=== PATIENT | male | born 1935 | race Caucasian/White ===

== ENCOUNTER 2019-12-25 15:26 | Inpatient (IN) | payer MEDICARE, OTHER ==
[~2019-12-25] VITALS: Ht 177 cm; Wt 73.5 kg
--- NOTE | 2019-12-26 05:11 | Progress Note ---
Progress Note [facility] Hospitalist note: Chief Complaint-Parietal lobe infarction HPI-Yefri Reardon a 84 y.o.malewith COPD, CKD, diabetes, hyperlipidemia, GERD, PVD and hypertension and history of lymphoma who presented to the ED with altered mental status. Patient was discharged 3 days ago because of stroke. He spent 2 days at home and return to the hospital with confusion and word finding. Patient seen and examined this morning at bedside. Patient unable to provide any history. Granddaughter was by the bedside who stated that patient was doing very well initially at home without any much difficulties but yesterday morning, he began to feel confused and unable to speak. He underwent MRI that showed acute expansion of previous stroke. Patient was discharged on aspirin and Plavix. Afebrile and hemodynamically stable today. Able to follow simple commands. Cardiology and neurology consulted. Labs reviewed 12/19 patient was seen and examined at the bedside. was present during evaluation. Aphasia much improved. Had delirium overnight but much improved this morning. Scheduled for TABBY today. Neurology following. 12/20 patient was seen and examined at the bedside. Patient continues to improve. Speech and cognition are much better. Patient has urinary retention for which straight cath was performed and a total of about 700cc of urine was removed 12/21 patient was seen and examined at the bedside. Patient continues to improve daily. 12/22 patient seen and examined. No new complains 12/23 patient was seen and examined. No new complains 12/24 patient was seen and examined. Slowly improving. Unable to discharge today due to bed unavailability Diagnosis Protein-calorie malnutrition, moderate Urinary retention Cerebrovascular accident (CVA) Expressive aphasia Parietal lobe infarction Acute metabolic encephalopathy Elevated troponin I level Transient alteration of awareness Aphasia Diastolic dysfunction Type 2 diabetes mellitus with stage 3 chronic kidney disease, without long- term current use of insulin Hx of splenectomy Type 2 diabetes mellitus without complication, without long-term current use of insulin Low grade B-cell lymphoma Bilateral carotid artery stenosis CKD (chronic kidney disease) stage 3, GFR 30-59 ml/min JAMAL CANADA DO Dec 26, 2019 05:11
[2019-12-26] MEDS ORDERED: CALCIUM CARBONATE 500 MG (TUMS) TAB.CHEW PO PRN (05:15)
[2019-12-26] MEDS ORDERED: ONDANSETRON 4 MG (ZOFRAN) ORAL DISSOLVE TAB PO PRN (05:15)
[2019-12-26] MEDS ORDERED: LACTULOSE SYRUP 10GM/15ML (ENULOSE) 30ML UDC PO PRN (05:15)
[2019-12-26] MEDS ORDERED: ALPRAZolam 0.25 MG (XANAX) TAB PO PRN (05:15)
[2019-12-26] MEDS ORDERED: diphenhydrAMINE 25 MG TAB (BENADRYL) PO PRN (05:15)
[2019-12-26] MEDS ORDERED: MELATONIN 3 MG TABLET PO PRN (05:15)
[2019-12-26] MEDS ORDERED: BISACODYL 10 MG SUPP (DULCOLAX) PR PRN (05:15)
[2019-12-26] MEDS ORDERED: DOCUSATE SODIUM 100 MG (COLACE) CAP PO PRN (05:15)
[2019-12-26] MEDS ORDERED: LOPERAMIDE 2 MG (IMODIUM) TABLET PO PRN (05:15)
[2019-12-26] MEDS ORDERED: FLEET ENEMA ADULT 1 EA BTL PR PRN (05:15)
--- NOTE | 2019-12-26 08:30 | NUR ---
PALLAVI SAUCEDA admitted to room 223-1, with an admitting diagnosis of CVA, on 12/26/19 from [facility] via PRIVATE VEHICLE, accompanied by FAMILY. PALLAVI SAUCEDA introduced to surroundings, call light, bed controls, phone, TV, temperature control, lights, meal times, smoking policy, visitor policy, side rail policy, bathrooms and showers. Patient Rights given to patient in the handbook. PALLAVI SAUCEDA verbalizes understanding that [facility] is not responsible for the loss or damage to any personal effects or valuables that are kept in the patient's possession during their hospitalization. The following Patient Care Plans were discussed with the PATIENT: Discharge Planning, ALTERED CEREBRAL TISSUE PERFUSION, IMPAIRED MOBILITY, SELF CARE DEFICIT, IMPAIRED COMMUNICATION, HIGH RISK: ASPIRATION, and KNOWLEDGE DEFICIT: CVA. PALLAVI SAUCEDA verbalizes understanding of Interdisciplinary Patient Education. Patient received Patient Rights Booklet, which includes Privacy Act Statement and Data Collection Information Summary.
[2019-12-26] MEDS ORDERED: FAMO20TA5 PO (09:15)
[2019-12-26] MEDS ORDERED: CHOL10008 PO (09:15)
[2019-12-26] MEDS ORDERED: SERT25TA5 PO (09:15)
[2019-12-26] MEDS ORDERED: ASPI-1238 PO (09:15)
[2019-12-26] MEDS ORDERED: ATOR40TA70 PO (09:15)
[2019-12-26] MEDS ORDERED: CLOP75TA69 PO (09:15)
[2019-12-26] MEDS ORDERED: ESOM20CA PO (09:15)
[2019-12-26] MEDS ORDERED: LATA2.5D5 OU (09:15)
--- NOTE | 2019-12-26 09:17 | NUR ---
THE MED REC WAS ENTERED USING THE [facility] DISCHARGE ORDER- AFTER MEDICATIONS ARE CONTINUED I WILL SPEAK WITH THE PT AND MAKE CHANGES TO THE MED REC/NOTES IF NEEDED Addendum: 12/28/19 at 1233 by RICHARD SCOTT [facility] WHEN I WENT TO SPEAK WITH THE PT HE WASNT ABLE TO TELL ME MUCH ABOUT HIS MEDICATIONS AND HE SUGGESTED THAT I CALL HIS MILLER. I SPOKE WITH MILLER AND WENT THRU THE EXT MED HISTORY. ACCORDING TO MILLER THE PT HAD BEEN DISCHARGED FROM [facility] WAS AT HOME JUST A FEW DAYS AND THEN WAS RE-ADMITTED. WHEN PALLAVI LEFT [facility] THE FIRST TIME HE WAS SENT HOME WITH ATORVASTATIN 40MG (PREVIOUSLY HE HAD BEEN ON LOVASTATIN 20MG), PLAVIX 75MG, SERTRALINE 25MG, ASPIRIN 81, NEXIUM OTC 20MG, AND FAMOTIDINE 20MG- AND ALL THESE MEDICATIONS THE PT HAD STARTED TAKING WHEN HE WAS AT HOME. THE CURRENT DISCHARGE FROM [facility] HAS THE SAME MEDICATIONS LISTED TO CONTINUE. DUE TO THE INFORMATION ABOVE THERE ARE NO CHANGES THAT NEED TO BE MADE TO THE MED REC.
[2019-12-26] MEDS ORDERED: ACETAMINOPHEN 325 MG TABLET PO PRN (09:30)
[2019-12-26 09:34] VITALS: BP 116/56
--- NOTE | 2019-12-26 10:18 | PM&R Post Admission Assessment ---
PM&R Date of Visit: Dec 26, 2019 Time of Visit: 10:00 History of Present Illness CC: CVA HPI: This is an 84yoWM transferred from [facility] after suffering an extension of a parietal stroke after DC 3 days before from the original stroke in need of aggressive therapy in order to recover. PLOF was independent and driving and currently experiencing expressive aphasia and confusion and will need aggressive treatment in order to recover from the severe deficits. Patient denies pain. I reviewed [facility] DC note and DC meds. [facility] Hospitalist note: Chief Complaint-Parietal lobe infarction HPI-Yefri Reardon a 84 y.o.malewith COPD, CKD, diabetes, hyperlipidemia, GERD, PVD and hypertension and history of lymphoma who presented to the ED with altered mental status. Patient was discharged 3 days ago because of stroke. He spent 2 days at home and return to the hospital with confusion and word finding. Patient seen and examined this morning at bedside. Patient unable to provide any history. Granddaughter was by the bedside who stated that patient was doing very well initially at home without any much difficulties but yesterday morning, he began to feel confused and unable to speak. He underwent MRI that showed acute expansion of previous stroke. Patient was discharged on aspirin and Plavix. Afebrile and hemodynamically stable today. Able to follow simple commands. Cardiology and neurology consulted. Labs reviewed 12/19 patient was seen and examined at the bedside. was present during evaluation. Aphasia much improved. Had delirium overnight but much improved this morning. Scheduled for TABBY today. Neurology following. 12/20 patient was seen and examined at the bedside. Patient continues to improve. Speech and cognition are much better. Patient has urinary retention for which straight cath was performed and a total of about 700cc of urine was removed 12/21 patient was seen and examined at the bedside. Patient continues to improve daily. 12/22 patient seen and examined. No new complains 12/23 patient was seen and examined. No new complains 12/24 patient was seen and examined. Slowly improving. Unable to discharge today due to bed unavailability Diagnosis Protein-calorie malnutrition, moderate Urinary retention Cerebrovascular accident (CVA) Expressive aphasia Parietal lobe infarction Acute metabolic encephalopathy Elevated troponin I level Transient alteration of awareness Aphasia Diastolic dysfunction Type 2 diabetes mellitus with stage 3 chronic kidney disease, without long- term current use of insulin Hx of splenectomy Type 2 diabetes mellitus without complication, without long-term current use of insulin Low grade B-cell lymphoma Bilateral carotid artery stenosis CKD (chronic kidney disease) stage 3, GFR 30-59 ml/min Past Lxfdjii-Eavaxj-Nbrrjg Hx Past Med/Social Hx: Reviewed Nursing Past Med/Soc Hx, Reviewed and Corrections made Patient Social History Marrital Status: 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) Alcohol Use: Denies Use Smoking Status: Never a Smoker Recent Foreign Travel: No Contact w/other who traveled: No Recent Infectious Disease Expo: No Past Medical History splenectomy Cardiac: High Cholesterol, Hypertension Neurological: Stroke Gastrointestinal: Gastroesophageal Reflux Musculoskeletal: Arthritis Cancer: Lymphoma Did You Recieve Any Treatments: Yes PM&R Allergy/Meds/Data Review Allergies Coded Allergies: No Known Drug Allergies (Unverified , 12/26/19) Home Medications Scheduled Aspirin (Aspirin EC), 81 MG PO DAILY, (Reported) Atorvastatin Calcium (Atorvastatin Calcium), 40 MG PO HS, (Reported) Cholecalciferol (Vitamin D3) (Vitamin D3), 25 MCG PO DAILY, (Reported) Clopidogrel Bisulfate (Plavix), 75 MG PO DAILY, (Reported) Esomeprazole Magnesium (Nexium), 40 MG PO BID, (Reported) Latanoprost (Latanoprost), 1 DROP OU HS, (Reported) Sertraline HCl (Sertraline HCl), 25 MG PO DAILY, (Reported) Scheduled PRN Famotidine (Famotidine), 20 MG PO BID PRN for HEARTBURN, (Reported) Current Medications Current Medications Reviewed Review of Systems Constitutional: see HPI, malaise, weakness EENTM: no symptoms reported Respiratory: no symptoms reported Cardiovascular: no symptoms reported Gastrointestinal: no symptoms reported Genitourinary: other (retention) Musculoskeletal: no symptoms reported Skin: no symptoms reported Psychiatric/Neurological: Weakness All Other Systems Reviewed Negative Unless Noted: Yes Physical Exam Physical Exam Vital Signs Vital Signs - First Documented 12/26/19 09:34 Temp 36.6 Pulse 63 Resp 18 B/P (MAP) 116/56 Pulse Ox 93 O2 Delivery Room Air Capillary Refill : Height, Weight, BMI Height: '" Weight: lbs. oz. kg; 25.15 BMI Method: General Appearance: No Apparent Distress, WD/WN, Chronically ill Eyes: Bilateral Eye Normal Inspection, Bilateral Eye PERRL HEENT: PERRL/EOMI, Normal ENT Inspection, Pharynx Normal Neck: Full Range of Motion, Normal Inspection, Non Tender, Supple, Carotid Bruit Respiratory: Chest Non Tender, Lungs Clear, Normal Breath Sounds, No Accessory Muscle Use, No Respiratory Distress Cardiovascular: Regular Rate, Rhythm, No Edema, No Gallop, No JVD, No Murmur, Normal Peripheral Pulses Gastrointestinal: Normal Bowel Sounds, No Organomegaly, No Pulsatile Mass, Non Tender, Soft Back: Normal Inspection, No CVA Tenderness, No Vertebral Tenderness Extremity: Normal Capillary Refill, Normal Inspection, Normal Range of Motion, Non Tender, No Calf Tenderness, No Pedal Edema Neurologic/Psychiatric: Alert, Oriented x3, Normal Mood/Affect, 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 Norm as Tested, Abnormal Gait, Aphasia, Depressed Affect, Motor Weakness (right sided 3/5) Skin: Normal Color, Warm/Dry Lymphatic: No Adenopathy PM&R Medical Assessment & Plan REHAB/MEDICAL ASSESSMENT AND PLAN: REHAB IMPAIRMENT GROUP: CVA ETIOLOGIC DIAGNOSIS: CVA The comorbidities that impact the patients function and/or functional outcome by: advanced age, lymphoma hx, CRI, advanced age, confusion, expressive aphasia REHAB PLAN: The patient is being admitted to our comprehensive inpatient rehabilitation facility and can tolerate the intensity of service consisting of at least: 180 minutes of therapy a day, 5 out of 7 days a week Rehab treatment will consist of: PT OT ST will all focus on regaining function with the use of AD and improve ambulation and cognitive capability in order to return home with The patient/family has a good understanding of our discharge process and will benefit from an interdisciplinary inpatient rehabilitation program. The patient has potential to make improvement and is in need of at least two of the following multidisciplinary therapies including but not limited to physical, occ upational, speech, and prosthetics and orthotics. Additionally the patient will need services from respiratory, nutritional services, wound care, psychology, etc. (Customize this to each patient). Given the patients complex condition and risk of further medical complications, rehabilitation services cannot be safely or effectively provided at a lower level of care such as a prison facility. BARRIERS TO DISCHARGE: Confusion ESTIMATED LOS: 10 days DISPOSITION: Home RELEVANT CHANGES SINCE PREADMISSION SCREENING: I have compared the patients medical and functional status at the time of the preadmission screening and there are: no changes PROGNOSIS: Fair REHABILITATION GOALS: 1. PT OT ST will all focus on regaining function with the use of AD and improve ambulation and cognitive capability in order to return home with All the above goals were reviewed with the patient and he/she is in agreement. By signing this document, I acknowledge that I have personally performed a full physical examination on this patient within 24 hours of admission to this inpatient rehabilitation facility and have determined the patient to be able to tolerate the above course of treatment at an intensive level for a reasonable period of time. I will be completing a detailed individualized Plan of Care for this patient by day #4 of the patients stay based upon the Preadmission Screen, the Post-Admission Evaluation, and the therapy evaluations. Admission Dx/Comorbidities: (1) CVA (cerebral vascular accident) ICD Codes: I63.9 - Cerebral infarction, unspecified (2) Lymphoma in remission ICD Codes: C85.90 - Non-Hodgkin lymphoma, unspecified, unspecified site (3) Renal insufficiency ICD Codes: N28.9 - Disorder of kidney and ureter, unspecified (4) Expressive aphasia ICD Codes: R47.01 - Aphasia (5) Confusion ICD Codes: R41.0 - Disorientation, unspecified (6) Anemia ICD Codes: D64.9 - Anemia, unspecified (7) Retention, urine ICD Codes: R33.9 - Retention of urine, unspecified (8) Delirium ICD Codes: R41.0 - Disorientation, unspecified Assessment/Plan Assessment and Plan Assess & Plan/Chief Complaint Assessment: CVA Expressive aphasia Confusion Urinary retention h/o lymphoma CRI Fall risk Plan: IRF protocol Check labs in am Monitor for falls Monitor urinary retention JAMAL CANADA DO Dec 26, 2019 10:18
[2019-12-26] MEDS ORDERED: FAMOTIDINE 20 MG (PEPCID) TABLET PO PRN (10:45)
[2019-12-26] MEDS: PANTOPRAZOLE 40 MG (PROTONIX) TAB PO SCH ×2 (11:56→21:38)
[2019-12-26] MEDS: VITAMIN D3 25 MCG (1,000 UNITS) TABLET PO SCH (11:56)
[2019-12-26] MEDS: polyethylene glycoL POWDER 17 GM (MIRALAX) PACK PO SCH ×2 (11:56→21:39)
[2019-12-26] MEDS: SENNA W/DOCUSATE (SENOKOT S) TABLET PO SCH ×2 (11:56→21:39)
[2019-12-26] MEDS: DOCUSATE SODIUM 100 MG (COLACE) CAP PO SCH ×2 (11:56→21:40)
[2019-12-26] MEDS: SERTRALINE 50 MG (ZOLOFT) TABLET PO SCH (11:56)
[2019-12-26] MEDS: ENOXAPARIN 40 MG/0.4 ML (LOVENOX) SYR SC SCH (11:58)
--- NOTE | 2019-12-26 11:58 | Physical Therapy Evaluation ---
PT Evaluation-General Medical Diagnosis Admission Date Dec 26, 2019 at 08:55 Medical Diagnosis: CVA Onset Date: Dec 12, 2019 Therapy Diagnosis Therapy Diagnosis: impaired mobility, strength Precautions Precautions/Isolations: Fall Prevention, Standard Precautions Referral Physician: Cristopher Reason for Referral: Evaluation/Treatment Medical History Pertinent Medical History: CVA, GERD, PVD Additional Medical History Benign essential tremor, cancer, lymphoma s/p chemo, chronic renal insufficiency, enlarged spleen Social History Current Living Status: Spouse Entry Into Home: Stairs With Railing PT Steps Into Home: 4 Prior Prior Level of Function SCALE: Activities may be completed with or without assistive devices. 6-Cxnofrwadw-lkruuki completes the activity by him/herself with no assistance from a helper. 5-Set-up or Clean-up Assistance-helper sets up or cleans up; patient completes activity. [place] assists only prior to or following the activity. 4-Supervision or Touching Assistance-helper provides verbal cues and/or touching/steadying and/or contact guard assistance as patient completes activity. Assistance may be provided throughout the activity or intermittently. 3-Partial/Moderate Assistance-helper does LESS THAN HALF the effort. [place] lif ts, holds or supports trunk or limbs, but provides less than half the effort. 2-Substantial/Maximal Assistance-helper does MORE THAN HALF the effort. [place] lifts or holds trunk or limbs and provides more than half the effort. 9-Oyifozbkd-shkvux does ALL the effort. Patient does none of the effort to complete the activity. Or, the assistance of 2 or more helpers is required for the patient to complete the activity. If activity was not attempted, code reason: 7-Patient Refused. 9-Not Applicable-not attempted and the patient did not perform the activity before the current illness, exacerbation or injury. 10-Not Attempted due to Environmental Limitations-(lack of equipment, weather restraints, etc.). 88-Not Attempted due to Medical Conditions or Safety Concerns. unknown, patient is not able to communicate this info PT Evaluation-Current Subjective Patient in recliner pre tx, agrees to PT, has no complaints of pain. Patient has difficulty communicating and can't seem to answer questions that require more than a yes or no answer and has trouble following directions. Pt/Family Goals none stated Objective Patient Orientation: Person, Unable to Assess, Non-Verbal/Aphasic ROM/Strength ROM Lower Extremities WNL Strength Lower Extremities 5/5 gross LLE, 4+/5 gross RLE, accuracy may not be that good because patient has trouble following directions Neuromuscular (Tone, Coordination, Reflexes) Patient seems to have some right neglect and possibly some visual impairments. Sensory Hearing: Functional Sensation Right Lower Extremit: Intact Sensation Left Lower Extremity: Intact Transfers Roll Left & Right (QC): 6 Sit to Lying (QC): 6 Lying to Sitting/Side of Bed(Q: 6 Sit to Stand (QC): 4 Chair/Mmk-no-Cstpo Xfer(QC): 4 Toilet Transfer (QC): 4 Car Transfer (QC): 3 Patient performs bed mobility and supine <-> sit with independence, sit <-> stand and transfers with CGA, car transfer min assist. Patient has trouble following directions and often needs tactile cues. Gait Does the Patient Walk?: Yes Mode of Locomotion: Walk Anticipated Mode of Locomotion: Walk Walk 10 feet (QC): 4 Walk 50 ft with 2 Turns(QC): 4 Walk 150 ft (QC): 4 Walking 10ft/uneven surface-QC: 4 Distance: 100', 200' Gait Assistive Device: FWW Comments/Gait Description Patient can ambulate 200' with a rolling walker with CGA (including 50' with at least 2 turns of 90 degrees and 10' over an uneven surface). Wheelchair Training Does the Pt Use a Wheelchair?: No Wheel 50 ft with 2 turns (QC): 9 Wheel 150 ft (QC): 9 Stairs #of Steps: 4 1 Step (curb) (QC): 4 4 Steps (QC): 4 12 Steps (QC): 88 Patient can go up and down 4 steps using 2 handrails with CGA. Balance Sitting Static: Normal Sitting Dynamic: Normal Standing Static: Good Standing Dynamic: Good Picking up an Object (QC): 4 Treatment NuStep level 4 for 15 min, seated LAQ alternating for 5 min Assessment/Needs Patient has impaired mobility, strength. He has trouble following directions and often needs tactile cues. 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 Time Frame: Jan 16, 2020 Roll Left & Right (QC): 6 Sit to Lying (QC): 6 Lying-Sitting on Side/Bed(QC): 6 Sit to Stand (QC): 6 Chair/Gem-ec-Enctb Xfer(QC): 6 Toilet Transfer (QC): 6 Car Transfer (QC): 6 Does the Patient Walk: Yes Walk 10 feet (QC): 6 Walk 50ft with 2 Turns (QC): 6 Walk 150 ft (QC): 6 Walking 10ft on Uneven Surface: 6 1 Step (curb) (QC): 6 4 Steps (QC): 6 12 Steps (QC): 6 Picking up an Object (QC): 6 Wheel 50 feet with 2 turns (QC: 9 Wheel 150 feet: 9 PT Plan Problem List Problem List: Activity Tolerance, Functional Strength, Safety, Balance, Gait, Transfer Treatment/Plan Treatment Plan: Continue Plan of Care Treatment Plan: Education, Functional Activity Negrita, Functional Strength, Group Therapy, Gait, Safety, Therapeutic Exercise, Transfers Treatment Duration: Jan 16, 2020 Frequency: At least 5 of 7 days/Wk (IRF) Estimated Hrs Per Day: 1.5 hours per day Patient and/or Family Agrees t: Yes Safety Risks/Education Patient Education: Gait Training, Transfer Techniques, Steps, Correct Positioning, Safety Issues Teaching Recipient: Patient Teaching Methods: Demonstration, Discussion Response to Teaching: Reinforcement Needed Discharge Recommendations Plan Patient will perform bed mobility and transfer training, balance and endurance training, functional strengthen, stair training, gait training, and education, to improve functional mobility and independence at home. Therapy Discharge Recommendati: Home & Family Time/GCodes Time In: 1100 Time Out: 1200 Total Billed Treatment Time: 60 Total Billed Treatment 1 visit EVM 30' EX 20' FA 10' FAYE MORALES PT Dec 26, 2019 11:58
--- NOTE | 2019-12-26 12:53 | Occupational Ther Daily Note ---
OT Current Status-Daily Note Subjective Pt in bed upon entry. Pt alert/ oriented to person/ place/ situation (expressive aphasia- able to piece together orientation questions). Pt agrees to OT treatment session. Denies pain throughout. Pleasant, confused, requires increased time for problem solving and increased volume. Mental Status/Objective Patient Orientation: Person, Place, Situation ADL-Treatment Therapy Code Descriptions/Definitions Functional [place] Measure: 0=Not Assessed/NA 4=Minimal Assistance 1=Total Assistance 5=Supervision or Setup 2=Maximal Assistance 6=Modified [place] 3=Moderate Assistance 7=Complete IndependenceSCALE: Activities may be completed with or without assistive devices. 8-Qjwnoxehdb-axapxyy completes the activity by him/herself with no assistance from a helper. 5-Set-up or Clean-up Assistance-helper sets up or cleans up; patient completes activity. [place] assists only prior to or following the activity. 4-Supervision or Touching Assistance-helper provides verbal cues and/or touching/steadying and/or contact guard assistance as patient completes activity. Assistance may be provided throughout the activity or intermittently. 3-Partial/Moderate Assistance-helper does LESS THAN HALF the effort. [place] lifts, holds or supports trunk or limbs, but provides less than half the effort. 2-Substantial/Maximal Assistance-helper does MORE THAN HALF the effort. [place] lifts or holds trunk or limbs and provides more than half the effort. 7-Hqudeoooz-oeccbi does ALL the effort. Patient does none of the effort to complete the activity. Or, the assistance of 2 or more helpers is required for the patient to complete the activity. If activity was not attempted, code reason: 7-Patient Refused. 9-Not Applicable-not attempted and the patient did not perform the activity before the current illness, exacerbation or injury. 10-Not Attempted due to Environmental Limitations-(lack of equipment, weather restraints, etc.). 88-Not Attempted due to Medical Conditions or Safety Concerns. Oral Hygiene (QC): 4 (Completes with SBA/ assist with multiple items. Pt able to complete all tasks ) Bathing Location: L Arm, R Arm, L Upper Leg, R Upper Leg, L Lower Leg (including foot), R Lower Leg (including foot), Chest, Abdomen, Perineal Area Shower/Bathe Self (QC): 3 (min A: pt able to reach all areas, requires assist with bottom hygiene) Upper Body Dressing (QC): 3 (min A for threading UE's and probelm solving.) Lower Body Dressing (QC): 3 (min A assist with threading RLE with breif. Pt able to don pants with SBA including buttons) On/Off Footwear: 4 (SBA in recliner.) Toileting Hygiene (QC): 2 (Jennifer care with CGA in stance. Bottom hygiene with max A in stance.) Toilet Transfer (QC): 4 (CGA on/off) Other Treatment Pt in bed. Pt educated on OT/ role and purpose of tx/ ARU expectations. Pt aphasic, continually apologizes for lack of motoric/ verbal speed. Pt is assured he is able to take time, OT encourages pt to verbalize as well as he can. Pt agrees to tx. Pt supine to sit with SBA. Sit to stand from raised bed with cues for hand placement with SBA. Pt ambulates to recliner. Completes sponge bath as above, cues for problem solving and purpose of tx. Pt requests bathroom. Ambulates with walker to standard toilet, completes urination/ BM. Requires assist with BM clean up. Pt ambulates to sink, walker caught on door frame and pt LOB with min A to right, stands at sink level and completes hand hygiene with CGA. Pt returns to recliner (cues for hand placement), is oriented to remote/ nurse light and TV. Pt's LE's elevated, call light in reach, chair alarm on, water on table, all needs met. Education OT Patient Education: Correct positioning, Modified ADL techniques, Progress toward Goal/Update tx plan, Purpose of tx/functional activities, Rehab process, Safety issues, Transfer techniques Teaching Recipient: Patient Teaching Methods: Demonstration, Discussion Response to Teaching: Verbalize Understanding, Return Demonstration, Reinforcement Needed OT Short Term Goals Short Term Goals Time Frame: Jan 02, 2020 Eatin Oral hygiene: 4 Toileting hygiene: 4 Shower/bathe self: 4 Upper body dressin Lower body dressin Putting on/taking off footwear: 4 OT Chcf Goals Chcf Goals Time Frame: Jan 09, 2020 Eating (QC): 6 Oral Hygiene (QC): 5 Toileting Hygiene (QC): 6 Shower/Bathe Self (QC): 4 Upper Body Dressing (QC): 5 Lower Body Dressing (QC): 5 On/Off Footwear (QC): 5 Additional Goals: 1-Demonstrate ADL Tasks, 2-Verbalize Understanding, 3- ImproveStrength/Negrita 1=Demonstrate adherence to instructed precautions during ADL tasks. 2=Patient will verbalize/demonstrate understanding of assistive devices/modifications for ADL. 3=Patient will improve strength/tolerance for activity to enable patient to perform ADL's. OT Education/Plan Problem List/Assessment Assessment: Decreased Activ Tolerance, Decreased UE Strength, Dependent Transfers, Impaired Cognition, Impaired Funct Balance, Impaired I ADL's, Impaired Self-Care Skills Discharge Recommendations Plan/Recommendations: Continue POC Therapy Discharge Recommendati: Home & Family, Post Acute OT Treatment Plan/Plan of Care Treatment,Training & Education: Yes Patient would benefit from OT for education, treatment and training to promote independence in ADL's, mobility, safety and/or upper extremity function for ADL's. Plan of Care: ADL Retraining, Cognitive Retraining, Functional Mobility, Group Exercise/Act as Ind, UE Funct Exercise/Act, UE Neuromus Re-Ed/Coord, Visual/Perceptual Retrain, W/C Management Training Treatment Duration: Jan 09, 2020 Frequency: At least 5 of 7 days/Wk (IRF) Estimated Hrs Per Day: 1.5 hours per day Agreement: Yes Time/GCodes Start Time: 09:35 Stop Time: 11:05 Total Time Billed (hr/min): 90 Billed Treatment Time 1, ADL 6 (90) RADHA LAWRENCE OTR Dec 26, 2019 12:53
--- NOTE | 2019-12-26 13:42 | Occupational Therapy Eval ---
OT Evaluation-General/PLF Medical Diagnosis Admission Date Dec 26, 2019 at 08:55 Medical Diagnosis: Left Parietal posterior MCA stroke, aphasia Onset Date: Dec 12, 2019 Therapy Diagnosis Therapy Diagnosis: Weakness, Decreased ADL skills, aphasia Precautions Precautions/Isolations: Fall Prevention, Standard Precautions Safety Interventions: None Weight Bear Status Weight Bearing Restriction: Weight Bearing/Tolerated Referral Physician: Cristopher Referral Reason: Activity Tolerance, Self Care, Evaluation/Treatment, Strengthening/ROM Medical History Pertinent Medical History: CAD, COPD, CVA, DM, GERD, HTN, PVD Additional Medical History Benign essential tremor, cancer, lymphoma s/p chemo, chronic renal insufficiency, enlarged spleen Current History 11-3 AMS/stroke work up- MRI negative Repeat MRI- CVA likely embolic nature 12-15 Discharge home - Increased confusion and difficulty with speech. CT showing maturing left MCA CVA TABBY-No thrombus seen Reviewed History: Yes Social History Home: Single Level Current Living Status: Spouse Entry Into Home: Stairs With Railing Steps Into Home: 4 ADL-Prior Level of Function SCALE: Activities may be completed with or without assistive devices. 9-Koylgbljpn-obqnuby completes the activity by him/herself with no assistance from a helper. 5-Set-up or Clean-up Assistance-helper sets up or cleans up; patient completes activity. [place] assists only prior to or following the activity. 4-Supervision or Touching Assistance-helper provides verbal cues and/or touching/steadying and/or contact guard assistance as patient completes activity. Assistance may be provided throughout the activity or intermittently. 3-Partial/Moderate Assistance-helper does LESS THAN HALF the effort. [place] lifts, holds or supports trunk or limbs, but provides less than half the effort. 2-Substantial/Maximal Assistance-helper does MORE THAN HALF the effort. [place] lifts or holds trunk or limbs and provides more than half the effort. 2-Hanhldphd-zuucet does ALL the effort. Patient does none of the effort to complete the activity. Or, the assistance of 2 or more helpers is required for the patient to complete the activity. If activity was not attempted, code reason: 7-Patient Refused. 9-Not Applicable-not attempted and the patient did not perform the activity b efore the current illness, exacerbation or injury. 10-Not Attempted due to Environmental Limitations-(lack of equipment, weather restraints, etc.). 88-Not Attempted due to Medical Conditions or Safety Concerns. ADL PLOF Comments Pt. was independent with daily tasks. Does not use Adaptive device. Drives. 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 does not report pain. Does exhibit some anxiety throughout treatment, and becomes upset when he can't get words out correctly. Mental Status/Objective Patient Orientation: Person, Place Current Glasses/Contacts: Yes Upper Extremity ROM Pt. is able to flex bilateral shoulders to approximately 100 degrees. Note compensation at trunk level with this. This ROM is functional for him. Upper Extremity Coordination Impaired. Pt. is able to touch each finger to thumb on bilateral hands, but is slow and requires multiple cues for this. Upper Extremity Strength Right UE- 3+/5 Left UE-4/5 ADL-Treatment Eating (QC): 88 Oral Hygiene (QC): 10 Shower/Bathe Self (QC): 10 Upper Body Dressing (QC): 10 Lower Body Dressing (QC): 10 On/Off Footwear (QC): 3 (Min assist to untie/tie tennis shoes. Pt. is able to doff/don them. Pt. is able to doff/don slipper socks as well.) Toileting Hygiene (QC): 7 (Pt. states that he does not need to use toilet at this time.) Other Treatments Pt. is evaluated by occupational therapy to determine deficits and goals s/p CVA. Pt. arrives at this facility via private vehicle with spouse and son. Pt. is assisted out of car with min assist, and is able to stand and transfer to [facility]. Pt. is tearful when saying goodbye to family. Pt. arrives at rehab floor and is oriented to space, OT goals, and rehab goals overall. Pt. demonstrates aphasia, both expressively and receptively at times. He is aware that he isn't understanding, and will apologize and ask for OT to repeat self. Moderate difficulty following cues at times. Pt. already dressed at this time and states that his family assisted him with this at prior facility before transfer. In time allotment, pt. is able to demonstrate ability to stand with walker from wheelchair, needing min assist, and take steps to bed with min assist and cues. Pt. transfers sit-supine with min assist, and is able to position self in bed. OT encourages pt. and orients him to continued care he will receive the rest of the day. All needs are met and bed alarm is set. Will see pt. for ADLs and another session later today. Education OT Patient Education: Correct positioning, Modified ADL techniques, Progress t josie Goal/Update tx plan, Purpose of tx/functional activities, Reviewed precautions, Rehab process, Transfer techniques Teaching Recipient: Patient Teaching Methods: Demonstration, Discussion Response to Teaching: Verbalize Understanding, Return Demonstration OT Short Term Goals Short Term Goals Time Frame: Jan 02, 2020 Eatin Oral hygiene: 4 Toileting hygiene: 4 Shower/bathe self: 4 Upper body dressin Lower body dressin Putting on/taking off footwear: 4 OT [employer] Developer Goals [employer] Developer Goals Time Frame: Jan 09, 2020 Eating (QC): 6 Oral Hygiene (QC): 5 Toileting Hygiene (QC): 6 Shower/Bathe Self (QC): 4 Upper Body Dressing (QC): 5 Lower Body Dressing (QC): 5 On/Off Footwear (QC): 5 Additional Goals: 1-Demonstrate ADL Tasks, 2-Verbalize Understanding, 3- ImproveStrength/Negrita 1=Demonstrate adherence to instructed precautions during ADL tasks. 2=Patient will verbalize/demonstrate understanding of assistive devices/modifications for ADL. 3=Patient will improve strength/tolerance for activity to enable patient to perform ADL's. OT Education/Plan Problem List/Assessment Assessment: Decreased Activ Tolerance, Decreased Safety Aware, Decreased UE Strength, Dependent Transfers, Impaired Cognition, Impaired Coordination, Impaired Funct Balance, Impaired I ADL's, Impaired Self-Care Skills, Restricted Funct UE ROM Discharge Recommendations Plan/Recommendations: Continue POC Therapy Discharge Recommendati: Post Acute OT Treatment Plan/Plan of Care Treatment,Training & Education: Yes Patient would benefit from OT for education, treatment and training to promote independence in ADL's, mobility, safety and/or upper extremity function for ADL's. Plan of Care: ADL Retraining, Cognitive Retraining, Functional Mobility, Group Exercise/Act as Ind, UE Funct Exercise/Act, UE Neuromus Re-Ed/Coord, Visual/Perceptual Retrain, W/C Management Training Treatment Duration: Jan 09, 2020 Frequency: At least 5 of 7 days/Wk (IRF) Estimated Hrs Per Day: 1.5 hours per day Agreement: Yes Rehab Potential: Good Time/GCodes Start Time: 08:35 Stop Time: 09:25 Total Time Billed (hr/min): 50 Billed Treatment Time 1, EVM x 15minutes, ADL x 15minutes, FA x 20minutes VU YOST OT Dec 26, 2019 13:42
--- NOTE | 2019-12-26 13:42 | NUR ---
PERSISTENT COUGH, ESPECIALLY AFTER TAKING PILLS. WILL CRUSH AND PUT IN APPLESAUCE.
--- NOTE | 2019-12-26 14:02 | NUR ---
RD ASSESSMENT PMHx: COPD; CKD; DM; TIA; GERD; CA(lymphoma, bone); pneumonia; hypercholesterolemia; stroke; PT INTERACTION: Pt was awake and pleasant during consult for MST score. Note pt has AMS, per chart review. Pt states current appetite is okay. Note PO intake <10% x1meal, per chart review. Pt states following a regular diet at home, and has no issues with chewing/swallowing food. Pt does have a feeder at this time. Pt states no recent issues with nausea, vomiting, constipation or diarrhea, and that he is unsure of his last BM. Note pt currently on bowel regimen of colace BID, senna BID, and miralax BID, per chart review. Pt states current DM management is "pretty poor." Note unable to determine recent HbA1c, per chart review. Pt states no recent wt changes. Note unable to determine recent wt hx, per chart review. Upon visual assessment, pt appears to be adequately nourished with no visible signs of muscle/fat wasting, and a BMI of 25.2 (Normal BMI for age). Though PO intake is poor, given unable to determine wt hx, and visual assessment, pt does not meet criteria for malnutrition per ASPEN guidelines. ABNORMAL NUTRITION-RELATED LAB VALUES No labs drawn at this time. Est. kcal needs: 6780-1704 kcal | 25-30 kcal/kg Est. Pro needs: 63-79 g Pro | 0.8-1.0 g Pro/kg PES STATEMENT: Inadequate oral intake (NI-2.1) related to loss of appetite as evidenced by pt interview and PO intake <10% x1meal. INTERVENTION: Continue with current diet order of Regular diet. Recommend switching to consistent CHO diet if blood glucose levels become elevated. Switch current supplementation order of Ensure Enlive with meals TID, to Glucerna (vary) with meals TID, for increased kcal intake and glucose control. Glucerna provides 220 kcal and 10 g Pro per serving. Did not offer diet education on DM management as pt has AMS. May attempt to offer with family present at bedside. Encouraged pt to eat when able. Will continue to follow and reassess as pt needs, intake, and status change. Stefano Pringle, MS RD LD
--- NOTE | 2019-12-26 14:51 | ST Cognitive Linguistic Eval ---
Speech Evaluation-General Medical Diagnosis Left Parietal posterior MCA stroke, aphasia Onset Date: Dec 12, 2019 Therapy Diagnosis Therapy Diagnosis: Aphasia, Cognitive-communication Referral Referring Physician: Dr. Nicholas Medical History Pertinent Medical History: CAD, COPD, CVA, DM, GERD, HTN, PVD Reviewed History: Yes Social History Current Living Status: Spouse Speech PLF-Current Status Prior Level of Function Patient lived at home with his where he was independent for much of his daily needs. Subjective Patient was pleasant and cooperative with the cognitive assessment. Language Eval: Auditory Comprehends Simple Yes/No Ques: Functional Indent/Objects Multiple [place]: Functional Ident/Pics in Multiple [place]: Functional Follows 1-Step Commands: Mild Follows Complex Directions: Moderate Follows General Conversations: Mild Language Eval: Verbal Language Completes Spontaneous Greeting: Functional Produces Auto, Serial Info: Functional Imitates Simple Words/Phrases: Functional Word Finding: Mild Requests Basic Needs: Functional Expresses Complex Ideas: Moderate Objective Cognitive Domain Attention: Mild Memory: Moderate Problem Solving: Mild Executive Functions: Mild Visuospatial Skills: Mild Composite Severity Rating: Moderate Clock Drawing Severity Rating: Moderate Objective Formal/Standardized Tests [facility] Mental Status ([facility]) Results 18/30, Moderate Dementia range of function Oral Motor/Speech Production Within Normal Limits Impression Patient is a very pleasant 84 y/o male who was admitted to the ARU s/p CVA. Patient was given the UMS as well as informal speech tasks to assess current cognitive level of function. The patient scored 18/30 which is within the Moderate Dementia range of function. The patient is noted to have difficulty with word finding at times. He also has deficits in STM and word finding. The patient will receive skilled ST with focus on improving word finding, memory and safety awareness so that he may return home safer. Speech Patient Assess Expression of Ideas/Wants: Frequently (2) Understanding Verbal Content: Usually Understands (3) Brief Interview-Mental Status: Yes Repetition of Three Words: Two (2) Temporal Orientation: Year: Correct (3) Temporal Orientation: Month: Accurate within 5 days(2) Temporal Orientation: Day: Correct (1) Recall : Wear to say "Sock": No, could not recall (0) Recall : Color: No, could not recall (0) Recall : Bed: Yes,after cueing (1) Memory/Recall Ability: Current season, That he or she is in a hsp/hsp unit Speech Short Term Goals Short Term Goals Short Term Goals 1) The patient will complete memory tasks related to his daily needs with 80% or greater given minimal cues. 2) The patient will complete safety awareness tasks related to his daily needs with 80% or greater given minimal cues. 3) The patient will complete problem solving tasks related to his daily needs with 80% or greater given minimal cues. Speech Social Media Intern Goals Social Media Intern Goals Patient will improve cognitive-communication necessary for safety and daily living tasks with minimal assist. Speech-Plan Patient/Family Goals Patient/Family Goals: The patient plans on returning to his home where he lives with his upon discharge. Treatment Plan Speech Therapy Treatment Plan: Continue Plan of Care Treatment Duration: Jan 05, 2020 Frequency: 4 times per week (Patient will receive skilled ST 4-5x per week) Estimated Hrs Per Day: .5 hour per day Rehab Potential: Fair Barriers to Learning: Patient's recent CVA, age Pt/Family Agrees to Plan: Yes Safety Risks/Education Teaching Recipient: Patient Teaching Methods: Discussion Response to Teaching: Verbalize Understanding, Reinforcement Needed Education Topics Provided: Safety within his room, utilization of his call light Time Speech Therapy Time In: 14:00 Speech Therapy Time Out: 14:30 Total Billed Time: 30 Billed Treatment Time 1, BRISEIDA WOLF [address] ST Dec 26, 2019 14:51
[2019-12-26 16:22] VITALS: BP 148/67
--- NOTE | 2019-12-26 19:12 | NUR ---
Bedside report received from MICHELLE COWAN, assume care of pt
[2019-12-26] MEDS: LATANOPROST 0.005% (XALATAN) OPHTH SOLN 2.5 ML OU SCH (21:37)
[2019-12-26] MEDS: ALPRAZolam 0.25 MG (XANAX) TAB PO SCH (21:38)
--- NOTE | 2019-12-26 21:38 | NUR ---
protonix given whole in pudding, refused miralax & Senokot, all other meds given crushed in pudding, NIH stroke scale score 5, pt very worried about lady in picture with sink running over, assured pt it is just picture & not really happening
[2019-12-27 05:29] VITALS: BP 129/80
[2019-12-27 05:38] LABS: BASOPHILS # (AUTO) 0.1 10^3/uL (0.0-0.1); BASOPHILS % (AUTO) 1 % (0-10); EOSINOPHILS # (AUTO) 0.8 10^3/uL (0.0-0.3); EOSINOPHILS % (AUTO) 7 % (0-10); HEMATOCRIT 39 % (40-54); HEMOGLOBIN 12.8 g/dL (13.3-17.7); LYMPHOCYTES # (AUTO) 2.4 10^3/uL (1.0-4.0); LYMPHOCYTES % (AUTO) 22 % (12-44); MEAN CORPUSCULAR HEMOGLOBIN 33 pg (25-34); MEAN CORPUSCULAR HGB CONC 33 g/dL (32-36); MEAN CORPUSCULAR VOLUME 101 fL (80-99); MEAN PLATELET VOLUME 12.5 fL (9.0-12.2); MONOCYTES % (AUTO) 18 % (0-12); NEUTROPHILS # (AUTO) 5.8 10^3/uL (1.8-7.8); NEUTROPHILS % (AUTO) 52 % (42-75); PLATELET COUNT 249 10^3/uL (130-400); WHITE BLOOD COUNT 11.1 10^3/uL (4.3-11.0)
[2019-12-27 05:41] LABS: ALBUMIN 3.2 GM/DL (3.2-4.5)
[2019-12-27 05:42] LABS: POTASSIUM 4.2 MMOL/L (3.6-5.0)
[2019-12-27 05:43] LABS: CALCIUM 8.3 MG/DL (8.5-10.1)
[2019-12-27 05:44] LABS: TOTAL PROTEIN 6.9 GM/DL (6.4-8.2)
[2019-12-27 05:46] LABS: BILIRUBIN,TOTAL 0.7 MG/DL (0.1-1.0)
[2019-12-27 05:47] LABS: CREATININE SERUM 1.71 MG/DL (0.60-1.30)
[2019-12-27] MEDS: VITAMIN D3 25 MCG (1,000 UNITS) TABLET PO SCH (06:30)
[2019-12-27] MEDS: SENNA W/DOCUSATE (SENOKOT S) TABLET PO SCH ×2 (08:15→20:40)
[2019-12-27] MEDS: ENOXAPARIN 40 MG/0.4 ML (LOVENOX) SYR SC SCH (08:15)
[2019-12-27] MEDS: DOCUSATE SODIUM 100 MG (COLACE) CAP PO SCH ×2 (08:15→20:40)
[2019-12-27] MEDS: ASPIRIN E.C. 81 MG (ECOTRIN) TAB PO SCH (08:16)
[2019-12-27] MEDS: PANTOPRAZOLE 40 MG (PROTONIX) TAB PO SCH ×2 (08:16→20:41)
[2019-12-27] MEDS: SERTRALINE 50 MG (ZOLOFT) TABLET PO SCH (08:16)
[2019-12-27] MEDS: polyethylene glycoL POWDER 17 GM (MIRALAX) PACK PO SCH ×2 (08:16→20:46)
[2019-12-27] MEDS: CLOPIDOGREL 75 MG (PLAVIX) TABLET PO SCH (08:16)
--- NOTE | 2019-12-27 08:53 | Occupational Ther Daily Note ---
OT Current Status-Daily Note Subjective Pt alert, sitting in recliner. Pt very apprehensive today, continues to repeat "I am sorry." and "Thank you." No c/o pain. Mental Status/Objective Patient Orientation: Person, Confused, Non-Verbal/Aphasic, Time, Situation ADL-Treatment Pt agrees to shower. Is unable to remember last shower. Pt is requiring verbal and physical cues to complete tasks. Assist to place hands correctly to push to stand. When asked if pt needs to use the bathroom, pt states "I don't know, my body doesn't know." Verbal and physical cues to manipulate FWW to transfer into shower. Pt needed verbal/physical cues to turn on water. Pt Min A washing uppe r/lower body with verbal cues to get soap on to washcloth, able to reach all body parts. Pt used grab bars to stabilize while standing, CASTANEDA cleansed buttocks area. Pt needed hand over hand direction to place soap on head to wash hair. Pt stated " I think I'm using restroom" while sitting on shower bench not realizing till after bowel movement started. Pt used grab bars to pull self up, used FWW to ambulate to toilet. Pt used grab bars to stabilize SBA, CASTANEDA cleansed buttocks area. Pt ambulated to w/c using FWW. Pt performed upper body dressing CGA, verbal/physical cues to thread arms into shirt. Pt had verbal cues to dress lower body, Min A when threading feet into pants/briefs. Pt used FWW to stabilize while hiking pants over hips by self with verbal cues. Pt threaded socks/shoes onto feet with verbal cues and educated problem solving skills from CASTANEDA. Pt performed oral hygiene, brushing hair Min A at sink in w/c with verbal cues. Pt ambulated back to room using FWW to recliner. Pt was educated on how to use call light. Call light/phone in reach. All needs met in room. Therapy Code Descriptions/Definitions Functional [place] Measure: 0=Not Assessed/NA 4=Minimal Assistance 1=Total Assistance 5=Supervision or Setup 2=Maximal Assistance 6=Modified [place] 3=Moderate Assistance 7=Complete IndependenceSCALE: Activities may be completed with or without assistive devices. 5-Meobpacawf-avmxesd completes the activity by him/herself with no assistance from a helper. 5-Set-up or Clean-up Assistance-helper sets up or cleans up; patient completes activity. [place] assists only prior to or following the activity. 4-Supervision or Touching Assistance-helper provides verbal cues and/or touching/steadying and/or contact guard assistance as patient completes activity. Assistance may be provided throughout the activity or intermittently. 3-Partial/Moderate Assistance-helper does LESS THAN HALF the effort. [place] lifts, holds or supports trunk or limbs, but provides less than half the effort. 2-Substantial/Maximal Assistance-helper does MORE THAN HALF the effort. [place] lifts or holds trunk or limbs and provides more than half the effort. 4-Vezwgepmv-vfmads does ALL the effort. Patient does none of the effort to complete the activity. Or, the assistance of 2 or more helpers is required for the patient to complete the activity. If activity was not attempted, code reason: 7-Patient Refused. 9-Not Applicable-not attempted and the patient did not perform the activity before the current illness, exacerbation or injury. 10-Not Attempted due to Environmental Limitations-(lack of equipment, weather restraints, etc.). 88-Not Attempted due to Medical Conditions or Safety Concerns. Oral Hygiene (QC): 4 Bathing Location: L Arm, R Arm, L Upper Leg, R Upper Leg, L Lower Leg (including foot), R Lower Leg (including foot), Chest, Abdomen Shower/Bathe Self (QC): 3 Upper Body Dressing (QC): 4 Lower Body Dressing (QC): 3 On/Off Footwear: 4 Toileting Hygiene (QC): 2 Toilet Transfer (QC): 3 OT Short Term Goals Short Term Goals Time Frame: Jan 02, 2020 Eatin Oral hygiene: 4 Toileting hygiene: 4 Shower/bathe self: 4 Upper body dressin Lower body dressin Putting on/taking off footwear: 4 OT Software Specialist Goals Senior Care Goals Time Frame: Jan 09, 2020 Eating (QC): 6 Oral Hygiene (QC): 5 Toileting Hygiene (QC): 6 Shower/Bathe Self (QC): 4 Upper Body Dressing (QC): 5 Lower Body Dressing (QC): 5 On/Off Footwear (QC): 5 Additional Goals: 1-Demonstrate ADL Tasks, 2-Verbalize Understanding, 3- ImproveStrength/Negrita 1=Demonstrate adherence to instructed precautions during ADL tasks. 2=Patient will verbalize/demonstrate understanding of assistive devices/modifications for ADL. 3=Patient will improve strength/tolerance for activity to enable patient to perform ADL's. OT Education/Plan Problem List/Assessment Assessment: Decreased Activ Tolerance, Decreased Safety Aware, Decreased UE Strength, Impaired Coordination, Impaired Funct Balance, Impaired Self-Care Skills Discharge Recommendations Plan/Recommendations: Continue POC Treatment Plan/Plan of Care Patient would benefit from OT for education, treatment and training to promote independence in ADL's, mobility, safety and/or upper extremity function for ADL's. Plan of Care: ADL Retraining, Cognitive Retraining, Functional Mobility, Group Exercise/Act as Ind, UE Funct Exercise/Act, UE Neuromus Re-Ed/Coord, Visua l/Perceptual Retrain, W/C Management Training Treatment Duration: Jan 09, 2020 Frequency: At least 5 of 7 days/Wk (IRF) Estimated Hrs Per Day: 1.5 hours per day Agreement: Yes Rehab Potential: Fair Time/GCodes Start Time: 07:30 Stop Time: 09:00 Total Time Billed (hr/min): 90 Billed Treatment Time 1 visit- ADL 6 (90 mins) MILLA PICKETT Dec 27, 2019 08:53
--- NOTE | 2019-12-27 11:12 | Speech Therapy Daily Note ---
Speech Daily Progress Note Subjective Date Seen by Provider: Dec 27, 2019 Time Seen by Provider: 00:30 Patient was resting in his recliner. Patient participated well with therapy. Patient frequently uses the carrier phrases of "I'm so sorry" "Thank you so much". Objective Patient completed q/a related to self and environment with 60% given maximum verbal cues and redirection. Assessment Assessment Current Status: Fair Progress Treatment Plan Continue Plan of Care Speech Short Term Goals Short Term Goals Short Term Goals 1) The patient will complete memory tasks related to his daily needs with 80% or greater given minimal cues. 2) The patient will complete safety awareness tasks related to his daily needs with 80% or greater given minimal cues. 3) The patient will complete problem solving tasks related to his daily needs wi th 80% or greater given minimal cues. Speech Customer Support Agent Goals Mcc Goals Patient will improve cognitive-communication necessary for safety and daily living tasks with minimal assist. Speech-Plan Patient/Family Goals Patient/Family Goals: Patient plans on returning to his home where he lives with his . Treatment Plan Speech Therapy Treatment Plan: Continue Plan of Care Treatment Duration: Jan 05, 2020 Frequency: 4 times per week (Patient will receive skilled ST 4-5x per week) Estimated Hrs Per Day: .5 hour per day Rehab Potential: Fair Barriers to Learning: Patient's recent CVA/expressive aphasia Pt/Family Agrees to Plan: Yes Safety Risks/Education Teaching Recipient: Patient Teaching Methods: Demonstration, Discussion Response to Teaching: Verbalize Understanding, Return Demonstration Education Topics Provided: Safety within his room, communication of wants/needs Time Speech Therapy Time In: 09:30 Speech Therapy Time Out: 10:00 Total Billed Time: 30 Billed Treatment Time 1BRISEIDA BETHANIA ST Dec 27, 2019 11:12
--- NOTE | 2019-12-27 11:43 | PM&R Progress Note ---
Subjective HPI/CC On Admission Date Seen by Provider: Dec 27, 2019 Time Seen by Provider: 09:30 Subjective/Events-last exam Aphasia continues Bowels moved yesterday so will continue laxatives Becomes tearful at times 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 Checked meds and labs Reviewed therapy notes Conferred with port captain of Systems General: Fatigue, Malaise Neurological: Weakness, Change in speech, Confusion Objective Exam Vital Signs Vital Signs Date Time Temp Pulse Resp B/P (MAP) Pulse Ox O2 Delivery O2 Flow Rate FiO2 12/27/19 20:57 Room Air 12/27/19 17:35 37.4 65 17 126/61 (82) 92 Capillary Refill : Less Than 3 Seconds General Appearance: No Apparent Distress, WD/WN, Chronically ill HEENT: PERRL/EOMI, Normal ENT Inspection, Pharynx Normal Neck: Full Range of Motion, Normal Inspection, Non Tender, Supple, Carotid Bruit Respiratory: Chest Non Tender, Lungs Clear, Normal Breath Sounds, No Accessory Muscle Use, No Respiratory Distress Cardiovascular: Regular Rate, Rhythm, No Edema, No Gallop, No JVD, No Murmur, Normal Peripheral Pulses Gastrointestinal: Normal Bowel Sounds, No Organomegaly, No Pulsatile Mass, Non Tender, Soft Back: Normal Inspection, No CVA Tenderness, No Vertebral Tenderness Extremity: Normal Capillary Refill, Normal Inspection, Normal Range of Motion, Non Tender, No Calf Tenderness, No Pedal Edema Neurologic/Psychiatric: Alert, Oriented x3, Normal Mood/Affect, pump tender II-XII Norm as Tested, Abnormal Gait, Aphasia, Depressed Affect, Motor Weakness (right sided 3/5) Skin: Normal Color, Warm/Dry Lymphatic: No Adenopathy Results/Procedures Lab Patient resulted labs reviewed. FIM Transfers Therapy Code Descriptions/Definitions Functional [place] Measure: 0=Not Assessed/NA 4=Minimal Assistance 1=Total Assistance 5=Supervision or Setup 2=Maximal Assistance 6=Modified [place] 3=Moderate Assistance 7=Complete IndependenceSCALE: Activities may be completed with or without assistive devices. 9-Gmhqqnylsn-syjyhtl completes the activity by him/herself with no assistance from a helper. 5-Set-up or Clean-up Assistance-helper sets up or cleans up; patient completes activity. [place] assists only prior to or following the activity. 4-Supervision or Touching Assistance-helper provides verbal cues and/or touching/steadying and/or contact guard assistance as patient completes activity. Assistance may be provided throughout the activity or intermittently. 3-Partial/Moderate Assistance-helper does LESS THAN HALF the effort. [place] lifts, holds or supports trunk or limbs, but provides less than half the effort. 2-Substantial/Maximal Assistance-helper does MORE THAN HALF the effort. [place] lifts or holds trunk or limbs and provides more than half the effort. 1-Dtdirxbjc-njsemo does ALL the effort. Patient does none of the effort to complete the activity. Or, the assistance of 2 or more helpers is required for the patient to complete the activity. If activity was not attempted, code reason: 7-Patient Refused. 9-Not Applicable-not attempted and the patient did not perform the activity before the current illness, exacerbation or injury. 10-Not Attempted due to Environmental Limitations-(lack of equipment, weather restraints, etc.). 88-Not Attempted due to Medical Conditions or Safety Concerns. Roll Left to Right (QC): 6 Sit to Lying (QC): 6 Sit to Stand (QC): 4 Chair/Lst-on-Fedbf Xfer(QC): 4 Car Transfer (QC): 3 Gait Training Walk 10 feet (QC): 4 Walk 50 ft with 2 Turns(QC): 4 Walk 150 ft (QC): 4 Walking 10ft/uneven surface-QC: 4 Gait Assistive Device: FWW Wheelchair Training Wheel 50 ft with 2 turns (QC): 9 Wheel 150 ft (QC): 9 Stair Training #of Steps: 4 1 Step (curb) (QC): 4 4 Steps (QC): 4 12 Steps (QC): 88 Balance Picking up an Object (QC): 4 ADL-Treatment Eating (QC): 88 Oral Hygiene (QC): 4 Bathing Location: L Arm, R Arm, L Upper Leg, R Upper Leg, L Lower Leg (including foot), R Lower Leg (including foot), Chest, Abdomen Shower/Bathe Self (QC): 3 Upper Body Dressing (QC): 3 Lower Body Dressing (QC): 3 On/Off Footwear (QC): 4 Toileting Hygiene (QC): 2 Toilet Transfer (QC): 3 Assessment/Plan Assessment and Plan Assess & Plan/Chief Complaint Assessment: CVA Expressive aphasia Confusion Urinary retention h/o lymphoma CRI Fall risk Plan: IRF protocol Check labs in am Monitor for falls Monitor urinary retention 12/27/19: Aphasia management Monitor BP Monitor creatinine (1) CVA (cerebral vascular accident) (2) Lymphoma in remission (3) Renal insufficiency (4) Expressive aphasia (5) Confusion (6) Anemia (7) Retention, urine (8) Delirium JAMAL CANADA DO Dec 27, 2019 11:43
--- NOTE | 2019-12-27 11:43 | Individualized Plan of Care ---
Individualized Plan of Care Rehab Nursing IPOC Order Admission Date Dec 26, 2019 at 08:55 Current Orders Orders Admission Order(Inpt,Obs,Sdc) (12/26/19 05:08) Vital Signs: Per Unit Policy ( 08,16,00 (12/26/19 05:08) Arnaldo Mansfield 09,21 (12/26/19 05:08) Sequential Compression Device Q4H (12/26/19 05:08) Vehicle Delivery Worker-Inpt Rehab Con (12/26/19 05:08) Rehab Nursing Orders-Ipoc (12/26/19 05:08) Physical Therapy Rehab Orders (12/26/19 05:08) Occupational Therapy Rehab Ord (12/26/19 05:08) Speech Therapy Rehab Orders (12/26/19 05:08) Cbc With Automated Diff (12/27/19 06:00) Comprehensive Metabolic Panel (12/27/19 06:00) General/Regular (12/26/19 Breakfast) Intake & Output 06,14,22 (12/26/19 05:08) Precautions (Aru) (12/26/19 05:08) Rehab-Intensity Of Therapy (12/26/19 05:08) Initiate Admission Nursing Pro .admission (12/26/19 05:08) Alprazolam Tablet (Xanax Tablet) (12/26/19 05:15) Calcium Carbonate Chew Tablet (Antacid C (12/26/19 05:15) Diphenhydramine Tablet (Benadryl Tablet) (12/26/19 05:15) Docusate Sodium Capsule (Colace Capsule) (12/26/19 09:00) Docusate Sodium Capsule (Colace Capsule) (12/26/19 05:15) Bisacodyl Suppository (Dulcolax Supposit (12/26/19 05:15) Lactulose Oral Solution (Enulose Oral So (12/26/19 05:15) Na Phos/Na Biphos Enema (Fleet Enema Mike (12/26/19 05:15) Guaifenesin/Codeine Syrup (Robitussin Ac (12/26/19 05:15) Loperamide Tablet (Imodium Tablet) (12/26/19 05:15) Enoxaparin Injection (Lovenox Injection) (12/26/19 10:00) Melatonin Tablet (Melatonin Tablet) (12/26/19 05:15) Polyethylene Glycol Powder Pkt (Miralax (12/26/19 09:00) Ondansetron Oral Dissolve Tab (Zofran (12/26/19 05:15) Senna S Tablet (Senokot S Tablet) (12/26/19 09:00) Code/Resuscitation (12/26/19 05:08) Initiate Admission Nursing Pro .admission (12/26/19 05:08) Admission Arrival Bed Request (12/26/19 08:55) Acetaminophen Tablet/Caplet (Tylenol T (12/26/19 09:30) Aspirin Enteric Coated Tablet (Ecotrin T (12/27/19 09:00) Atorvastatin Tablet (Lipitor) (12/26/19 21:00) Clopidogrel Tablet (Plavix Tablet) (12/27/19 09:00) Famotidine Tablet (Pepcid Tablet) (12/26/19 10:45) Latanoprost 0.005% Ophth Soln (Xalatan 0 (12/26/19 21:00) Pantoprazole Tablet (Protonix Tablet) (12/26/19 10:44) Alprazolam Tablet (Xanax Tablet) (12/26/19 21:00) Cholecalciferol Capsule/Tablet (Vitamin (12/26/19 10:43) Sertraline Tablet (Zoloft Tablet) (12/26/19 10:45) Ensure Enlive (12/26/19 Lunch) Ambulate ,12,20 (12/26/19 11:25) Sequential Compression Device Q4H (12/26/19 11:25) Dvt/Vte Risk - Notifiy Physici Q4H (12/26/19 11:25) Follow-Up Appointment (12/26/19 11:48) Patient Visit (12/26/19 ) Speech Sound Lang Comp (12/26/19 ) Treat. Speech/Lang/Voice (12/26/19 ) Glucerna (12/26/19 Dinner) Patient Visit (12/26/19 ) Pt Eval Moderate Complexity (12/26/19 ) Exercise Therap, Ea 15 Min (12/26/19 ) Functional Activities, Ea 15 (12/26/19 ) Patient Visit (12/27/19 ) Treat. Speech/Lang/Voice (12/27/19 ) Patient Visit (12/27/19 ) Gait Training, Ea 15 Min (12/27/19 ) Exercise Therap, Ea 15 Min (12/27/19 ) Functional Activities, Ea 15 (12/27/19 ) Rehab Nursing Orders: Ongoing Assess. of Cognitive Status, Ongoing Assess. of Function Status, Bladder Management, Bladder Scan, Bladder Training, Bowel Management, Bowel Training, Disease Management & Educaiton, DVT Prophylaxis, Fall Prevention, Fluid/Electrolyte/Nutrition Mgmt, Infection Prevention, Medication Management & Education, Management of Risks & Complications, Nutrition Management, Pain Management, Patient/Family Support, Safety Management , Swallow Precautions Intensity of Therapy to be met Patient to be seen: Min.3h per day/5 of 7d PT IPOC Problem List: Activity Tolerance, Functional Strength, Safety, Balance, Gait, Transfer Treatment Plan: Continue Plan of Care Education, Functional Activity Negrita, Functional Strength, Group Therapy, Gait, Safety, Therapeutic Exercise, Transfers Treatment Duration: Jan 16, 2020 Frequency: At least 5 of 7 days/Wk (IRF) Estimated Hrs Per Day: 1.5 hours per day OT IPOC Problems: Decreased Activ Tolerance, Decreased Safety Aware, Decreased UE Strength, Impaired Coordination, Impaired Funct Balance, Impaired Self-Care Skills OT Treatment, Training and Edu: Yes Plan of Care: ADL Retraining, Cognitive Retraining, Functional Mobility, Group Exercise/Act as Ind, UE Funct Exercise/Act, UE Neuromus Re-Ed/Coord, Visual/Perceptual Retrain, W/C Management Training Treatment Duration: Jan 09, 2020 Frequency: At least 5 of 7 days/Wk (IRF) Estimated Hrs Per Day: 1.[address] IPOC Speech Therapy Treatment Plan: Continue Plan of Care Treatment Duration: Jan 05, 2020 Frequency: 4 times per week (Patient will receive skilled ST 4-5x per week) Estimated Hrs Per Day: .5 hour per day Vehicle Delivery Worker/Case Mgmt Vehicle Delivery Worker/Case Managemen: Discharge Planning Dietitian/Mold Mechanic Dietitian/Mold Mechanic to monitor nutritional status and make changes and/or recommendations as needed and work with speech pathology on dietary upgrades as the occur. 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
--- NOTE | 2019-12-27 12:45 | NUR ---
CM/SS ADMISSION and PATIENT CARE CONFERENCE Patient was admitted to ARU 12/26/19 from [facility] for CVA. Patient was at [facility] initially 12/12/19 for CVA of embolic nature and discharged home 12/16/19. He again had acute onset of symptoms of confusion and speech difficulty and returned to [facility] ER 12/18/[address] showing expansion of previous stroke. Other comorbidities are, in part, expressive aphasia, aphasia, confusion, lymphoma in remission, renal insufficiency/urinary retention. 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 Scribbles. He resides with his of nearly 63 years (02/04 anniversary) and the goal is for his return home when able. PCP: Shayy Glass DO, [facility]. [phone]. Per Carolyne, the goal is to get established with Dr. Milan Sage MD; however, he is reportedly booked out until June 2020. Carolyne stated they will continue with Dr. Galss until they can get into Dr. Sage. PHARMACY: [facility] in [facility]. INSURANCE: Medicare, supplement [employer] through January. They plan to change their supplement for Feb 09 2020. DME: Patient has none and has never needed any. Therapy team to make recommendations for appropriate assistive devices for patient's performance and home safety. BARRIERS TO DISCHARGE PLAN: None notable at this point in assessment. Patient has adequate insurance and very supportive family. Patient progress to be followed, particularly as it pertains to any lingering deficits and functional limitations regarding lifestyle modifications. CONTACTS: Carolyne Tarango, Spouse [address] [place] [address] Kalee Sherwood, Daughter [address] [place] [address] Yefri Clemente "John" Sukhdeep, Son [place], [place] PATIENT CARE CONFERENCE: Patient arrived 12/25 as noted, his first review was today. Discussed Summary with spouse who understands the purpose and process of the weekly conference and that his next review will be January 02.
--- NOTE | 2019-12-27 13:27 | Physical Therapy Daily Note ---
PT Daily Note-Current Subjective Pt sitting in recliner upon arrival. Pt agrees to PT but demonstrates confusion. Pain Location: No Pain Reported Mental Status Patient Orientation: Person, Confused Transfers SCALE: Activities may be completed with or without assistive devices. 1-Fcwcnteili-ngsefif completes the activity by him/herself with no assistance from a helper. 5-Set-up or Clean-up Assistance-helper sets up or cleans up; patient completes activity. [place] assists only prior to or following the activity. 4-Supervision or Touching Assistance-helper provides verbal cues and/or touching/steadying and/or contact guard assistance as patient completes activity. Assistance may be provided throughout the activity or intermittently. 3-Partial/Moderate Assistance-helper does LESS THAN HALF the effort. [place] lifts, holds or supports trunk or limbs, but provides less than half the effort. 2-Substantial/Maximal Assistance-helper does MORE THAN HALF the effort. [place] lifts or holds trunk or limbs and provides more than half the effort. 3-Kslveifbe-ayepnh does ALL the effort. Patient does none of the effort to complete the activity. Or, the assistance of 2 or more helpers is required for the patient to complete the activity. If activity was not attempted, code reason: 7-Patient Refused. 9-Not Applicable-not attempted and the patient did not perform the activity before the current illness, exacerbation or injury. 10-Not Attempted due to Environmental Limitations-(lack of equipment, weather restraints, etc.). 88-Not Attempted due to Medical Conditions or Safety Concerns. Sit to Stand (QC): 4 Weight Bearing Full Weight Bearing Full Weight Bearing Gait Training Does the Patient Walk?: Yes Distance: 150', 250' Walk 10 feet (QC): 4 Walk 50 ft with 2 Turns(QC): 4 Walk 150 ft (QC): 4 Gait Persons Needed: 1 Gait Assistive Device: FWW Pt needs VC for directions and explanation of tasks. Wheelchair Training Does the Pt Use a Wheelchair?: No Exercises Seated Therapy Exercises: Ankle pumps, Long arc quads, Hip flexion, Kicking activity Seated Reps: 15 NuStep Minutes: 15 NuStep Workload: 4 Treatments TF to standing and amb. in hallway. Uses NuStep and completes Seated Ex. Amb. in hallway and returns to room to rest in recliner. All needs met, call light in hand. Assessment Current Status: Fair Progress Pt is confused and needs simple directions to complete tasks. PT Short Term Goals Short Term Goals Time Frame: Jan 02, 2020 Roll Left & Right: 6 Sit to lyin Lying to sitting on side of be: 6 Sit to stand: 5 Chair/bbo-ao-npwnz transfer: 5 Toilet transfer: 5 Walk 10 feet: 5 Walk 50 feet with two turns: 5 Walk 150 feet: 5 PT Basting Machine Operator Goals Basting Machine Operator Goals PT Long-Term Goals Time Frame: Jan 16, 2020 Roll Left & Right (QC): 6 Sit to Lying (QC): 6 Lying-Sitting on Side/Bed(QC): 6 Sit to Stand (QC): 6 Chair/Hla-zg-Daezu Xfer(QC): 6 Toilet Transfer (QC): 6 Car Transfer (QC): 6 Does the Patient Walk: Yes Walk 10 feet (QC): 6 Walk 50ft with 2 Turns (QC): 6 Walk 150 ft (QC): 6 Walking 10ft on Uneven Surface: 6 1 Step (curb) (QC): 6 4 Steps (QC): 6 12 Steps (QC): 6 Picking up an Object (QC): 6 Wheel 50 feet with 2 turns (QC: 9 Wheel 150 feet: 9 PT Plan Problem List Problem List: Activity Tolerance, Functional Strength, Gait, Transfer Treatment/Plan Treatment Plan: Continue Plan of Care Treatment Plan: Education, Functional Activity Negrita, Functional Strength, Group Therapy, Gait, Safety, Therapeutic Exercise, Transfers Treatment Duration: Jan 16, 2020 Frequency: At least 5 of 7 days/Wk (IRF) Estimated Hrs Per Day: 1.5 hours per day Patient and/or Family Agrees t: Yes Safety Risks/Education Patient Education: Transfer Techniques, Correct Positioning, Safety Issues Teaching Recipient: Patient Teaching Methods: Discussion Response to Teaching: Reinforcement Needed Time/GCodes Time In: 1030 Time Out: 1115 Total Billed Treatment Time: 45 Total Billed Treatment 1, GT (20m) & EX x2 (25m) GURMEET JUAREZ ATTENDANT COIN OPERATED LAUNDRY Dec 27, 2019 13:27
--- NOTE | 2019-12-27 15:13 | Physical Therapy Daily Note ---
PT Daily Note-Current Subjective Pt sitting in recliner upon arrival. Pt agrees to PT. Pain Location: No Pain Reported Mental Status Patient Orientation: Person, Confused Transfers SCALE: Activities may be completed with or without assistive devices. 0-Czlbprxfiv-wbmlxct completes the activity by him/herself with no assistance from a helper. 5-Set-up or Clean-up Assistance-helper sets up or cleans up; patient completes activity. [place] assists only prior to or following the activity. 4-Supervision or Touching Assistance-helper provides verbal cues and/or touching/steadying and/or contact guard assistance as patient completes activity. Assistance may be provided throughout the activity or intermittently. 3-Partial/Moderate Assistance-helper does LESS THAN HALF the effort. [place] lifts, holds or supports trunk or limbs, but provides less than half the effort. 2-Substantial/Maximal Assistance-helper does MORE THAN HALF the effort. [place] lifts or holds trunk or limbs and provides more than half the effort. 0-Fsylivpml-rumbxv does ALL the effort. Patient does none of the effort to complete the activity. Or, the assistance of 2 or more helpers is required for the patient to complete the activity. If activity was not attempted, code reason: 7-Patient Refused. 9-Not Applicable-not attempted and the patient did not perform the activity before the current illness, exacerbation or injury. 10-Not Attempted due to Environmental Limitations-(lack of equipment, weather restraints, etc.). 88-Not Attempted due to Medical Conditions or Safety Concerns. Sit to Stand (QC): 4 Toilet Transfer (QC): 4 Weight Bearing Full Weight Bearing Full Weight Bearing Gait Training Does the Patient Walk?: Yes Distance: 250' x2 Walk 10 feet (QC): 4 Walk 50 ft with 2 Turns(QC): 4 Walk 150 ft (QC): 4 Gait Persons Needed: 1 Gait Assistive Device: FWW Pt walks with slow [place] and needs VC for direction. Wheelchair Training Does the Pt Use a Wheelchair?: No Treatments TF to standing and amb. in hallway before returning to room. Pt uses BR then returns to recliner to rest at end of tx. All needs met, call light in hand. Assessment Current Status: Fair Progress Pt continues to remain confused, needing VC to complete tasks. PT Short Term Goals Short Term Goals Time Frame: Jan 02, 2020 Roll Left & Right: 6 Sit to lyin Lying to sitting on side of be: 6 Sit to stand: 5 Chair/kef-nq-dmrox transfer: 5 Toilet transfer: 5 Walk 10 feet: 5 Walk 50 feet with two turns: 5 Walk 150 feet: 5 PT Senior Care Goals Media Assistant Goals PT Senior Care Goals Time Frame: Jan 16, 2020 Roll Left & Right (QC): 6 Sit to Lying (QC): 6 Lying-Sitting on Side/Bed(QC): 6 Sit to Stand (QC): 6 Chair/Bun-qp-Bueia Xfer(QC): 6 Toilet Transfer (QC): 6 Car Transfer (QC): 6 Does the Patient Walk: Yes Walk 10 feet (QC): 6 Walk 50ft with 2 Turns (QC): 6 Walk 150 ft (QC): 6 Walking 10ft on Uneven Surface: 6 1 Step (curb) (QC): 6 4 Steps (QC): 6 12 Steps (QC): 6 Picking up an Object (QC): 6 Wheel 50 feet with 2 turns (QC: 9 Wheel 150 feet: 9 PT Plan Problem List Problem List: Activity Tolerance, Functional Strength, Safety Treatment/Plan Treatment Plan: Continue Plan of Care Treatment Plan: Education, Functional Activity Negrita, Functional Strength, Group Therapy, Gait, Safety, Therapeutic Exercise, Transfers Treatment Duration: Jan 16, 2020 Frequency: At least 5 of 7 days/Wk (IRF) Estimated Hrs Per Day: 1.5 hours per day Patient and/or Family Agrees t: Yes Safety Risks/Education Patient Education: Correct Positioning, Safety Issues Teaching Recipient: Patient Teaching Methods: Discussion Response to Teaching: Reinforcement Needed Time/GCodes Time In: 1345 Time Out: 1415 Total Billed Treatment Time: 30 Total Billed Treatment 1, GT (15m) & FA (15m) GURMEET JUAREZ TYPEWRITER MECHANIC Dec 27, 2019 15:13
[2019-12-27 17:35] VITALS: BP 126/61
[2019-12-27] MEDS: ALPRAZolam 0.25 MG (XANAX) TAB PO SCH (20:40)
[2019-12-27] MEDS: guaiFENesin/CODEINE (ROBITUSSIN AC) 10ML UDC PO PRN (20:42)
[2019-12-27] MEDS: LATANOPROST 0.005% (XALATAN) OPHTH SOLN 2.5 ML OU SCH (20:50)
--- NOTE | 2019-12-27 21:00 | NUR ---
HAD COUGHING SPELL EARLIER, BUT IMPROVED NOW. MEDS CRUSHED AND PUT IN APPLESAUCE. SCRUNCHED UP FACE AND TOOK HIM A WHILE TO SWALLOW. BUT DENIED DIFFICULTY IN SWALLOWING OR A SORE THROAT. STATES "IT'S ALWAYS LIKE THIS WHEN I TAKE PILLS". REPEATEDLY SAYS "I'M SORRY". WAS HAPPY TO TALK TO ON PHONE.
[2019-12-28] MEDS: guaiFENesin/CODEINE (ROBITUSSIN AC) 10ML UDC PO PRN ×3 (03:15→18:04)
--- NOTE | 2019-12-28 03:15 | NUR ---
COUGHING EPISODE AGAIN WHEN BEING REPOSITIONED. MEDICATED WITH ROBITUSSIN.
[2019-12-28 05:21] VITALS: BP 131/62
[2019-12-28] MEDS: VITAMIN D3 25 MCG (1,000 UNITS) TABLET PO SCH (06:48)
--- NOTE | 2019-12-28 09:00 | Occupational Ther Daily Note ---
OT Current Status-Daily Note Subjective Pt was in chair upon arrival. Pt no c/o pain. Pt agreed to therapy. Mental Status/Objective Patient Orientation: Person, Confused, Time, Situation ADL-Treatment Gave pt pants and pt was able to problem solve how to don pants. Donning shoes, pt stood on one leg and lifted other leg to slide shoes on with min A for stabilization. Pt requires cues to place hands on armrests to push from seated position. Pt unable to decisively answer to questions and ask what do you think. Sitting at sink, pt needed guidance by CASTANEDA asking what will you do with this (electric razor) and pt able to complete task with minimal prompting. Directing pt to look at items on sink and asking what else do you need to do, pt able to process brushing teeth as next task. Given increased time to process, pt able to problem solve what to use and the steps to complete task with minimal cues. Pt sat in w/c to complete oral care/brushing hair at sink, with verbal cue. Pt ambulated to toilet using FWW, pt used grab bars to pull self up while CASTANEDA cleansed perineal area. Pt used grab bars to stabilize while hiking pants over hips by self. Therapy Code Descriptions/Definitions Functional [place] Measure: 0=Not Assessed/NA 4=Minimal Assistance 1=Total Assistance 5=Supervision or Setup 2=Maximal Assistance 6=Modified [place] 3=Moderate Assistance 7=Complete IndependenceSCALE: Activities may be completed with or without assistive devices. 6-Ajxgmnaelm-aectrip completes the activity by him/herself with no assistance from a helper. 5-Set-up or Clean-up Assistance-helper sets up or cleans up; patient completes activity. [place] assists only prior to or following the activity. 4-Supervision or Touching Assistance-helper provides verbal cues and/or touching/steadying and/or contact guard assistance as patient completes activity. Assistance may be provided throughout the activity or intermittently. 3-Partial/Moderate Assistance-helper does LESS THAN HALF the effort. [place] lifts, holds or supports trunk or limbs, but provides less than half the effort. 2-Substantial/Maximal Assistance-helper does MORE THAN HALF the effort. [place] lifts or holds trunk or limbs and provides more than half the effort. 2-Zmgnmsxny-fvryuf does ALL the effort. Patient does none of the effort to complete the activity. Or, the assistance of 2 or more helpers is required for the patient to complete the activity. If activity was not attempted, code reason: 7-Patient Refused. 9-Not Applicable-not attempted and the patient did not perform the activity before the current illness, exacerbation or injury. 10-Not Attempted due to Environmental Limitations-(lack of equipment, weather restraints, etc.). 88-Not Attempted due to Medical Conditions or Safety Concerns. Oral Hygiene (QC): 4 Toileting Hygiene (QC): 3 Toilet Transfer (QC): 4 Other Treatment Pt ambulated to therapy gym using FWW. Pt completed a pegs activity to work on matching/sequencing, finger manipulation/strengthening for daily functional tas k. Pt able to complete 4/4 rows of patterns with verbal/physical cues. Pt completed puzzle to work on spatial awareness/problem solving for daily functional task. Pt completed puzzle with pieces coinciding with inset puzzle board then flipped upside down, independently. Directional cue to find room. Pt ambulated back to room using FWW. Pt in recliner with call light/phone in reach. All needs met. OT Short Term Goals Short Term Goals Time Frame: Jan 02, 2020 Eatin Oral hygiene: 4 Toileting hygiene: 4 Shower/bathe self: 4 Upper body dressin Lower body dressin Putting on/taking off footwear: 4 OT [facility] Goals Shipping Clerk Packing Goals Time Frame: Jan 09, 2020 Eating (QC): 6 Oral Hygiene (QC): 5 Toileting Hygiene (QC): 6 Shower/Bathe Self (QC): 4 Upper Body Dressing (QC): 5 Lower Body Dressing (QC): 5 On/Off Footwear (QC): 5 Additional Goals: 1-Demonstrate ADL Tasks, 2-Verbalize Understanding, 3- ImproveStrength/Negrita 1=Demonstrate adherence to instructed precautions during ADL tasks. 2=Patient will verbalize/demonstrate understanding of assistive devices/modifications for ADL. 3=Patient will improve strength/tolerance for activity to enable patient to perform ADL's. OT Education/Plan Problem List/Assessment Assessment: Decreased Activ Tolerance, Decreased UE Strength, Impaired Cognition, Impaired Funct Balance, Impaired Self-Care Skills Discharge Recommendations Plan/Recommendations: Continue POC Treatment Plan/Plan of Care Patient would benefit from OT for education, treatment and training to promote independence in ADL's, mobility, safety and/or upper extremity function for ADL's. Plan of Care: ADL Retraining, Cognitive Retraining, Functional Mobility, Group Exercise/Act as Ind, UE Funct Exercise/Act, UE Neuromus Re-Ed/Coord, Visual/Perceptual Retrain, W/C Management Training Treatment Duration: Jan 09, 2020 Frequency: At least 5 of 7 days/Wk (IRF) Estimated Hrs Per Day: 1.5 hours per day Agreement: Yes Rehab Potential: Fair Time/GCodes Start Time: 07:30 Stop Time: 09:00 Total Time Billed (hr/min): 90 Billed Treatment Time 1 visit- ADL 4 (60 mins) FA 2 (30 min) MILLA PICKETT Dec 28, 2019 09:00
[2019-12-28] MEDS: SENNA W/DOCUSATE (SENOKOT S) TABLET PO SCH ×2 (09:05→22:08)
[2019-12-28] MEDS: ENOXAPARIN 40 MG/0.4 ML (LOVENOX) SYR SC SCH (09:06)
[2019-12-28] MEDS: DOCUSATE SODIUM 100 MG (COLACE) CAP PO SCH ×2 (09:06→22:08)
[2019-12-28] MEDS: PANTOPRAZOLE 40 MG (PROTONIX) TAB PO SCH ×2 (09:06→22:08)
[2019-12-28] MEDS: CLOPIDOGREL 75 MG (PLAVIX) TABLET PO SCH (09:06)
[2019-12-28] MEDS: ASPIRIN E.C. 81 MG (ECOTRIN) TAB PO SCH (09:06)
[2019-12-28] MEDS: SERTRALINE 50 MG (ZOLOFT) TABLET PO SCH (09:08)
--- NOTE | 2019-12-28 09:41 | Speech Therapy Daily Note ---
Speech Daily Progress Note Subjective Date Seen by Provider: Dec 28, 2019 Time Seen by Provider: 00:30 Patient was resting in his recliner following his OT session. Patient continues to have moderate expressive aphasia. Objective Patient completed confrontational naming task of pictured common household objects with 60% given moderate verbal/visual cues. Assessment Assessment Current Status: Good Progress Treatment Plan Continue Plan of Care Speech Short Term Goals Short Term Goals Short Term Goals 1) The patient will complete memory tasks related to his daily needs with 80% or greater given minimal cues. 2) The patient will complete safety awareness tasks related to his daily needs with 80% or greater given minimal cues. 3) The patient will complete problem solving tasks related to his daily needs with 80% or greater given minimal cues. Speech Snf Goals Sign Builder Supervisor Goals Patient will improve cognitive-communication necessary for safety and daily living tasks with minimal assist. Speech-Plan Patient/Family Goals Patient/Family Goals: Patient plans on returning home where he lives with his . Treatment Plan Speech Therapy Treatment Plan: Continue Plan of Care Treatment Duration: Jan 05, 2020 Frequency: 4 times per week (Patient will receive skilled ST 4-5x per week) Estimated Hrs Per Day: .5 hour per day Rehab Potential: Fair Barriers to Learning: Patient's recent CVA, aphasia, age Pt/Family Agrees to Plan: Yes Safety Risks/Education Teaching Recipient: Patient Teaching Methods: Demonstration, Discussion Response to Teaching: Verbalize Understanding, Return Demonstration, Reinforcement Needed Education Topics Provided: Continued safety within his room, communication Time Speech Therapy Time In: 09:30 Speech Therapy Time Out: 10:00 Total Billed Time: 30 Billed Treatment Time 1, SUNSHINE Onofre Dec 28, 2019 09:41
[2019-12-28] MEDS: polyethylene glycoL POWDER 17 GM (MIRALAX) PACK PO SCH ×2 (09:44→22:08)
[2019-12-28] MEDS ORDERED: FAMOTIDINE 20 MG (PEPCID) TABLET PO PRN (10:30)
--- NOTE | 2019-12-28 10:45 | PM&R Progress Note ---
Subjective HPI/CC On Admission Date Seen by Provider: Dec 28, 2019 Time Seen by Provider: 12:30 Subjective/Events-last exam 12/28/19: Crushing pills in apple sauce seems to help Snoring at night, unsure if he needs to be on oxygen Xanax given at night really helps him Robitussin DM given for cough Aphasia continues Bowels moved yesterday so will continue laxatives Becomes tearful at times 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 Checked meds and labs Reviewed therapy notes Conferred with paper sheeter of Systems General: Fatigue, Malaise Pulmonary: Cough Neurological: Weakness, Change in speech, Confusion Objective Exam Vital Signs Vital Signs Date Time Temp Pulse Resp B/P (MAP) Pulse Ox O2 Delivery O2 Flow Rate FiO2 12/28/19 21:00 Room Air 12/28/19 17:05 36.4 65 14 114/56 (75 94 Capillary Refill : Less Than 3 Seconds General Appearance: No Apparent Distress, WD/WN, Chronically ill HEENT: PERRL/EOMI, Normal ENT Inspection, Pharynx Normal Neck: Full Range of Motion, Normal Inspection, Non Tender, Supple, Carotid Bruit Respiratory: Chest Non Tender, Lungs Clear, Normal Breath Sounds, No Accessory Muscle Use, No Respiratory Distress Cardiovascular: Regular Rate, Rhythm, No Edema, No Gallop, No JVD, No Murmur, Normal Peripheral Pulses Gastrointestinal: Normal Bowel Sounds, No Organomegaly, No Pulsatile Mass, Non Tender, Soft Back: Normal Inspection, No CVA Tenderness, No Vertebral Tenderness Extremity: Normal Capillary Refill, Normal Inspection, Normal Range of Motion, Non Tender, No Calf Tenderness, No Pedal Edema Neurologic/Psychiatric: Alert, Oriented x3, Normal Mood/Affect, cellophaner II-XII Norm as Tested, Abnormal Gait, Aphasia, Depressed Affect, Motor Weakness (right sided 3/5) Skin: Normal Color, Warm/Dry Lymphatic: No Adenopathy Results/Procedures Lab Patient resulted labs reviewed. FIM Transfers Therapy Code Descriptions/Definitions Functional [place] Measure: 0=Not Assessed/NA 4=Minimal Assistance 1=Total Assistance 5=Supervision or Setup 2=Maximal Assistance 6=Modified [place] 3=Moderate Assistance 7=Complete IndependenceSCALE: Activities may be completed with or without assistive devices. 9-Mfoshzbcua-mrjbnui completes the activity by him/herself with no assistance from a helper. 5-Set-up or Clean-up Assistance-helper sets up or cleans up; patient completes activity. [place] assists only prior to or following the activity. 4-Supervision or Touching Assistance-helper provides verbal cues and/or touching/steadying and/or contact guard assistance as patient completes activity. Assistance may be provided throughout the activity or intermittently. 3-Partial/Moderate Assistance-helper does LESS THAN HALF the effort. [place] lifts, holds or supports trunk or limbs, but provides less than half the effort. 2-Substantial/Maximal Assistance-helper does MORE THAN HALF the effort. [place] lifts or holds trunk or limbs and provides more than half the effort. 5-Jxlmrriyf-csxdmr does ALL the effort. Patient does none of the effort to complete the activity. Or, the assistance of 2 or more helpers is required for the patient to complete the activity. If activity was not attempted, code reason: 7-Patient Refused. 9-Not Applicable-not attempted and the patient did not perform the activity before the current illness, exacerbation or injury. 10-Not Attempted due to Environmental Limitations-(lack of equipment, weather restraints, etc.). 88-Not Attempted due to Medical Conditions or Safety Concerns. Roll Left to Right (QC): 6 Sit to Lying (QC): 6 Sit to Stand (QC): 4 Chair/Bus-gk-Iwmsn Xfer(QC): 4 Car Transfer (QC): 3 Gait Training Does the Patient Walk?: Yes Distance: 250' x2 Walk 10 feet (QC): 4 Walk 50 ft with 2 Turns(QC): 4 Walk 150 ft (QC): 4 Walking 10ft/uneven surface-QC: 4 Gait Persons Needed: 1 Gait Assistive Device: FWW Wheelchair Training Does the Pt Use a Wheelchair?: No Wheel 50 ft with 2 turns (QC): 9 Wheel 150 ft (QC): 9 Stair Training #of Steps: 4 1 Step (curb) (QC): 4 4 Steps (QC): 4 12 Steps (QC): 88 Balance Picking up an Object (QC): 4 ADL-Treatment Eating (QC): 88 Oral Hygiene (QC): 4 Bathing Location: L Arm, R Arm, L Upper Leg, R Upper Leg, L Lower Leg (inclu ding foot), R Lower Leg (including foot), Chest, Abdomen Shower/Bathe Self (QC): 3 Upper Body Dressing (QC): 4 Lower Body Dressing (QC): 3 On/Off Footwear (QC): 4 Toileting Hygiene (QC): 2 Toilet Transfer (QC): 3 Assessment/Plan Assessment and Plan Assess & Plan/Chief Complaint Assessment: CVA Expressive aphasia Confusion Urinary retention h/o lymphoma CRI Fall risk Plan: IRF protocol Check labs in am Monitor for falls Monitor urinary retention 12/27/19: Aphasia management Monitor BP Monitor creatinine 12/28/19: Monitor aphasia Monitor for falls Increased risk of confusion (1) CVA (cerebral vascular accident) (2) Lymphoma in remission (3) Renal insufficiency (4) Expressive aphasia (5) Confusion (6) Anemia (7) Retention, urine (8) Delirium JAMAL CANADA DO Dec 28, 2019 10:45
--- NOTE | 2019-12-28 12:17 | Physical Therapy Daily Note ---
PT Daily Note-Current Subjective Pt sitting in recliner upon arrival. Pt agrees to PT. Pain Location: No Pain Reported Mental Status Patient Orientation: Person, Confused Transfers SCALE: Activities may be completed with or without assistive devices. 3-Reowjbqrxc-xnvjecl completes the activity by him/herself with no assistance from a helper. 5-Set-up or Clean-up Assistance-helper sets up or cleans up; patient completes activity. [place] assists only prior to or following the activity. 4-Supervision or Touching Assistance-helper provides verbal cues and/or touching/steadying and/or contact guard assistance as patient completes activity. Assistance may be provided throughout the activity or intermittently. 3-Partial/Moderate Assistance-helper does LESS THAN HALF the effort. [place] lifts, holds or supports trunk or limbs, but provides less than half the effort. 2-Substantial/Maximal Assistance-helper does MORE THAN HALF the effort. [place] lifts or holds trunk or limbs and provides more than half the effort. 7-Ljzidfpjl-uztadd does ALL the effort. Patient does none of the effort to complete the activity. Or, the assistance of 2 or more helpers is required for the patient to complete the activity. If activity was not attempted, code reason: 7-Patient Refused. 9-Not Applicable-not attempted and the patient did not perform the activity before the current illness, exacerbation or injury. 10-Not Attempted due to Environmental Limitations-(lack of equipment, weather restraints, etc.). 88-Not Attempted due to Medical Conditions or Safety Concerns. Sit to Stand (QC): 4 Toilet Transfer (QC): 4 Weight Bearing Full Weight Bearing Full Weight Bearing Gait Training Does the Patient Walk?: Yes Distance: 150' x2 Walk 10 feet (QC): 4 Walk 50 ft with 2 Turns(QC): 4 Walk 150 ft (QC): 4 Gait Persons Needed: 1 Gait Assistive Device: FWW Pt needs VC to complete tasks. Wheelchair Training Does the Pt Use a Wheelchair?: No Treatments Pt TF to standing and uses BR. PT then amb. in hallway before using NuStep for 15m at WL 4. Pt amb. in hallway returning to room to rest in recliner, all needs met & call light in hand. Assessment Current Status: Fair Progress Confusion limits independence of tasks. PT Short Term Goals Short Term Goals Time Frame: Jan 02, 2020 Roll Left & Right: 6 Sit to lyin Lying to sitting on side of be: 6 Sit to stand: 5 Chair/vkv-aa-dzgvm transfer: 5 Toilet transfer: 5 Walk 10 feet: 5 Walk 50 feet with two turns: 5 Walk 150 feet: 5 PT Shelter Goals Shelter Goals PT Shelter Goals Time Frame: Jan 16, 2020 Roll Left & Right (QC): 6 Sit to Lying (QC): 6 Lying-Sitting on Side/Bed(QC): 6 Sit to Stand (QC): 6 Chair/Qnl-hd-Iaend Xfer(QC): 6 Toilet Transfer (QC): 6 Car Transfer (QC): 6 Does the Patient Walk: Yes Walk 10 feet (QC): 6 Walk 50ft with 2 Turns (QC): 6 Walk 150 ft (QC): 6 Walking 10ft on Uneven Surface: 6 1 Step (curb) (QC): 6 4 Steps (QC): 6 12 Steps (QC): 6 Picking up an Object (QC): 6 Wheel 50 feet with 2 turns (QC: 9 Wheel 150 feet: 9 PT Plan Problem List Problem List: Activity Tolerance, Functional Strength, Safety Treatment/Plan Treatment Plan: Continue Plan of Care Treatment Plan: Education, Functional Activity Negrita, Functional Strength, Group Therapy, Gait, Safety, Therapeutic Exercise, Transfers Treatment Duration: Jan 16, 2020 Frequency: At least 5 of 7 days/Wk (IRF) Estimated Hrs Per Day: 1.5 hours per day Patient and/or Family Agrees t: Yes Safety Risks/Education Patient Education: Gait Training, Transfer Techniques, Correct Positioning, Safety Issues Teaching Recipient: Patient Teaching Methods: Discussion Response to Teaching: Reinforcement Needed Time/GCodes Time In: 1115 Time Out: 1200 Total Billed Treatment Time: 45 Total Billed Treatment 1, GT (15m), FA (15m) & EX (15m) GURMEET JUAREZ TROUBLE DISPATCHER Dec 28, 2019 12:17
--- NOTE | 2019-12-28 15:02 | Physical Therapy Daily Note ---
PT Daily Note-Current Subjective Pt sitting in recliner upon arrival. Pt declines need to use BR. Pt agrees to Ex for tx. Pain Location: No Pain Reported Mental Status Patient Orientation: Person, Confused Transfers SCALE: Activities may be completed with or without assistive devices. 8-Fyruzgbnzy-ofwhdac completes the activity by him/herself with no assistance from a helper. 5-Set-up or Clean-up Assistance-helper sets up or cleans up; patient completes activity. [place] assists only prior to or following the activity. 4-Supervision or Touching Assistance-helper provides verbal cues and/or touching/steadying and/or contact guard assistance as patient completes activity. Assistance may be provided throughout the activity or intermittently. 3-Partial/Moderate Assistance-helper does LESS THAN HALF the effort. [place] lifts, holds or supports trunk or limbs, but provides less than half the effort. 2-Substantial/Maximal Assistance-helper does MORE THAN HALF the effort. [place] lifts or holds trunk or limbs and provides more than half the effort. 1-Zitfwcxin-kfefoj does ALL the effort. Patient does none of the effort to complete the activity. Or, the assistance of 2 or more helpers is required for the patient to complete the activity. If activity was not attempted, code reason: 7-Patient Refused. 9-Not Applicable-not attempted and the patient did not perform the activity before the current illness, exacerbation or injury. 10-Not Attempted due to Environmental Limitations-(lack of equipment, weather restraints, etc.). 88-Not Attempted due to Medical Conditions or Safety Concerns. Weight Bearing Full Weight Bearing Full Weight Bearing Exercises Supine Ex: Ankle pumps, Quad Set, Glut sets, Heel Slides, Straight leg raise, Hip abd/add Supine Reps: 15 Treatments Pt completes Supine Ex with instruction given from DEVOPS CONSULTANT. Pt resting with all needs met, call light in hand at end of tx. Assessment Current Status: Fair Progress Pt has difficulty following directions given, sometimes needing VC & TC. PT Short Term Goals Short Term Goals Time Frame: Jan 02, 2020 Roll Left & Right: 6 Sit to lyin Lying to sitting on side of be: 6 Sit to stand: 5 Chair/lqn-xm-webhl transfer: 5 Toilet transfer: 5 Walk 10 feet: 5 Walk 50 feet with two turns: 5 Walk 150 feet: 5 PT Chcf Goals Track Mechanic Goals PT Chcf Goals Time Frame: Jan 16, 2020 Roll Left & Right (QC): 6 Sit to Lying (QC): 6 Lying-Sitting on Side/Bed(QC): 6 Sit to Stand (QC): 6 Chair/Zif-fw-Mjafh Xfer(QC): 6 Toilet Transfer (QC): 6 Car Transfer (QC): 6 Does the Patient Walk: Yes Walk 10 feet (QC): 6 Walk 50ft with 2 Turns (QC): 6 Walk 150 ft (QC): 6 Walking 10ft on Uneven Surface: 6 1 Step (curb) (QC): 6 4 Steps (QC): 6 12 Steps (QC): 6 Picking up an Object (QC): 6 Wheel 50 feet with 2 turns (QC: 9 Wheel 150 feet: 9 PT Plan Problem List Problem List: Activity Tolerance, Functional Strength Treatment/Plan Treatment Plan: Continue Plan of Care Treatment Plan: Education, Functional Activity Negrita, Functional Strength, Group Therapy, Gait, Safety, Therapeutic Exercise, Transfers Treatment Duration: Jan 16, 2020 Frequency: At least 5 of 7 days/Wk (IRF) Estimated Hrs Per Day: 1.5 hours per day Patient and/or Family Agrees t: Yes Safety Risks/Education Patient Education: Correct Positioning, Safety Issues Teaching Recipient: Patient Teaching Methods: Discussion Response to Teaching: Reinforcement Needed Time/GCodes Time In: 1350 Time Out: 1420 Total Billed Treatment Time: 30 Total Billed Treatment 1, EX x2 (30m) ANNGURMEET DEVOPS CONSULTANT Dec 28, 2019 15:02
[2019-12-28 17:05] VITALS: BP 114/56
[2019-12-28] MEDS: ALPRAZolam 0.25 MG (XANAX) TAB PO SCH (22:10)
[2019-12-28] MEDS: LATANOPROST 0.005% (XALATAN) OPHTH SOLN 2.5 ML OU SCH (22:15)
[2019-12-29 06:00] VITALS: BP 117/65
[2019-12-29] MEDS: VITAMIN D3 25 MCG (1,000 UNITS) TABLET PO SCH (06:49)
--- NOTE | 2019-12-29 08:34 | Occupational Ther Daily Note ---
OT Current Status-Daily Note Subjective Pt alert, sitting in recliner. Pt confused on time, place and situation, CASTANEDA reorientated pt. No c/o pain. Mental Status/Objective Patient Orientation: Person, Confused, Non-Verbal/Aphasic ADL-Treatment Pt unable to orientate this AM. CASTANEDA directed pt to bathroom to use toilet and complete shower. Pt requires increased time and cues to process steps of each task. Pt able to manipulate clothing and cleanse self after toileting, CGA for safety. Pt ambulated using FWW to shower and transferred with CGA and verbal cues. Pt performed upper/lower body washing with verbal cues, able to reach all body parts. Pt used grab bars to stabilize while cleansing perineal and buttocks area. Pt had to have hand over hand direction to apply soap to hair. Pt used grab bars to stabilize while transferring using FWW to w/c. Pt performed upper body dressing Min A to thread arms/head into shirt. Pt completed lower body dressing with verbal cues to dress R leg first, used FWW to stabilize while hiking pants over hips by self. Pt able to thread socks/shoes onto feet using figure 4 with verbal cue. Pt sat in w/c at sink to perform oral care, brushing hair with verbal cues. Therapy Code Descriptions/Definitions Functional [place] Measure: 0=Not Assessed/NA 4=Minimal Assistance 1=Total Assistance 5=Supervision or Setup 2=Maximal Assistance 6=Modified [place] 3=Moderate Assistance 7=Complete IndependenceSCALE: Activities may be completed with or without assistive devices. 2-Vafuvtgbsz-sairyla completes the activity by him/herself with no assistance f rom a helper. 5-Set-up or Clean-up Assistance-helper sets up or cleans up; patient completes activity. [place] assists only prior to or following the activity. 4-Supervision or Touching Assistance-helper provides verbal cues and/or touching/steadying and/or contact guard assistance as patient completes activity. Assistance may be provided throughout the activity or intermittently. 3-Partial/Moderate Assistance-helper does LESS THAN HALF the effort. [place] lifts, holds or supports trunk or limbs, but provides less than half the effort. 2-Substantial/Maximal Assistance-helper does MORE THAN HALF the effort. [place] lifts or holds trunk or limbs and provides more than half the effort. 1-Taokuuxhe-dltrfp does ALL the effort. Patient does none of the effort to complete the activity. Or, the assistance of 2 or more helpers is required for the patient to complete the activity. If activity was not attempted, code reason: 7-Patient Refused. 9-Not Applicable-not attempted and the patient did not perform the activity before the current illness, exacerbation or injury. 10-Not Attempted due to Environmental Limitations-(lack of equipment, weather restraints, etc.). 88-Not Attempted due to Medical Conditions or Safety Concerns. Oral Hygiene (QC): 5 Shower/Bathe Self (QC): 3 Upper Body Dressing (QC): 3 Lower Body Dressing (QC): 4 On/Off Footwear: 4 Toileting Hygiene (QC): 4 Toilet Transfer (QC): 4 Other Treatment Pt used FWW to ambulate back into room. Pt sat in recliner to work on memory retention (orientation, person, family). Pt was able to recall information when CASTANEDA gave options to pick from. Pt call light/phone in reach. All needs met. OT Short Term Goals Short Term Goals Time Frame: Jan 02, 2020 Eatin Oral hygiene: 4 Toileting hygiene: 4 Shower/bathe self: 4 Upper body dressin Lower body dressin Putting on/taking off footwear: 4 OT Mortar Mixer Operator Goals Mortar Mixer Operator Goals Time Frame: Jan 09, 2020 Eating (QC): 6 Oral Hygiene (QC): 5 Toileting Hygiene (QC): 6 Shower/Bathe Self (QC): 4 Upper Body Dressing (QC): 5 Lower Body Dressing (QC): 5 On/Off Footwear (QC): 5 Additional Goals: 1-Demonstrate ADL Tasks, 2-Verbalize Understanding, 3- ImproveStrength/Negrita 1=Demonstrate adherence to instructed precautions during ADL tasks. 2=Patient will verbalize/demonstrate understanding of assistive devices/mo difications for ADL. 3=Patient will improve strength/tolerance for activity to enable patient to perform ADL's. OT Education/Plan Problem List/Assessment Assessment: Decreased Activ Tolerance, Decreased UE Strength, Impaired Cognition, Impaired Self-Care Skills Discharge Recommendations Plan/Recommendations: Continue POC Treatment Plan/Plan of Care Patient would benefit from OT for education, treatment and training to promote independence in ADL's, mobility, safety and/or upper extremity function for ADL's. Plan of Care: ADL Retraining, Cognitive Retraining, Functional Mobility, Group Exercise/Act as Ind, UE Funct Exercise/Act, UE Neuromus Re-Ed/Coord, Visual/Perceptual Retrain, W/C Management Training Treatment Duration: Jan 09, 2020 Frequency: At least 5 of 7 days/Wk (IRF) Estimated Hrs Per Day: 1.5 hours per day Agreement: Yes Rehab Potential: Fair Time/GCodes Start Time: 07:30 Stop Time: 09:00 Total Time Billed (hr/min): 90 Billed Treatment Time 1 visit- ADL 5 (80 mins), FA (10 mins) MILLA PICKETT Dec 29, 2019 08:34
[2019-12-29] MEDS: CLOPIDOGREL 75 MG (PLAVIX) TABLET PO SCH (09:25)
[2019-12-29] MEDS: SERTRALINE 50 MG (ZOLOFT) TABLET PO SCH (09:25)
[2019-12-29] MEDS: PANTOPRAZOLE 40 MG (PROTONIX) TAB PO SCH ×2 (09:25→20:31)
[2019-12-29] MEDS: SENNA W/DOCUSATE (SENOKOT S) TABLET PO SCH ×2 (09:25→20:31)
[2019-12-29] MEDS: ENOXAPARIN 40 MG/0.4 ML (LOVENOX) SYR SC SCH (09:26)
[2019-12-29] MEDS: polyethylene glycoL POWDER 17 GM (MIRALAX) PACK PO SCH ×2 (09:26→20:32)
[2019-12-29] MEDS: ASPIRIN E.C. 81 MG (ECOTRIN) TAB PO SCH (09:26)
[2019-12-29] MEDS: DOCUSATE SODIUM 100 MG (COLACE) CAP PO SCH ×2 (09:26→20:31)
--- NOTE | 2019-12-29 09:59 | Physical Therapy Daily Note ---
PT Daily Note-Current Subjective Pt. seated in recliner, aphasic and mostly states, "yes, thank you", denies pain and states he sleeps and eats well Pain Location: No Pain Reported Mental Status Patient Orientation: Non-Verbal/Aphasic Attachments: Other-See Comments (mask) Transfers SCALE: Activities may be completed with or without assistive devices. 1-Kdoqrksatf-imrpylh completes the activity by him/herself with no assistance from a helper. 5-Set-up or Clean-up Assistance-helper sets up or cleans up; patient completes activity. [place] assists only prior to or following the activity. 4-Supervision or Touching Assistance-helper provides verbal cues and/or touching/steadying and/or contact guard assistance as patient completes activity. Assistance may be provided throughout the activity or intermittently. 3-Partial/Moderate Assistance-helper does LESS THAN HALF the effort. [place] lifts, holds or supports trunk or limbs, but provides less than half the effort. 2-Substantial/Maximal Assistance-helper does MORE THAN HALF the effort. [place] lifts or holds trunk or limbs and provides more than half the effort. 7-Rewmewrff-fsqamc does ALL the effort. Patient does none of the effort to complete the activity. Or, the assistance of 2 or more helpers is required for the patient to complete the activity. If activity was not attempted, code reason: 7-Patient Refused. 9-Not Applicable-not attempted and the patient did not perform the activity before the current illness, exacerbation or injury. 10-Not Attempted due to Environmental Limitations-(lack of equipment, weather restraints, etc.). 88-Not Attempted due to Medical Conditions or Safety Concerns. Sit to Stand (QC): 4 Chair/Vru-bt-Adizz Xfer(QC): 4 Car Transfer (QC): 4 Weight Bearing Full Weight Bearing Full Weight Bearing Gait Training Does the Patient Walk?: Yes Walk 10 feet (QC): 4 Walk 50 ft with 2 Turns(QC): 4 Walk 150 ft (QC): 4 Gait Persons Needed: 1 Gait Assistive Device: FWW needs guided to every turn etc Exercises Seated Therapy Exercises: Ankle pumps, Sit to stand, Long arc quads, Hip flexion, Hip abd/add Seated Reps: 10 NuStep Minutes: 9 NuStep Workload: 2 Treatments leg presses on nustep x 12 Assessment Current Status: Good Progress needs much encouragement and instruction PT Short Term Goals Short Term Goals Time Frame: Jan 02, 2020 Roll Left & Right: 6 Sit to lyin Lying to sitting on side of be: 6 Sit to stand: 5 Chair/ljf-tw-rehpe transfer: 5 Toilet transfer: 5 Walk 10 feet: 5 Walk 50 feet with two turns: 5 Walk 150 feet: 5 PT Goring Cutter Goals Residential Goals PT Goring Cutter Goals Time Frame: Jan 16, 2020 Roll Left & Right (QC): 6 Sit to Lying (QC): 6 Lying-Sitting on Side/Bed(QC): 6 Sit to Stand (QC): 6 Chair/Tzj-fh-Czhgx Xfer(QC): 6 Toilet Transfer (QC): 6 Car Transfer (QC): 6 Does the Patient Walk: Yes Walk 10 feet (QC): 6 Walk 50ft with 2 Turns (QC): 6 Walk 150 ft (QC): 6 Walking 10ft on Uneven Surface: 6 1 Step (curb) (QC): 6 4 Steps (QC): 6 12 Steps (QC): 6 Picking up an Object (QC): 6 Wheel 50 feet with 2 turns (QC: 9 Wheel 150 feet: 9 PT Plan Treatment/Plan Treatment Plan: Continue Plan of Care Treatment Plan: Education, Functional Activity Negrita, Functional Strength, Group Therapy, Gait, Safety, Therapeutic Exercise, Transfers Treatment Duration: Jan 16, 2020 Frequency: At least 5 of 7 days/Wk (IRF) Estimated Hrs Per Day: 1.5 hours per day Patient and/or Family Agrees t: Yes Safety Risks/Education Patient Education: Gait Training, Transfer Techniques, Correct Positioning, Disease Process, Safety Issues Teaching Recipient: Patient Teaching Methods: Demonstration, Discussion Response to Teaching: Verbalize Understanding, Return Demonstration, Reinforcement Needed Time/GCodes Time In: 900 Time Out: 1000 Total Billed Treatment Time: 60 Total Billed Treatment 1,GT20m,EX25m,FA15m IVETTE HAWKINS SUPERVISORY INVESTIGATIVE SPECIALIST Dec 29, 2019 09:59
--- NOTE | 2019-12-29 12:24 | PM&R Progress Note ---
Subjective HPI/CC On Admission Date Seen by Provider: Dec 29, 2019 Time Seen by Provider: 12:30 Subjective/Events-last exam 12/29/19: Patient seems about the same Cognition is a challenge when communicating No falls 12/28/19: Crushing pills in apple sauce seems to help Snoring at night, unsure if he needs to be on oxygen Xanax given at night really helps him Robitussin DM given for cough Aphasia continues Bowels moved yesterday so will continue laxatives Becomes tearful at times 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 Checked meds and labs Reviewed therapy notes Conferred with extrusion utility worker of Systems General: Fatigue, Malaise Pulmonary: Cough Neurological: Weakness, Incoordination, Change in speech, Confusion Objective Exam Vital Signs Vital Signs Date Time Temp Pulse Resp B/P (MAP) Pulse Ox O2 Delivery O2 Flow Rate FiO2 12/30/19 05:05 37.0 66 16 136/68 (90) 92 Room Air Capillary Refill : Less Than 3 Seconds General Appearance: No Apparent Distress, WD/WN, Chronically ill HEENT: PERRL/EOMI, Normal ENT Inspection, Pharynx Normal Neck: Full Range of Motion, Normal Inspection, Non Tender, Supple, Carotid Brui t Respiratory: Chest Non Tender, Lungs Clear, Normal Breath Sounds, No Accessory Muscle Use, No Respiratory Distress Cardiovascular: Regular Rate, Rhythm, No Edema, No Gallop, No JVD, No Murmur, Normal Peripheral Pulses Gastrointestinal: Normal Bowel Sounds, No Organomegaly, No Pulsatile Mass, Non Tender, Soft Back: Normal Inspection, No CVA Tenderness, No Vertebral Tenderness Extremity: Normal Capillary Refill, Normal Inspection, Normal Range of Motion, Non Tender, No Calf Tenderness, No Pedal Edema Neurologic/Psychiatric: Alert, Oriented x3, Normal Mood/Affect, heel breaster II-XII Norm as Tested, Abnormal Gait, Aphasia, Depressed Affect, Motor Weakness (right sided 3/5) Skin: Normal Color, Warm/Dry Lymphatic: No Adenopathy Results/Procedures Lab Patient resulted labs reviewed. FIM Transfers Therapy Code Descriptions/Definitions Functional [place] Measure: 0=Not Assessed/NA 4=Minimal Assistance 1=Total Assistance 5=Supervision or Setup 2=Maximal Assistance 6=Modified [place] 3=Moderate Assistance 7=Complete IndependenceSCALE: Activities may be completed with or without assistive devices. 7-Yjxbsstfcx-xetojfk completes the activity by him/herself with no assistance from a helper. 5-Set-up or Clean-up Assistance-helper sets up or cleans up; patient completes activity. [place] assists only prior to or following the activity. 4-Supervision or Touching Assistance-helper provides verbal cues and/or touching/steadying and/or contact guard assistance as patient completes activity. Assistance may be provided throughout the activity or intermittently. 3-Partial/Moderate Assistance-helper does LESS THAN HALF the effort. [place] lifts, holds or supports trunk or limbs, but provides less than half the effort. 2-Substantial/Maximal Assistance-helper does MORE THAN HALF the effort. [place] lifts or holds trunk or limbs and provides more than half the effort. 3-Rqfiluhxb-rfgzuc does ALL the effort. Patient does none of the effort to complete the activity. Or, the assistance of 2 or more helpers is required for the patient to complete the activity. If activity was not attempted, code reason: 7-Patient Refused. 9-Not Applicable-not attempted and the patient did not perform the activity before the current illness, exacerbation or injury. 10-Not Attempted due to Environmental Limitations-(lack of equipment, weather restraints, etc.). 88-Not Attempted due to Medical Conditions or Safety Concerns. Roll Left to Right (QC): 6 Sit to Lying (QC): 6 Sit to Stand (QC): 4 Chair/Vrs-jw-Mltcn Xfer(QC): 4 Car Transfer (QC): 4 Gait Training Does the Patient Walk?: Yes Distance: 150' x2 Walk 10 feet (QC): 4 Walk 50 ft with 2 Turns(QC): 4 Walk 150 ft (QC): 4 Walking 10ft/uneven surface-QC: 4 Gait Persons Needed: 1 Gait Assistive Device: FWW Wheelchair Training Does the Pt Use a Wheelchair?: No Wheel 50 ft with 2 turns (QC): 9 Wheel 150 ft (QC): 9 Stair Training #of Steps: 4 1 Step (curb) (QC): 4 4 Steps (QC): 4 12 Steps (QC): 88 Balance Picking up an Object (QC): 4 ADL-Treatment Eating (QC): 88 Oral Hygiene (QC): 4 Bathing Location: L Arm, R Arm, L Upper Leg, R Upper Leg, L Lower Leg (including foot), R Lower Leg (including foot), Chest, Abdomen Shower/Bathe Self (QC): 3 Upper Body Dressing (QC): 4 Lower Body Dressing (QC): 3 On/Off Footwear (QC): 4 Toileting Hygiene (QC): 3 Toilet Transfer (QC): 4 Assessment/Plan Assessment and Plan Assess & Plan/Chief Complaint Assessment: CVA Expressive aphasia Confusion Urinary retention h/o lymphoma CRI Fall risk Plan: IRF protocol Check labs in am Monitor for falls Monitor urinary retention 12/27/19: Aphasia management Monitor BP Monitor creatinine 12/28/19: Monitor aphasia Monitor for falls Increased risk of confusion 12/29/19: Cough management but appears to be a non-purposeful behavior since CVA (1) CVA (cerebral vascular accident) (2) Lymphoma in remission (3) Renal insufficiency (4) Expressive aphasia (5) Confusion (6) Anemia (7) Retention, urine (8) Delirium JAMAL CANADA DO Dec 29, 2019 12:24
--- NOTE | 2019-12-29 14:07 | Physical Therapy Daily Note ---
PT Daily Note-Current Subjective Pt. up in chair, agreeable to Rx, has continued difficulty with communication. c/o being so cold. Pain Location: No Pain Reported Comment: denies pain when asked Mental Status Patient Orientation: Non-Verbal/Aphasic Transfers SCALE: Activities may be completed with or without assistive devices. 3-Qfhxwldcvg-vhkkwjf completes the activity by him/herself with no assistance from a helper. 5-Set-up or Clean-up Assistance-helper sets up or cleans up; patient completes activity. [place] assists only prior to or following the activity. 4-Supervision or Touching Assistance-helper provides verbal cues and/or touching/steadying and/or contact guard assistance as patient completes activ ity. Assistance may be provided throughout the activity or intermittently. 3-Partial/Moderate Assistance-helper does LESS THAN HALF the effort. [place] lifts, holds or supports trunk or limbs, but provides less than half the effort. 2-Substantial/Maximal Assistance-helper does MORE THAN HALF the effort. [place] lifts or holds trunk or limbs and provides more than half the effort. 4-Udrbcigxy-esachy does ALL the effort. Patient does none of the effort to complete the activity. Or, the assistance of 2 or more helpers is required for the patient to complete the activity. If activity was not attempted, code reason: 7-Patient Refused. 9-Not Applicable-not attempted and the patient did not perform the activity before the current illness, exacerbation or injury. 10-Not Attempted due to Environmental Limitations-(lack of equipment, weather restraints, etc.). 88-Not Attempted due to Medical Conditions or Safety Concerns. sit to stand CGA, sup to sit and sit to sup all min to CGA and many tactile cues and directions Weight Bearing Full Weight Bearing Full Weight Bearing Gait Training Gait Assistive Device: FWW [id number] flexed posture, head down, needs many cues and directions for destination etc Exercises Supine Ex: Rolling, Heel Slides, Hip abd/add Supine Reps: 10 Assessment Current Status: Fair Progress much difficulty following commands, pt. gets frustrated , says "thank you and I'm sorry" frequently PT Short Term Goals Short Term Goals Time Frame: Jan 02, 2020 Roll Left & Right: 6 Sit to lyin Lying to sitting on side of be: 6 Sit to stand: 5 Chair/jka-go-ttysa transfer: 5 Toilet transfer: 5 Walk 10 feet: 5 Walk 50 feet with two turns: 5 Walk 150 feet: 5 PT Shelter Goals Shelter Goals PT Mail Sorter And Delivery Goals Time Frame: Jan 16, 2020 Roll Left & Right (QC): 6 Sit to Lying (QC): 6 Lying-Sitting on Side/Bed(QC): 6 Sit to Stand (QC): 6 Chair/Gma-uu-Kgfgt Xfer(QC): 6 Toilet Transfer (QC): 6 Car Transfer (QC): 6 Does the Patient Walk: Yes Walk 10 feet (QC): 6 Walk 50ft with 2 Turns (QC): 6 Walk 150 ft (QC): 6 Walking 10ft on Uneven Surface: 6 1 Step (curb) (QC): 6 4 Steps (QC): 6 12 Steps (QC): 6 Picking up an Object (QC): 6 Wheel 50 feet with 2 turns (QC: 9 Wheel 150 feet: 9 PT Plan Treatment/Plan Treatment Plan: Continue Plan of Care Treatment Plan: Education, Functional Activity Negrita, Functional Strength, Group Therapy, Gait, Safety, Therapeutic Exercise, Transfers Treatment Duration: Jan 16, 2020 Frequency: At least 5 of 7 days/Wk (IRF) Estimated Hrs Per Day: 1.5 hours per day Patient and/or Family Agrees t: Yes Safety Risks/Education Patient Education: Gait Training, Transfer Techniques, Correct Positioning, Disease Process, Safety Issues Teaching Recipient: Patient Teaching Methods: Demonstration, Discussion Response to Teaching: Unable to Return Demonstration (50% of time), Unable to Comprehend (50% of time), Reinforcement Needed Time/GCodes Time In: 1330 Time Out: 1400 Total Billed Treatment Time: 30 Total Billed Treatment 1,FA15m,GT15m IVETTE HAWKINS SAMPLE GRINDER Dec 29, 2019 14:07
--- NOTE | 2019-12-29 16:15 | NUR ---
CM/SS CONCURRENT DOCUMENTATION Patient's spouse was inquiring about coming to get his cell phone because there were contacts in there she needed to pay bills. Two attempts today to return her call, her cell mailbox is full. Machine Wiper texted her without response at this time. If family do come for phone, unit staff can assist with getting it to her at the proper entrance. Son Yefri sent email with discharge planning questions, technical document writer responded. They are considering whether he will be able to return home or require another level of care. Patient admitted 12/25, next team review will be 01/02 for a more meaningful discussion about overall performance. Attempted to visit patient, he was sleeping soundly.
[2019-12-29 18:06] VITALS: BP 118/53
[2019-12-29] MEDS: ALPRAZolam 0.25 MG (XANAX) TAB PO SCH (18:11)
[2019-12-29] MEDS: guaiFENesin/CODEINE (ROBITUSSIN AC) 10ML UDC PO PRN (18:12)
[2019-12-29] MEDS: LATANOPROST 0.005% (XALATAN) OPHTH SOLN 2.5 ML OU SCH (20:31)
[2019-12-29] MEDS: ZINC OXIDE 16% OINT (BUTT PASTE) 57 GM TUBE TOP PRN (21:36)
[2019-12-30 05:05] VITALS: BP 136/68
[2019-12-30] MEDS: VITAMIN D3 25 MCG (1,000 UNITS) TABLET PO SCH (05:55)
--- NOTE | 2019-12-30 07:01 | PM&R Progress Note ---
Subjective HPI/CC On Admission Date Seen by Provider: Dec 30, 2019 Time Seen by Provider: 11:00 Subjective/Events-last exam 12/30/19: Xanax helping him at night Robitussin DM also helps Will check on [employer] EMR to see what was done for cough evaluation Event monitor was planned for [facility] [place] will reach out on Wednesday regarding those details 12/29/19: Patient seems about the same Cognition is a challenge when communicating No falls 12/28/19: Crushing pills in apple sauce seems to help Snoring at night, unsure if he needs to be on oxygen Xanax given at night really helps him Robitussin DM given for cough Aphasia continues Bowels moved yesterday so will continue laxatives Becomes tearful at times 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 Checked meds and labs Reviewed therapy notes Conferred with telemarketing sales representative of Systems Pulmonary: Cough Neurological: Confusion Objective Exam Vital Signs Vital Signs Date Time Temp Pulse Resp B/P (MAP) Pulse Ox O2 Delivery O2 Flow Rate FiO2 12/30/19 17:49 37.1 68 18 128/60 (82) 92 Room Air Capillary Refill : Less Than 3 Seconds General Appearance: No Apparent Distress, WD/WN, Chronically ill HEENT: PERRL/EOMI, Normal ENT Inspection, Pharynx Normal Neck: Full Range of Motion, Normal Inspection, Non Tender, Supple, Carotid Bru it Respiratory: Chest Non Tender, Lungs Clear, Normal Breath Sounds, No Accessory Muscle Use, No Respiratory Distress Cardiovascular: Regular Rate, Rhythm, No Edema, No Gallop, No JVD, No Murmur, Normal Peripheral Pulses Gastrointestinal: Normal Bowel Sounds, No Organomegaly, No Pulsatile Mass, Non Tender, Soft Back: Normal Inspection, No CVA Tenderness, No Vertebral Tenderness Extremity: Normal Capillary Refill, Normal Inspection, Normal Range of Motion, Non Tender, No Calf Tenderness, No Pedal Edema Neurologic/Psychiatric: Alert, Oriented x3, Normal Mood/Affect, bible reader II-XII Norm as Tested, Abnormal Gait, Aphasia, Depressed Affect, Motor Weakness (right sided 3/5) Skin: Normal Color, Warm/Dry Lymphatic: No Adenopathy Results/Procedures Lab Patient resulted labs reviewed. FIM Transfers Therapy Code Descriptions/Definitions Functional [place] Measure: 0=Not Assessed/NA 4=Minimal Assistance 1=Total Assistance 5=Supervision or Setup 2=Maximal Assistance 6=Modified [place] 3=Moderate Assistance 7=Complete IndependenceSCALE: Activities may be completed with or without assistive devices. 5-Gagfjhhxta-flazhft completes the activity by him/herself with no assistance from a helper. 5-Set-up or Clean-up Assistance-helper sets up or cleans up; patient completes activity. [place] assists only prior to or following the activity. 4-Supervision or Touching Assistance-helper provides verbal cues and/or touching/steadying and/or contact guard assistance as patient completes activity. Assistance may be provided throughout the activity or intermittently. 3-Partial/Moderate Assistance-helper does LESS THAN HALF the effort. [place] lifts, holds or supports trunk or limbs, but provides less than half the effort. 2-Substantial/Maximal Assistance-helper does MORE THAN HALF the effort. [place] lifts or holds trunk or limbs and provides more than half the effort. 1-Juwxzhido-cgpipu does ALL the effort. Patient does none of the effort to compl ete the activity. Or, the assistance of 2 or more helpers is required for the patient to complete the activity. If activity was not attempted, code reason: 7-Patient Refused. 9-Not Applicable-not attempted and the patient did not perform the activity before the current illness, exacerbation or injury. 10-Not Attempted due to Environmental Limitations-(lack of equipment, weather restraints, etc.). 88-Not Attempted due to Medical Conditions or Safety Concerns. Roll Left to Right (QC): 6 Sit to Lying (QC): 6 Sit to Stand (QC): 4 Chair/Fpa-pb-Xleln Xfer(QC): 4 Car Transfer (QC): 4 Gait Training Does the Patient Walk?: Yes Distance: 150' x2 Walk 10 feet (QC): 4 Walk 50 ft with 2 Turns(QC): 4 Walk 150 ft (QC): 4 Walking 10ft/uneven surface-QC: 4 Gait Persons Needed: 1 Gait Assistive Device: FWW Wheelchair Training Does the Pt Use a Wheelchair?: No Wheel 50 ft with 2 turns (QC): 9 Wheel 150 ft (QC): 9 Stair Training #of Steps: 4 1 Step (curb) (QC): 4 4 Steps (QC): 4 12 Steps (QC): 88 Balance Picking up an Object (QC): 4 ADL-Treatment Eating (QC): 88 Oral Hygiene (QC): 5 Bathing Location: L Arm, R Arm, L Upper Leg, R Upper Leg, L Lower Leg (including foot), R Lower Leg (including foot), Chest, Abdomen Shower/Bathe Self (QC): 3 Upper Body Dressing (QC): 3 Lower Body Dressing (QC): 4 On/Off Footwear (QC): 4 Toileting Hygiene (QC): 4 Toilet Transfer (QC): 4 Assessment/Plan Assessment and Plan Assess & Plan/Chief Complaint Assessment: CVA Expressive aphasia Confusion Urinary retention h/o lymphoma CRI Fall risk Plan: IRF protocol Check labs in am Monitor for falls Monitor urinary retention 12/27/19: Aphasia management Monitor BP Monitor creatinine 12/28/19: Monitor aphasia Monitor for falls Increased risk of confusion 12/29/19: Cough management but appears to be a non-purposeful behavior since CVA 12/30/19: Will research cough w/u on [employer] EMR Monitor closely (1) CVA (cerebral vascular accident) (2) Lymphoma in remission (3) Renal insufficiency (4) Expressive aphasia (5) Confusion (6) Anemia (7) Retention, urine (8) Delirium JAMAL CANADA DO Dec 30, 2019 07:01
[2019-12-30] MEDS: ASPIRIN E.C. 81 MG (ECOTRIN) TAB PO SCH (08:33)
[2019-12-30] MEDS: SERTRALINE 50 MG (ZOLOFT) TABLET PO SCH (08:33)
[2019-12-30] MEDS: SENNA W/DOCUSATE (SENOKOT S) TABLET PO SCH ×2 (08:33→19:58)
[2019-12-30] MEDS: guaiFENesin/CODEINE (ROBITUSSIN AC) 10ML UDC PO PRN (08:33)
[2019-12-30] MEDS: CLOPIDOGREL 75 MG (PLAVIX) TABLET PO SCH (08:33)
[2019-12-30] MEDS: PANTOPRAZOLE 40 MG (PROTONIX) TAB PO SCH ×2 (08:33→19:57)
[2019-12-30] MEDS: DOCUSATE SODIUM 100 MG (COLACE) CAP PO SCH ×2 (08:33→19:57)
[2019-12-30] MEDS: polyethylene glycoL POWDER 17 GM (MIRALAX) PACK PO SCH ×2 (09:00→19:57)
--- NOTE | 2019-12-30 10:54 | Physical Therapy Daily Note ---
PT Daily Note-Current Subjective Pt up in recliner upon arrival; RN just finished giving medication. Pt agrees to PT tx. Pain Numeric Pain Scale: 0-No Pain Location: No Pain Reported Mental Status Patient Orientation: Unable to Assess, Non-Verbal/Aphasic Transfers SCALE: Activities may be completed with or without assistive devices. 9-Wygvxuqpos-aqnapct completes the activity by him/herself with no assistance from a helper. 5-Set-up or Clean-up Assistance-helper sets up or cleans up; patient completes activity. [place] assists only prior to or following the activity. 4-Supervision or Touching Assistance-helper provides verbal cues and/or touching/steadying and/or contact guard assistance as patient completes activity. Assistance may be provided throughout the activity or intermittently. 3-Partial/Moderate Assistance-helper does LESS THAN HALF the effort. [place] lifts, holds or supports trunk or limbs, but provides less than half the effort. 2-Substantial/Maximal Assistance-helper does MORE THAN HALF the effort. [place] lifts or holds trunk or limbs and provides more than half the effort. 5-Qmsoxhtup-czrapt does ALL the effort. Patient does none of the effort to complete the activity. Or, the assistance of 2 or more helpers is required for the patient to complete the activity. If activity was not attempted, code reason: 7-Patient Refused. 9-Not Applicable-not attempted and the patient did not perform the activity before the current illness, exacerbation or injury. 10-Not Attempted due to Environmental Limitations-(lack of equipment, weather restraints, etc.). 88-Not Attempted due to Medical Conditions or Safety Concerns. Sit to Stand (QC): 3 Weight Bearing Full Weight Bearing Full Weight Bearing Gait Training Does the Patient Walk?: Yes Distance: 80' Walk 10 feet (QC): 4 Walk 50 ft with 2 Turns(QC): 4 Gait Persons Needed: 1 Gait Assistive Device: FWW Treatments Pt sit<>stand transfers from recliner w/ ModA. VC's given for proper hand placement for push off. Pt ambulates in room and throughout therapy unit w/ [facility]WW at [facility]. Pt requires VC's when needing to turn. When returning to room and to sit, pt requires VC for proper hand placement for return to sit. Pt in recliner w/ call light and bedside table w/in reach and all needs met, at end of tx. Assessment Current Status: Fair Progress Pt extremely weepy this visit d/t inability to remember what pt is trying to tell KENO ATTENDANT and RN. Pt reminded that pt body has been through a traumatic event and pt body and mind needs time to heal. PT Short Term Goals Short Term Goals Time Frame: Jan 02, 2020 Roll Left & Right: 6 Sit to lyin Lying to sitting on side of be: 6 Sit to stand: 5 Chair/grl-oe-kazgw transfer: 5 Toilet transfer: 5 Walk 10 feet: 5 Walk 50 feet with two turns: 5 Walk 150 feet: 5 PT Nursing Admin Goals Fpc Goals PT Fpc Goals Time Frame: Jan 16, 2020 Roll Left & Right (QC): 6 Sit to Lying (QC): 6 Lying-Sitting on Side/Bed(QC): 6 Sit to Stand (QC): 6 Chair/Auk-vk-Ggrjx Xfer(QC): 6 Toilet Transfer (QC): 6 Car Transfer (QC): 6 Does the Patient Walk: Yes Walk 10 feet (QC): 6 Walk 50ft with 2 Turns (QC): 6 Walk 150 ft (QC): 6 Walking 10ft on Uneven Surface: 6 1 Step (curb) (QC): 6 4 Steps (QC): 6 12 Steps (QC): 6 Picking up an Object (QC): 6 Wheel 50 feet with 2 turns (QC: 9 Wheel 150 feet: 9 PT Plan Problem List Problem List: Activity Tolerance, Safety, Balance, Gait, Transfer Treatment/Plan Treatment Plan: Continue Plan of Care Treatment Plan: Education, Functional Activity Negrita, Functional Strength, Group Therapy, Gait, Safety, Therapeutic Exercise, Transfers Treatment Duration: Jan 16, 2020 Frequency: At least 5 of 7 days/Wk (IRF) Estimated Hrs Per Day: 1.5 hours per day Patient and/or Family Agrees t: Yes Safety Risks/Education Patient Education: Gait Training, Correct Positioning, Safety Issues Teaching Recipient: Patient Teaching Methods: Discussion Response to Teaching: Verbalize Understanding, Reinforcement Needed Time/GCodes Time In: 0841 Time Out: 0900 Total Billed Treatment Time: 19 Total Billed Treatment 1, GT (19m) FAVIOLA BARRETT KENO ATTENDANT Dec 30, 2019 10:54
[2019-12-30] MEDS: ENOXAPARIN 40 MG/0.4 ML (LOVENOX) SYR SC SCH (11:22)
--- NOTE | 2019-12-30 16:30 | NUR ---
Patient up to bathroom at this time. Patient is tearful and appears frightened. Patient was asked if he knew where he was, he said, "In the hospital, I think". Answer confirmed. Patient mentioned his . This nurse asked if he would like to call his . Patient became tearful and expressed that she would think he was sick and did not want her to see him this way. This nurse stayed with patient to console.
[2019-12-30 17:49] VITALS: BP 128/60
[2019-12-30] MEDS: ZINC OXIDE 16% OINT (BUTT PASTE) 57 GM TUBE TOP PRN (19:56)
[2019-12-30] MEDS: ALPRAZolam 0.25 MG (XANAX) TAB PO SCH (19:57)
[2019-12-30] MEDS: LATANOPROST 0.005% (XALATAN) OPHTH SOLN 2.5 ML OU SCH (19:58)
[2019-12-31] MEDS: guaiFENesin/CODEINE (ROBITUSSIN AC) 10ML UDC PO PRN ×2 (03:39→08:33)
[2019-12-31 05:02] VITALS: BP 108/55
[2019-12-31] MEDS: VITAMIN D3 25 MCG (1,000 UNITS) TABLET PO SCH (05:48)
[2019-12-31] MEDS: DOCUSATE SODIUM 100 MG (COLACE) CAP PO SCH ×2 (08:33→20:00)
[2019-12-31] MEDS: CLOPIDOGREL 75 MG (PLAVIX) TABLET PO SCH (08:33)
[2019-12-31] MEDS: SERTRALINE 50 MG (ZOLOFT) TABLET PO SCH (08:33)
[2019-12-31] MEDS: ASPIRIN E.C. 81 MG (ECOTRIN) TAB PO SCH (08:33)
[2019-12-31] MEDS: PANTOPRAZOLE 40 MG (PROTONIX) TAB PO SCH ×2 (08:33→20:00)
[2019-12-31] MEDS: SENNA W/DOCUSATE (SENOKOT S) TABLET PO SCH ×2 (08:33→20:01)
[2019-12-31] MEDS: ENOXAPARIN 40 MG/0.4 ML (LOVENOX) SYR SC SCH (08:33)
[2019-12-31] MEDS: polyethylene glycoL POWDER 17 GM (MIRALAX) PACK PO SCH ×2 (09:34→20:00)
--- NOTE | 2019-12-31 11:24 | PM&R Progress Note ---
Subjective HPI/CC On Admission Date Seen by Provider: Dec 31, 2019 Time Seen by Provider: 14:00 Subjective/Events-last exam 12/31/19: Family pics helping shemar Got into shower without tearfulness Coughing managed with Robitussin DM and Xanax 12/30/19: Xanax helping him at night Robitussin DM also helps Will check on [employer] EMR to see what was done for cough evaluation Event monitor was planned for [facility] [place] will reach out on Wednesday regarding those details 12/29/19: Patient seems about the same Cognition is a challenge when communicating No falls 12/28/19: Crushing pills in apple sauce seems to help Snoring at night, unsure if he needs to be on oxygen Xanax given at night really helps him Robitussin DM given for cough Aphasia continues Bowels moved yesterday so will continue laxatives Becomes tearful at times 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 Checked meds and labs Reviewed therapy notes Conferred with funeral service apprentice of Systems General: Fatigue Pulmonary: Cough Objective Exam Vital Signs Vital Signs Date Time Temp Pulse Resp B/P (MAP) Pulse Ox O2 Delivery O2 Flow Rate FiO2 12/31/19 09:00 Room Air 12/31/19 05:02 37.1 70 16 108/55 (72) 92 Capillary Refill : Less Than 3 Seconds General Appearance: No Apparent Distress, WD/WN, Chronically ill HEENT: PERRL/EOMI, Normal ENT Inspection, Pharynx Normal Neck: Full Range of Motion, Normal Inspection, Non Tender, Supple, Carotid Bruit Respiratory: Chest Non Tender, Lungs Clear, Normal Breath Sounds, No Accessory Muscle Use, No Respiratory Distress Cardiovascular: Regular Rate, Rhythm, No Edema, No Gallop, No JVD, No Murmur, Normal Peripheral Pulses Gastrointestinal: Normal Bowel Sounds, No Organomegaly, No Pulsatile Mass, Non Tender, Soft Back: Normal Inspection, No CVA Tenderness, No Vertebral Tenderness Extremity: Normal Capillary Refill, Normal Inspection, Normal Range of Motion, Non Tender, No Calf Tenderness, No Pedal Edema Neurologic/Psychiatric: Alert, Oriented x3, Normal Mood/Affect, oncology patient navigator II-XII Norm as Tested, Abnormal Gait, Aphasia, Depressed Affect, Motor Weakness (right sided 3/5) Skin: Normal Color, Warm/Dry Lymphatic: No Adenopathy Results/Procedures Lab Patient resulted labs reviewed. FIM Transfers Therapy Code Descriptions/Definitions Functional [place] Measure: 0=Not Assessed/NA 4=Minimal Assistance 1=Total Assistance 5=Supervision or Setup 2=Maximal Assistance 6=Modified [place] 3=Moderate Assistance 7=Complete IndependenceSCALE: Activities may be completed with or without assistive devices. 2-Xfnbgkqxtv-ipwvutg completes the activity by him/herself with no assistance from a helper. 5-Set-up or Clean-up Assistance-helper sets up or cleans up; patient completes activity. [place] assists only prior to or following the activity. 4-Supervision or Touching Assistance-helper provides verbal cues and/or touching/steadying and/or contact guard assistance as patient completes activity. Assistance may be provided throughout the activity or intermittently. 3-Partial/Moderate Assistance-helper does LESS THAN HALF the effort. [place] lifts, holds or supports trunk or limbs, but provides less than half the effort. 2-Substantial/Maximal Assistance-helper does MORE THAN HALF the effort. [place] lifts or holds trunk or limbs and provides more than half the effort. 0-Tkjhxwkjv-qfjdka does ALL the effort. Patient does none of the effort to complete the activity. Or, the assistance of 2 or more helpers is required for the patient to complete the activity. If activity was not attempted, code reason: 7-Patient Refused. 9-Not Applicable-not attempted and the patient did not perform the activity before the current illness, exacerbation or injury. 10-Not Attempted due to Environmental Limitations-(lack of equipment, weather restraints, etc.). 88-Not Attempted due to Medical Conditions or Safety Concerns. Roll Left to Right (QC): 6 Sit to Lying (QC): 6 Sit to Stand (QC): 3 Chair/Rej-np-Xuzwo Xfer(QC): 4 Car Transfer (QC): 4 Gait Training Does the Patient Walk?: Yes Distance: 80' Walk 10 feet (QC): 4 Walk 50 ft with 2 Turns(QC): 4 Walk 150 ft (QC): 4 Walking 10ft/uneven surface-QC: 4 Gait Persons Needed: 1 Gait Assistive Device: FWW Wheelchair Training Does the Pt Use a Wheelchair?: No Wheel 50 ft with 2 turns (QC): 9 Wheel 150 ft (QC): 9 Stair Training #of Steps: 4 1 Step (curb) (QC): 4 4 Steps (QC): 4 12 Steps (QC): 88 Balance Picking up an Object (QC): 4 ADL-Treatment Eating (QC): 88 Oral Hygiene (QC): 5 Bathing Location: L Arm, R Arm, L Upper Leg, R Upper Leg, L Lower Leg (including foot), R Lower Leg (including foot), Chest, Abdomen Shower/Bathe Self (QC): 3 Upper Body Dressing (QC): 3 Lower Body Dressing (QC): 4 On/Off Footwear (QC): 4 Toileting Hygiene (QC): 4 Toilet Transfer (QC): 4 Assessment/Plan Assessment and Plan Assess & Plan/Chief Complaint Assessment: CVA Expressive aphasia Confusion Urinary retention h/o lymphoma CRI Fall risk Plan: IRF protocol Check labs in am Monitor for falls Monitor urinary retention 12/27/19: Aphasia management Monitor BP Monitor creatinine 12/28/19: Monitor aphasia Monitor for falls Increased risk of confusion 12/29/19: Cough management but appears to be a non-purposeful behavior since CVA 12/30/19: Will research cough w/u on [employer] EMR Monitor closely 12/31/19: Monitor closely Fall risk Cognition therapy (1) CVA (cerebral vascular accident) (2) Lymphoma in remission (3) Renal insufficiency (4) Expressive aphasia (5) Confusion (6) Anemia (7) Retention, urine (8) Delirium JAMAL CANADA DO Dec 31, 2019 11:24
[2019-12-31 18:02] VITALS: BP 130/66
[2019-12-31] MEDS: LATANOPROST 0.005% (XALATAN) OPHTH SOLN 2.5 ML OU SCH (20:00)
[2019-12-31] MEDS: ALPRAZolam 0.25 MG (XANAX) TAB PO SCH (20:00)
[2019-12-31] MEDS: ZINC OXIDE 16% OINT (BUTT PASTE) 57 GM TUBE TOP PRN (20:00)
[2020-01-01] MEDS: guaiFENesin/CODEINE (ROBITUSSIN AC) 10ML UDC PO PRN ×2 (00:49→09:26)
[2020-01-01 05:05] VITALS: BP 132/61
--- NOTE | 2020-01-01 05:45 | PM&R Progress Note ---
Subjective HPI/CC On Admission Date Seen by Provider: Jan 01, 2020 Time Seen by Provider: 09:00 Subjective/Events-last exam 01/01/20: Pt doing pretty well No significant changes Cognition is an issue Participating in therapy with a lot of heavy cues 12/31/19: Family pics helping morale Got into shower without tearfulness Coughing managed with Robitussin DM and Xanax 12/30/19: Xanax helping him at night Robitussin DM also helps Will check on [employer] EMR to see what was done for cough evaluation Event monitor was planned for [facility] [place] will reach out on Wednesday regarding those details 12/29/19: Patient seems about the same Cognition is a challenge when communicating No falls 12/28/19: Crushing pills in apple sauce seems to help Snoring at night, unsure if he needs to be on oxygen Xanax given at night really helps him Robitussin DM given for cough Aphasia continues Bowels moved yesterday so will continue laxatives Becomes tearful at times 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 Checked meds and labs Reviewed therapy notes Conferred with casino enforcement agent of Systems General: Fatigue Neurological: Weakness, Confusion Objective Exam Vital Signs Vital Signs Date Time Temp Pulse Resp B/P (MAP) Pulse Ox O2 Delivery O2 Flow Rate FiO2 01/01/20 21:22 Room Air 01/01/20 18:15 36.2 63 18 121/57 (78) 94 Capillary Refill : Less Than 3 Seconds General Appearance: No Apparent Distress, WD/WN, Chronically ill HEENT: PERRL/EOMI, Normal ENT Inspection, Pharynx Normal Neck: Full Range of Motion, Normal Inspection, Non Tender, Supple, Carotid Bruit Respiratory: Chest Non Tender, Lungs Clear, Normal Breath Sounds, No Accessory Muscle Use, No Respiratory Distress Cardiovascular: Regular Rate, Rhythm, No Edema, No Gallop, No JVD, No Murmur, Normal Peripheral Pulses Gastrointestinal: Normal Bowel Sounds, No Organomegaly, No Pulsatile Mass, Non Tender, Soft Back: Normal Inspection, No CVA Tenderness, No Vertebral Tenderness Extremity: Normal Capillary Refill, Normal Inspection, Normal Range of Motion, Non Tender, No Calf Tenderness, No Pedal Edema Neurologic/Psychiatric: Alert, Oriented x3, Normal Mood/Affect, pi/senior research associate II-XII Norm as Tested, Abnormal Gait, Aphasia, Depressed Affect, Motor Weakness (right sided 3/5) Skin: Normal Color, Warm/Dry Lymphatic: No Adenopathy Results/Procedures Lab Laboratory Tests 01/01/20 05:30 Patient resulted labs reviewed. FIM Transfers Therapy Code Descriptions/Definitions Functional [place] Measure: 0=Not Assessed/NA 4=Minimal Assistance 1=Total Assistance 5=Supervision or Setup 2=Maximal Assistance 6=Modified [place] 3=Moderate Assistance 7=Complete IndependenceSCALE: Activities may be completed with or without assistive devices. 3-Kcfkfjtygg-jwcoakz completes the activity by him/herself with no assistance from a helper. 5-Set-up or Clean-up Assistance-helper sets up or cleans up; patient completes activity. [place] assists only prior to or following the activity. 4-Supervision or Touching Assistance-helper provides verbal cues and/or touching/steadying and/or contact guard assistance as patient completes activity. Assistance may be provided throughout the activity or intermittently. 3-Partial/Moderate Assistance-helper does LESS THAN HALF the effort. [place] lifts, holds or supports trunk or limbs, but provides less than half the effort. 2-Substantial/Maximal Assistance-helper does MORE THAN HALF the effort. [place] lifts or holds trunk or limbs and provides more than half the effort. 2-Nydlwnzhq-vcetnt does ALL the effort. Patient does none of the effort to complete the activity. Or, the assistance of 2 or more helpers is required for the patient to complete the activity. If activity was not attempted, code reason: 7-Patient Refused. 9-Not Applicable-not attempted and the patient did not perform the activity before the current illness, exacerbation or injury. 10-Not Attempted due to Environmental Limitations-(lack of equipment, weather restraints, etc.). 88-Not Attempted due to Medical Conditions or Safety Concerns. Roll Left to Right (QC): 6 Sit to Lying (QC): 6 Sit to Stand (QC): 3 Chair/Bsi-sg-Zsfib Xfer(QC): 4 Car Transfer (QC): 4 Gait Training Does the Patient Walk?: Yes Distance: 80' Walk 10 feet (QC): 4 Walk 50 ft with 2 Turns(QC): 4 Walk 150 ft (QC): 4 Walking 10ft/uneven surface-QC: 4 Gait Persons Needed: 1 Gait Assistive Device: FWW Wheelchair Training Does the Pt Use a Wheelchair?: No Wheel 50 ft with 2 turns (QC): 9 Wheel 150 ft (QC): 9 Stair Training #of Steps: 4 1 Step (curb) (QC): 4 4 Steps (QC): 4 12 Steps (QC): 88 Balance Picking up an Object (QC): 4 ADL-Treatment Eating (QC): 88 Oral Hygiene (QC): 5 Bathing Location: L Arm, R Arm, L Upper Leg, R Upper Leg, L Lower Leg (including foot), R Lower Leg (including foot), Chest, Abdomen Shower/Bathe Self (QC): 3 Upper Body Dressing (QC): 3 Lower Body Dressing (QC): 4 On/Off Footwear (QC): 4 Toileting Hygiene (QC): 4 Toilet Transfer (QC): 4 Assessment/Plan Assessment and Plan Assess & Plan/Chief Complaint Assessment: CVA Expressive aphasia Confusion Urinary retention h/o lymphoma CRI Fall risk Plan: IRF protocol Check labs in am Monitor for falls Monitor urinary retention 12/27/19: Aphasia management Monitor BP Monitor creatinine 12/28/19: Monitor aphasia Monitor for falls Increased risk of confusion 12/29/19: Cough management but appears to be a non-purposeful behavior since CVA 12/30/19: Will research cough w/u on [employer] EMR Monitor closely 12/31/19: Monitor closely Fall risk Cognition therapy 01/01/20: Cough management Xanax at night helps him sleep (1) CVA (cerebral vascular accident) (2) Lymphoma in remission (3) Renal insufficiency (4) Expressive aphasia (5) Confusion (6) Anemia (7) Retention, urine (8) Delirium JAMAL CANADA DO Jan 01, 2020 05:45
[2020-01-01] MEDS: VITAMIN D3 25 MCG (1,000 UNITS) TABLET PO SCH (05:54)
[2020-01-01 06:24] LABS: BASOPHILS # (AUTO) 0.1 10^3/uL (0.0-0.1); BASOPHILS % (AUTO) 1 % (0-10); EOSINOPHILS # (AUTO) 0.9 10^3/uL (0.0-0.3); EOSINOPHILS % (AUTO) 9 % (0-10); HEMATOCRIT 38 % (40-54); HEMOGLOBIN 12.5 g/dL (13.3-17.7); LYMPHOCYTES # (AUTO) 2.2 10^3/uL (1.0-4.0); LYMPHOCYTES % (AUTO) 23 % (12-44); MEAN CORPUSCULAR HEMOGLOBIN 33 pg (25-34); MEAN CORPUSCULAR HGB CONC 33 g/dL (32-36); MEAN CORPUSCULAR VOLUME 101 fL (80-99); MEAN PLATELET VOLUME 12.3 fL (9.0-12.2); MONOCYTES # (AUTO) 1.7 10^3/uL (0.0-1.0); MONOCYTES % (AUTO) 17 % (0-12); NEUTROPHILS # (AUTO) 4.9 10^3/uL (1.8-7.8); NEUTROPHILS % (AUTO) 50 % (42-75); PLATELET COUNT 257 10^3/uL (130-400); WHITE BLOOD COUNT 9.7 10^3/uL (4.3-11.0)
[2020-01-01 06:36] LABS: ALBUMIN 3.1 GM/DL (3.2-4.5)
[2020-01-01 06:37] LABS: POTASSIUM 4.1 MMOL/L (3.6-5.0)
[2020-01-01 06:38] LABS: CALCIUM 8.1 MG/DL (8.5-10.1)
[2020-01-01 06:39] LABS: TOTAL PROTEIN 6.8 GM/DL (6.4-8.2)
[2020-01-01 06:41] LABS: BILIRUBIN,TOTAL 0.5 MG/DL (0.1-1.0)
[2020-01-01 06:43] LABS: CREATININE SERUM 1.67 MG/DL (0.60-1.30)
[2020-01-01] MEDS: SERTRALINE 50 MG (ZOLOFT) TABLET PO SCH (09:08)
[2020-01-01] MEDS: PANTOPRAZOLE 40 MG (PROTONIX) TAB PO SCH ×2 (09:08→20:29)
[2020-01-01] MEDS: ASPIRIN E.C. 81 MG (ECOTRIN) TAB PO SCH (09:08)
[2020-01-01] MEDS: CLOPIDOGREL 75 MG (PLAVIX) TABLET PO SCH (09:08)
[2020-01-01] MEDS: ENOXAPARIN 40 MG/0.4 ML (LOVENOX) SYR SC SCH (09:10)
--- NOTE | 2020-01-01 10:19 | Occupational Ther Daily Note ---
OT Current Status-Daily Note Subjective Pt seen initially in therapy gym, agreeable to OT. No pain mentioned. Appearance Alert, cooperative, some difficulty following instructions, needing verbal, visu al and at times tactile cues ADL-Treatment Pt walked back to his room for privacy after co-tx, CGA, FWW. With some difficulty, he was able to indicate that he did not need to do any ADLs, including brushing his teeth, bathing, changing clothes or toileting. Therapy Code Descriptions/Definitions Functional [place] Measure: 0=Not Assessed/NA 4=Minimal Assistance 1=Total Assistance 5=Supervision or Setup 2=Maximal Assistance 6=Modified [place] 3=Moderate Assistance 7=Complete IndependenceSCALE: Activities may be completed with or without assistive devices. 4-Uhnwwizujy-oxyagmy completes the activity by him/herself with no assistance from a helper. 5-Set-up or Clean-up Assistance-helper sets up or cleans up; patient completes activity. [place] assists only prior to or following the activity. 4-Supervision or Touching Assistance-helper provides verbal cues and/or touching/steadying and/or contact guard assistance as patient completes activity. Assistance may be provided throughout the activity or intermittently. 3-Partial/Moderate Assistance-helper does LESS THAN HALF the effort. [place] lifts, holds or supports trunk or limbs, but provides less than half the effort. 2-Substantial/Maximal Assistance-helper does MORE THAN HALF the effort. [place] lifts or holds trunk or limbs and provides more than half the effort. 3-Omtqvpnwj-ixouiv does ALL the effort. Patient does none of the effort to complete the activity. Or, the assistance of 2 or more helpers is required for the patient to complete the activity. If activity was not attempted, code reason: 7-Patient Refused. 9-Not Applicable-not attempted and the patient did not perform the activity before the current illness, exacerbation or injury. 10-Not Attempted due to Environmental Limitations-(lack of equipment, weather restraints, etc.). 88-Not Attempted due to Medical Conditions or Safety Concerns. Other Treatment Co-tx with PT for 15 minutes, with PT working on standing balance and OT working on UE coordination and reach, by catching and releasing and also batting balloon while in standing. As needed for standing and UE use for dressing LE. Pt returned to gym and did bilat UE activities for strengthening, coordination and motor planning. He completed 10 minutes bilat UE exercise on arm bike, set at 15W resistance, taking one break, scheduled for half way, with pt tracking time and remembering to stop. Also worked with 1" pegs, placing them in rows by color. Some physical cues needed for initiating activity but he was able to comp lete it. More difficulty problem solving placing graded clothespins, requiring visual and verbal cues required throughout. He had less difficulty removing them. Skills needed for ADLs. Pt needed cues for hand placement with sit to stand and did not seem comfortable with using arms to push up. Pt walked back to his room with CGA, FWW, no LOB and was left up in recliner, all needs met, chair alarm on. Education OT Patient Education: Purpose of tx/functional activities, Transfer techniques Teaching Recipient: Patient Teaching Methods: Discussion Response to Teaching: Reinforcement Needed OT Short Term Goals Short Term Goals Time Frame: Jan 02, 2020 Eatin Oral hygiene: 4 Toileting hygiene: 4 Shower/bathe self: 4 Upper body dressin Lower body dressin Putting on/taking off footwear: 4 OT Fci Goals Head Butler Goals Time Frame: Jan 09, 2020 Eating (QC): 6 Oral Hygiene (QC): 5 Toileting Hygiene (QC): 6 Shower/Bathe Self (QC): 4 Upper Body Dressing (QC): 5 Lower Body Dressing (QC): 5 On/Off Footwear (QC): 5 Additional Goals: 1-Demonstrate ADL Tasks, 2-Verbalize Understanding, 3- ImproveStrength/Negrita 1=Demonstrate adherence to instructed precautions during ADL tasks. 2=Patient will verbalize/demonstrate understanding of assistive devices/modific ations for ADL. 3=Patient will improve strength/tolerance for activity to enable patient to perform ADL's. OT Education/Plan Discharge Recommendations Plan/Recommendations: Continue POC Treatment Plan/Plan of Care Patient would benefit from OT for education, treatment and training to promote independence in ADL's, mobility, safety and/or upper extremity function for ADL's. Plan of Care: ADL Retraining, Cognitive Retraining, Functional Mobility, Group Exercise/Act as Ind, UE Funct Exercise/Act, UE Neuromus Re-Ed/Coord, Visual/Perceptual Retrain, W/C Management Training Treatment Duration: Jan 09, 2020 Frequency: At least 5 of 7 days/Wk (IRF) Estimated Hrs Per Day: 1.5 hours per day Agreement: Yes Rehab Potential: Fair Time/GCodes Start Time: 08:45 Stop Time: 10:00 Total Time Billed (hr/min): 75 Billed Treatment Time visit, 15 minutes neuromotor, co-tx with PT 60 minutes neuromotor NICKI WADE OT Jan 01, 2020 10:19
--- NOTE | 2020-01-01 11:30 | Physical Therapy Daily Note ---
PT Daily Note-Current Subjective Patient in recliner pre tx, agrees to PT, has no complaints of pain. Will be co-treating with OT for a short while to work on advanced balance training. Appearance Patient in therapy gym post tx with OT to continue. Mental Status Patient Orientation: Person, Unable to Assess, Non-Verbal/Aphasic Transfers SCALE: Activities may be completed with or without assistive devices. 5-Kcevpxxnbx-fsdpcjb completes the activity by him/herself with no assistance from a helper. 5-Set-up or Clean-up Assistance-helper sets up or cleans up; patient completes activity. [place] assists only prior to or following the activity. 4-Supervision or Touching Assistance-helper provides verbal cues and/or touching/steadying and/or contact guard assistance as patient completes activity. Assistance may be provided throughout the activity or intermittently. 3-Partial/Moderate Assistance-helper does LESS THAN HALF the effort. [place] lifts, holds or supports trunk or limbs, but provides less than half the effort. 2-Substantial/Maximal Assistance-helper does MORE THAN HALF the effort. [place] lifts or holds trunk or limbs and provides more than half the effort. 5-Maglorvps-qdmndf does ALL the effort. Patient does none of the effort to complete the activity. Or, the assistance of 2 or more helpers is required for the patient to complete the activity. If activity was not attempted, code reason: 7-Patient Refused. 9-Not Applicable-not attempted and the patient did not perform the activity before the current illness, exacerbation or injury. 10-Not Attempted due to Environmental Limitations-(lack of equipment, weather restraints, etc.). 88-Not Attempted due to Medical Conditions or Safety Concerns. Sit to Stand (QC): 4 Chair/Rit-jh-Moxsx Xfer(QC): 4 CGA Weight Bearing Full Weight Bearing Full Weight Bearing Gait Training Distance: 150' Walk 10 feet (QC): 4 Walk 50 ft with 2 Turns(QC): 4 Walk 150 ft (QC): 4 Gait Persons Needed: 1 Gait Assistive Device: FWW slow but steady ambulation, cues for direction Exercises Standing: Hip Abduction, Heel/toe raises, Marching, Mini squats Standing Reps: 15 NuStep Minutes: 15 NuStep Workload: 5 Neuromuscular standing balance activity hitting balloon back and forth, OT worked on UE ROM and balance while PT worked on standing balance and safety Treatments balance training, functional strengthening, transfers, ambulation Assessment Current Status: Fair Progress improving general mobility PT Short Term Goals Short Term Goals Time Frame: Jan 02, 2020 Roll Left & Right: 6 Sit to lyin Lying to sitting on side of be: 6 Sit to stand: 5 Chair/lee-nx-pvhod transfer: 5 Toilet transfer: 5 Walk 10 feet: 5 Walk 50 feet with two turns: 5 Walk 150 feet: 5 PT Half-Way Goals Half-Way Goals PT Half-Way Goals Time Frame: Jan 16, 2020 Roll Left & Right (QC): 6 Sit to Lying (QC): 6 Lying-Sitting on Side/Bed(QC): 6 Sit to Stand (QC): 6 Chair/Sjo-lt-Jderm Xfer(QC): 6 Toilet Transfer (QC): 6 Car Transfer (QC): 6 Does the Patient Walk: Yes Walk 10 feet (QC): 6 Walk 50ft with 2 Turns (QC): 6 Walk 150 ft (QC): 6 Walking 10ft on Uneven Surface: 6 1 Step (curb) (QC): 6 4 Steps (QC): 6 12 Steps (QC): 6 Picking up an Object (QC): 6 Wheel 50 feet with 2 turns (QC: 9 Wheel 150 feet: 9 PT Plan Problem List Problem List: Activity Tolerance, Functional Strength, Safety, Balance, Gait, Transfer, ROM Treatment/Plan Treatment Plan: Continue Plan of Care Treatment Plan: Education, Functional Activity Negrita, Functional Strength, Group Therapy, Gait, Safety, Therapeutic Exercise, Transfers Treatment Duration: Jan 16, 2020 Frequency: At least 5 of 7 days/Wk (IRF) Estimated Hrs Per Day: 1.5 hours per day Patient and/or Family Agrees t: Yes Safety Risks/Education Patient Education: Gait Training, Transfer Techniques, Correct Positioning, Safety Issues Teaching Recipient: Patient Teaching Methods: Demonstration, Discussion Response to Teaching: Reinforcement Needed Time/GCodes Time In: 0800 Time Out: 0900 Total Billed Treatment Time: 60 Total Billed Treatment 1 visit NM 15' GT 15' EX 30' FAYE MORALES PT Jan 01, 2020 11:30
--- NOTE | 2020-01-01 13:30 | Physical Therapy Daily Note ---
PT Daily Note-Current Subjective Patient in recliner pre tx, agrees to PT, has no complaints of pain. Appearance Patient in recliner post tx with nurse call, phone, tray, all needs met. Chair alarm on. Mental Status Patient Orientation: Person, Unable to Assess, Non-Verbal/Aphasic Transfers SCALE: Activities may be completed with or without assistive devices. 4-Bnbktiucwd-rakihvh completes the activity by him/herself with no assistance from a helper. 5-Set-up or Clean-up Assistance-helper sets up or cleans up; patient completes activity. [place] assists only prior to or following the activity. 4-Supervision or Touching Assistance-helper provides verbal cues and/or touching/steadying and/or contact guard assistance as patient completes activity. Assistance may be provided throughout the activity or intermittently. 3-Partial/Moderate Assistance-helper does LESS THAN HALF the effort. [place] lifts, holds or supports trunk or limbs, but provides less than half the effort. 2-Substantial/Maximal Assistance-helper does MORE THAN HALF the effort. [place] lifts or holds trunk or limbs and provides more than half the effort. 4-Hmzozddea-qobbtb does ALL the effort. Patient does none of the effort to complete the activity. Or, the assistance of 2 or more helpers is required for the patient to complete the activity. If activity was not attempted, code reason: 7-Patient Refused. 9-Not Applicable-not attempted and the patient did not perform the activity before the current illness, exacerbation or injury. 10-Not Attempted due to Environmental Limitations-(lack of equipment, weather restraints, etc.). 88-Not Attempted due to Medical Conditions or Safety Concerns. Sit to Stand (QC): 4 Chair/Toq-cs-Rykfr Xfer(QC): 4 Weight Bearing Full Weight Bearing Full Weight Bearing Gait Training Distance: 150'x2 Walk 10 feet (QC): 4 Walk 50 ft with 2 Turns(QC): 4 Walk 150 ft (QC): 4 Gait Assistive Device: FWW CGA, slow but steady ambulation, cues for direction, rest between bouts of ambulation Treatments ambulation, transfers Assessment Current Status: Fair Progress improving general mobility PT Short Term Goals Short Term Goals Time Frame: Jan 02, 2020 Roll Left & Right: 6 Sit to lyin Lying to sitting on side of be: 6 Sit to stand: 5 Chair/owq-ae-ihpel transfer: 5 Toilet transfer: 5 Walk 10 feet: 5 Walk 50 feet with two turns: 5 Walk 150 feet: 5 PT Filling Station Laborer Goals Filling Station Laborer Goals PT Filling Station Laborer Goals Time Frame: Jan 16, 2020 Roll Left & Right (QC): 6 Sit to Lying (QC): 6 Lying-Sitting on Side/Bed(QC): 6 Sit to Stand (QC): 6 Chair/Dcw-ko-Fgfvk Xfer(QC): 6 Toilet Transfer (QC): 6 Car Transfer (QC): 6 Does the Patient Walk: Yes Walk 10 feet (QC): 6 Walk 50ft with 2 Turns (QC): 6 Walk 150 ft (QC): 6 Walking 10ft on Uneven Surface: 6 1 Step (curb) (QC): 6 4 Steps (QC): 6 12 Steps (QC): 6 Picking up an Object (QC): 6 Wheel 50 feet with 2 turns (QC: 9 Wheel 150 feet: 9 PT Plan Problem List Problem List: Activity Tolerance, Functional Strength, Safety, Balance, Gait, Transfer, ROM Treatment/Plan Treatment Plan: Continue Plan of Care Treatment Plan: Education, Functional Activity Negrita, Functional Strength, Group Therapy, Gait, Safety, Therapeutic Exercise, Transfers Treatment Duration: Jan 16, 2020 Frequency: At least 5 of 7 days/Wk (IRF) Estimated Hrs Per Day: 1.5 hours per day Patient and/or Family Agrees t: Yes Safety Risks/Education Patient Education: Gait Training, Transfer Techniques, Correct Positioning, Safety Issues Teaching Recipient: Patient Teaching Methods: Demonstration, Discussion Response to Teaching: Reinforcement Needed Time/GCodes Time In: 1300 Time Out: 1315 Total Billed Treatment Time: 15 Total Billed Treatment 1 visit GT 15' FAYE MORALES PT Jan 01, 2020 13:30
--- NOTE | 2020-01-01 14:24 | Speech Therapy Daily Note ---
Speech Daily Progress Note Subjective Date Seen by Provider: Jan 01, 2020 Time Seen by Provider: 00:30 Patient was resting in his recliner when I entered his room. Objective Patient answered simple y/n questions at 40% with maximum verbal cues and/or repetitions. Assessment Assessment Current Status: Poor Progress Treatment Plan Continue Plan of Care Speech Short Term Goals Short Term Goals Short Term Goals 1) The patient will complete memory tasks related to his daily needs with 80% or greater given minimal cues. 2) The patient will complete safety awareness tasks related to his daily needs with 80% or greater given minimal cues. 3) The patient will complete problem solving tasks related to his daily needs with 80% or greater given minimal cues. Speech Mannequin Decorator Goals Mannequin Decorator Goals Patient will improve cognitive-communication necessary for safety and daily living tasks with minimal assist. Speech-Plan Patient/Family Goals Patient/Family Goals: Patient plans on returning to his home where he lives with his . Treatment Plan Speech Therapy Treatment Plan: Continue Plan of Care Treatment Duration: Jan 05, 2020 Frequency: 4 times per week (Patient will receive skilled ST 4-5x per week) Estimated Hrs Per Day: .5 hour per day Rehab Potential: Fair Barriers to Learning: Patient's recent CVA, age Pt/Family Agrees to Plan: Yes Safety Risks/Education Teaching Recipient: Patient Teaching Methods: Demonstration, Discussion Response to Teaching: Verbalize Understanding, Return Demonstration, Reinforcement Needed Education Topics Provided: Continued utilization of call light as needed, communication of wants/needs Time Speech Therapy Time In: 11:00 Speech Therapy Time Out: 11:30 Total Billed Time: 30 Billed Treatment Time 1, SUNSHINE Onofre Jan 01, 2020 14:23
--- NOTE | 2020-01-01 15:52 | NUR ---
CM/SS CONCURRENT DOCUMENTATION Visited with patient's , Carolyne, on the phone. She continues very upbeat and positive and it appears the family has been supportive to patient during his stay here by way of alternate means since we are under a Covid protocol for no visitors. Carolyne shared that patient bought a new [employer] and had ridden it 8 miles prior to his acute CVA. She said they had a nice discussion this weekend, that patient seemed more clear headed and his speech was improved. He apparently told Carolyne he knew he would have to sell it, that he likely would not be able to ride again. He requested that they keep it and let him see it one more time when he got home and then they would make decisions beyond that. 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 Hopeful at some point he will be able to continue to ride as a passenger in some way if that is what he wants to do. Observed patient working with PT, he ambulated slowly but steady. During our conversation, he appeared to have difficulty finding his words and was almost tearful with the challenge. He said more than once, "I am sorry", because he couldn't express himself. Attempted to comfort and calm patient with positive listening and encouragement. Recommend family education and training in advance of his final discharge planning and dismissal.
[2020-01-01] MEDS: DOCUSATE SODIUM 100 MG (COLACE) CAP PO SCH ×2 (16:05→20:34)
[2020-01-01] MEDS: SENNA W/DOCUSATE (SENOKOT S) TABLET PO SCH ×2 (16:05→20:34)
[2020-01-01] MEDS: polyethylene glycoL POWDER 17 GM (MIRALAX) PACK PO SCH ×2 (16:05→20:34)
[2020-01-01 18:15] VITALS: BP 121/57
[2020-01-01] MEDS: ALPRAZolam 0.25 MG (XANAX) TAB PO SCH (20:29)
[2020-01-01] MEDS: LATANOPROST 0.005% (XALATAN) OPHTH SOLN 2.5 ML OU SCH (20:35)
--- NOTE | 2020-01-02 00:13 | NUR ---
OXYGEN SATURATION IS 89-90% ON ROOM AIR WHILE ASLEEP. 02 APPLIED AT 2L PER NC AND INCREASED TO 93%. WILL LEAVE ON FOR REMAINDER OF THE NIGHT. PATIENT AROUSES EASILY AND ANSWERS QUESTIONS APPROPRIATELY. DENIES NEED TO URINATE AT THIS TIME.
[2020-01-02 06:00] VITALS: BP 134/63
[2020-01-02] MEDS: VITAMIN D3 25 MCG (1,000 UNITS) TABLET PO SCH (06:21)
--- NOTE | 2020-01-02 08:29 | PM&R Progress Note ---
Subjective HPI/CC On Admission Date Seen by Provider: Jan 02, 2020 Time Seen by Provider: 08:30 Subjective/Events-last exam 01/02/20: Pt about the same No major changes Cognition continues to be a challenge 01/01/20: Pt doing pretty well No significant changes Cognition is an issue Participating in therapy with a lot of heavy cues 12/31/19: Family pics helping morale Got into shower without tearfulness Coughing managed with Robitussin DM and Xanax 12/30/19: Xanax helping him at night Robitussin DM also helps Will check on [facility] EMR to see what was done for cough evaluation Event monitor was planned for [facility] at [place] will reach out on Wednesday regarding those details 12/29/19: Patient seems about the same Cognition is a challenge when communicating No falls 12/28/19: Crushing pills in apple sauce seems to help Snoring at night, unsure if he needs to be on oxygen Xanax given at night really helps him Robitussin DM given for cough Aphasia continues Bowels moved yesterday so will continue laxatives Becomes tearful at times 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 Checked meds and labs Reviewed therapy notes Conferred with gasoline tester of Systems General: Fatigue, Malaise Neurological: Weakness, Confusion Objective Exam Vital Signs Vital Signs Date Time Temp Pulse Resp B/P (MAP) Pulse Ox O2 Delivery O2 Flow Rate FiO2 01/03/20 06:11 37.0 67 18 131/64 (86) 90 Room Air Capillary Refill : Less Than 3 Seconds General Appearance: No Apparent Distress, WD/WN, Chronically ill HEENT: PERRL/EOMI, Normal ENT Inspection, Pharynx Normal Neck: Full Range of Motion, Normal Inspection, Non Tender, Supple, Carotid Bruit Respiratory: Chest Non Tender, Lungs Clear, Normal Breath Sounds, No Accessory Muscle Use, No Respiratory Distress Cardiovascular: Regular Rate, Rhythm, No Edema, No Gallop, No JVD, No Murmur, Normal Peripheral Pulses Gastrointestinal: Normal Bowel Sounds, No Organomegaly, No Pulsatile Mass, Non Tender, Soft Back: Normal Inspection, No CVA Tenderness, No Vertebral Tenderness Extremity: Normal Capillary Refill, Normal Inspection, Normal Range of Motion, Non Tender, No Calf Tenderness, No Pedal Edema Neurologic/Psychiatric: Alert, Oriented x3, Normal Mood/Affect, telegraph repeater installer II-XII Norm as Tested, Abnormal Gait, Aphasia, Depressed Affect, Motor Weakness (right sided 3/5) Skin: Normal Color, Warm/Dry Lymphatic: No Adenopathy Results/Procedures Lab Patient resulted labs reviewed. FIM Transfers Therapy Code Descriptions/Definitions Functional [place] Measure: 0=Not Assessed/NA 4=Minimal Assistance 1=Total Assistance 5=Supervision or Setup 2=Maximal Assistance 6=Modified [place] 3=Moderate Assistance 7=Complete IndependenceSCALE: Activities may be completed with or without assistive devices. 2-Btrttzrxsl-yrstvzm completes the activity by him/herself with no assistance from a helper. 5-Set-up or Clean-up Assistance-helper sets up or cleans up; patient completes activity. [place] assists only prior to or following the activity. 4-Supervision or Touching Assistance-helper provides verbal cues and/or touching/steadying and/or contact guard assistance as patient completes activity. Assistance may be provided throughout the activity or intermittently. 3-Partial/Moderate Assistance-helper does LESS THAN HALF the effort. [place] lifts, holds or supports trunk or limbs, but provides less than half the effort. 2-Substantial/Maximal Assistance-helper does MORE THAN HALF the effort. [place] lifts or holds trunk or limbs and provides more than half the effort. 7-Mppmxxoou-dyysqk does ALL the effort. Patient does none of the effort to complete the activity. Or, the assistance of 2 or more helpers is required for the patient to complete the activity. If activity was not attempted, code reason: 7-Patient Refused. 9-Not Applicable-not attempted and the patient did not perform the activity before the current illness, exacerbation or injury. 10-Not Attempted due to Environmental Limitations-(lack of equipment, weather restraints, etc.). 88-Not Attempted due to Medical Conditions or Safety Concerns. Roll Left to Right (QC): 6 Sit to Lying (QC): 6 Sit to Stand (QC): 4 Chair/Nck-zz-Ocrth Xfer(QC): 4 Car Transfer (QC): 4 Gait Training Does the Patient Walk?: Yes Distance: 150'x2 Walk 10 feet (QC): 4 Walk 50 ft with 2 Turns(QC): 4 Walk 150 ft (QC): 4 Walking 10ft/uneven surface-QC: 4 Gait Persons Needed: 1 Gait Assistive Device: FWW Wheelchair Training Does the Pt Use a Wheelchair?: No Wheel 50 ft with 2 turns (QC): 9 Wheel 150 ft (QC): 9 Stair Training #of Steps: 4 1 Step (curb) (QC): 4 4 Steps (QC): 4 12 Steps (QC): 88 Balance Picking up an Object (QC): 4 ADL-Treatment Eating (QC): 88 Oral Hygiene (QC): 5 Bathing Location: L Arm, R Arm, L Upper Leg, R Upper Leg, L Lower Leg (including foot), R Lower Leg (including foot), Chest, Abdomen Shower/Bathe Self (QC): 3 Upper Body Dressing (QC): 3 Lower Body Dressing (QC): 4 On/Off Footwear (QC): 4 Toileting Hygiene (QC): 4 Toilet Transfer (QC): 4 Assessment/Plan Assessment and Plan Assess & Plan/Chief Complaint Assessment: CVA Expressive aphasia Confusion Urinary retention h/o lymphoma CRI Fall risk Plan: IRF protocol Check labs in am Monitor for falls Monitor urinary retention 12/27/19: Aphasia management Monitor BP Monitor creatinine 12/28/19: Monitor aphasia Monitor for falls Increased risk of confusion 12/29/19: Cough management but appears to be a non-purposeful behavior since CVA 12/30/19: Will research cough w/u on [facility] EMR Monitor closely 12/31/19: Monitor closely Fall risk Cognition therapy 01/01/20: Cough management Xanax at night helps him sleep 01/02/20: IRF protocol DIscuss dispo at meeting Wed (1) CVA (cerebral vascular accident) (2) Lymphoma in remission (3) Renal insufficiency (4) Expressive aphasia (5) Confusion (6) Anemia (7) Retention, urine (8) Delirium JAMAL CANADA DO Jan 02, 2020 08:29
--- NOTE | 2020-01-02 08:35 | Occupational Ther Daily Note ---
OT Current Status-Daily Note Subjective Pt alert, sitting in recliner. Pt agrees to therapy. Pt states, "I don't know and I am sorry" throughout session. No indicators of pain. Mental Status/Objective Patient Orientation: Person ADL-Treatment Pt agrees to take shower. Pt declined any further breakfast food or drinks. Pt requires increased time to process steps of tasks and gestural/verbal cues when pt loses focus or can not cognitively proceed with task. Pt sat at sink to complete grooming and oral care. Pt required assist to problem solve which tools to use for each task. Pt then was able to complete tasks independently. Pt used w/c to transfer to toilet using grab bars to stabilize while cleansing buttocks area by self in sitting, CASTAN[place]A assisted to thoroughly cleanse area. Pt used FWW to ambulate to shower using grab bars to stabilize while transferring into shower. Pt washed upper/lower body with set up. Pt used grab bars to stabilize while cleansing perineal, buttocks area by self, with verbal cues. Pt required verbal/physical (touch hair) cues to cleanse hair. Pt transferred from shower bench to w/c using grab bars to stabilize using FWW. Pt performed upper body dressing with set up. Pt performed lower body dressing with set up using FWW to stabilize while hiking pants over hips by self. Pt propelled self to room using feet to guide. Pt in recliner worked on memory retention (orientation x2). Call light/phone in reach. All needs met. Therapy Code Descriptions/Definitions Functional [place] Measure: 0=Not Assessed/NA 4=Minimal Assistance 1=Total Assistance 5=Supervision or Setup 2=Maximal Assistance 6=Modified [place] 3=Moderate Assistance 7=Complete IndependenceSCALE: Activities may be completed with or without assistive devices. 4-Zwygjozret-cdwnnsc completes the activity by him/herself with no assistance from a helper. 5-Set-up or Clean-up Assistance-helper sets up or cleans up; patient completes activity. [place] assists only prior to or following the activity. 4-Supervision or Touching Assistance-helper provides verbal cues and/or touching/steadying and/or contact guard assistance as patient completes activity. Assistance may be provided throughout the activity or intermittently. 3-Partial/Moderate Assistance-helper does LESS THAN HALF the effort. [place] lifts, holds or supports trunk or limbs, but provides less than half the effort. 2-Substantial/Maximal Assistance-helper does MORE THAN HALF the effort. [place] lifts or holds trunk or limbs and provides more than half the effort. 5-Kzzgtrlmd-mnksyr does ALL the effort. Patient does none of the effort to complete the activity. Or, the assistance of 2 or more helpers is required for the patient to complete the activity. If activity was not attempted, code reason: 7-Patient Refused. 9-Not Applicable-not attempted and the patient did not perform the activity before the current illness, exacerbation or injury. 10-Not Attempted due to Environmental Limitations-(lack of equipment, weather restraints, etc.). 88-Not Attempted due to Medical Conditions or Safety Concerns. Eating (QC): 5 Oral Hygiene (QC): 4 Bathing Location: L Arm, R Arm, L Upper Leg, R Upper Leg, L Lower Leg (including foot), R Lower Leg (including foot), Chest, Abdomen, Buttocks, Perineal Area Shower/Bathe Self (QC): 4 Upper Body Dressing (QC): 5 Lower Body Dressing (QC): 5 On/Off Footwear: 5 Toileting Hygiene (QC): 4 Toilet Transfer (QC): 4 Education OT Patient Education: Modified ADL techniques Teaching Recipient: Patient Teaching Methods: Demonstration Response to Teaching: Verbalize Understanding, Return Demonstration, Reinforcement Needed OT Short Term Goals Short Term Goals Time Frame: Jan 02, 2020 Eatin Oral hygiene: 4 Toileting hygiene: 4 Shower/bathe self: 4 Upper body dressin Lower body dressin Putting on/taking off footwear: 4 OT Retirement Goals Instructor Trainer Canine Service Goals Time Frame: Jan 09, 2020 Eating (QC): 6 Oral Hygiene (QC): 5 Toileting Hygiene (QC): 6 Shower/Bathe Self (QC): 4 Upper Body Dressing (QC): 5 Lower Body Dressing (QC): 5 On/Off Footwear (QC): 5 Additional Goals: 1-Demonstrate ADL Tasks, 2-Verbalize Understanding, 3- ImproveStrength/Negrita 1=Demonstrate adherence to instructed precautions during ADL tasks. 2=Patient will verbalize/demonstrate understanding of assistive devices/modifi cations for ADL. 3=Patient will improve strength/tolerance for activity to enable patient to perform ADL's. OT Education/Plan Problem List/Assessment Assessment: Decreased Activ Tolerance, Decreased UE Strength, Impaired Cognition, Impaired Funct Balance, Impaired Self-Care Skills Discharge Recommendations Plan/Recommendations: Continue POC Treatment Plan/Plan of Care Patient would benefit from OT for education, treatment and training to promote independence in ADL's, mobility, safety and/or upper extremity function for ADL's. Plan of Care: ADL Retraining, Cognitive Retraining, Functional Mobility, Group Exercise/Act as Ind, UE Funct Exercise/Act, UE Neuromus Re-Ed/Coord, Visual/Perceptual Retrain, W/C Management Training Treatment Duration: Jan 09, 2020 Frequency: At least 5 of 7 days/Wk (IRF) Estimated Hrs Per Day: 1.5 hours per day Agreement: Yes Rehab Potential: Fair Time/GCodes Start Time: 07:30 Stop Time: 09:00 Total Time Billed (hr/min): 90 Billed Treatment Time 1 visit- ADL 5 (75 mins), FA (15 mins) MILLA PICKETT Jan 02, 2020 08:35
[2020-01-02] MEDS: SERTRALINE 50 MG (ZOLOFT) TABLET PO SCH (09:07)
[2020-01-02] MEDS: CLOPIDOGREL 75 MG (PLAVIX) TABLET PO SCH (09:07)
[2020-01-02] MEDS: guaiFENesin/CODEINE (ROBITUSSIN AC) 10ML UDC PO PRN (09:07)
[2020-01-02] MEDS: PANTOPRAZOLE 40 MG (PROTONIX) TAB PO SCH ×2 (09:07→20:10)
[2020-01-02] MEDS: DOCUSATE SODIUM 100 MG (COLACE) CAP PO SCH ×2 (09:07→20:10)
[2020-01-02] MEDS: ASPIRIN E.C. 81 MG (ECOTRIN) TAB PO SCH (09:07)
[2020-01-02] MEDS: polyethylene glycoL POWDER 17 GM (MIRALAX) PACK PO SCH ×2 (09:19→19:28)
[2020-01-02] MEDS: SENNA W/DOCUSATE (SENOKOT S) TABLET PO SCH ×2 (09:20→19:28)
[2020-01-02] MEDS: ENOXAPARIN 40 MG/0.4 ML (LOVENOX) SYR SC SCH (10:51)
--- NOTE | 2020-01-02 12:12 | Physical Therapy Daily Note ---
PT Daily Note-Current Subjective Pt sitting in recliner upon arrival. Pt agrees to PT. Pain Location: No Pain Reported Mental Status Patient Orientation: Person, Confused, Place Transfers SCALE: Activities may be completed with or without assistive devices. 8-Xaacchxwxb-ecwfpqk completes the activity by him/herself with no assistance from a helper. 5-Set-up or Clean-up Assistance-helper sets up or cleans up; patient completes activity. [place] assists only prior to or following the activity. 4-Supervision or Touching Assistance-helper provides verbal cues and/or touching/steadying and/or contact guard assistance as patient completes activity. Assistance may be provided throughout the activity or intermittently. 3-Partial/Moderate Assistance-helper does LESS THAN HALF the effort. [place] lifts, holds or supports trunk or limbs, but provides less than half the effort. 2-Substantial/Maximal Assistance-helper does MORE THAN HALF the effort. [place] lifts or holds trunk or limbs and provides more than half the effort. 4-Rxplfvspw-lbgown does ALL the effort. Patient does none of the effort to complete the activity. Or, the assistance of 2 or more helpers is required for the patient to complete the activity. If activity was not attempted, code reason: 7-Patient Refused. 9-Not Applicable-not attempted and the patient did not perform the activity before the current illness, exacerbation or injury. 10-Not Attempted due to Environmental Limitations-(lack of equipment, weather restraints, etc.). 88-Not Attempted due to Medical Conditions or Safety Concerns. Sit to Stand (QC): 5 Weight Bearing Full Weight Bearing Full Weight Bearing Gait Training Does the Patient Walk?: Yes Distance: 150' x2 Walk 10 feet (QC): 5 Walk 50 ft with 2 Turns(QC): 5 Walk 150 ft (QC): 5 Gait Persons Needed: 1 Gait Assistive Device: FWW Wheelchair Training Does the Pt Use a Wheelchair?: No Exercises NuStep Minutes: 16 NuStep Workload: 5 Treatments TF to standing and amb. in hallway. Uses NuStep for 16m at WL 5 then short RB. Pt amb. in hallway before returning to room to rest in recliner. All needs met, call light in hand. Assessment Current Status: Good Progress Pt continues to need VC for directions due to confusion. PT Short Term Goals Short Term Goals Time Frame: Jan 02, 2020 Roll Left & Right: 6 Sit to lyin Lying to sitting on side of be: 6 Sit to stand: 5 Chair/zua-ho-wqssr transfer: 5 Toilet transfer: 5 Walk 10 feet: 5 Walk 50 feet with two turns: 5 Walk 150 feet: 5 PT Outdoor Adventure Guides Goals Outdoor Adventure Guides Goals PT Care Home Goals Time Frame: Jan 16, 2020 Roll Left & Right (QC): 6 Sit to Lying (QC): 6 Lying-Sitting on Side/Bed(QC): 6 Sit to Stand (QC): 6 Chair/Uiz-ci-Epjhm Xfer(QC): 6 Toilet Transfer (QC): 6 Car Transfer (QC): 6 Does the Patient Walk: Yes Walk 10 feet (QC): 6 Walk 50ft with 2 Turns (QC): 6 Walk 150 ft (QC): 6 Walking 10ft on Uneven Surface: 6 1 Step (curb) (QC): 6 4 Steps (QC): 6 12 Steps (QC): 6 Picking up an Object (QC): 6 Wheel 50 feet with 2 turns (QC: 9 Wheel 150 feet: 9 PT Plan Problem List Problem List: Activity Tolerance, Safety Treatment/Plan Treatment Plan: Continue Plan of Care Treatment Plan: Education, Functional Activity Negr[place], Functional Strength, Group Therapy, Gait, Safety, Therapeutic Exercise, Transfers Treatment Duration: Jan 16, 2020 Frequency: At least 5 of 7 days/Wk (IRF) Estimated Hrs Per Day: 1.5 hours per day Patient and/or Family Agrees t: Yes Safety Risks/Education Patient Education: Correct Positioning, Safety Issues Teaching Recipient: Patient Teaching Methods: Discussion Response to Teaching: Reinforcement Needed Time/GCodes Time In: 1015 Time Out: 1100 Total Billed Treatment Time: 45 Total Billed Treatment 1, GT x2 (25m) & EX (20m) GURMEET JUAREZ UTILITY SALES AND SERVICE MANAGER Jan 02, 2020 12:12
--- NOTE | 2020-01-02 13:32 | Speech Therapy Daily Note ---
Speech Daily Progress Note Subjective Date Seen by Provider: Jan 02, 2020 Time Seen by Provider: 00:30 Patient was resting in his recliner following his PT session. Objective Patient completed simple y/n questions at 60% with mod to max verbal cues/repetitions. Assessment Assessment Current Status: Fair Progress Treatment Plan Continue Plan of Care Speech Short Term Goals Short Term Goals Short Term Goals 1) The patient will complete memory tasks related to his daily needs with 80% or greater given minimal cues. 2) The patient will complete safety awareness tasks related to his daily needs with 80% or greater given minimal cues. 3) The patient will complete problem solving tasks related to his daily needs with 80% or greater given minimal cues. Speech Vehicle Inspector Goals Intermediate Goals Patient will improve cognitive-communication necessary for safety and daily living tasks with minimal assist. Speech-Plan Patient/Family Goals Patient/Family Goals: Patient plans on returning to his home where he lives with his . Treatment Plan Speech Therapy Treatment Plan: Continue Plan of Care Treatment Duration: Jan 05, 2020 Frequency: 4 times per week (Patient will receive skilled ST 4-5x per week) Estimated Hrs Per Day: .5 hour per day Rehab Potential: Fair Barriers to Learning: Patient's deficits following his recent CVA Pt/Family Agrees to Plan: Yes Safety Risks/Education Teaching Recipient: Patient Teaching Methods: Demonstration, Discussion Response to Teaching: Verbalize Understanding, Return Demonstration Education Topics Provided: Continued safety within his room and communication of wants/needs Time Speech Therapy Time In: 11:00 Speech Therapy Time Out: 11:30 Total Billed Time: 30 Billed Treatment Time 1, SUNSHINE Onofre Jan 02, 2020 13:32
--- NOTE | 2020-01-02 14:21 | Physical Therapy Daily Note ---
PT Daily Note-Current Subjective Pt sitting in recliner upon arrival. Pt agrees to PT. Pain Location: No Pain Reported Mental Status Patient Orientation: Person, Place Transfers SCALE: Activities may be completed with or without assistive devices. 1-Ucqjsxtvxd-ymjlkow completes the activity by him/herself with no assistance from a helper. 5-Set-up or Clean-up Assistance-helper sets up or cleans up; patient completes activity. [place] assists only prior to or following the activity. 4-Supervision or Touching Assistance-helper provides verbal cues and/or touching/steadying and/or contact guard assistance as patient completes activity. Assistance may be provided throughout the activity or intermittently. 3-Partial/Moderate Assistance-helper does LESS THAN HALF the effort. [place] lifts, holds or supports trunk or limbs, but provides less than half the effort. 2-Substantial/Maximal Assistance-helper does MORE THAN HALF the effort. [place] lifts or holds trunk or limbs and provides more than half the effort. 7-Lnxeyhwjq-dmxvbl does ALL the effort. Patient does none of the effort to complete the activity. Or, the assistance of 2 or more helpers is required for the patient to complete the activity. If activity was not attempted, code reason: 7-Patient Refused. 9-Not Applicable-not attempted and the patient did not perform the activity before the current illness, exacerbation or injury. 10-Not Attempted due to Environmental Limitations-(lack of equipment, weather restraints, etc.). 88-Not Attempted due to Medical Conditions or Safety Concerns. Sit to Stand (QC): 5 Weight Bearing Full Weight Bearing Full Weight Bearing Exercises Supine Ex: Ankle pumps, Quad Set, Glut sets, Heel Slides, Straight leg raise, Hip abd/add Supine Reps: 15 Treatments Pt completes Supine Ex with RB as needed. Pt declines need for BR. Pt resting at end of tx, all needs met, call light in hand. Assessment Current Status: Good Progress Pt dwain. tx well. PT Short Term Goals Short Term Goals Time Frame: Jan 02, 2020 Roll Left & Right: 6 Sit to lyin Lying to sitting on side of be: 6 Sit to stand: 5 Chair/dff-fo-wysmw transfer: 5 Toilet transfer: 5 Walk 10 feet: 5 Walk 50 feet with two turns: 5 Walk 150 feet: 5 PT Custodial Goals Custodial Goals PT Custodial Goals Time Frame: Jan 16, 2020 Roll Left & Right (QC): 6 Sit to Lying (QC): 6 Lying-Sitting on Side/Bed(QC): 6 Sit to Stand (QC): 6 Chair/Jps-bt-Mdaxw Xfer(QC): 6 Toilet Transfer (QC): 6 Car Transfer (QC): 6 Does the Patient Walk: Yes Walk 10 feet (QC): 6 Walk 50ft with 2 Turns (QC): 6 Walk 150 ft (QC): 6 Walking 10ft on Uneven Surface: 6 1 Step (curb) (QC): 6 4 Steps (QC): 6 12 Steps (QC): 6 Picking up an Object (QC): 6 Wheel 50 feet with 2 turns (QC: 9 Wheel 150 feet: 9 PT Plan Problem List Problem List: Activity Tolerance Treatment/Plan Treatment Plan: Continue Plan of Care Treatment Plan: Education, Functional Activity [place], Functional Strength, Group Therapy, Gait, Safety, Therapeutic Exercise, Transfers Treatment Duration: Jan 16, 2020 Frequency: At least 5 of 7 days/Wk (IRF) Estimated Hrs Per Day: 1.5 hours per day Patient and/or Family Agrees t: Yes Safety Risks/Education Patient Education: Safety Issues Teaching Recipient: Patient Response to Teaching: Reinforcement Needed Time/GCodes Time In: 1300 Time Out: 1330 Total Billed Treatment Time: 30 Total Billed Treatment 1, EX x2 (30m) GURMEET JUAREZ MOLECULAR BIOLOGY DIRECTOR Jan 02, 2020 14:21
--- NOTE | 2020-01-02 15:05 | NUR ---
"RD ASSESSMENT PMHx: COPD; CKD; DM; TIA; GERD; CA(lymphoma, bone); pneumonia; hypercholesterolemia; stroke; PT INTERACTION: Pt was awake and pleasant during nutrition follow-up. Pt states he has been eating well since last assessment. Note avg PO intake 45% x5d, per chart review. Pt states no issues with nausea, vomiting, constipation, or diarrhea since last assessment. Note last BM was 12/30, and pt currently on bowel regimen of colace BID, senna BID, and miralax BID, per chart review. Note recent 6# wt loss x1week, possibly due to fluid losses. ABNORMAL NUTRITION-RELATED LAB VALUES LOW: Ca 8.1; alb 3.1; HIGH: Cl 108; BUN 26; cr 1.67; AST 68; ALT 69; alkphos 151; Est. kcal needs: 4275-9328 kcal | 25-30 kcal/kg Est. Pro needs: 61-78 g Pro | 0.8-1.0 g Pro/kg PES STATEMENT: Inadequate oral intake (NI-2.1) related to loss of appetite as evidenced by pt interview and avg PO intake 45% x5d. INTERVENTION: Continue with current diet order of Regular diet. Pt may benefit from consistent CHO restriction if blood glucose levels become elevated. Discontinue current supplementation order of Glucerna with meals TID, as pt stated he is not drinking them. Encouraged pt to eat when able. Will continue to follow and reassess as pt needs, intake, and status change. Stefano Pringle, MS RD LD [phone] cell"
[2020-01-02] MEDS ORDERED: LATA2.5D19 OU (15:28)
--- NOTE | 2020-01-02 15:32 | NUR ---
CM/SS CONCURRENT DOCUMENTATION Communication exchanges with patient's spouse. Family members are planning a cell phone virtual visit on [place]. Their son John has programmed all their cells to be able to participate. Carolyne has his phone at this time, she will be bringing it back to the hospital for Yefri. As it stands now, staff will need to be a support regarding making sure the call is received and patient/family can see each other. Phone will need to be on a stand so that patient does not have to hold.
[2020-01-02 18:16] VITALS: BP 130/67
[2020-01-02] MEDS: ALPRAZolam 0.25 MG (XANAX) TAB PO SCH (20:10)
[2020-01-02] MEDS: LATANOPROST 0.005% (XALATAN) OPHTH SOLN 2.5 ML OU SCH (20:16)
[2020-01-03] MEDS: VITAMIN D3 25 MCG (1,000 UNITS) TABLET PO SCH (05:49)
[2020-01-03 06:11] VITALS: BP 131/64
--- NOTE | 2020-01-03 07:07 | PM&R Progress Note ---
Subjective HPI/CC On Admission Date Seen by Provider: Jan 03, 2020 Time Seen by Provider: 09:30 Subjective/Events-last exam 01/03/20: Pt overall doing much better CXR shows B/L upper lobe infiltrates Covid swab will be done Pt has had a cough since he came over from [facility], his Covid test was negative on 12/20 O2 supplementation maintained Spoke to radiology and given elevated d-dimer and maintained on Lovenox since admit will perform perfusion scan 01/02/20: Pt about the same No major changes Cognition continues to be a challenge 01/01/20: Pt doing pretty well No significant changes Cognition is an issue Participating in therapy with a lot of heavy cues 12/31/19: Family pics helping morale Got into shower without tearfulness Coughing managed with Robitussin DM and Xanax 12/30/19: Xanax helping him at night Robitussin DM also helps Will check on [facility] EMR to see what was done for cough evaluation Event monitor was planned for [facility] at [place] will reach out on Wednesday regarding those details 12/29/19: Patient seems about the same Cognition is a challenge when communicating No falls 12/28/19: Crushing pills in apple sauce seems to help Snoring at night, unsure if he needs to be on oxygen Xanax given at night really helps him Robitussin DM given for cough Aphasia continues Bowels moved yesterday so will continue laxatives Becomes tearful at times 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 Checked meds and labs Reviewed therapy notes Conferred with ticketer of Systems General: Fatigue Pulmonary: Cough Neurological: Weakness, Incoordination Focused Exam Lactate Level 01/03/20 14:50: Lactic Acid Level 1.57 Objective Exam Vital Signs Vital Signs Date Time Temp Pulse Resp B/P (MAP) Pulse Ox O2 Delivery O2 Flow Rate FiO2 01/03/20 20:00 Room Air 01/03/20 18:48 37.2 67 16 137/62 (87) 92 2.00 Capillary Refill : Less Than 3 Seconds General Appearance: No Apparent Distress, WD/WN, Chronically ill HEENT: PERRL/EOMI, Normal ENT Inspection, Pharynx Normal Neck: Full Range of Motion, Normal Inspection, Non Tender, Supple, Carotid Bruit Respiratory: Chest Non Tender, Lungs Clear, Normal Breath Sounds, No Accessory Muscle Use, No Respiratory Distress, Other (wearing O2 now) Cardiovascular: Regular Rate, Rhythm, No Edema, No Gallop, No JVD, No Murmur, Normal Peripheral Pulses Gastrointestinal: Normal Bowel Sounds, No Organomegaly, No Pulsatile Mass, Non Tender, Soft Back: Normal Inspection, No CVA Tenderness, No Vertebral Tenderness Extremity: Normal Capillary Refill, Normal Inspection, Normal Range of Motion, Non Tender, No Calf Tenderness, No Pedal Edema Neurologic/Psychiatric: Alert, Oriented x3, Normal Mood/Affect, parts sales manager II-XII Norm as Tested, Abnormal Gait, Aphasia, Depressed Affect, Motor Weakness (right sided 3/5) Skin: Normal Color, Warm/Dry Lymphatic: No Adenopathy Results/Procedures Lab Laboratory Tests 01/03/20 14:50 Patient resulted labs reviewed. FIM Transfers Therapy Code Descriptions/Definitions Functional [place] Measure: 0=Not Assessed/NA 4=Minimal Assistance 1=Total Assistance 5=Supervision or Setup 2=Maximal Assistance 6=Modified [place] 3=Moderate Assistance 7=Complete IndependenceSCALE: Activities may be completed with or without assistive devices. 3-Sdzdsrzhew-hcqlavm completes the activity by him/herself with no assistance from a helper. 5-Set-up or Clean-up Assistance-helper sets up or cleans up; patient completes activity. [place] assists only prior to or following the activity. 4-Supervision or Touching Assistance-helper provides verbal cues and/or touching/steadying and/or contact guard assistance as patient completes activity. Assistance may be provided throughout the activity or intermittently. 3-Partial/Moderate Assistance-helper does LESS THAN HALF the effort. [place] lifts, holds or supports trunk or limbs, but provides less than half the effort. 2-Substantial/Maximal Assistance-helper does MORE THAN HALF the effort. [place] lifts or holds trunk or limbs and provides more than half the effort. 4-Byvmcgczx-uwljme does ALL the effort. Patient does none of the effort to complete the activity. Or, the assistance of 2 or more helpers is required for the patient to complete the activity. If activity was not attempted, code reason: 7-Patient Refused. 9-Not Applicable-not attempted and the patient did not perform the activity before the current illness, exacerbation or injury. 10-Not Attempted due to Environmental Limitations-(lack of equipment, weather restraints, etc.). 88-Not Attempted due to Medical Conditions or Safety Concerns. Roll Left to Right (QC): 6 Sit to Lying (QC): 6 Sit to Stand (QC): 5 Chair/Bkb-as-Heewl Xfer(QC): 4 Car Transfer (QC): 4 Gait Training Does the Patient Walk?: Yes Distance: 150' x2 Walk 10 feet (QC): 5 Walk 50 ft with 2 Turns(QC): 5 Walk 150 ft (QC): 5 Walking 10ft/uneven surface-QC: 4 Gait Persons Needed: 1 Gait Assistive Device: FWW Wheelchair Training Does the Pt Use a Wheelchair?: No Wheel 50 ft with 2 turns (QC): 9 Wheel 150 ft (QC): 9 Stair Training #of Steps: 4 1 Step (curb) (QC): 4 4 Steps (QC): 4 12 Steps (QC): 88 Balance Picking up an Object (QC): 4 ADL-Treatment Eating (QC): 5 Oral Hygiene (QC): 4 Bathing Location: L Arm, R Arm, L Upper Leg, R Upper Leg, L Lower Leg (in cluding foot), R Lower Leg (including foot), Chest, Abdomen, Buttocks, Perineal Area Shower/Bathe Self (QC): 4 Upper Body Dressing (QC): 5 Lower Body Dressing (QC): 5 On/Off Footwear (QC): 5 Toileting Hygiene (QC): 4 Toilet Transfer (QC): 4 Assessment/Plan Assessment and Plan Assess & Plan/Chief Complaint Assessment: CVA Expressive aphasia Confusion Urinary retention h/o lymphoma CRI Fall risk Plan: IRF protocol Check labs in am Monitor for falls Monitor urinary retention 12/27/19: Aphasia management Monitor BP Monitor creatinine 12/28/19: Monitor aphasia Monitor for falls Increased risk of confusion 12/29/19: Cough management but appears to be a non-purposeful behavior since CVA 12/30/19: Will research cough w/u on [employer] EMR Monitor closely 12/31/19: Monitor closely Fall risk Cognition therapy 01/01/20: Cough management Xanax at night helps him sleep 01/02/20: IRF protocol DIscuss dispo at meeting 01/03/20: Pursue septic w/u O2 COVID swab Monitor closely (1) CVA (cerebral vascular accident) (2) Lymphoma in remission (3) Renal insufficiency (4) Expressive aphasia (5) Confusion (6) Anemia (7) Retention, urine (8) Delirium JAMAL CANADA DO Jan 03, 2020 07:07
--- NOTE | 2020-01-03 08:09 | Occupational Ther Daily Note ---
OT Current Status-Daily Note Subjective Pt alert, sitting in recliner. Pt aphasic and has difficulty with answering orientation questions. Mental Status/Objective Patient Orientation: Person, Place, Time, Situation ADL-Treatment Pt did not complete shower at this time. Pt changed clothing, completed toileting and oral care. Clothing set beside pt, without cues pt initiated donning clothing. Pt able to don head and thread L UE into sleeve then required one cue (lifting bottom of shirt out as pt placed arm under shirt then was able to complete upper body dressing by self). Pt donned pants with supervision and set up for shoes/socks. Pt ambulated to toilet and transferred onto toilet with SBA, manipulated clothing with SBA. Pt cleansed buttocks area while sitting. Pt used grab bars to pull self up, transferred using FWW to w/c. Pt sat at sink to perform oral care and shaving, minimal verbal cues required. Pt propelled back to recliner, SBA transferring from w/c to recliner. Pt demostrated (orientation x2), able to recall month, holiday during month. Pt performed fine motor activity to work on B UE strengthening, finger manipulation. Pt able to remove 3 nut/bolt/washer from board. Pt was in recliner call light/phone in reach. All needs met. Therapy Code Descriptions/Definitions Functional [place] Measure: 0=Not Assessed/NA 4=Minimal Assistance 1=Total Assistance 5=Supervision or Setup 2=Maximal Assistance 6=Modified [place] 3=Moderate Assistance 7=Complete IndependenceSCALE: Activities may be completed with or without assistive devices. 2-Wgsuogfszq-zpevzob completes the activity by him/herself with no assistance from a helper. 5-Set-up or Clean-up Assistance-helper sets up or cleans up; patient completes activity. [place] assists only prior to or following the activity. 4-Supervision or Touching Assistance-helper provides verbal cues and/or touching/steadying and/or contact guard assistance as patient completes activity. Assistance may be provided throughout the activity or intermittently. 3-Partial/Moderate Assistance-helper does LESS THAN HALF the effort. [place] lifts, holds or supports trunk or limbs, but provides less than half the effort. 2-Substantial/Maximal Assistance-helper does MORE THAN HALF the effort. [place] lifts or holds trunk or limbs and provides more than half the effort. 3-Afmnmkiub-ocvojx does ALL the effort. Patient does none of the effort to complete the activity. Or, the assistance of 2 or more helpers is required for the patient to complete the activity. If activity was not attempted, code reason: 7-Patient Refused. 9-Not Applicable-not attempted and the patient did not perform the activity before the current illness, exacerbation or injury. 10-Not Attempted due to Environmental Limitations-(lack of equipment, weather restraints, etc.). 88-Not Attempted due to Medical Conditions or Safety Concerns. Oral Hygiene (QC): 4 Upper Body Dressing (QC): 4 Lower Body Dressing (QC): 4 On/Off Footwear: 5 Toileting Hygiene (QC): 5 OT Short Term Goals Short Term Goals Time Frame: Jan 02, 2020 Eatin Oral hygiene: 4 Toileting hygiene: 4 Shower/bathe self: 4 Upper body dressin Lower body dressin Putting on/taking off footwear: 4 OT Retirement Goals Retirement Goals Time Frame: Jan 09, 2020 Eating (QC): 6 Oral Hygiene (QC): 5 Toileting Hygiene (QC): 6 Shower/Bathe Self (QC): 4 Upper Body Dressing (QC): 5 Lower Body Dressing (QC): 5 On/Off Footwear (QC): 5 Additional Goals: 1-Demonstrate ADL Tasks, 2-Verbalize Understanding, 3- ImproveStrength/Negrita 1=Demonstrate adherence to instructed precautions during ADL tasks. 2=Patient will verbalize/demonstrate understanding of assistive devices/modifications for ADL. 3=Patient will improve strength/tolerance for activity to enable patient to perform ADL's. OT Education/Plan Problem List/Assessment Assessment: Decreased Activ Tolerance, Decreased UE Strength, Impaired Funct Balance, Impaired Self-Care Skills Discharge Recommendations Plan/Recommendations: Continue POC Treatment Plan/Plan of Care Patient would benefit from OT for education, treatment and training to promote independence in ADL's, mobility, safety and/or upper extremity function for ADL's. Plan of Care: ADL Retraining, Cognitive Retraining, Functional Mobility, Group Exercise/Act as Ind, UE Funct Exercise/Act, UE Neuromus Re-Ed/Coord, Visual/Perceptual Retrain, W/C Management Training Treatment Duration: Jan 09, 2020 Frequency: At least 5 of 7 days/Wk (IRF) Estimated Hrs Per Day: 1.5 hours per day Agreement: Yes Rehab Potential: Fair Time/GCodes Start Time: 07:30 Stop Time: 08:45 Total Time Billed (hr/min): 75 Billed Treatment Time 1 visit- ADL 3 ( 50 mins), FA 2 (25 mins) MILLA PICKETT Jan 03, 2020 08:09
[2020-01-03] MEDS: SERTRALINE 50 MG (ZOLOFT) TABLET PO SCH (08:37)
[2020-01-03] MEDS: CLOPIDOGREL 75 MG (PLAVIX) TABLET PO SCH (08:37)
[2020-01-03] MEDS: PANTOPRAZOLE 40 MG (PROTONIX) TAB PO SCH ×2 (08:37→21:08)
[2020-01-03] MEDS: ASPIRIN E.C. 81 MG (ECOTRIN) TAB PO SCH (08:37)
[2020-01-03] MEDS: SENNA W/DOCUSATE (SENOKOT S) TABLET PO SCH ×2 (08:39→19:54)
[2020-01-03] MEDS: polyethylene glycoL POWDER 17 GM (MIRALAX) PACK PO SCH ×2 (08:39→19:54)
[2020-01-03 08:44] VITALS: BP 127/62
[2020-01-03] MEDS: DOCUSATE SODIUM 100 MG (COLACE) CAP PO SCH ×2 (08:44→19:55)
--- NOTE | 2020-01-03 10:48 | NUR ---
OXYGEN SATURATION WAS 88% ON ROOM AIR THIS AM. 02 APPLIED AT 2L PER NC AND INCREASED TO 93%. DR. CANADA ON THE FLOOR AND INFORMED. NEW ORDERS FOR CHEST XRAY.
--- NOTE | 2020-01-03 10:50 | Speech Therapy Daily Note ---
Speech Daily Progress Note Subjective Date Seen by Provider: Jan 03, 2020 Time Seen by Provider: 00:30 Patient was noted to be tired and required frequent prompts to engage this date. The patient is now on O2 as well. Objective Patient completed a series of "what's wrong with this picture?" with scenarios he may encounter with 50% given maximum cues. Assessment Assessment Current Status: Fair Progress Treatment Plan Continue Plan of Care Speech Short Term Goals Short Term Goals Short Term Goals 1) The patient will complete memory tasks related to his daily needs with 80% or greater given minimal cues. 2) The patient will complete safety awareness tasks related to his daily needs with 80% or greater given minimal cues. 3) The patient will complete problem solving tasks related to his daily needs with 80% or greater given minimal cues. Speech Chcf Goals Chcf Goals Patient will improve cognitive-communication necessary for safety and daily living tasks with minimal assist. Speech-Plan Patient/Family Goals Patient/Family Goals: Patient plans on returning to his home upon discharge. Treatment Plan Speech Therapy Treatment Plan: Continue Plan of Care Treatment Duration: Jan 05, 2020 Frequency: 4 times per week (Patient will receive skilled ST 4-5x per week) Estimated Hrs Per Day: .5 hour per day Rehab Potential: Fair Barriers to Learning: Patient's expressive aphasia Pt/Family Agrees to Plan: Yes Safety Risks/Education Teaching Recipient: Patient Teaching Methods: Demonstration, Discussion Response to Teaching: Verbalize Understanding, Return Demonstration, Reinforcement Needed Education Topics Provided: Continued safety within his room, utilization of call light as needed Time Speech Therapy Time In: 09:00 Speech Therapy Time Out: 09:30 Total Billed Time: 30 Billed Treatment Time 1, SUNSHINE Onofre Jan 03, 2020 10:50
[2020-01-03] MEDS: ENOXAPARIN 40 MG/0.4 ML (LOVENOX) SYR SC SCH (10:51)
--- NOTE | 2020-01-03 12:08 | Physical Therapy Daily Note ---
PT Daily Note-Current Subjective Pt sitting in recliner upon arrival. Pt agrees to PT. Pain Location: No Pain Reported Mental Status Patient Orientation: Person, Confused, Place Attachments: Oxygen (2L) Transfers SCALE: Activities may be completed with or without assistive devices. 4-Svvtbjenfu-eljpxiu completes the activity by him/herself with no assistance from a helper. 5-Set-up or Clean-up Assistance-helper sets up or cleans up; patient completes activity. [place] assists only prior to or following the activity. 4-Supervision or Touching Assistance-helper provides verbal cues and/or touching/steadying and/or contact guard assistance as patient completes activity. Assistance may be provided throughout the activity or intermittently. 3-Partial/Moderate Assistance-helper does LESS THAN HALF the effort. [place] lifts, holds or supports trunk or limbs, but provides less than half the effort. 2-Substantial/Maximal Assistance-helper does MORE THAN HALF the effort. [place] lifts or holds trunk or limbs and provides more than half the effort. 4-Qsnbofjib-nwumlc does ALL the effort. Patient does none of the effort to complete the activity. Or, the assistance of 2 or more helpers is required for the patient to complete the activity. If activity was not attempted, code reason: 7-Patient Refused. 9-Not Applicable-not attempted and the patient did not perform the activity before the current illness, exacerbation or injury. 10-Not Attempted due to Environmental Limitations-(lack of equipment, weather restraints, etc.). 88-Not Attempted due to Medical Conditions or Safety Concerns. Sit to Stand (QC): 5 Weight Bearing Full Weight Bearing Full Weight Bearing Gait Training Does the Patient Walk?: Yes Distance: 150' x2 Walk 10 feet (QC): 4 Walk 50 ft with 2 Turns(QC): 4 Walk 150 ft (QC): 4 Gait Persons Needed: 1 Gait Assistive Device: FWW Exercises Seated Therapy Exercises: Ankle pumps, Long arc quads, Hip flexion, Kicking activity, Hip abd/add Seated Reps: 15 NuStep Minutes: 15 NuStep Workload: 4 Treatments TF to standing then amb. in hallway. Pt uses NuStep for 15m at WL 4 followed by Seated Ex. Pt amb. in hallway before returning to room. Pt resting in recliner at end of tx with all needs met, call light in hand. Assessment Current Status: Fair Progress Pt is confused today. Pt is also now wearing O2 as of this morning. PT Short Term Goals Short Term Goals Time Frame: Jan 02, 2020 Roll Left & Right: 6 Sit to lyin Lying to sitting on side of be: 6 Sit to stand: 5 Chair/vwa-cs-hmdve transfer: 5 Toilet transfer: 5 Walk 10 feet: 5 Walk 50 feet with two turns: 5 Walk 150 feet: 5 PT Family Sociologist Goals Correction Goals PT Correction Goals Time Frame: Jan 16, 2020 Roll Left & Right (QC): 6 Sit to Lying (QC): 6 Lying-Sitting on Side/Bed(QC): 6 Sit to Stand (QC): 6 Chair/Eyo-dq-Vyszy Xfer(QC): 6 Toilet Transfer (QC): 6 Car Transfer (QC): 6 Does the Patient Walk: Yes Walk 10 feet (QC): 6 Walk 50ft with 2 Turns (QC): 6 Walk 150 ft (QC): 6 Walking 10ft on Uneven Surface: 6 1 Step (curb) (QC): 6 4 Steps (QC): 6 12 Steps (QC): 6 Picking up an Object (QC): 6 Wheel 50 feet with 2 turns (QC: 9 Wheel 150 feet: 9 PT Plan Problem List Problem List: Activity Tolerance, Functional Strength, Safety, Balance Treatment/Plan Treatment Plan: Continue Plan of Care Treatment Plan: Education, Functional Activity Negrita, Functional Strength, Group Therapy, Gait, Safety, Therapeutic Exercise, Transfers Treatment Duration: Jan 16, 2020 Frequency: At least 5 of 7 days/Wk (IRF) Estimated Hrs Per Day: 1.5 hours per day Patient and/or Family Agrees t: Yes Safety Risks/Education Patient Education: Transfer Techniques, Correct Positioning, Safety Issues Teaching Recipient: Patient Teaching Methods: Discussion Response to Teaching: Reinforcement Needed Time/GCodes Time In: 1000 Time Out: 1100 Total Billed Treatment Time: 60 Total Billed Treatment 1, GT (20m), EX x2 (30m) & FA (10m) GURMEET JUAREZ ORNAMENTAL METAL FABRICATOR APPRENTICE Jan 03, 2020 12:08
--- NOTE | 2020-01-03 13:38 | Diagnostic Imaging Report ---
INDICATION: Cough. COMPARISON: I have no comparison. FINDINGS: There are coarse bilateral pulmonary opacities, greater right than left, most notably in the upper lungs. As I have no priors for comparison, it is unclear how much of this is chronic lung disease versus acute infiltrate. In the setting of cough and the lack of priors to confirm stability, the suspicion for pneumonia is felt most likely. Radiographic followup is recommended. There is no effusion or pneumothorax. There is no failure pattern. IMPRESSION: Bilateral pulmonary opacities, greatest in the upper lobes peripherally, radiographically could be chronic or reflect pneumonia. Dictated by: Dictated on workstation # [id number]
--- NOTE | 2020-01-03 14:50 | Physical Therapy Daily Note ---
PT Daily Note-Current Subjective Pt sitting in recliner upon arrival. Pt agrees to PT although reports fatigue. Pain Location: No Pain Reported Mental Status Patient Orientation: Person, Confused, Place Attachments: Oxygen (2L) Transfers SCALE: Activities may be completed with or without assistive devices. 7-Khktclkjoq-uhirbxt completes the activity by him/herself with no assistance from a helper. 5-Set-up or Clean-up Assistance-helper sets up or cleans up; patient completes activity. [place] assists only prior to or following the activity. 4-Supervision or Touching Assistance-helper provides verbal cues and/or touching/steadying and/or contact guard assistance as patient completes activity. Assistance may be provided throughout the activity or intermittently. 3-Partial/Moderate Assistance-helper does LESS THAN HALF the effort. [place] lifts, holds or supports trunk or limbs, but provides less than half the effort. 2-Substantial/Maximal Assistance-helper does MORE THAN HALF the effort. [place] lifts or holds trunk or limbs and provides more than half the effort. 1-Zopbwskmf-pptizb does ALL the effort. Patient does none of the effort to complete the activity. Or, the assistance of 2 or more helpers is required for the patient to complete the activity. If activity was not attempted, code reason: 7-Patient Refused. 9-Not Applicable-not attempted and the patient did not perform the activity before the current illness, exacerbation or injury. 10-Not Attempted due to Environmental Limitations-(lack of equipment, weather restraints, etc.). 88-Not Attempted due to Medical Conditions or Safety Concerns. Weight Bearing Full Weight Bearing Full Weight Bearing Exercises Supine Ex: Ankle pumps, Quad Set, Glut sets, Heel Slides, Straight leg raise, Hip abd/add Supine Reps: 15 Treatments Pt completes Supine Ex then resting in recliner at end of tx. All needs met, call light in hand. Assessment Current Status: Fair Progress Pt fatigued and continues to remain confused. PT Short Term Goals Short Term Goals Time Frame: Jan 02, 2020 Roll Left & Right: 6 Sit to lyin Lying to sitting on side of be: 6 Sit to stand: 5 Chair/jaa-gq-bzfsn transfer: 5 Toilet transfer: 5 Walk 10 feet: 5 Walk 50 feet with two turns: 5 Walk 150 feet: 5 PT Bung Dropper Goals Bung Dropper Goals PT Chcf Goals Time Frame: Jan 16, 2020 Roll Left & Right (QC): 6 Sit to Lying (QC): 6 Lying-Sitting on Side/Bed(QC): 6 Sit to Stand (QC): 6 Chair/Afa-pj-Awavt Xfer(QC): 6 Toilet Transfer (QC): 6 Car Transfer (QC): 6 Does the Patient Walk: Yes Walk 10 feet (QC): 6 Walk 50ft with 2 Turns (QC): 6 Walk 150 ft (QC): 6 Walking 10ft on Uneven Surface: 6 1 Step (curb) (QC): 6 4 Steps (QC): 6 12 Steps (QC): 6 Picking up an Object (QC): 6 Wheel 50 feet with 2 turns (QC: 9 Wheel 150 feet: 9 PT Plan Problem List Problem List: Activity Tolerance, Functional Strength Treatment/Plan Treatment Plan: Continue Plan of Care Treatment Plan: Education, Functional Activity [place], Functional Strength, Group Therapy, Gait, Safety, Therapeutic Exercise, Transfers Treatment Duration: Jan 16, 2020 Frequency: At least 5 of 7 days/Wk (IRF) Estimated Hrs Per Day: 1.5 hours per day Patient and/or Family Agrees t: Yes Safety Risks/Education Patient Education: Correct Positioning, Safety Issues Teaching Recipient: Patient Teaching Methods: Discussion Response to Teaching: Reinforcement Needed Time/GCodes Time In: 1300 Time Out: 1315 Total Billed Treatment Time: 15 Total Billed Treatment 1, FA (15m) GURMEET JUAREZ COSMETIC DENTIST Jan 03, 2020 14:50
--- NOTE | 2020-01-03 14:51 | NUR ---
DR. CANADA INFORMED OF CHEST XRAY RESULTS. NEW ORDER FOR RAPID COVID SWAB. PER CAMMIE [place], INFECTIOUS DISEASE RN, IF RAPID TEST IS NEGATIVE, MUST DO A SEND OFF. PATIENT PLACED IN [place]ORNE PRECAUTIONS PER PROTOCOL.
--- NOTE | 2020-01-03 15:03 | NUR ---
DAMION SPEECH THERAPIST, NOTIFIED OF NEED FOR BEDSIDE EVALUATION. ORDERS TO SCHEDULE MODIFIED BARIUM SWALLOW FOR 01/05/20.
[2020-01-03 15:06] LABS: BASOPHILS # (AUTO) 0.1 10^3/uL (0.0-0.1); BASOPHILS % (AUTO) 1 % (0-10); EOSINOPHILS # (AUTO) 0.9 10^3/uL (0.0-0.3); EOSINOPHILS % (AUTO) 8 % (0-10); HEMATOCRIT 39 % (40-54); HEMOGLOBIN 12.5 g/dL (13.3-17.7); LYMPHOCYTES # (AUTO) 2.9 10^3/uL (1.0-4.0); LYMPHOCYTES % (AUTO) 26 % (12-44); MEAN CORPUSCULAR HEMOGLOBIN 33 pg (25-34); MEAN CORPUSCULAR HGB CONC 32 g/dL (32-36); MEAN CORPUSCULAR VOLUME 103 fL (80-99); MEAN PLATELET VOLUME 12.1 fL (9.0-12.2); MONOCYTES # (AUTO) 1.7 10^3/uL (0.0-1.0); MONOCYTES % (AUTO) 16 % (0-12); NEUTROPHILS # (AUTO) 5.5 10^3/uL (1.8-7.8); NEUTROPHILS % (AUTO) 49 % (42-75); PLATELET COUNT 272 10^3/uL (130-400); WHITE BLOOD COUNT 11.2 10^3/uL (4.3-11.0)
[2020-01-03 15:12] LABS: ABG BASE EXCESS 0.2 MMOL/L (-2.5-2.5); ABG OXYGEN SATURATION 91 % (94-100); ABG PCO2 40 MMHG (35-45); ABG PO2 66 MMHG (79-93); ABG TCO2 25.6 MMOL/L (21.0-31.0)
[2020-01-03 15:14] LABS: INSPIRED O2 2L; PATIENT TEMP 37; VENTILATOR NO
[2020-01-03 15:18] LABS: ALBUMIN 3.3 GM/DL (3.2-4.5)
[2020-01-03 15:19] LABS: POTASSIUM 4.2 MMOL/L (3.6-5.0)
[2020-01-03 15:20] LABS: CALCIUM 8.4 MG/DL (8.5-10.1)
[2020-01-03 15:21] LABS: TOTAL PROTEIN 7.5 GM/DL (6.4-8.2)
[2020-01-03 15:23] LABS: BILIRUBIN,TOTAL 0.5 MG/DL (0.1-1.0)
[2020-01-03 15:25] LABS: CREATININE SERUM 1.79 MG/DL (0.60-1.30)
--- NOTE | 2020-01-03 16:16 | NUR ---
DR. CANADA HAS REVIEWED LAB RESULTS. NEW ORDER FOR PROCALCITONIN (MAY USE BLOOD IN LAB) AND VQ SCAN TONIGHT.
--- NOTE | 2020-01-03 16:53 | ST Dysphagia Evaluation ---
Speech Evaluation-General Medical Diagnosis Left Parietal posterior MCA stroke, aphasia Onset Date: Dec 12, 2019 Therapy Diagnosis Therapy Diagnosis: Oropharyngeal Dysphagia Precautions Precautions: Aspiration Referral Referring Physician: Dr. Nicholas Medical History Pertinent Medical History: CAD, COPD, CVA, DM, GERD, HTN, PVD Reviewed History: Yes Social History Current Living Status: Spouse Speech PLF/Current-Dysphagia Prior Level of Function Patient lived at home with his where he ate whatever he wanted. Subjective Patient was cooperative with the bedside dysphagia evaluation. Cognitive Status Patient Orientation: Person, Confused Oral Motor Skills Dentition: Natural Current Food Consistancy: Regular, Thin Liquids Ability to Follow Directions: Fair Oral Expression Ability: Moderate Impairment Patient has expressive aphasia Voice Voice Phonatory-Based Quality: Normal Voice Pitch: Normal Voice Loudness: Mildly Soft/Quiet Face Facial Symmetry: Symmetrical Oral-Facial Assessment Oral-Facial Dentition: Normal Labial Seal Description: Normal Smile: Normal Lingual Protrusion: Normal Lingual ROM: Normal Lingual Strength: Normal Pharynx Velopharyngeal Move.: Normal Volitional Dry Swallow: Yes Voluntary Cough: Yes Can Clear Throat Volitionally: Yes Dysphagia Evaluation Consistencies Presented: Regular, Thin Liquid, Mechanical Soft, Pureed Oral phase is within normal range for all consistencies presented except he has difficulty with bolus management for regular. Funct. Velo/Pharyngeal Symptom: Cough After Swallow Pharyngeal phase is within normal range for all consistencies presented except he has difficulty with A to P transfer for regular. Swallowing Precautions: Alternate Liquids/Solids, Double Swallow, Decreased Bolus 1/2 Tsp, Liquids from Straw, Small Bites and Sips, Sitting Upright 90 Degrees, Sitting 90 Degrees 30 Post Intake Dysphagia Evaluation Summary Patient is a pleasant 84 y/o male who was admitted to the ARU s/p CVA. Patient was referred for a swallow evaluation due to continuous cough. Patient was noted to tire easily with regular textures due to excessive mastication. The patient was given thin liquids via 1/2 tsp x3 and small sips via straw x2 without cough noted. Patient was given 1/2 tsp puree, mechanical soft and regular consistencies with difficulty noted with only the regular. The patient is recommended for Dysphagia II with thin liquids. This information was provided for his nurse. Patient will be scheduled for an MBS as well. Barriers to Learning Patient's recent CVA, confusion, age Speech Short Term Goals Short Term Goals Short Term Goals 1) The patient will complete memory tasks related to his daily needs with 80% or greater given minimal cues. 2) The patient will complete safety awareness tasks related to his daily needs with 80% or greater given minimal cues. 3) The patient will complete problem solving tasks related to his daily needs with 80% or greater given minimal cues. 4) The patient will tolerate least restrictive diet without s/s of aspiration at 80% or greater. 5) The patient/caregiver will utilize compensatory strategies as trained at 90% or greater with minimal cues. Speech Nursing Home Goals Nursing Home Goals Patient will improve cognitive-communication necessary for safety and daily living tasks with minimal assist. Patient will maintain adequate nutrition/hydration via safe effective swallow function. Speech-Plan Patient/Family Goals Patient/Family Goals: Patient plans on returning to his home upon discharge. Treatment Plan Speech Therapy Treatment Plan: Continue Plan of Care Treatment Duration: Jan 05, 2020 Frequency: 4 times per week (Patient will receive skilled ST 4-5x per week) Estimated Hrs Per Day: .5 hour per day Rehab Potential: Fair Barriers to Learning: Patient's recent CVA, confusion, age Pt/Family Agrees to Plan: Yes Safety Risks/Education Teaching Recipient: Patient Teaching Methods: Discussion Response to Teaching: Verbalize Understanding, Reinforcement Needed Education Topics Provided: Safety of oral intake, diet level Time Speech Therapy Time In: 16:45 Speech Therapy Time Out: 17:00 Total Billed Time: 15 Billed Treatment Time 1, DOMENICA AELXANDRE [address] ST Jan 03, 2020 16:53
--- NOTE | 2020-01-03 17:40 | NUR ---
CHANGE DIET TO DYS2 PER SPEECH THERAPIST, DAMION. OK TO CONTINUE WITH THIN LIQUIDS FOR NOW. IF PATIENT STARTS COUGHING AFTER DRINKING, CHANGE TO NECTAR LIQUIDS.
[2020-01-03 18:48] VITALS: BP 137/62
--- NOTE | 2020-01-03 20:57 | Diagnostic Imaging Report ---
INDICATION: Cough. EXAMINATION: Ventilation/perfusion lung scan. FINDINGS: This study was performed following administration of 4.83 mCi of 99 technetium MAA. Anterior, posterior and both oblique views of the lungs were obtained. Only perfusion images were obtained. COMPARISON: There is no prior nuclear medicine study available for comparison. FINDINGS: The plain film examination of the chest performed earlier today noted bilateral pulmonary opacities. On this exam, there seems to be generally even distribution of the radiotracer throughout both lungs. There is no defect to suggest pulmonary embolus. IMPRESSION: There is a low probability for pulmonary embolus. Dictated by: Dictated on workstation # [id number]
[2020-01-03] MEDS: LATANOPROST 0.005% (XALATAN) OPHTH SOLN 2.5 ML OU SCH (21:07)
[2020-01-03] MEDS: ALPRAZolam 0.25 MG (XANAX) TAB PO SCH (21:08)
--- NOTE | 2020-01-04 06:09 | PM&R Progress Note ---
Subjective HPI/CC On Admission Date Seen by Provider: Jan 04, 2020 Time Seen by Provider: 09:30 Subjective/Events-last exam 01/04/20: Extensive w/u on lung issue and cough and hypoxia revealed low probability of PE per perfusion scan and CT revealed pulmonary fibrosis and RLL new infiltrate Patient appears to be improved congnitively Nebs and IV abx ordered COVID x [address] scan so will start PPI Lovenox SQ 40mg daily maintained 01/03/20: Pt overall doing much better CXR shows B/L upper lobe infiltrates Covid swab will be done Pt has had a cough since he came over from [facility], his Covid test was negative on 12/20 O2 supplementation maintained Spoke to radiology and given elevated d-dimer and maintained on Lovenox since admit will perform perfusion scan 01/02/20: Pt about the same No major changes Cognition continues to be a challenge 01/01/20: Pt doing pretty well No significant changes Cognition is an issue Participating in therapy with a lot of heavy cues 12/31/19: Family pics helping morale Got into shower without tearfulness Coughing managed with Robitussin DM and Xanax 12/30/19: Xanax helping him at night Robitussin DM also helps Will check on [facility] EMR to see what was done for cough evaluation Event monitor was planned for [facility] at [facility] will reach out on Wednesday regarding those details 12/29/19: Patient seems about the same Cognition is a challenge when communicating No falls 12/28/19: Crushing pills in apple sauce seems to help Snoring at night, unsure if he needs to be on oxygen Xanax given at night really helps him Robitussin DM given for cough Aphasia continues Bowels moved yesterday so will continue laxatives Becomes tearful at times 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 Checked meds and labs Reviewed therapy notes Conferred with pet nutrition specialist of Systems General: Fatigue, Malaise Pulmonary: Dyspnea, Cough Neurological: Confusion Focused Exam Lactate Level 01/03/20 14:50: Lactic Acid Level 1.57 01/04/20 06:10: Lactic Acid Level 0.91 Objective Exam Vital Signs Vital Signs Date Time Temp Pulse Resp B/P (MAP) Pulse Ox O2 Delivery O2 Flow Rate FiO2 01/04/20 18:29 94 Nasal Cannula 2.00 28 01/04/20 17:06 36.8 65 20 122/59 (80) Capillary Refill : Less Than 3 Seconds General Appearance: No Apparent Distress, WD/WN, Chronically ill HEENT: PERRL/EOMI, Normal ENT Inspection, Pharynx Normal Neck: Full Range of Motion, Normal Inspection, Non Tender, Supple, Carotid Bruit Respiratory: Chest Non Tender, Lungs Clear, Normal Breath Sounds, No Accessory Muscle Use, No Respiratory Distress, Other (wearing O2 now) Cardiovascular: Regular Rate, Rhythm, No Edema, No Gallop, No JVD, No Murmur, Normal Peripheral Pulses Gastrointestinal: Normal Bowel Sounds, No Organomegaly, No Pulsatile Mass, Non Tender, Soft Back: Normal Inspection, No CVA Tenderness, No Vertebral Tenderness Extremity: Normal Capillary Refill, Normal Inspection, Normal Range of Motion, Non Tender, No Calf Tenderness, No Pedal Edema Neurologic/Psychiatric: Alert, Oriented x3, Normal Mood/Affect, oral health therapist II-XII Norm as Tested, Abnormal Gait, Aphasia, Depressed Affect, Motor Weakness (right sided 3/5) Skin: Normal Color, Warm/Dry Lymphatic: No Adenopathy Results/Procedures Lab Laboratory Tests 01/04/20 06:10 Patient resulted labs reviewed. FIM Transfers Therapy Code Descriptions/Definitions Functional [place] Measure: 0=Not Assessed/NA 4=Minimal Assistance 1=Total Assistance 5=Supervision or Setup 2=Maximal Assistance 6=Modified [place] 3=Moderate Assistance 7=Complete IndependenceSCALE: Activities may be completed with or without assistive devices. 1-Xnpvtztcbm-jadkdul completes the activity by him/herself with no assistance from a helper. 5-Set-up or Clean-up Assistance-helper sets up or cleans up; patient completes activity. [place] assists only prior to or following the activity. 4-Supervision or Touching Assistance-helper provides verbal cues and/or touching/steadying and/or contact guard assistance as patient completes activity. Assistance may be provided throughout the activity or intermittently. 3-Partial/Moderate Assistance-helper does LESS THAN HALF the effort. [place] lifts, holds or supports trunk or limbs, but provides less than half the effort. 2-Substantial/Maximal Assistance-helper does MORE THAN HALF the effort. [place] lifts or holds trunk or limbs and provides more than half the effort. 3-Plglnzzhr-xuzxaf does ALL the effort. Patient does none of the effort to complete the activity. Or, the assistance of 2 or more helpers is required for the patient to complete the activity. If activity was not attempted, code reason: 7-Patient Refused. 9-Not Applicable-not attempted and the patient did not perform the activity before the current illness, exacerbation or injury. 10-Not Attempted due to Environmental Limitations-(lack of equipment, weather restraints, etc.). 88-Not Attempted due to Medical Conditions or Safety Concerns. Roll Left to Right (QC): 6 Sit to Lying (QC): 6 Sit to Stand (QC): 5 Chair/Glv-bp-Wbkbf Xfer(QC): 4 Car Transfer (QC): 4 Gait Training Does the Patient Walk?: Yes Distance: 150' x2 Walk 10 feet (QC): 4 Walk 50 ft with 2 Turns(QC): 4 Walk 150 ft (QC): 4 Walking 10ft/uneven surface-QC: 4 Gait Persons Needed: 1 Gait Assistive Device: FWW Wheelchair Training Does the Pt Use a Wheelchair?: No Wheel 50 ft with 2 turns (QC): 9 Wheel 150 ft (QC): 9 Stair Training #of Steps: 4 1 Step (curb) (QC): 4 4 Steps (QC): 4 12 Steps (QC): 88 Balance Picking up an Object (QC): 4 ADL-Treatment Eating (QC): 5 Oral Hygiene (QC): 4 Bathing Location: L Arm, R Arm, L Upper Leg, R Upper Leg, L Lower Leg (i ncluding foot), R Lower Leg (including foot), Chest, Abdomen, Buttocks, Perineal Area Shower/Bathe Self (QC): 4 Upper Body Dressing (QC): 4 Lower Body Dressing (QC): 4 On/Off Footwear (QC): 5 Toileting Hygiene (QC): 5 Toilet Transfer (QC): 4 Assessment/Plan Assessment and Plan Assess & Plan/Chief Complaint Assessment: CVA Expressive aphasia Confusion Urinary retention h/o lymphoma CRI Fall risk Pulmonary fibrosis on CT scan 01/04/[address] 01/04/20 with new hypoxia placed on treatment Esophagitis on CT scan placed on PPI Plan: IRF protocol Check labs in am Monitor for falls Monitor urinary retention 12/27/19: Aphasia management Monitor BP Monitor creatinine 12/28/19: Monitor aphasia Monitor for falls Increased risk of confusion 12/29/19: Cough management but appears to be a non-purposeful behavior since CVA 12/30/19: Will research cough w/u on [employer] EMR Monitor closely 12/31/19: Monitor closely Fall risk Cognition therapy 01/01/20: Cough management Xanax at night helps him sleep 01/02/20: IRF protocol DIscuss dispo at meeting 01/03/20: Pursue septic w/u O2 COVID swab Monitor closely 01/04/20: IV abx COVID negative Pulmonary fibrosis will likely require O2 at DC continuously PPI Esophagitis on CT scan (1) CVA (cerebral vascular accident) (2) Lymphoma in remission (3) Renal insufficiency (4) Expressive aphasia (5) Confusion (6) Anemia (7) Retention, urine (8) Delirium JAMAL CANADA DO Jan 04, 2020 06:09
[2020-01-04 06:20] VITALS: BP 121/58
[2020-01-04 06:32] LABS: BASOPHILS # (AUTO) 0.1 10^3/uL (0.0-0.1); BASOPHILS % (AUTO) 1 % (0-10); EOSINOPHILS # (AUTO) 1.2 10^3/uL (0.0-0.3); EOSINOPHILS % (AUTO) 13 % (0-10); HEMATOCRIT 38 % (40-54); HEMOGLOBIN 12.5 g/dL (13.3-17.7); LYMPHOCYTES % (AUTO) 21 % (12-44); MEAN CORPUSCULAR HEMOGLOBIN 33 pg (25-34); MEAN CORPUSCULAR HGB CONC 33 g/dL (32-36); MEAN CORPUSCULAR VOLUME 102 fL (80-99); MEAN PLATELET VOLUME 12.1 fL (9.0-12.2); MONOCYTES # (AUTO) 1.7 10^3/uL (0.0-1.0); MONOCYTES % (AUTO) 18 % (0-12); NEUTROPHILS # (AUTO) 4.5 10^3/uL (1.8-7.8); NEUTROPHILS % (AUTO) 48 % (42-75); PLATELET COUNT 262 10^3/uL (130-400); WHITE BLOOD COUNT 9.5 10^3/uL (4.3-11.0)
[2020-01-04] MEDS: VITAMIN D3 25 MCG (1,000 UNITS) TABLET PO SCH (06:33)
[2020-01-04 07:00] LABS: ALBUMIN 3.1 GM/DL (3.2-4.5)
[2020-01-04 07:01] LABS: POTASSIUM 4.2 MMOL/L (3.6-5.0)
[2020-01-04 07:02] LABS: CALCIUM 8.3 MG/DL (8.5-10.1)
[2020-01-04 07:03] LABS: TOTAL PROTEIN 6.9 GM/DL (6.4-8.2)
[2020-01-04 07:05] LABS: BILIRUBIN,TOTAL 0.5 MG/DL (0.1-1.0)
[2020-01-04 07:07] LABS: CREATININE SERUM 1.78 MG/DL (0.60-1.30)
--- NOTE | 2020-01-04 07:45 | Occupational Ther Daily Note ---
OT Current Status-Daily Note Subjective Pt alert, sitting in recliner. Pt agrees to therapy. Pt unable to verbalize pain due to expressive aphasia. Mental Status/Objective Patient Orientation: Person, Place, Non-Verbal/Aphasic Attachments: IV, Oxygen (2L) ADL-Treatment Pt agrees to shower. Pt requires set up and minimal physical/verbal cues to complete all tasks. Pt ambulated with FWW to sink, sat down and completed oral care after verbal cues. Pt then transferred to shower with SBA and verbal cues. Completed shower with supervision. Min A to don shirt due to manipulation of clothing so pt could find sleeve. SBA for donning lower body clothing. Set up only for socks/shoes. Pt then ambulated back to recliner to eat breakfast after set up. Oxygen and chair alarm in place. All needs met in room. Reported to nrsg, pt has bloody nose due to O2. Therapy Code Descriptions/Definitions Functional [place] Measure: 0=Not Assessed/NA 4=Minimal Assistance 1=Total Assistance 5=Supervision or Setup 2=Maximal Assistance 6=Modified [place] 3=Moderate Assistance 7=Complete IndependenceSCALE: Activities may be completed with or without assistive devices. 4-Dmjlbsaunr-xxklhfc completes the activity by him/herself with no assistance from a helper. 5-Set-up or Clean-up Assistance-helper sets up or cleans up; patient completes activity. [place] assists only prior to or following the activity. 4-Supervision or Touching Assistance-helper provides verbal cues and/or touching/steadying and/or contact guard assistance as patient completes activity. Assistance may be provided throughout the activity or intermittently. 3-Partial/Moderate Assistance-helper does LESS THAN HALF the effort. [place] lifts, holds or supports trunk or limbs, but provides less than half the effort. 2-Substantial/Maximal Assistance-helper does MORE THAN HALF the effort. [place] lifts or holds trunk or limbs and provides more than half the effort. 0-Kdblnydfc-wlonso does ALL the effort. Patient does none of the effort to complete the activity. Or, the assistance of 2 or more helpers is required for the patient to complete the activity. If activity was not attempted, code reason: 7-Patient Refused. 9-Not Applicable-not attempted and the patient did not perform the activity before the current illness, exacerbation or injury. 10-Not Attempted due to Environmental Limitations-(lack of equipment, weather restraints, etc.). 88-Not Attempted due to Medical Conditions or Safety Concerns. Eating (QC): 5 Oral Hygiene (QC): 5 Shower/Bathe Self (QC): 4 Upper Body Dressing (QC): 3 Lower Body Dressing (QC): 4 On/Off Footwear: 5 OT Short Term Goals Short Term Goals Time Frame: Jan 02, 2020 Eatin Oral hygiene: 4 Toileting hygiene: 4 Shower/bathe self: 4 Upper body dressin Lower body dressin Putting on/taking off footwear: 4 OT Erp Consultant Goals Erp Consultant Goals Time Frame: Jan 09, 2020 Eating (QC): 6 Oral Hygiene (QC): 5 Toileting Hygiene (QC): 6 Shower/Bathe Self (QC): 4 Upper Body Dressing (QC): 5 Lower Body Dressing (QC): 5 On/Off Footwear (QC): 5 Additional Goals: 1-Demonstrate ADL Tasks, 2-Verbalize Understanding, 3- ImproveStrength/Negrita 1=Demonstrate adherence to instructed precautions during ADL tasks. 2=Patient will verbalize/demonstrate understanding of assistive devices/modifications for ADL. 3=Patient will improve strength/tolerance for activity to enable patient to perform ADL's. OT Education/Plan Problem List/Assessment Assessment: Decreased Activ Tolerance, Decreased Safety Aware, Impaired Cognition, Impaired Coordination, Impaired Funct Balance, Impaired Self-Care Skills Discharge Recommendations Plan/Recommendations: Continue POC Treatment Plan/Plan of Care Patient would benefit from OT for education, treatment and training to promote independence in ADL's, mobility, safety and/or upper extremity function for ADL's. Plan of Care: ADL Retraining, Cognitive Retraining, Functional Mobility, Group Exercise/Act as Ind, UE Funct Exercise/Act, UE Neuromus Re-Ed/Coord, Visual/Perceptual Retrain, W/C Management Training Treatment Duration: Jan 09, 2020 Frequency: At least 5 of 7 days/Wk (IRF) Estimated Hrs Per Day: 1.5 hours per day Agreement: Yes Rehab Potential: Fair Time/GCodes Start Time: 06:30 Stop Time: 07:30 Total Time Billed (hr/min): 60 Billed Treatment Time 1 visit-ADL 4 (60 min) MILLA PICKETT Jan 04, 2020 07:45
--- NOTE | 2020-01-04 08:00 | NUR ---
PER MILLA, OT: NOSE BLEED DURING SHOWER. HUMIDIFIER ADDED TO OXYGEN. O2 SAT 89-90% ON 2L AND INCREASED TO 3L. SOB NOTED WITH EXERTION. TAKING PILLS BETTER, BUT STILL HOLDS PILLS IN MOUTH FOR A WHILE BEFORE SWALLOWING.
[2020-01-04 08:04] LABS: ACANTHOCYTES SLIGHT; EOSINOPHILS % (MANUAL) 11 %; LYMPHOCYTES % (MANUAL) 18 %; MONOCYTES % (MANUAL) 12 %; NEUTROPHILS % (MANUAL) 59 %
[2020-01-04] MEDS: polyethylene glycoL POWDER 17 GM (MIRALAX) PACK PO SCH ×3 (09:20→20:06)
[2020-01-04] MEDS: DOCUSATE SODIUM 100 MG (COLACE) CAP PO SCH ×2 (09:20→20:05)
[2020-01-04] MEDS: CLOPIDOGREL 75 MG (PLAVIX) TABLET PO SCH (09:21)
[2020-01-04] MEDS: ASPIRIN E.C. 81 MG (ECOTRIN) TAB PO SCH (09:21)
[2020-01-04] MEDS: SENNA W/DOCUSATE (SENOKOT S) TABLET PO SCH ×2 (09:21→20:05)
[2020-01-04] MEDS: PANTOPRAZOLE 40 MG (PROTONIX) TAB PO SCH (09:21)
[2020-01-04] MEDS: SERTRALINE 50 MG (ZOLOFT) TABLET PO SCH (09:21)
--- NOTE | 2020-01-04 09:29 | Diagnostic Imaging Report ---
PROCEDURE: CT chest without contrast. TECHNIQUE: Multiple contiguous axial images were obtained through the chest without the use of intravenous contrast. Auto Exposure Controls were utilized during the CT exam to meet ALARA standards for radiation dose reduction. INDICATION: Follow-up pulmonary infiltrates COMPARISON: Radiographs from 01/03/2020 FINDINGS: The heart is normal in size. There is no pericardial effusion. There are scattered mediastinal lymph nodes which are not significantly enlarged by size criteria. The aorta is mildly ectatic, with atherosclerosis present. There is mild thickening of the distal esophageal wall. There is no pleural effusion or pneumothorax. There are scattered areas of subpleural fibrotic change. There may be mild honeycombing at the right lung base. There is bronchiectasis and some mucous plugging noted. There is more confluent airspace opacity in the right lung base. No acute osseous abnormalities seen. There are degenerative changes throughout the spine. Cholecystectomy clips are noted. IMPRESSION: 1. Findings suggestive of interstitial fibrosis, with some bronchiectasis and mucous plugging. Confluent airspace opacity in the right lung base could represent pneumonia. 2. Thickening of the distal esophageal wall suggestive of esophagitis. Dictated by: Dictated on workstation # [id number]
[2020-01-04] MEDS: ENOXAPARIN 40 MG/0.4 ML (LOVENOX) SYR SC SCH (09:40)
[2020-01-04] MEDS ORDERED: PANTOPRAZOLE 40 MG (PROTONIX) TAB PO NR (10:15)
--- NOTE | 2020-01-04 10:58 | Physical Therapy Daily Note ---
PT Daily Note-Current Subjective Agrees to PT. Transfers SCALE: Activities may be completed with or without assistive devices. 5-Lzwmbcyrbq-iawhtdo completes the activity by him/herself with no assistance from a helper. 5-Set-up or Clean-up Assistance-helper sets up or cleans up; patient completes activity. [place] assists only prior to or following the activity. 4-Supervision or Touching Assistance-helper provides verbal cues and/or to uching/steadying and/or contact guard assistance as patient completes activity. Assistance may be provided throughout the activity or intermittently. 3-Partial/Moderate Assistance-helper does LESS THAN HALF the effort. [place] lifts, holds or supports trunk or limbs, but provides less than half the effort. 2-Substantial/Maximal Assistance-helper does MORE THAN HALF the effort. [place] lifts or holds trunk or limbs and provides more than half the effort. 2-Yuaravguj-tgqqge does ALL the effort. Patient does none of the effort to complete the activity. Or, the assistance of 2 or more helpers is required for the patient to complete the activity. If activity was not attempted, code reason: 7-Patient Refused. 9-Not Applicable-not attempted and the patient did not perform the activity before the current illness, exacerbation or injury. 10-Not Attempted due to Environmental Limitations-(lack of equipment, weather restraints, etc.). 88-Not Attempted due to Medical Conditions or Safety Concerns. Sit to Stand (QC): 4 (SBA for safety with intermittent cues for hand placement and sequencing. ) Chair/Etc-nh-Vqnjm Xfer(QC): 4 Weight Bearing Full Weight Bearing Full Weight Bearing Gait Training Does the Patient Walk?: Yes Distance: 200 ft x 4 Gait Assistive Device: FWW SBA with gait with intermittent cues for gait pattern and posture. Tends to shuffle and keep head down but corrects with cuing. Stair Training Stair Training: Handrails/: 2 handrails 4 Steps (QC): 4 (SBA; used B handrail; reciprocal pattern) Stairs: Pattern: Reciprocal Exercises NuStep Minutes: 15 (LE strength and functional activity tolerance progression) Assessment Current Status: Good Progress Does not initiate without cues. Follows cues well. Cooperative. Steady on his feet. PT Short Term Goals Short Term Goals Time Frame: Jan 02, 2020 Roll Left & Right: 6 Sit to lyin Lying to sitting on side of be: 6 Sit to stand: 5 Chair/xrq-ma-ycysl transfer: 5 Toilet transfer: 5 Walk 10 feet: 5 Walk 50 feet with two turns: 5 Walk 150 feet: 5 PT Detention Goals Detention Goals PT Support Analyst Goals Time Frame: Jan 16, 2020 Roll Left & Right (QC): 6 Sit to Lying (QC): 6 Lying-Sitting on Side/Bed(QC): 6 Sit to Stand (QC): 6 Chair/Vyw-mb-Pmxpk Xfer(QC): 6 Toilet Transfer (QC): 6 Car Transfer (QC): 6 Does the Patient Walk: Yes Walk 10 feet (QC): 6 Walk 50ft with 2 Turns (QC): 6 Walk 150 ft (QC): 6 Walking 10ft on Uneven Surface: 6 1 Step (curb) (QC): 6 4 Steps (QC): 6 12 Steps (QC): 6 Picking up an Object (QC): 6 Wheel 50 feet with 2 turns (QC: 9 Wheel 150 feet: 9 PT Plan Problem List Problem List: Activity Tolerance, Functional Strength, Safety, Balance, Gait, Transfer Treatment/Plan Treatment Plan: Continue Plan of Care Treatment Plan: Education, Functional Activity Negrita, Functional Strength, Group Therapy, Gait, Safety, Therapeutic Exercise, Transfers Treatment Duration: Jan 16, 2020 Frequency: At least 5 of 7 days/Wk (IRF) Estimated Hrs Per Day: 1.5 hours per day Patient and/or Family Agrees t: Yes Safety Risks/Education Patient Education: Transfer Techniques, Safety Issues Teaching Recipient: Patient Teaching Methods: Discussion Response to Teaching: Reinforcement Needed Discharge Recommendations Therapy Discharge Recommendati: Post Acute PT (home PT) Time/GCodes Time In: 1000 Time Out: 1100 Total Billed Treatment Time: 60 Total Billed Treatment visit FA 45 EX 15 MILLA DAS PT Jan 04, 2020 10:58
[2020-01-04] MEDS: CEFEPIME INJECTION 1,000 MG in WATER (STERILE) FOR INJECTION 10 ML IV SCH ×2 (11:55→20:03)
[2020-01-04] MEDS: AZITHROMYCIN INJECTION 500 MG in NS (IVPB) 250 ML IV SCH (11:55)
--- NOTE | 2020-01-04 12:10 | Therapy Group Daily Note ---
Therapy Daily Group Note Patient Education Topic Home Safety (Reviewed a list of home safety tips with patient interaction with suggestions) Exercises LE Seated Exercise, ROM, UE Exercise Session Ratio (pt:therapist): 4:1 Goal of Session: Home Safety Strategies Functional strengthening and home safety education for fall risk reduction. Goal Met for this Session: Yes Pt Benefit of Group: Contributions to Others, F/U Use of Strategies @Home Social interaction and conversation with other with similar diagnosis; masks worn and social distancing practiced. Other/Notes patient participated in home safety education and seemed to understand the need for safe techniques at home. Pt participated in U/LE strengthening with postural strengthening exercises as well. Start Time: 11:00 Stop Time: 12:00 Total Billed Treatment Time: 60 Total Billed Treatment visit GRP MILLA DAS PT Jan 04, 2020 12:10
[2020-01-04] MEDS ORDERED: CATHETER FLUSH 10 ML SYR IV PRN (14:15)
[2020-01-04 17:06] VITALS: BP 122/59
[2020-01-04] MEDS: RT-ALBUTEROL SULF 2.5 MG/3 ML PRE-MIX VIAL INH SCH (18:28)
[2020-01-04] MEDS: ALPRAZolam 0.25 MG (XANAX) TAB PO SCH (20:04)
[2020-01-04] MEDS: CATHETER FLUSH 10 ML SYR IV SCH (20:04)
[2020-01-04] MEDS: LATANOPROST 0.005% (XALATAN) OPHTH SOLN 2.5 ML OU SCH (20:06)
[2020-01-04] MEDS: ZINC OXIDE 16% OINT (BUTT PASTE) 57 GM TUBE TOP PRN (20:08)
[2020-01-05] MEDS: CATHETER FLUSH 10 ML SYR IV SCH ×3 (03:48→21:13)
[2020-01-05] MEDS: CEFEPIME INJECTION 1,000 MG in WATER (STERILE) FOR INJECTION 10 ML IV SCH ×3 (03:48→21:13)
[2020-01-05 05:00] VITALS: BP 110/54
[2020-01-05] MEDS: VITAMIN D3 25 MCG (1,000 UNITS) TABLET PO SCH (06:01)
[2020-01-05] MEDS: ZINC OXIDE 16% OINT (BUTT PASTE) 57 GM TUBE TOP PRN (06:02)
--- NOTE | 2020-01-05 07:05 | PM&R Progress Note ---
Subjective HPI/CC On Admission Date Seen by Provider: Jan 05, 2020 Time Seen by Provider: 13:00 Subjective/Events-last exam 01/05/20: Abx maintained Hypoxia remains but stable Improved status overall Modified barium swallow Wednesday wbc 9.8 BM yesterday 01/04/20: Extensive w/u on lung issue and cough and hypoxia revealed low probability of PE per perfusion scan and CT revealed pulmonary fibrosis and RLL new infiltrate Patient appears to be improved congnitively Nebs and IV abx ordered COVID x [address] scan so will start PPI Lovenox SQ 40mg daily maintained 01/03/20: Pt overall doing much better CXR shows B/L upper lobe infiltrates Covid swab will be done Pt has had a cough since he came over from [facility], his Covid test was negative on 12/20 O2 supplementation maintained Spoke to radiology and given elevated d-dimer and maintained on Lovenox since admit will perform perfusion scan 01/02/20: Pt about the same No major changes Cognition continues to be a challenge 01/01/20: Pt doing pretty well No significant changes Cognition is an issue Participating in therapy with a lot of heavy cues 12/31/19: Family pics helping shemar Got into shower without tearfulness Coughing managed with Robitussin DM and Xanax 12/30/19: Xanax helping him at night Robitussin DM also helps Will check on [facility] EMR to see what was done for cough evaluation Event monitor was planned for [facility] at [place] will reach out on Wednesday regarding those details 12/29/19: Patient seems about the same Cognition is a challenge when communicating No falls 12/28/19: Crushing pills in apple sauce seems to help Snoring at night, unsure if he needs to be on oxygen Xanax given at night really helps him Robitussin DM given for cough Aphasia continues Bowels moved yesterday so will continue laxatives Becomes tearful at times 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 Checked meds and labs Reviewed therapy notes Conferred with hall director of Systems Pulmonary: Dyspnea, Cough Neurological: Confusion Focused Exam Lactate Level 01/03/20 14:50: Lactic Acid Level 1.57 01/04/20 06:10: Lactic Acid Level 0.91 Objective Exam Vital Signs Vital Signs Date Time Temp Pulse Resp B/P (MAP) Pulse Ox O2 Delivery O2 Flow Rate FiO2 01/06/20 06:30 36.4 68 20 112/57 (75) 93 Nasal Cannula 2.00 01/04/20 18:29 28 Capillary Refill : Less Than 3 Seconds General Appearance: No Apparent Distress, WD/WN, Chronically ill HEENT: PERRL/EOMI, Normal ENT Inspection, Pharynx Normal Neck: Full Range of Motion, Normal Inspection, Non Tender, Supple, Carotid Bruit Respiratory: Chest Non Tender, Lungs Clear, Normal Breath Sounds, No Accessory Muscle Use, No Respiratory Distress, Other (wearing O2 now) Cardiovascular: Regular Rate, Rhythm, No Edema, No Gallop, No JVD, No Murmur, Normal Peripheral Pulses Gastrointestinal: Normal Bowel Sounds, No Organomegaly, No Pulsatile Mass, Non Tender, Soft Back: Normal Inspection, No CVA Tenderness, No Vertebral Tenderness Extremity: Normal Capillary Refill, Normal Inspection, Normal Range of Motion, Non Tender, No Calf Tenderness, No Pedal Edema Neurologic/Psychiatric: Alert, Oriented x3, Normal Mood/Affect, 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 FIM Transfers Therapy Code Descriptions/Definitions Functional [place] Measure: 0=Not Assessed/NA 4=Minimal Assistance 1=Total Assistance 5=Supervision or Setup 2=Maximal Assistance 6=Modified [place] 3=Moderate Assistance 7=Complete IndependenceSCALE: Activities may be completed with or without assistive devices. 2-Jasnjpizab-rfcefzm completes the activity by him/herself with no assistance from a helper. 5-Set-up or Clean-up Assistance-helper sets up or cleans up; patient completes activity. [place] assists only prior to or following the activity. 4-Supervision or Touching Assistance-helper provides verbal cues and/or touching /steadying and/or contact guard assistance as patient completes activity. Assistance may be provided throughout the activity or intermittently. 3-Partial/Moderate Assistance-helper does LESS THAN HALF the effort. [place] lifts, holds or supports trunk or limbs, but provides less than half the effort. 2-Substantial/Maximal Assistance-helper does MORE THAN HALF the effort. [place] lifts or holds trunk or limbs and provides more than half the effort. 9-Nmungvqye-ubgjyd does ALL the effort. Patient does none of the effort to complete the activity. Or, the assistance of 2 or more helpers is required for the patient to complete the activity. If activity was not attempted, code reason: 7-Patient Refused. 9-Not Applicable-not attempted and the patient did not perform the activity before the current illness, exacerbation or injury. 10-Not Attempted due to Environmental Limitations-(lack of equipment, weather restraints, etc.). 88-Not Attempted due to Medical Conditions or Safety Concerns. Roll Left to Right (QC): 6 Sit to Lying (QC): 6 Sit to Stand (QC): 4 (SBA for safety with intermittent cues for hand placement and sequencing. ) Chair/Zup-qb-Tribf Xfer(QC): 4 Car Transfer (QC): 4 Gait Training Does the Patient Walk?: Yes Distance: 200 ft x 4 Walk 10 feet (QC): 4 Walk 50 ft with 2 Turns(QC): 4 Walk 150 ft (QC): 4 Walking 10ft/uneven surface-QC: 4 Gait Persons Needed: 1 Gait Assistive Device: FWW Wheelchair Training Does the Pt Use a Wheelchair?: No Wheel 50 ft with 2 turns (QC): 9 Wheel 150 ft (QC): 9 Stair Training Stair Training: Handrails/: 2 handrails #of Steps: 4 1 Step (curb) (QC): 4 4 Steps (QC): 4 (SBA; used B handrail; reciprocal pattern) 12 Steps (QC): 88 Stairs: Pattern: Reciprocal Balance Picking up an Object (QC): 4 ADL-Treatment Eating (QC): 5 Oral Hygiene (QC): 5 Bathing Location: L Arm, R Arm, L Upper Leg, R Upper Leg, L Lower Leg (including foot), R Lower Leg (including foot), Chest, Abdomen, Buttocks, Perineal Area Shower/Bathe Self (QC): 4 Upper Body Dressing (QC): 3 Lower Body Dressing (QC): 4 On/Off Footwear (QC): 5 Toileting Hygiene (QC): 5 Toilet Transfer (QC): 4 Assessment/Plan Assessment and Plan Assess & Plan/Chief Complaint Assessment: CVA Expressive aphasia Confusion Urinary retention h/o lymphoma CRI Fall risk Pulmonary fibrosis on CT scan 01/04/[address] 01/04/20 with new hypoxia placed on treatment Esophagitis on CT scan placed on PPI Plan: IRF protocol Check labs in am Monitor for falls Monitor urinary retention 12/27/19: Aphasia management Monitor BP Monitor creatinine 12/28/19: Monitor aphasia Monitor for falls Increased risk of confusion 12/29/19: Cough management but appears to be a non-purposeful behavior since CVA 12/30/19: Will research cough w/u on [employer] EMR Monitor closely 12/31/19: Monitor closely Fall risk Cognition therapy 01/01/20: Cough management Xanax at night helps him sleep 01/02/20: IRF protocol DIscuss dispo at meeting 01/03/20: Pursue septic w/u O2 COVID swab Monitor closely 01/04/20: IV abx COVID negative Pulmonary fibrosis will likely require O2 at DC continuously PPI Esophagitis on CT scan 01/05/20: Improved status O2 Abx PPI (1) CVA (cerebral vascular accident) (2) Lymphoma in remission (3) Renal insufficiency (4) Expressive aphasia (5) Confusion (6) Anemia (7) Retention, urine (8) Delirium JAMAL CANADA DO Jan 05, 2020 07:05
[2020-01-05 08:08] LABS: BASOPHILS # (AUTO) 0.1 10^3/uL (0.0-0.1); BASOPHILS % (AUTO) 1 % (0-10); EOSINOPHILS % (AUTO) 10 % (0-10); HEMATOCRIT 38 % (40-54); HEMOGLOBIN 12.2 g/dL (13.3-17.7); LYMPHOCYTES # (AUTO) 1.7 10^3/uL (1.0-4.0); LYMPHOCYTES % (AUTO) 18 % (12-44); MEAN CORPUSCULAR HEMOGLOBIN 33 pg (25-34); MEAN CORPUSCULAR HGB CONC 32 g/dL (32-36); MEAN CORPUSCULAR VOLUME 103 fL (80-99); MEAN PLATELET VOLUME 11.9 fL (9.0-12.2); MONOCYTES # (AUTO) 1.5 10^3/uL (0.0-1.0); MONOCYTES % (AUTO) 15 % (0-12); NEUTROPHILS # (AUTO) 5.4 10^3/uL (1.8-7.8); NEUTROPHILS % (AUTO) 56 % (42-75); PLATELET COUNT 298 10^3/uL (130-400); WHITE BLOOD COUNT 9.8 10^3/uL (4.3-11.0)
--- NOTE | 2020-01-05 08:15 | Occupational Ther Daily Note ---
OT Current Status-Daily Note Subjective Pt alert, sitting in recliner. Pt attempting to say [address] [place], [place], [place]. CASTANEDA wrote down each one and pt was able to point correctly to each then after multiple attempts was able to say city and state. Pt emotional when able to say names and remember where he was. Pt agrees to therapy. Pain Numeric Pain Scale: 0-No Pain Mental Status/Objective Patient Orientation: Person, Place Attachments: IV, Oxygen (2 L) ADL-Treatment Declines shower and toileting. After set up, pt able to don pants and shoes by self. Pt ambulated to sink using FWW, SBA. Verbal cues to initiate grooming tasks, then pt able to complete by self. Lab in room to take blood. Pt takes increased time to complete tasks due to slow problem solving skills. Therapy Code Descriptions/Definitions Functional [place] Measure: 0=Not Assessed/NA 4=Minimal Assistance 1=Total Assistance 5=Supervision or Setup 2=Maximal Assistance 6=Modified [place] 3=Moderate Assistance 7=Complete IndependenceSCALE: Activities may be completed with or without assistive devices. 8-Kjypygquzd-namgowr completes the activity by him/herself with no assistance from a helper. 5-Set-up or Clean-up Assistance-helper sets up or cleans up; patient completes activity. [place] assists only prior to or following the activity. 4-Supervision or Touching Assistance-helper provides verbal cues and/or touching/steadying and/or contact guard assistance as patient completes activity. Assistance may be provided throughout the activity or intermittently. 3-Partial/Moderate Assistance-helper does LESS THAN HALF the effort. [place] lifts, holds or supports trunk or limbs, but provides less than half the effort. 2-Substantial/Maximal Assistance-helper does MORE THAN HALF the effort. [place] lifts or holds trunk or limbs and provides more than half the effort. 7-Nuugrzhxo-whxyed does ALL the effort. Patient does none of the effort to complete the activity. Or, the assistance of 2 or more helpers is required for the patient to complete the activity. If activity was not attempted, code reason: 7-Patient Refused. 9-Not Applicable-not attempted and the patient did not perform the activity before the current illness, exacerbation or injury. 10-Not Attempted due to Environmental Limitations-(lack of equipment, weather restraints, etc.). 88-Not Attempted due to Medical Conditions or Safety Concerns. Oral Hygiene (QC): 5 Shower/Bathe Self (QC): 7 Lower Body Dressing (QC): 4 On/Off Footwear: 5 Toileting Hygiene (QC): 7 Toilet Transfer (QC): 7 Other Treatment Pt ambulated to therapy gym with FWW with SBA. Pt works on copying patterns to work on B UE strengthening, eye hand coordination, sequencing, finger manipulation for daily functional task. Pt required max verbal and physical cues to initially complete then pt was able to process directions to complete with minimal cues. Pt completed 2 sets of patterns. Pt required verbal/physical cues. Pt ambulated back to room using FWW, SBA. Pt in recliner call light/phone in reach. All needs met. OT Short Term Goals Short Term Goals Time Frame: Jan 02, 2020 Eatin Oral hygiene: 4 Toileting hygiene: 4 Shower/bathe self: 4 Upper body dressin Lower body dressin Putting on/taking off footwear: 4 OT Electronic Industrial Controls Mechanic Goals Electronic Industrial Controls Mechanic Goals Time Frame: Jan 09, 2020 Eating (QC): 6 Oral Hygiene (QC): 5 Toileting Hygiene (QC): 6 Shower/Bathe Self (QC): 4 Upper Body Dressing (QC): 5 Lower Body Dressing (QC): 5 On/Off Footwear (QC): 5 Additional Goals: 1-Demonstrate ADL Tasks, 2-Verbalize Understanding, 3- ImproveStrength/Negrita 1=Demonstrate adherence to instructed precautions during ADL tasks. 2=Patient will verbalize/demonstrate understanding of assistive devices/modifications for ADL. 3=Patient will improve strength/tolerance for activity to enable patient to perform ADL's. OT Education/Plan Problem List/Assessment Assessment: Decreased Activ Tolerance, Decreased UE Strength, Impaired Funct Ba natty, Impaired Self-Care Skills Discharge Recommendations Plan/Recommendations: Continue POC Treatment Plan/Plan of Care Patient would benefit from OT for education, treatment and training to promote independence in ADL's, mobility, safety and/or upper extremity function for ADL's. Plan of Care: ADL Retraining, Cognitive Retraining, Functional Mobility, Group Exercise/Act as Ind, UE Funct Exercise/Act, UE Neuromus Re-Ed/Coord, Vi sual/Perceptual Retrain, W/C Management Training Treatment Duration: Jan 09, 2020 Frequency: At least 5 of 7 days/Wk (IRF) Estimated Hrs Per Day: 1.5 hours per day Agreement: Yes Rehab Potential: Fair Time/GCodes Start Time: 07:30 Stop Time: 08:45 Total Time Billed (hr/min): 75 Billed Treatment Time 1 visit- ADL 3 (45 mins), FA 2 (30 mins) MILLA PICKETT Jan 05, 2020 08:14
[2020-01-05 08:28] LABS: ALBUMIN 3.3 GM/DL (3.2-4.5); BILIRUBIN,TOTAL 0.6 MG/DL (0.1-1.0); CALCIUM 8.7 MG/DL (8.5-10.1); CREATININE SERUM 1.78 MG/DL (0.60-1.30); POTASSIUM 4.1 MMOL/L (3.6-5.0); TOTAL PROTEIN 7.3 GM/DL (6.4-8.2)
[2020-01-05] MEDS: ASPIRIN E.C. 81 MG (ECOTRIN) TAB PO SCH (08:49)
[2020-01-05] MEDS: DOCUSATE SODIUM 100 MG (COLACE) CAP PO SCH ×3 (08:49→20:56)
[2020-01-05] MEDS: CLOPIDOGREL 75 MG (PLAVIX) TABLET PO SCH (08:49)
[2020-01-05] MEDS: PANTOPRAZOLE 40 MG (PROTONIX) TAB PO SCH (08:50)
[2020-01-05] MEDS: SERTRALINE 50 MG (ZOLOFT) TABLET PO SCH (08:50)
[2020-01-05] MEDS: polyethylene glycoL POWDER 17 GM (MIRALAX) PACK PO SCH ×2 (08:50→20:56)
[2020-01-05] MEDS: SENNA W/DOCUSATE (SENOKOT S) TABLET PO SCH ×2 (08:50→20:57)
[2020-01-05] MEDS: AZITHROMYCIN INJECTION 500 MG in NS (IVPB) 250 ML IV SCH (09:03)
[2020-01-05] MEDS: guaiFENesin/CODEINE (ROBITUSSIN AC) 10ML UDC PO PRN (09:05)
--- NOTE | 2020-01-05 09:25 | Speech Therapy Daily Note ---
Speech Daily Progress Note Subjective Date Seen by Provider: Jan 05, 2020 Time Seen by Provider: 00:30 Patient was sitting up in his recliner and was given his cough syrup. Patient is doing well on his modified diet. Objective Patient utilizes compensatory strategies for safe oral intake as trained at 80% with minimal cue. Assessment Assessment Current Status: No Treatment/Other Tests, Fair Progress Treatment Plan Continue Plan of Care Speech Short Term Goals Short Term Goals Short Term Goals 1) The patient will complete memory tasks related to his daily needs with 80% or greater given minimal cues. 2) The patient will complete safety awareness tasks related to his daily needs with 80% or greater given minimal cues. 3) The patient will complete problem solving tasks related to his daily needs with 80% or greater given minimal cues. 4) The patient will tolerate least restrictive diet without s/s of aspiration at 80% or greater. 5) The patient/caregiver will utilize compensatory strategies as trained at 90% or greater with minimal cues. Speech Shear Tender Goals Shear Tender Goals Patient will improve cognitive-communication necessary for safety and daily living tasks with minimal assist. Patient will maintain adequate nutrition/hydration via safe effective swallow function. Speech-Plan Patient/Family Goals Patient/Family Goals: Patient plans on returning to his home where he lives with his . Treatment Plan Speech Therapy Treatment Plan: Continue Plan of Care Treatment Duration: Jan 05, 2020 Frequency: 4 times per week (Patient will receive skilled ST 4-5x per week) Estimated Hrs Per Day: .5 hour per day Rehab Potential: Fair Barriers to Learning: Patient's recent CVA, age Pt/Family Agrees to Plan: Yes Safety Risks/Education Teaching Recipient: Patient Teaching Methods: Demonstration, Discussion Response to Teaching: Verbalize Understanding, Return Demonstration Education Topics Provided: Safety within his room and safety with oral intake. Time Speech Therapy Time In: 09:00 Speech Therapy Time Out: 09:30 Total Billed Time: 30 Billed Treatment Time 1, BRISEIDA, SUNSHINE Martin Jan 05, 2020 09:25
[2020-01-05] MEDS: ENOXAPARIN 40 MG/0.4 ML (LOVENOX) SYR SC SCH (10:01)
--- NOTE | 2020-01-05 11:13 | NUR ---
CM/SS PATIENT CARE CONFERENCE Lengthy discussion with patient's spouse Carolyne and thorough review of Summary and patient current LOF. Carolyne previously informed of the Covid screening (negative) as well as new diagnosis of pneumonia and IV antibiotic intervention. Per team, patient will be discussed Wednesday regarding his medical status as it relates to targeting a discharge. Family members are more than willing to participate in education/training with therapy so all can then formulate what patient's assistive device and environmental needs will be. Carolyne indicated her daughter and perhaps a granddaughter would be attending. Patient has a long, rich history of highly intelligent activities and interests. Carolyne stated that if patient had broken both legs and could still function intellectually, he would be much less distressed. 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 His last 13 years were at [employer] in [place]. 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 He was very adept on the computer and also managed all personal recording keeping and finances for him and Carolyne. In summary, knowing this, the team can certainly have a better understanding of patient's emotional responses when he can not formulate words or thoughts. Carolyne has hired a couple to assist with outdoor/indoor tasks. She is considering having the lady in a caregiver role for patient for times when Carolyne needs to be gone and family can not be present due to their employment. Team to discuss patient first of week, then set up family training when appropriate to patient's recovery from pneumonia.
--- NOTE | 2020-01-05 11:24 | Physical Therapy Daily Note ---
PT Daily Note-Current Subjective Pt up in recliner upon arrival to room, agreeable to therapy treatment at this time, pt denies pain throughout session. Appearance Following session, pt sitting upright in recliner chair with call light and tray within reach. Denies any further needs at this time. Mental Status Patient Orientation: Person, Confused Attachments: Oxygen (2L), IV Transfers SCALE: Activities may be completed with or without assistive devices. 1-Jetomexesf-duyehux completes the activity by him/herself with no assistance from a helper. 5-Set-up or Clean-up Assistance-helper sets up or cleans up; patient completes activity. [place] assists only prior to or following the activity. 4-Supervision or Touching Assistance-helper provides verbal cues and/or touching/steadying and/or contact guard assistance as patient completes activity. Assistance may be provided throughout the activity or intermittently. 3-Partial/Moderate Assistance-helper does LESS THAN HALF the effort. [place] lifts, holds or supports trunk or limbs, but provides less than half the effort. 2-Substantial/Maximal Assistance-helper does MORE THAN HALF the effort. [place] lifts or holds trunk or limbs and provides more than half the effort. 2-Xmylmrxir-uawued does ALL the effort. Patient does none of the effort to complete the activity. Or, the assistance of 2 or more helpers is required for the patient to complete the activity. If activity was not attempted, code reason: 7-Patient Refused. 9-Not Applicable-not attempted and the patient did not perform the activity before the current illness, exacerbation or injury. 10-Not Attempted due to Environmental Limitations-(lack of equipment, weather restraints, etc.). 88-Not Attempted due to Medical Conditions or Safety Concerns. Sit to Stand (QC): 3 ([facility] cueing for hand placement) Weight Bearing Full Weight Bearing Full Weight Bearing Gait Training Distance: 100' x 3 Walk 10 feet (QC): 4 Walk 50 ft with 2 Turns(QC): 4 Gait Assistive Device: FWW Pt ambulates with small, shuffling steps. No LOB noted with ambulation, but with fatigue pts RLE tends to have poor control of DF. Exercises Seated Therapy Exercises: Ankle pumps, Sit to stand (x5), Long arc quads, Hip flexion, Hamstring Curls, Hip abd/add, Glut set Seated Reps: 20 Standing: Heel/toe raises, Marching NuStep Minutes: 20 NuStep Workload: 3 Treatments Pt initially up in chair, pt transfers to standing and ambulates into therapy gym and completes NuStep x 20 minutes. Pt then ambulates to bed in gym and completes above mentioned seated and standing exercises, before returning to room. Pt requires seated rest breaks frequently during session. Assessment Current Status: Good Progress Will continue to progress activity tolerance as able. PT Short Term Goals Short Term Goals Time Frame: Jan 02, 2020 Roll Left & Right: 6 Sit to lyin Lying to sitting on side of be: 6 Sit to stand: 5 Chair/fsv-jz-kfnke transfer: 5 Toilet transfer: 5 Walk 10 feet: 5 Walk 50 feet with two turns: 5 Walk 150 feet: 5 PT Improvement Lead Goals Improvement Lead Goals PT Custodial Goals Time Frame: Jan 16, 2020 Roll Left & Right (QC): 6 Sit to Lying (QC): 6 Lying-Sitting on Side/Bed(QC): 6 Sit to Stand (QC): 6 Chair/Esv-yy-Pthif Xfer(QC): 6 Toilet Transfer (QC): 6 Car Transfer (QC): 6 Does the Patient Walk: Yes Walk 10 feet (QC): 6 Walk 50ft with 2 Turns (QC): 6 Walk 150 ft (QC): 6 Walking 10ft on Uneven Surface: 6 1 Step (curb) (QC): 6 4 Steps (QC): 6 12 Steps (QC): 6 Picking up an Object (QC): 6 Wheel 50 feet with 2 turns (QC: 9 Wheel 150 feet: 9 PT Plan Problem List Problem List: Activity Tolerance, Functional Strength, Safety, Balance, Gait, Transfer, Bed Mobility, ROM Treatment/Plan Treatment Plan: Continue Plan of Care Treatment Plan: Education, Functional Activity Negrita, Functional Strength, Group Therapy, Gait, Safety, Therapeutic Exercise, Transfers Treatment Duration: Jan 16, 2020 Frequency: At least 5 of 7 days/Wk (IRF) Estimated Hrs Per Day: 1.5 hours per day Patient and/or Family Agrees t: Yes Time/GCodes Time In: 955 Time Out: 1115 Total Billed Treatment Time: 75 Total Billed Treatment 1 visit FA x2 (25') GT (15') EX x2 (25') GRACE SWAN PT Jan 05, 2020 11:24
[2020-01-05 16:00] VITALS: BP 121/57
[2020-01-05] MEDS: RT-ALBUTEROL SULF 2.5 MG/3 ML PRE-MIX VIAL INH SCH (19:14)
[2020-01-05] MEDS: ALPRAZolam 0.25 MG (XANAX) TAB PO SCH (21:13)
[2020-01-05] MEDS: LATANOPROST 0.005% (XALATAN) OPHTH SOLN 2.5 ML OU SCH (21:15)
[2020-01-06] MEDS: CEFEPIME INJECTION 1,000 MG in WATER (STERILE) FOR INJECTION 10 ML IV SCH ×3 (04:56→20:16)
[2020-01-06] MEDS: CATHETER FLUSH 10 ML SYR IV SCH ×3 (04:57→20:16)
[2020-01-06 06:30] VITALS: BP 112/57
[2020-01-06] MEDS: VITAMIN D3 25 MCG (1,000 UNITS) TABLET PO SCH (06:40)
[2020-01-06] MEDS: RT-ALBUTEROL SULF 2.5 MG/3 ML PRE-MIX VIAL INH SCH (07:46)
[2020-01-06] MEDS: ASPIRIN E.C. 81 MG (ECOTRIN) TAB PO SCH (08:45)
[2020-01-06] MEDS: PANTOPRAZOLE 40 MG (PROTONIX) TAB PO SCH (08:46)
[2020-01-06] MEDS: SERTRALINE 50 MG (ZOLOFT) TABLET PO SCH (08:46)
[2020-01-06] MEDS: AZITHROMYCIN INJECTION 500 MG in NS (IVPB) 250 ML IV SCH (08:47)
--- NOTE | 2020-01-06 09:00 | NUR ---
FRUSTRATED WITH HIS EXPRESSIVE APHASIA. APPEARS HAPPIER AND TEASING NURSE SOME. DENIES SOB AND PAIN. STATES COUGH IS IMPROVED. WHEN ASKED HOW OLD HE WAS, STATED "900, NO 1000".
[2020-01-06] MEDS: DOCUSATE SODIUM 100 MG (COLACE) CAP PO SCH ×2 (09:01→19:44)
[2020-01-06] MEDS: polyethylene glycoL POWDER 17 GM (MIRALAX) PACK PO SCH ×2 (09:01→19:45)
[2020-01-06] MEDS: SENNA W/DOCUSATE (SENOKOT S) TABLET PO SCH ×2 (09:01→19:45)
[2020-01-06] MEDS: CLOPIDOGREL 75 MG (PLAVIX) TABLET PO SCH (09:04)
[2020-01-06] MEDS: ENOXAPARIN 40 MG/0.4 ML (LOVENOX) SYR SC SCH (09:06)
--- NOTE | 2020-01-06 10:35 | Physical Therapy Daily Note ---
PT Daily Note-Current Subjective Pt is in bed and agreeable to treatment. Mental Status Patient Orientation: Person, Place, Time, Situation Transfers SCALE: Activities may be completed with or without assistive devices. 4-Tedblyglsn-djexteb completes the activity by him/herself with no assistance from a helper. 5-Set-up or Clean-up Assistance-helper sets up or cleans up; patient completes activity. [place] assists only prior to or following the activity. 4-Supervision or Touching Assistance-helper provides verbal cues and/or johan josette/steadying and/or contact guard assistance as patient completes activity. Assistance may be provided throughout the activity or intermittently. 3-Partial/Moderate Assistance-helper does LESS THAN HALF the effort. [place] lifts, holds or supports trunk or limbs, but provides less than half the effort. 2-Substantial/Maximal Assistance-helper does MORE THAN HALF the effort. [place] lifts or holds trunk or limbs and provides more than half the effort. 6-Nftrdfcek-gxeqro does ALL the effort. Patient does none of the effort to complete the activity. Or, the assistance of 2 or more helpers is required for the patient to complete the activity. If activity was not attempted, code reason: 7-Patient Refused. 9-Not Applicable-not attempted and the patient did not perform the activity before the current illness, exacerbation or injury. 10-Not Attempted due to Environmental Limitations-(lack of equipment, weather restraints, etc.). 88-Not Attempted due to Medical Conditions or Safety Concerns. Roll Left & Right (QC): 5 Sit to Lying (QC): 5 Lying to Sitting/Side of Bed(Q: 5 Sit to Stand (QC): 5 Chair/Kqp-gn-Rnlaw Xfer(QC): 5 Weight Bearing Full Weight Bearing Full Weight Bearing Gait Training Does the Patient Walk?: Yes Distance: 250ft Walk 10 feet (QC): 5 Walk 50 ft with 2 Turns(QC): 5 Walk 150 ft (QC): 5 Gait Persons Needed: 1 Gait Assistive Device: FWW Wheelchair Training Does the Pt Use a Wheelchair?: No Exercises Supine Ex: LE Protocol Supine Reps: 20 Assessment Current Status: Good Progress Good stability during transfers and ambulation. Good safety with sit to/from standing. PT Short Term Goals Short Term Goals Time Frame: Jan 02, 2020 Roll Left & Right: 6 Sit to lyin Lying to sitting on side of be: 6 Sit to stand: 5 Chair/jkl-ra-rvrjc transfer: 5 Toilet transfer: 5 Walk 10 feet: 5 Walk 50 feet with two turns: 5 Walk 150 feet: 5 PT Senior Living Goals Senior Living Goals PT Producer Goals Time Frame: Jan 16, 2020 Roll Left & Right (QC): 6 Sit to Lying (QC): 6 Lying-Sitting on Side/Bed(QC): 6 Sit to Stand (QC): 6 Chair/Poo-oe-Zorkl Xfer(QC): 6 Toilet Transfer (QC): 6 Car Transfer (QC): 6 Does the Patient Walk: Yes Walk 10 feet (QC): 6 Walk 50ft with 2 Turns (QC): 6 Walk 150 ft (QC): 6 Walking 10ft on Uneven Surface: 6 1 Step (curb) (QC): 6 4 Steps (QC): 6 12 Steps (QC): 6 Picking up an Object (QC): 6 Wheel 50 feet with 2 turns (QC: 9 Wheel 150 feet: 9 PT Plan Treatment/Plan Treatment Plan: Continue Plan of Care Treatment Plan: Education, Functional Activity Negrita, Functional Strength, Gr oup Therapy, Gait, Safety, Therapeutic Exercise, Transfers Treatment Duration: Jan 16, 2020 Frequency: At least 5 of 7 days/Wk (IRF) Estimated Hrs Per Day: 1.5 hours per day Patient and/or Family Agrees t: Yes Time/GCodes Time In: 804 Time Out: 827 Total Billed Treatment Time: 23 Total Billed Treatment 1, gt 13, ex 10 SHANE SPARKS PT Jan 06, 2020 10:35
--- NOTE | 2020-01-06 13:56 | PM&R Progress Note ---
Subjective HPI/CC On Admission Date Seen by Provider: Jan 06, 2020 Time Seen by Provider: 14:00 Subjective/Events-last exam 01/06/20: Dark stools prompting hemoccult stools PPI maintained Holding Lovenox Abx maintained Cough is less 2L/min O2 01/05/20: Abx maintained Hypoxia remains but stable Improved status overall Modified barium swallow Wednesday wbc 9.8 BM yesterday 01/04/20: Extensive w/u on lung issue and cough and hypoxia revealed low probability of PE per perfusion scan and CT revealed pulmonary fibrosis and RLL new infiltrate Patient appears to be improved congnitively Nebs and IV abx ordered COVID x [address] scan so will start PPI Lovenox SQ 40mg daily maintained 01/03/20: Pt overall doing much better CXR shows B/L upper lobe infiltrates Covid swab will be done Pt has had a cough since he came over from [facility], his Covid test was negative on 12/20 O2 supplementation maintained Spoke to radiology and given elevated d-dimer and maintained on Lovenox since admit will perform perfusion scan 01/02/20: Pt about the same No major changes Cognition continues to be a challenge 01/01/20: Pt doing pretty well No significant changes Cognition is an issue Participating in therapy with a lot of heavy cues 12/31/19: Family pics helping shemar Got into shower without tearfulness Coughing managed with Robitussin DM and Xanax 12/30/19: Xanax helping him at night Robitussin DM also helps Will check on [facility] EMR to see what was done for cough evaluation Event monitor was planned for [facility] at [place] will reach out on Wednesday regarding those details 12/29/19: Patient seems about the same Cognition is a challenge when communicating No falls 12/28/19: Crushing pills in apple sauce seems to help Snoring at night, unsure if he needs to be on oxygen Xanax given at night really helps him Robitussin DM given for cough Aphasia continues Bowels moved yesterday so will continue laxatives Becomes tearful at times 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 Checked meds and labs Reviewed therapy notes Conferred with forest pathology professor of Systems General: Fatigue, Malaise Pulmonary: Dyspnea, Cough Gastrointestinal: Melena Focused Exam Lactate Level 01/04/20 06:10: Lactic Acid Level 0.91 Objective Exam Vital Signs Vital Signs Date Time Temp Pulse Resp B/P (MAP) Pulse Ox O2 Delivery O2 Flow Rate FiO2 01/06/20 09:13 Nasal Cannula 2.00 01/06/20 06:30 36.4 68 20 112/57 (75) 93 01/04/20 18:29 28 Capillary Refill : Less Than 3 Seconds General Appearance: No Apparent Distress, WD/WN, Chronically ill HEENT: PERRL/EOMI, Normal ENT Inspection, Pharynx Normal Neck: Full Range of Motion, Normal Inspection, Non Tender, Supple, Carotid Bruit Respiratory: Chest Non Tender, Lungs Clear, Normal Breath Sounds, No Accessory Muscle Use, No Respiratory Distress, Other (wearing O2 now) Cardiovascular: Regular Rate, Rhythm, No Edema, No Gallop, No JVD, No Murmur, Normal Peripheral Pulses Gastrointestinal: Normal Bowel Sounds, No Organomegaly, No Pulsatile Mass, Non Tender, Soft Back: Normal Inspection, No CVA Tenderness, No Vertebral Tenderness Extremity: Normal Capillary Refill, Normal Inspection, Normal Range of Motion, Non Tender, No Calf Tenderness, No Pedal Edema Neurologic/Psychiatric: Alert, Oriented x3, Normal Mood/Affect, senior functional analyst II-XII Norm as Tested, Abnormal Gait, Aphasia, Depressed Affect, Motor Weakness (right sided 3/5) Skin: Normal Color, Warm/Dry Lymphatic: No Adenopathy Results/Procedures Lab Patient resulted labs reviewed. FIM Transfers Therapy Code Descriptions/Definitions Functional [place] Measure: 0=Not Assessed/NA 4=Minimal Assistance 1=Total Assistance 5=Supervision or Setup 2=Maximal Assistance 6=Modified [place] 3=Moderate Assistance 7=Complete IndependenceSCALE: Activities may be completed with or without assistive devices. 0-Gpejanrpef-qwpfgnb completes the activity by him/herself with no assistance from a helper. 5-Set-up or Clean-up Assistance-helper sets up or cleans up; patient completes activity. [place] assists only prior to or following the activity. 4-Supervision or Touching Assistance-helper provides verbal cues and/or touching/steadying and/or contact guard assistance as patient completes activity. Assistance may be provided throughout the activity or intermittently. 3-Partial/Moderate Assistance-helper does LESS THAN HALF the effort. [place] lifts, holds or supports trunk or limbs, but provides less than half the effort. 2-Substantial/Maximal Assistance-helper does MORE THAN HALF the effort. [place] lifts or holds trunk or limbs and provides more than half the effort. 4-Amryrhpjn-mkbhrr does ALL the effort. Patient does none of the effort to complete the activity. Or, the assistance of 2 or more helpers is required for the patient to complete the activity. If activity was not attempted, code reason: 7-Patient Refused. 9-Not Applicable-not attempted and the patient did not perform the activity before the current illness, exacerbation or injury. 10-Not Attempted due to Environmental Limitations-(lack of equipment, weather restraints, etc.). 88-Not Attempted due to Medical Conditions or Safety Concerns. Roll Left to Right (QC): 5 Sit to Lying (QC): 5 Sit to Stand (QC): 5 Chair/Yww-gt-Wxonu Xfer(QC): 5 Car Transfer (QC): 4 Gait Training Does the Patient Walk?: Yes Distance: 250ft Walk 10 feet (QC): 5 Walk 50 ft with 2 Turns(QC): 5 Walk 150 ft (QC): 5 Walking 10ft/uneven surface-QC: 4 Gait Persons Needed: 1 Gait Assistive Device: FWW Wheelchair Training Does the Pt Use a Wheelchair?: No Wheel 50 ft with 2 turns (QC): 9 Wheel 150 ft (QC): 9 Stair Training Stair Training: Handrails/: 2 handrails #of Steps: 4 1 Step (curb) (QC): 4 4 Steps (QC): 4 (SBA; used B handrail; reciprocal pattern) 12 Steps (QC): 88 Stairs: Pattern: Reciprocal Balance Picking up an Object (QC): 4 ADL-Treatment Eating (QC): 5 Oral Hygiene (QC): 5 Bathing Location: L Arm, R Arm, L Upper Leg, R Upper Leg, L Lower Leg (including foot), R Lower Leg (including foot), Chest, Abdomen, Buttocks, Perineal Area Shower/Bathe Self (QC): 7 Upper Body Dressing (QC): 3 Lower Body Dressing (QC): 4 On/Off Footwear (QC): 5 Toileting Hygiene (QC): 7 Toilet Transfer (QC): 7 Assessment/Plan Assessment and Plan Assess & Plan/Chief Complaint Assessment: CVA Expressive aphasia Confusion Urinary retention h/o lymphoma CRI Fall risk Pulmonary fibrosis on CT scan 01/04/[address] 01/04/20 with new hypoxia placed on treatment Esophagitis on CT scan placed on PPI Plan: IRF protocol Check labs in am Monitor for falls Monitor urinary retention 12/27/19: Aphasia management Monitor BP Monitor creatinine 12/28/19: Monitor aphasia Monitor for falls Increased risk of confusion 12/29/19: Cough management but appears to be a non-purposeful behavior since CVA 12/30/19: Will research cough w/u on [email or web address] EMR Monitor closely 12/31/19: Monitor closely Fall risk Cognition therapy 01/01/20: Cough management Xanax at night helps him sleep 01/02/20: IRF protocol DIscuss dispo at meeting 01/03/20: Pursue septic w/u O2 COVID swab Monitor closely 01/04/20: IV abx COVID negative Pulmonary fibrosis will likely require O2 at DC continuously PPI Esophagitis on CT scan 01/05/20: Improved status O2 Abx PPI 01/06/20: Melena evaluation Hold Lovenox in meantime Abx O2 (1) CVA (cerebral vascular accident) (2) Lymphoma in remission (3) Renal insufficiency (4) Expressive aphasia (5) Confusion (6) Anemia (7) Retention, urine (8) Delirium JAMAL CANADA DO Jan 06, 2020 13:56
--- NOTE | 2020-01-06 14:00 | NUR ---
UP TO BATHROOM AND EXPELLED DARK STOOL. ORDER TO HOLD LOVENOX AND OB STOOL X 1. ORDER TO MONITOR ONLY REGARDLESS OF OB RESULT.
[2020-01-06 17:22] VITALS: BP 125/59
[2020-01-06] MEDS: ALPRAZolam 0.25 MG (XANAX) TAB PO SCH (20:16)
[2020-01-06] MEDS: LATANOPROST 0.005% (XALATAN) OPHTH SOLN 2.5 ML OU SCH (20:17)
[2020-01-07] MEDS: guaiFENesin/CODEINE (ROBITUSSIN AC) 10ML UDC PO PRN (03:23)
[2020-01-07] MEDS: CEFEPIME INJECTION 1,000 MG in WATER (STERILE) FOR INJECTION 10 ML IV SCH (03:23)
[2020-01-07] MEDS: CATHETER FLUSH 10 ML SYR IV SCH ×3 (03:23→20:11)
[2020-01-07 05:04] VITALS: BP 128/56
[2020-01-07] MEDS: VITAMIN D3 25 MCG (1,000 UNITS) TABLET PO SCH (06:31)
[2020-01-07] MEDS: RT-ALBUTEROL SULF 2.5 MG/3 ML PRE-MIX VIAL INH SCH ×3 (07:27→19:39)
--- NOTE | 2020-01-07 07:30 | PM&R Progress Note ---
Subjective HPI/CC On Admission Date Seen by Provider: Jan 07, 2020 Time Seen by Provider: 12:30 Subjective/Events-last exam 01/07/20: Al lot of coughing in general but much more when eating Needs diet changed Modified barium swallow tomorrow IV abx will be changed to PO formulation 01/06/20: Dark stools prompting hemoccult stools PPI maintained Holding Lovenox Abx maintained Cough is less 2L/min O2 01/05/20: Abx maintained Hypoxia remains but stable Improved status overall Modified barium swallow Wednesday wbc 9.8 BM yesterday 01/04/20: Extensive w/u on lung issue and cough and hypoxia revealed low probability of PE per perfusion scan and CT revealed pulmonary fibrosis and RLL new infiltrate Patient appears to be improved congnitively Nebs and IV abx ordered COVID x [address] scan so will start PPI Lovenox SQ 40mg daily maintained 01/03/20: Pt overall doing much better CXR shows B/L upper lobe infiltrates Covid swab will be done Pt has had a cough since he came over from [facility], his Covid test was negative on 12/20 O2 supplementation maintained Spoke to radiology and given elevated d-dimer and maintained on Lovenox since admit will perform perfusion scan 01/02/20: Pt about the same No major changes Cognition continues to be a challenge 01/01/20: Pt doing pretty well No significant changes Cognition is an issue Participating in therapy with a lot of heavy cues 12/31/19: Family pics helping morale Got into shower without tearfulness Coughing managed with Robitussin DM and Xanax 12/30/19: Xanax helping him at night Robitussin DM also helps Will check on [facility] EMR to see what was done for cough evaluation Event monitor was planned for [facility] at [place] will reach out on Wednesday regarding those details 12/29/19: Patient seems about the same Cognition is a challenge when communicating No falls 12/28/19: Crushing pills in apple sauce seems to help Snoring at night, unsure if he needs to be on oxygen Xanax given at night really helps him Robitussin DM given for cough Aphasia continues Bowels moved yesterday so will continue laxatives Becomes tearful at times 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 Checked meds and labs Reviewed therapy notes Conferred with yarder boss of Systems General: Fatigue Pulmonary: Dyspnea, Cough Neurological: Weakness, Incoordination, Confusion Objective Exam Vital Signs Vital Signs Date Time Temp Pulse Resp B/P (MAP) Pulse Ox O2 Delivery O2 Flow Rate FiO2 01/07/20 09:00 Nasal Cannula 2.00 01/07/20 07:26 92 01/07/20 05:04 36.9 73 22 128/56 (80) 01/04/20 18:29 28 Capillary Refill : Less Than 3 Seconds General Appearance: No Apparent Distress, WD/WN, Chronically ill HEENT: PERRL/EOMI, Normal ENT Inspection, Pharynx Normal Neck: Full Range of Motion, Normal Inspection, Non Tender, Supple, Carotid Bruit Respiratory: Chest Non Tender, Lungs Clear, Normal Breath Sounds, No Accessory Muscle Use, No Respiratory Distress, Other (wearing O2 now) Cardiovascular: Regular Rate, Rhythm, No Edema, No Gallop, No JVD, No Murmur, Normal Peripheral Pulses Gastrointestinal: Normal Bowel Sounds, No Organomegaly, No Pulsatile Mass, Non Tender, Soft Back: Normal Inspection, No CVA Tenderness, No Vertebral Tenderness Extremity: Normal Capillary Refill, Normal Inspection, Normal Range of Motion, Non Tender, No Calf Tenderness, No Pedal Edema Neurologic/Psychiatric: Alert, Oriented x3, Normal Mood/Affect, bookkeeping clerk II-XII Norm as Tested, Abnormal Gait, Aphasia, Depressed Affect, Motor Weakness (right sided 3/5) Skin: Normal Color, Warm/Dry Lymphatic: No Adenopathy Results/Procedures Lab Patient resulted labs reviewed. FIM Transfers Therapy Code Descriptions/Definitions Functional [place] Measure: 0=Not Assessed/NA 4=Minimal Assistance 1=Total Assistance 5=Supervision or Setup 2=Maximal Assistance 6=Modified [place] 3=Moderate Assistance 7=Complete IndependenceSCALE: Activities may be completed with or without assistive devices. 1-Wwtulnmtjl-xedghdh completes the activity by him/herself with no assistance from a helper. 5-Set-up or Clean-up Assistance-helper sets up or cleans up; patient completes activity. [place] assists only prior to or following the activity. 4-Supervision or Touching Assistance-helper provides verbal cues and/or touching/steadying and/or contact guard assistance as patient completes activity. Assistance may be provided throughout the activity or intermittently. 3-Partial/Moderate Assistance-helper does LESS THAN HALF the effort. [place] lifts, holds or supports trunk or limbs, but provides less than half the effort. 2-Substantial/Maximal Assistance-helper does MORE THAN HALF the effort. [place] lifts or holds trunk or limbs and provides more than half the effort. 8-Kvuzwxyrz-dqpxsg does ALL the effort. Patient does none of the effort to complete the activity. Or, the assistance of 2 or more helpers is required for the patient to complete the activity. If activity was not attempted, code reason: 7-Patient Refused. 9-Not Applicable-not attempted and the patient did not perform the activity before the current illness, exacerbation or injury. 10-Not Attempted due to Environmental Limitations-(lack of equipment, weather restraints, etc.). 88-Not Attempted due to Medical Conditions or Safety Concerns. Roll Left to Right (QC): 5 Sit to Lying (QC): 5 Sit to Stand (QC): 5 Chair/Wio-ib-Lrrge Xfer(QC): 5 Car Transfer (QC): 4 Gait Training Does the Patient Walk?: Yes Distance: 250ft Walk 10 feet (QC): 5 Walk 50 ft with 2 Turns(QC): 5 Walk 150 ft (QC): 5 Walking 10ft/uneven surface-QC: 4 Gait Persons Needed: 1 Gait Assistive Device: FWW Wheelchair Training Does the Pt Use a Wheelchair?: No Wheel 50 ft with 2 turns (QC): 9 Wheel 150 ft (QC): 9 Stair Training Stair Training: Handrails/: 2 handrails #of Steps: 4 1 Step (curb) (QC): 4 4 Steps (QC): 4 (SBA; used B handrail; reciprocal pattern) 12 Steps (QC): 88 Stairs: Pattern: Reciprocal Balance Picking up an Object (QC): 4 ADL-Treatment Eating (QC): 5 Oral Hygiene (QC): 5 Bathing Location: L Arm, R Arm, L Upper Leg, R Upper Leg, L Lower Leg (including foot), R Lower Leg (including foot), Chest, Abdomen, Buttocks, Perineal Area Shower/Bathe Self (QC): 7 Upper Body Dressing (QC): 3 Lower Body Dressing (QC): 4 On/Off Footwear (QC): 5 Toileting Hygiene (QC): 7 Toilet Transfer (QC): 7 Assessment/Plan Assessment and Plan Assess & Plan/Chief Complaint Assessment: CVA Expressive aphasia Confusion Urinary retention h/o lymphoma CRI Fall risk Pulmonary fibrosis on CT scan 01/04/[address] 01/04/20 with new hypoxia placed on treatment Esophagitis on CT scan placed on PPI Plan: IRF protocol Check labs in am Monitor for falls Monitor urinary retention 12/27/19: Aphasia management Monitor BP Monitor creatinine 12/28/19: Monitor aphasia Monitor for falls Increased risk of confusion 12/29/19: Cough management but appears to be a non-purposeful behavior since CVA 12/30/19: Will research cough w/u on [employer] EMR Monitor closely 12/31/19: Monitor closely Fall risk Cognition therapy 01/01/20: Cough management Xanax at night helps him sleep 01/02/20: IRF protocol DIscuss dispo at meeting 01/03/20: Pursue septic w/u O2 COVID swab Monitor closely 01/04/20: IV abx COVID negative Pulmonary fibrosis will likely require O2 at DC continuously PPI Esophagitis on CT scan 01/05/20: Improved status O2 Abx PPI 01/06/20: Melena evaluation Hold Lovenox in meantime Abx O2 01/07/20: Monitor cough Change IV abx to PO Check labs in am Change diet appears microaspiration (1) CVA (cerebral vascular accident) (2) Lymphoma in remission (3) Renal insufficiency (4) Expressive aphasia (5) Confusion (6) Anemia (7) Retention, urine (8) Delirium JAMAL CANADA DO Jan 07, 2020 07:30
[2020-01-07] MEDS: DOCUSATE SODIUM 100 MG (COLACE) CAP PO SCH ×2 (08:35→19:36)
[2020-01-07] MEDS: polyethylene glycoL POWDER 17 GM (MIRALAX) PACK PO SCH ×2 (08:35→19:36)
[2020-01-07] MEDS: SENNA W/DOCUSATE (SENOKOT S) TABLET PO SCH ×2 (08:35→19:36)
[2020-01-07] MEDS: PANTOPRAZOLE 40 MG (PROTONIX) TAB PO SCH (08:36)
[2020-01-07] MEDS: CLOPIDOGREL 75 MG (PLAVIX) TABLET PO SCH (08:36)
[2020-01-07] MEDS: ASPIRIN E.C. 81 MG (ECOTRIN) TAB PO SCH (08:36)
[2020-01-07] MEDS: SERTRALINE 50 MG (ZOLOFT) TABLET PO SCH (08:37)
[2020-01-07] MEDS: AZITHROMYCIN INJECTION 500 MG in NS (IVPB) 250 ML IV SCH (09:40)
[2020-01-07 18:49] VITALS: BP 121/57
[2020-01-07] MEDS: CEFDINIR 300 MG (OMNICEF) CAP PO SCH (20:08)
[2020-01-07] MEDS: ALPRAZolam 0.25 MG (XANAX) TAB PO SCH (20:08)
[2020-01-07] MEDS: LATANOPROST 0.005% (XALATAN) OPHTH SOLN 2.5 ML OU SCH (20:10)
[2020-01-08 05:01] VITALS: BP 103/67
[2020-01-08 05:36] LABS: BASOPHILS # (AUTO) 0.1 10^3/uL (0.0-0.1); BASOPHILS % (AUTO) 1 % (0-10); EOSINOPHILS # (AUTO) 1.2 10^3/uL (0.0-0.3); EOSINOPHILS % (AUTO) 11 % (0-10); HEMATOCRIT 33 % (40-54); HEMOGLOBIN 10.7 g/dL (13.3-17.7); LYMPHOCYTES # (AUTO) 2.4 10^3/uL (1.0-4.0); LYMPHOCYTES % (AUTO) 21 % (12-44); MEAN CORPUSCULAR HEMOGLOBIN 33 pg (25-34); MEAN CORPUSCULAR HGB CONC 32 g/dL (32-36); MEAN CORPUSCULAR VOLUME 103 fL (80-99); MEAN PLATELET VOLUME 12.5 fL (9.0-12.2); MONOCYTES # (AUTO) 2.2 10^3/uL (0.0-1.0); MONOCYTES % (AUTO) 19 % (0-12); NEUTROPHILS # (AUTO) 5.8 10^3/uL (1.8-7.8); NEUTROPHILS % (AUTO) 49 % (42-75); PLATELET COUNT 245 10^3/uL (130-400); WHITE BLOOD COUNT 11.8 10^3/uL (4.3-11.0)
[2020-01-08 05:43] LABS: POTASSIUM 4.3 MMOL/L (3.6-5.0)
[2020-01-08 05:44] LABS: CALCIUM 8.1 MG/DL (8.5-10.1)
[2020-01-08 05:45] LABS: TOTAL PROTEIN 6.4 GM/DL (6.4-8.2)
[2020-01-08 05:47] LABS: BILIRUBIN,TOTAL 0.4 MG/DL (0.1-1.0)
[2020-01-08 05:49] LABS: CREATININE SERUM 1.6 MG/DL (0.60-1.30)
[2020-01-08] MEDS: VITAMIN D3 25 MCG (1,000 UNITS) TABLET PO SCH (05:58)
[2020-01-08] MEDS: CATHETER FLUSH 10 ML SYR IV SCH ×3 (05:59→22:07)
--- NOTE | 2020-01-08 08:16 | PM&R Progress Note ---
Subjective HPI/CC On Admission Date Seen by Provider: Jan 08, 2020 Time Seen by Provider: 10:00 Subjective/Events-last exam 01/08/20: Pt doing okay but refused breakfast WBC 11.8 Hgb 10.8 Dysphagia and aspiration risk appears to be somewhat possible and his hemmocult was positive, had been maintained on proton-pump inhibitor so consulted Dr. Liz who will preform EGD tomorrow Remains on 2 L of oxygen 01/07/20: Al lot of coughing in general but much more when eating Needs diet changed Modified barium swallow tomorrow IV abx will be changed to PO formulation 01/06/20: Dark stools prompting hemoccult stools PPI maintained Holding Lovenox Abx maintained Cough is less 2L/min O2 01/05/20: Abx maintained Hypoxia remains but stable Improved status overall Modified barium swallow Wednesday wbc 9.8 BM yesterday 01/04/20: Extensive w/u on lung issue and cough and hypoxia revealed low probability of PE per perfusion scan and CT revealed pulmonary fibrosis and RLL new infiltrate Patient appears to be improved congnitively Nebs and IV abx ordered COVID x [address] scan so will start PPI Lovenox SQ 40mg daily maintained 01/03/20: Pt overall doing much better CXR shows B/L upper lobe infiltrates Covid swab will be done Pt has had a cough since he came over from [facility], his Covid test was negative on 12/20 O2 supplementation maintained Spoke to radiology and given elevated d-dimer and maintained on Lovenox since admit will perform perfusion scan 01/02/20: Pt about the same No major changes Cognition continues to be a challenge 01/01/20: Pt doing pretty well No significant changes Cognition is an issue Participating in therapy with a lot of heavy cues 12/31/19: Family pics helping morale Got into shower without tearfulness Coughing managed with Robitussin DM and Xanax 12/30/19: Xanax helping him at night Robitussin DM also helps Will check on [facility] EMR to see what was done for cough evaluation Event monitor was planned for [facility] at [place] will reach out on Wednesday regarding those details 12/29/19: Patient seems about the same Cognition is a challenge when communicating No falls 12/28/19: Crushing pills in apple sauce seems to help Snoring at night, unsure if he needs to be on oxygen Xanax given at night really helps him Robitussin DM given for cough Aphasia continues Bowels moved yesterday so will continue laxatives Becomes tearful at times 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 Checked meds and labs Reviewed therapy notes Conferred with senior architectural designer of Systems General: Malaise HEENT: Dysphasia Neurological: Weakness, Incoordination, Confusion Objective Exam Vital Signs Vital Signs Date Time Temp Pulse Resp B/P (MAP) Pulse Ox O2 Delivery O2 Flow Rate FiO2 01/08/20 21:56 95 Nasal Cannula 1.00 01/08/20 18:04 36.8 67 16 120/59 (79) 01/04/20 18:29 28 Capillary Refill : Less Than 3 Seconds General Appearance: No Apparent Distress, WD/WN, Chronically ill HEENT: PERRL/EOMI, Normal ENT Inspection, Pharynx Normal Neck: Full Range of Motion, Normal Inspection, Non Tender, Supple, Carotid Bruit Respiratory: Chest Non Tender, Lungs Clear, Normal Breath Sounds, No Accessory Muscle Use, No Respiratory Distress, Other (wearing O2 now) Cardiovascular: Regular Rate, Rhythm, No Edema, No Gallop, No JVD, No Murmur, Normal Peripheral Pulses Gastrointestinal: Normal Bowel Sounds, No Organomegaly, No Pulsatile Mass, Non Tender, Soft Back: Normal Inspection, No CVA Tenderness, No Vertebral Tenderness Extremity: Normal Capillary Refill, Normal Inspection, Normal Range of Motion, Non Tender, No Calf Tenderness, No Pedal Edema Neurologic/Psychiatric: Alert, Oriented x3, Normal Mood/Affect, webbing inspector II-XII Norm as Tested, Abnormal Gait, Aphasia, Depressed Affect, Motor Weakness (right sided 3/5) Skin: Normal Color, Warm/Dry Lymphatic: No Adenopathy Results/Procedures Lab Patient resulted labs reviewed. FIM Transfers Therapy Code Descriptions/Definitions Functional [place] Measure: 0=Not Assessed/NA 4=Minimal Assistance 1=Total Assistance 5=Supervision or Setup 2=Maximal Assistance 6=Modified [place] 3=Moderate Assistance 7=Complete IndependenceSCALE: Activities may be completed with or without assistive devices. 6-Rqzlyiugiw-dabkpxt completes the activity by him/herself with no assistance from a helper. 5-Set-up or Clean-up Assistance-helper sets up or cleans up; patient completes activity. [place] assists only prior to or following the activity. 4-Supervision or Touching Assistance-helper provides verbal cues and/or touching/steadying and/or contact guard assistance as patient completes activity. Assistance may be provided throughout the activity or intermittently. 3-Partial/Moderate Assistance-helper does LESS THAN HALF the effort. Nolan lifts, holds or supports trunk or limbs, but provides less than half the effort. 2-Substantial/Maximal Assistance-helper does MORE THAN HALF the effort. Nolan lifts or holds trunk or limbs and provides more than half the effort. 3-Pfdiuknit-yvruoe does ALL the effort. Patient does none of the effort to complete the activity. Or, the assistance of 2 or more helpers is required for the patient to complete the activity. If activity was not attempted, code reason: 7-Patient Refused. 9-Not Applicable-not attempted and the patient did not perform the activity before the current illness, exacerbation or injury. 10-Not Attempted due to Environmental Limitations-(lack of equipment, weather restraints, etc.). 88-Not Attempted due to Medical Conditions or Safety Concerns. Roll Left to Right (QC): 5 Sit to Lying (QC): 5 Sit to Stand (QC): 5 Chair/Was-eg-Btxcf Xfer(QC): 5 Car Transfer (QC): 4 Gait Training Does the Patient Walk?: Yes Distance: 250ft Walk 10 feet (QC): 5 Walk 50 ft with 2 Turns(QC): 5 Walk 150 ft (QC): 5 Walking 10ft/uneven surface-QC: 4 Gait Persons Needed: 1 Gait Assistive Device: FWW Wheelchair Training Does the Pt Use a Wheelchair?: No Wheel 50 ft with 2 turns (QC): 9 Wheel 150 ft (QC): 9 Stair Training Stair Training: Handrails/: 2 handrails #of Steps: 4 1 Step (curb) (QC): 4 4 Steps (QC): 4 (SBA; used B handrail; reciprocal pattern) 12 Steps (QC): 88 Stairs: Pattern: Reciprocal Balance Picking up an Object (QC): 4 ADL-Treatment Eating (QC): 5 Oral Hygiene (QC): 5 Bathing Location: L Arm, R Arm, L Upper Leg, R Upper Leg, L Lower Leg (including foot), R Lower Leg (including foot), Chest, Abdomen, Buttocks, Perineal Area Shower/Bathe Self (QC): 7 Upper Body Dressing (QC): 3 Lower Body Dressing (QC): 4 On/Off Footwear (QC): 5 Toileting Hygiene (QC): 7 Toilet Transfer (QC): 7 Assessment/Plan Assessment and Plan Assess & Plan/Chief Complaint Assessment: CVA Expressive aphasia Confusion Urinary retention h/o lymphoma CRI Fall risk Pulmonary fibrosis on CT scan 01/04/[address] 01/04/20 with new hypoxia placed on treatment Esophagitis on CT scan placed on PPI Plan: IRF protocol Check labs in am Monitor for falls Monitor urinary retention 12/27/19: Aphasia management Monitor BP Monitor creatinine 12/28/19: Monitor aphasia Monitor for falls Increased risk of confusion 12/29/19: Cough management but appears to be a non-purposeful behavior since CVA 12/30/19: Will research cough w/u on [employer] EMR Monitor closely 12/31/19: Monitor closely Fall risk Cognition therapy 01/01/20: Cough management Xanax at night helps him sleep 01/02/20: IRF protocol DIscuss dispo at meeting 01/03/20: Pursue septic w/u O2 COVID swab Monitor closely 01/04/20: IV abx COVID negative Pulmonary fibrosis will likely require O2 at DC continuously PPI Esophagitis on CT scan 01/05/20: Improved status O2 Abx PPI 01/06/20: Melena evaluation Hold Lovenox in meantime Abx O2 01/07/20: Monitor cough Change IV abx to PO Check labs in am Change diet appears microaspiration 01/08/20: EGD tomorrow Abx PO now O2 Nebs Cough management (1) CVA (cerebral vascular accident) (2) Lymphoma in remission (3) Renal insufficiency (4) Expressive aphasia (5) Confusion (6) Anemia (7) Retention, urine (8) Delirium JAMAL CANADA DO Jan 08, 2020 08:16
--- NOTE | 2020-01-08 08:18 | Occupational Ther Daily Note ---
OT Current Status-Daily Note Subjective Pt alert, sitting in recliner. Pt kept saying "[place]" meaning January. When shown December and January calendar, pt pointed to January, CASTANEDA reminded pt that it is the last day of December. Pt pointed to January 08 then January 07 making known that he thought it was the first day of January and acknowledged that he understood that it was January 07. No indications of pain. Agrees to therapy stating that he knows he needs a shower. Mental Status/Objective Patient Orientation: Person, Place, Situation Attachments: IV, Oxygen (2L) ADL-Treatment Pt agrees to shower. Pt ambulated to sink to complete oral care and grooming. Assist to open toothpaste lid and push toothpaste onto brush. Pt doff UE/LE clothing, verbal cues required. Pt transferred into shower from w/c using grab bars to stabilize while standing. Pt performed upper body washing with set up. Pt performed lower body washing with set up, verbal cues required. Pt cleansed buttocks, perineal area while sitting leaning side to side to clean. Pt transferred from shower bench to w/c using grab bars to stabilize. Pt don upper body clothing with set up, verbal cues to find R arm to thread into shirt. Pt don lower body clothing with set up, threading feet into pants/socks. Pt used FWW to stabilize while hiking pants over hips by self. Pt performed brushing hair in w/c. Doctor/nursing came in. Pt propelled self to recliner. Call light/phone in reach. All needs met. Therapy Code Descriptions/Definitions Functional [place] Measure: 0=Not Assessed/NA 4=Minimal Assistance 1=Total Assistance 5=Supervision or Setup 2=Maximal Assistance 6=Modified [place] 3=Moderate Assistance 7=Complete IndependenceSCALE: Activities may be completed with or without assistive devices. 2-Rijumiilkz-prrmdra completes the activity by him/herself with no assistance from a helper. 5-Set-up or Clean-up Assistance-helper sets up or cleans up; patient completes activity. [place] assists only prior to or following the activity. 4-Supervision or Touching Assistance-helper provides verbal cues and/or touching/steadying and/or contact guard assistance as patient completes activity. Assistance may be provided throughout the activity or intermittently. 3-Partial/Moderate Assistance-helper does LESS THAN HALF the effort. [place] lifts, holds or supports trunk or limbs, but provides less than half the effort. 2-Substantial/Maximal Assistance-helper does MORE THAN HALF the effort. [place] lifts or holds trunk or limbs and provides more than half the effort. 4-Zizoyorry-rpujfv does ALL the effort. Patient does none of the effort to complete the activity. Or, the assistance of 2 or more helpers is required for the patient to complete the activity. If activity was not attempted, code reason: 7-Patient Refused. 9-Not Applicable-not attempted and the patient did not perform the activity before the current illness, exacerbation or injury. 10-Not Attempted due to Environmental Limitations-(lack of equipment, weather restraints, etc.). 88-Not Attempted due to Medical Conditions or Safety Concerns. Oral Hygiene (QC): 5 Bathing Location: L Arm, R Arm, L Upper Leg, R Upper Leg, L Lower Leg (including foot), R Lower Leg (including foot), Chest, Abdomen, Buttocks, Perineal Area Shower/Bathe Self (QC): 4 Upper Body Dressing (QC): 4 Lower Body Dressing (QC): 4 On/Off Footwear: 4 Education OT Patient Education: Modified ADL techniques Teaching Recipient: Patient Teaching Methods: Demonstration Response to Teaching: Verbalize Understanding, Return Demonstration, Reinforcement Needed OT Short Term Goals Short Term Goals Time Frame: Jan 02, 2020 Eatin Oral hygiene: 4 Toileting hygiene: 4 Shower/bathe self: 4 Upper body dressin Lower body dressin Putting on/taking off footwear: 4 OT Customer Solutions Architect Goals Longterm Goals Time Frame: Jan 09, 2020 Eating (QC): 6 Oral Hygiene (QC): 5 Toileting Hygiene (QC): 6 Shower/Bathe Self (QC): 4 Upper Body Dressing (QC): 5 Lower Body Dressing (QC): 5 On/Off Footwear (QC): 5 Additional Goals: 1-Demonstrate ADL Tasks, 2-Verbalize Understanding, 3- ImproveStrength/Negrita 1=Demonstrate adherence to instructed precautions during ADL tasks. 2=Patient will verbalize/demonstrate understanding of assistive devices/modifications for ADL. 3=Patient will improve strength/tolerance for activity to enable patient to perform ADL's. OT Education/Plan Problem List/Assessment Assessment: Decreased Activ Tolerance, Decreased UE Strength, Impaired Funct Balance, Impaired Self-Care Skills Discharge Recommendations Plan/Recommendations: Continue POC Treatment Plan/Plan of Care Patient would benefit from OT for education, treatment and training to promote independence in ADL's, mobility, safety and/or upper extremity function for ADL's. Plan of Care: ADL Retraining, Cognitive Retraining, Functional Mobility, Group Exercise/Act as Ind, UE Funct Exercise/Act, UE Neuromus Re-Ed/Coord, Visual/Perceptual Retrain, W/C Management Training Treatment Duration: Jan 09, 2020 Frequency: At least 5 of 7 days/Wk (IRF) Estimated Hrs Per Day: 1.5 hours per day Agreement: Yes Rehab Potential: Fair Time/GCodes Start Time: 07:30 Stop Time: 08:45 Total Time Billed (hr/min): 75 Billed Treatment Time 1 visit-ADL 5 (75 min) MILLA PICKETT Jan 08, 2020 08:18
[2020-01-08] MEDS: SENNA W/DOCUSATE (SENOKOT S) TABLET PO SCH ×2 (08:23→20:15)
[2020-01-08] MEDS: AZITHROMYCIN 250 MG TAB (ZITHROMAX) PO SCH (08:23)
[2020-01-08] MEDS: PANTOPRAZOLE 40 MG (PROTONIX) TAB PO SCH (08:23)
[2020-01-08] MEDS: ASPIRIN E.C. 81 MG (ECOTRIN) TAB PO SCH (08:23)
[2020-01-08] MEDS: SERTRALINE 50 MG (ZOLOFT) TABLET PO SCH (08:23)
[2020-01-08] MEDS: CEFDINIR 300 MG (OMNICEF) CAP PO SCH ×2 (08:23→22:06)
[2020-01-08] MEDS: DOCUSATE SODIUM 100 MG (COLACE) CAP PO SCH ×2 (08:24→20:15)
[2020-01-08] MEDS: polyethylene glycoL POWDER 17 GM (MIRALAX) PACK PO SCH ×2 (08:24→20:15)
--- NOTE | 2020-01-08 09:40 | Diagnostic Imaging Report ---
Indication: Productive cough and crackles PA and lateral views of the chest obtained with comparison made study of 01/03/2020. Coarse predominantly interstitial markings are again seen throughout the lungs, greater on the right. There is no pneumothorax or significant pleural fluid. No significant change is identified. IMPRESSION: Coarse bilateral infiltrates likely related to pneumonitis or atypical pneumonia. Component of underlying scarring is not completely excluded. Dictated by: Dictated on workstation # [id number]
[2020-01-08] MEDS: RT-ALBUTEROL SULF 2.5 MG/3 ML PRE-MIX VIAL INH SCH ×2 (09:48→21:55)
--- NOTE | 2020-01-08 09:50 | NUR ---
CM/SS CONCURRENT DOCUMENTATION Call from spouse Carolyne this a.m. She stated that their son Mitchell will be flying here from [place] for the family training session so we need to considerate that regarding coordination. Carolyne stated she called patient three times yesterday thinking it would help patient but she perceived him to be confused as well as emotional. Patient may benefit more emotionally by being at home as soon as medically stable to do so and his home environment is ready. Carolyne said when Mitchell is home he will assess the home for grab bars, etc, and that the [employer] gentlemen are coming end of this week re same. Airplane And Engine Inspector recommended a ramp, Carolyne is looking into an outside lift. Either would require a quick turnaround, although the [employer] fellows could get patient into the house. Partner with team regarding family training scheduling. Addendum: 01/08/20 at 1255 by DELVIS SHANE Discussed with team, updated Carolyne. She will contact her son and see if he can fly home Wednesday or to participate in family training, direction of discharge planning to be determined. Patient will return home when medically/functionally stable for release. Carolyne asked about [facility], provided agency contact information for [facility]. Await family response for schedule options.
--- NOTE | 2020-01-08 10:24 | ST Mod Barium Swallow ---
Speech Evaluation-General Medical Diagnosis Left Parietal posterior MCA stroke, aphasia Onset Date: Dec 12, 2019 Therapy Diagnosis Therapy Diagnosis: Oropharyngeal Dysphagia Precautions Precautions: Aspiration Referral Referring Physician: Dr. Nicholas Medical History Pertinent Medical History: CAD, COPD, CVA, DM, GERD, HTN, PVD Reviewed History: Yes Social History Current Living Status: Spouse Speech Mod Barium Swallow Prior Level of Function Patient was on a soft diet without s/s of aspiration. Patient has a persistent cough which he had upon admission. Oral Motor Skills Dentition Natural Dentures: Full Lingual Protrusion: Normal Lingual ROM: Normal Lingual Strength: Normal Velum: Normal Volitional Dry Swallow: Yes Voluntary Cough: Yes Can Clear Throat Volitionally: Yes Textures-Lateral View Lateral View Food Presentation: Thin Liquid via Spoon, Thin Liquid via Straw, Pureed Solids, Ground Solids, Mechanial Soft Solids Oral Phase Labial Closure: No Impairment (WFL) Bolus Formation Pooling L/R: Moderate Impairment deficit with bolus formation Bolus Formation Placement: Moderate Impairment deficit with A to P transfer Mastication Rotary Chew: Moderate Impairment A/P Lingual Propulsion: Moderate Impairment Significant delay in oral phase with delay and AP transit and initiation of swallow. Oral Phase Residue: No Impairment (WFL) Pharyngeal Phase Swallow Response: No Impairment (WFL) Base of Tongue: No Impairment (WFL) Epiglottic Movement: No Impairment (WFL) Laryngeal Elevation: No Impairment (WFL) Vallecular Residue: No Impairment (WFL) Pharyngeal Wall Residue: No Impairment (WFL) Piriform Sinus Residue: No Impairment (WFL) Laryngeal Penetration: None Aspiration Observations: None Esophageal Phase Peristalsis: WFL A/P Esophageal Propulsion Time: Greater Than 5 Seconds Abnormal Performed-A/P View Not Applicable/Performed Summary/Impressions Oral Phase Impression: Moderate Impairment Patient is a pleasant 84 y/o male who was admitted to the ARU s/p CVA. Patient admitted with a persistent cough and was referred for an MBS. Patient completed the MBS with presentations of thin liquids at 1/2 tsp and small sip via straw. He was also presented puree, mechanical soft and ground meats at 1/2 tsp present ation. Patient was noted to have significant delay in oral phase with delay and AP transit and initiation of the swallow. Once the swallow was initiated, there isn't any aspiration or penetration. Patient demonstrates normal epiglottic tilt and laryngeal elevation. Patient is recommended for a Dysphagia II diet with thin liquids. Patient will continue to receive dysphagia therapy. Speech Short Term Goals Short Term Goals Short Term Goals 1) The patient will complete memory tasks related to his daily needs with 80% or greater given minimal cues. 2) The patient will complete safety awareness tasks related to his daily needs with 80% or greater given minimal cues. 3) The patient will complete problem solving tasks related to his daily needs with 80% or greater given minimal cues. 4) The patient will tolerate least restrictive diet without s/s of aspiration at 80% or greater. 5) The patient/caregiver will utilize compensatory strategies as trained at 90% or greater with minimal cues. Speech Senior Care Goals Service Correspondent Goals Patient will improve cognitive-communication necessary for safety and daily living tasks with minimal assist. Patient will maintain adequate nutrition/hydration via safe effective swallow function. Speech-Plan Patient/Family Goals Patient/Family Goals: Patient plans on returning to his home where he lives with his . Treatment Plan Speech Therapy Treatment Plan: Continue Plan of Care Treatment Duration: Jan 05, 2020 Frequency: 4 times per week (Patient will receive skilled ST 4-5x per week) Estimated Hrs Per Day: .5 hour per day Rehab Potential: Fair Barriers to Learning: Patient's recent CVA, expressive aphasia Pt/Family Agrees to Plan: Yes Safety Risks/Education Teaching Recipient: Patient Teaching Methods: Demonstration, Discussion Response to Teaching: Verbalize Understanding, Return Demonstration Education Topics Provided: Safety of oral intake, diet level Time Speech Therapy Time In: 09:00 Speech Therapy Time Out: 09:30 Total Billed Time: 30 Billed Treatment Time 1, MOD, DYST No SUNSHINE REAGAN Jan 08, 2020 10:24
--- NOTE | 2020-01-08 12:03 | Physical Therapy Daily Note ---
PT Daily Note-Current Subjective Pt. agrees to Rx. Repeats "I'm sorry" and "thank you". Tearful at times when family or discharge is mentioned, denies pain, also expresses that he is not hungry. C/o he is cold, warmed blanket draped over pt. most of Rx Pain Location: No Pain Reported Mental Status Patient Orientation: Non-Verbal/Aphasic Attachments: Oxygen (2L) attempted titration to 1L with success. Transfers SCALE: Activities may be completed with or without assistive devices. 0-Sqmnuwmgzo-vzqjjhs completes the activity by him/herself with no assistance from a helper. 5-Set-up or Clean-up Assistance-helper sets up or cleans up; patient completes activity. [place] assists only prior to or following the activity. 4-Supervision or Touching Assistance-helper provides verbal cues and/or touching/steadying and/or contact guard assistance as patient completes activity. Assistance may be provided throughout the activity or intermittently. 3-Partial/Moderate Assistance-helper does LESS THAN HALF the effort. [place] lifts, holds or supports trunk or limbs, but provides less than half the effort. 2-Substantial/Maximal Assistance-helper does MORE THAN HALF the effort. [place] lifts or holds trunk or limbs and provides more than half the effort. 9-Admqnsdab-diopfa does ALL the effort. Patient does none of the effort to complete the activity. Or, the assistance of 2 or more helpers is required for the patient to complete the activity. If activity was not attempted, code reason: 7-Patient Refused. 9-Not Applicable-not attempted and the patient did not perform the activity before the current illness, exacerbation or injury. 10-Not Attempted due to Environmental Limitations-(lack of equipment, weather restraints, etc.). 88-Not Attempted due to Medical Conditions or Safety Concerns. Roll Left & Right (QC): 6 Sit to Lying (QC): 6 Lying to Sitting/Side of Bed(Q: 6 Sit to Stand (QC): 6 Chair/Fcw-cx-Eljjb Xfer(QC): 5 Weight Bearing Full Weight Bearing Full Weight Bearing Gait Training Does the Patient Walk?: Yes Walk 10 feet (QC): 5 Walk 50 ft with 2 Turns(QC): 5 Walk 150 ft (QC): 5 Gait Persons Needed: 1 Gait Assistive Device: FWW pt. requires instruction and direction for turns and to get to goal destination etc. walks slowly and flexed at trunk, small but equal steps , no LOB Exercises Supine Ex: Bridging, Ankle pumps, Rolling, Heel Slides, Scooting, Straight leg raise, Hip abd/add Supine Reps: 15 Assessment Current Status: Good Progress continues with difficulty expressing and receiving , needs repeated verbal and tactile cues PT Short Term Goals Short Term Goals Time Frame: Jan 02, 2020 Roll Left & Right: 6 Sit to lyin Lying to sitting on side of be: 6 Sit to stand: 5 Chair/sme-au-argts transfer: 5 Toilet transfer: 5 Walk 10 feet: 5 Walk 50 feet with two turns: 5 Walk 150 feet: 5 PT Fpc Goals Fpc Goals PT Fpc Goals Time Frame: Jan 16, 2020 Roll Left & Right (QC): 6 Sit to Lying (QC): 6 Lying-Sitting on Side/Bed(QC): 6 Sit to Stand (QC): 6 Chair/Hiv-kp-Jctrv Xfer(QC): 6 Toilet Transfer (QC): 6 Car Transfer (QC): 6 Does the Patient Walk: Yes Walk 10 feet (QC): 6 Walk 50ft with 2 Turns (QC): 6 Walk 150 ft (QC): 6 Walking 10ft on Uneven Surface: 6 1 Step (curb) (QC): 6 4 Steps (QC): 6 12 Steps (QC): 6 Picking up an Object (QC): 6 Wheel 50 feet with 2 turns (QC: 9 Wheel 150 feet: 9 PT Plan Treatment/Plan Treatment Plan: Continue Plan of Care Treatment Plan: Education, Functional Activity Negrita, Functional Strength, Group Therapy, Gait, Safety, Therapeutic Exercise, Transfers Treatment Duration: Jan 16, 2020 Frequency: At least 5 of 7 days/Wk (IRF) Estimated Hrs Per Day: 1.5 hours per day Patient and/or Family Agrees t: Yes Safety Risks/Education Patient Education: Gait Training, Transfer Techniques, Correct Positioning, Disease Process, Safety Issues Teaching Recipient: Patient Teaching Methods: Demonstration, Discussion Response to Teaching: Reinforcement Needed Time/GCodes Time In: 1100 Time Out: 1200 Total Billed Treatment Time: 60 Total Billed Treatment 1,EX30m,FA10m,GT20m IVETTE HAWKINS WINDOWS [employer] ADMINISTRATOR Jan 08, 2020 12:03
--- NOTE | 2020-01-08 12:37 | Diagnostic Imaging Report ---
INDICATION: Post CVA and dysphagia. Study was performed in conjunction with speech pathology. Video fluoroscopy was performed during swallowing of barium in multiple consistencies. Total of 254 seconds of fluoroscopic time was utilized. Patient ingested thin liquid as well as applesauce, banana and meat consistency. There is significant delay in oral phase with delay and AP transit and initiation of the swallow. Once the swallow was initiated, there does appear to be normal epiglottic tilt and laryngeal elevation. No laryngeal penetration or aspiration was observed. IMPRESSION: Significant delay in the oral phase. No penetration or aspiration was observed. Dictated by: Dictated on workstation # [id number]
--- NOTE | 2020-01-08 12:56 | Consultation - Surgery ---
History of Present Illness History of Present Illness Patient Consulted On(arabella/time) 01/08/20 12:49 Time Seen by Provider: 09:27 History of Present Illness Surgery asked to consult regarding melena, dysphagia and esophagitis. 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 PLOF was independent and driving and currently experiencing expressive aphasia and confusion and will need aggressive treatment in order to recover from the severe deficits. Patient denies pain. I reviewed [facility] DC note and DC meds. When I spoke to pt this am he was able to answer most questions, nurse states Aphasia is "hit or miss". Pt denied ever having an EGD and could not remember if he had previous episode of melena or hematochezia. Denies hematemesis. Is having trouble swallowing but denied any abdominal pain. He does not remember what they found on his last colonoscopy. He was getting ASA and Lovenox; both are being held. Allergies and Home Medications Allergies Coded Allergies: No Known Drug Allergies (Unverified , 12/26/19) Home Medications Aspirin 81 Mg Tablet.dr, 81 MG PO DAILY, (Reported) Atorvastatin Calcium 40 Mg Tablet, 40 MG PO HS, (Reported) Cholecalciferol (Vitamin D3) 25 Mcg Tab.chew, 25 MCG PO DAILY, (Reported) Clopidogrel Bisulfate 75 Mg Tablet, 75 MG PO DAILY, (Reported) Esomeprazole Magnesium 20 Mg Capsule.dr, 40 MG PO BID, (Reported) TAKES 2 (20NG) CAPS Famotidine 20 Mg Tablet, 20 MG PO BID PRN for HEARTBURN, (Reported) Latanoprost 2.5 Ml Drops, 1 DROP OU HS, (Reported) Sertraline HCl 25 Mg Tablet, 25 MG PO DAILY, (Reported) Patient Home Medication List Home Medication List Reviewed: Yes Past Hxkgtpt-Vwrluq-Qegems Hx Patient Social History Alcohol Use: Denies Use Number of Drinks Today: 0 Recreational Drug Use: No Smoking Status: Never a Smoker Recent Foreign Travel: No Contact w/Someone Who Travel: No Recent Infectious Disease Expo: No Recent Hopitalizations: Yes ([facility]) Physical Abuse Screen: No Sexual Abuse: No Immunizations Up To Date Date of Pneumonia Vaccine: Nov 16, 2017 Date of Influenza Vaccine: Nov 09, 2019 Seasonal Allergies Seasonal Allergies: Yes Surgeries History of Surgeries: Yes (splenectomy) Surgeries: Abdominal (hernia repair), Gallbladder, Vascular Surgery Respiratory History of Respiratory Disorde: Yes Respiratory Disorders: Pneumonia, COPD Cardiovascular History of Cardiac Disorders: Yes Cardiac Disorders: High Cholesterol, Hypertension Neurological History of Neurological Disord: Yes Neurological Disorders: Stroke, TIA Genitourinary History of Genitourinary Disor: Yes (CKD) Gastrointestinal History of Gastrointestinal Di: Yes Gastrointestinal Disorders: Gastroesophageal Reflux Musculoskeletal History of Musculoskeletal Dis: Yes Musculoskeletal Disorders: Arthritis Endocrine History of Endocrine Disorders: Yes Endocrine Disorders: Diabetes, Non-Insulin dep HEENT History of HEENT Disorders: Yes (decreased vision with age) Loss of Vision: Denies Hearing Impairment: Hard of Hearing Cancer History of Cancer: Yes Cancer: Lymphoma Psychosocial History of Psychiatric Problem: No Integumentary History of Skin or Integumenta: No Family Medical History Significant Family History: Heart Disease (mother), Cancer (mother), COPD (father), Diabetes (mother) Review of Systems-General Constitutional: No chills, No diaphoresis; malaise, weakness EENTM: throat pain; No double vision, No epistaxis, No nose congestion Respiratory: dyspnea on exertion; No hemoptysis, No short of breath Cardiovascular: Hx of Intervention; No palpitations Gastrointestinal: No abdominal pain; dysphagia; No nausea, No vomiting Genitourinary: hesitancy, other (retention) Musculoskeletal: joint pain, joint swelling, muscle pain, muscle stiffness, muscle cramps, muscle weakness Skin: No change in color, No change in hair/nails, No lesions Psychiatric/Neurological: Denies Anxiety, Denies Depressed; Pre-Existing Deficit; Denies Seizure; Tremors Other pt denies any hx of abnormal bleeding or bruising Physical Exam-General Problems Physical Exam Vital Signs Vital Signs - First Documented 01/02/20 01/02/20 01/03/20 01/04/20 06:00 09:00 08:44 18:29 Temp 36.6 Pulse 65 Resp 20 B/P (MAP) 134/63 (86) Pulse Ox 95 O2 Delivery Room Air O2 Flow Rate 2.00 FiO2 28 Capillary Refill : Less Than 3 Seconds General Appearance: WD/WN, no apparent distress Eyes: Bilateral Eye PERRL, Bilateral Eye EOMI HEENT: pharynx normal; No scleral icterus (R), No scleral icterus (L) Neck: supple; No carotid bruit, No thyromegaly Respiratory: chest non-tender, lungs clear, normal breath sounds, no respiratory distress, no accessory muscle use Cardiovascular: regular rate, rhythm, no murmur Gastrointestinal: non tender, soft, no organomegaly, no pulsatile mass Back: no CVA tenderness, no vertebral tenderness Extremities: no pedal edema, no calf tenderness, normal capillary refill Neurologic/Psychiatric: alert, normal mood/affect, aphasia; No facial droop; motor weakness Skin: normal color, warm/dry Lymphatic: no adenopathy (neck, axilla or groin) Data Review Labs Laboratory Tests 01/08/20 04:23: White Blood Count 11.8H, Red Blood Count 3.23L, Hemoglobin 10.7L, Hematocrit 33L , Mean Corpuscular Volume 103H, Mean Corpuscular Hemoglobin 33, Mean Corpuscular Hemoglobin Concent 32, Red Cell Distribution Width 13.3, Platelet Count 245, Mean Platelet Volume 12.5H, Immature Granulocyte % (Auto) 0, Neutrophils (%) (Auto) 49, Lymphocytes (%) (Auto) 21, Monocytes (%) (Auto) 19H, Eosinophils (%) (Auto) 11H, Basophils (%) (Auto) 1, Neutrophils # (Auto) 5.8, Lymphocytes # (Auto) 2.4, Monocytes # (Auto) 2.2H, Eosinophils # (Auto) 1.2H, Basophils # (Auto) 0.1, Immature Granulocyte # (Auto) 0.0, Sodium Level 142, Potassium Level 4.3, Chloride Level 107, Carbon Dioxide Level 24, Anion Gap 11, Blood Urea Nitrogen 30H, Creatinine 1.60H, Estimat Glomerular Filtration Rate 42, BUN/Creatinine Ratio 19, Glucose Level 102, Calcium Level 8.1L, Corrected Calcium 8.9, Total Bilirubin 0.4, Aspartate Amino Transf (AST/SGOT) 44H, Alanine Aminotransferase (ALT/SGPT) 43, Alkaline Phosphatase 115, Total Protein 6.4, Albumin 3.0L 01/08/20 06:09: Stool Occult Blood Immunoassay POSITIVEH Microbiology 01/04/20 Blood Culture - Preliminary, Resulted Staph, Coag Neg (MEDIA INTERN) See Comments Radiology Date of Exam:01/04/20 CT CHEST WO PROCEDURE: CT chest without contrast. TECHNIQUE: Multiple contiguous axial images were obtained through the chest without the use of intravenous contrast. Auto Exposure Controls were utilized during the CT exam to meet ALARA standards for radiation dose reduction. INDICATION: Follow-up pulmonary infiltrates COMPARISON: Radiographs from 01/03/2020 FINDINGS: The heart is normal in size. There is no pericardial effusion. There are scattered mediastinal lymph nodes which are not significantly enlarged by size criteria. The aorta is mildly ectatic, with atherosclerosis present. There is mild thickening of the distal esophageal wall. There is no pleural effusion or pneumothorax. There are scattered areas of subpleural fibrotic change. There may be mild honeycombing at the right lung base. There is bronchiectasis and some mucous plugging noted. There is more confluent airspace opacity in the right lung base. No acute osseous abnormalities seen. There are degenerative changes throughout the spine. Cholecystectomy clips are noted. IMPRESSION: 1. Findings suggestive of interstitial fibrosis, with some bronchiectasis and mucous plugging. Confluent airspace opacity in the right lung base could represent pneumonia. 2. Thickening of the distal esophageal wall suggestive of esophagitis. Dictated by: Dictated on workstation # [id number] Dict: 01/04/20905 Trans: 01/04/2028 [facility] [id number] Interpreted by: RAMIRO DUEÑSA MD Electronically signed by: RAMIRO DUEÑAS MD 01/04/20 0928 Assessment/Plan Assessment/Plan Assessment/Plan Melena Dysphagia Esophagitis Hx of CVA with aphasia DM with chronic renal failure Pt needs EGD for work-up of melena, dysphagia and Esophagitis seen on CT. Discussed risks and complications with pt; not limited to pain, bleeding, infection and even esophageal perforation. All questions answered to his satisfaction. Will plan for EGD tomorrow at around 845, get consent today and make NPO after midnight. Clinical Quality Measures DVT/VTE Risk/Contraindication: Risk Factor Score Per Nursin RFS Level Per Nursing on Admit: 2=Moderate KENN LARA DO Jan 08, 2020 12:56
--- NOTE | 2020-01-08 14:59 | Physical Therapy Daily Note ---
PT Daily Note-Current Subjective Pt. agrees to Rx, c/o he is cold. Communication with pts family reveals pt. has 4 steps with rails in to his home. Pain Location: No Pain Reported Mental Status Patient Orientation: Non-Verbal/Aphasic Attachments: Oxygen (1L with sats >90%) Transfers SCALE: Activities may be completed with or without assistive devices. 5-Dnccawmtao-zesgbuc completes the activity by him/herself with no assistance from a helper. 5-Set-up or Clean-up Assistance-helper sets up or cleans up; patient completes activity. [place] assists only prior to or following the activity. 4-Supervision or Touching Assistance-helper provides verbal cues and/or touching/steadying and/or contact guard assistance as patient completes activity. Assistance may be provided throughout the activity or intermittently. 3-Partial/Moderate Assistance-helper does LESS THAN HALF the effort. [place] lifts, holds or supports trunk or limbs, but provides less than half the effort. 2-Substantial/Maximal Assistance-helper does MORE THAN HALF the effort. [place] lifts or holds trunk or limbs and provides more than half the effort. 8-Kxilykruu-szidgv does ALL the effort. Patient does none of the effort to complete the activity. Or, the assistance of 2 or more helpers is required for the patient to complete the activity. If activity was not attempted, code reason: 7-Patient Refused. 9-Not Applicable-not attempted and the patient did not perform the activity before the current illness, exacerbation or injury. 10-Not Attempted due to Environmental Limitations-(lack of equipment, weather restraints, etc.). 88-Not Attempted due to Medical Conditions or Safety Concerns. sit to stand all SBA Weight Bearing Full Weight Bearing Full Weight Bearing Gait Training Does the Patient Walk?: Yes Gait Assistive Device: FWW 150 ft x 2 FWW CGA , many gestures and cues for turning and directing to destination. no LOB Stair Training Stair Training: Handrails/: 2 handrails #of Steps: 4 4 Steps (QC): 4 Stairs: Pattern: Reciprocal steps seemed to come natural, pt. using bilat rails with reciprocal step pattern, all CGA Assessment Current Status: Good Progress pt. will manage well ascending steps at home with assist of family. Family to come for training , step/stair instruction to be included. Home ramp installation not imperative before DC as pt. managed stairs well 2 different Rx sessions with this TELEPHONE SURVEYOR PT Short Term Goals Short Term Goals Time Frame: Jan 02, 2020 Roll Left & Right: 6 Sit to lyin Lying to sitting on side of be: 6 Sit to stand: 5 Chair/fyf-yg-citxr transfer: 5 Toilet transfer: 5 Walk 10 feet: 5 Walk 50 feet with two turns: 5 Walk 150 feet: 5 PT Halfway Goals Interlocking Tower Operator Goals PT Halfway Goals Time Frame: Jan 16, 2020 Roll Left & Right (QC): 6 Sit to Lying (QC): 6 Lying-Sitting on Side/Bed(QC): 6 Sit to Stand (QC): 6 Chair/Ibq-gl-Ccsos Xfer(QC): 6 Toilet Transfer (QC): 6 Car Transfer (QC): 6 Does the Patient Walk: Yes Walk 10 feet (QC): 6 Walk 50ft with 2 Turns (QC): 6 Walk 150 ft (QC): 6 Walking 10ft on Uneven Surface: 6 1 Step (curb) (QC): 6 4 Steps (QC): 6 12 Steps (QC): 6 Picking up an Object (QC): 6 Wheel 50 feet with 2 turns (QC: 9 Wheel 150 feet: 9 PT Plan Treatment/Plan Treatment Plan: Continue Plan of Care Treatment Plan: Education, Functional Activity Negrita, Functional Strength, Group Therapy, Gait, Safety, Therapeutic Exercise, Transfers Treatment Duration: Jan 16, 2020 Frequency: At least 5 of 7 days/Wk (IRF) Estimated Hrs Per Day: 1.5 hours per day Patient and/or Family Agrees t: Yes Safety Risks/Education Patient Education: Gait Training, Transfer Techniques, Steps, Correct Positioning, Safety Issues Teaching Recipient: Patient Teaching Methods: Demonstration, Discussion Response to Teaching: Return Demonstration, Reinforcement Needed Time/GCodes Time In: 1430 Time Out: 1450 Total Billed Treatment Time: 20 Total Billed Treatment 1,FA20m IVETTE HAWKINS TELEPHONE SURVEYOR Jan 08, 2020 14:59
--- NOTE | 2020-01-08 17:22 | NUR ---
Received dietary consult for poor PO intake. Spoke with pt about intake and suggested we restart the supplements of Glucerna. Note last week, pt asked them to be taken off because he wasn't drinking them. During discussion, we talked about making sure he gets enough to complete his therapies. He agreed to start drinking the Glucernas when provided if he didn't feel like eating. Placed order for Glucerna with meals TID, for increased kcal intake. Will continue to follow and reassess as pt needs, intake, and status change. Stefano Pringle, MS RD LD [phone] cell
[2020-01-08 18:04] VITALS: BP 120/59
--- NOTE | 2020-01-08 18:54 | NUR ---
CONSENT SIGNED FOR EGD. ADDITION TO SURG SENT TO [facility] SPECIALIST AND FAXED
[2020-01-08] MEDS: ALPRAZolam 0.25 MG (XANAX) TAB PO SCH (22:06)
[2020-01-08] MEDS: LATANOPROST 0.005% (XALATAN) OPHTH SOLN 2.5 ML OU SCH (22:06)
[2020-01-09] MEDS: CATHETER FLUSH 10 ML SYR IV SCH ×4 (06:03→22:11)
[2020-01-09 06:10] VITALS: BP 130/60
[2020-01-09] MEDS: VITAMIN D3 25 MCG (1,000 UNITS) TABLET PO SCH (07:35)
--- NOTE | 2020-01-09 08:47 | PM&R Progress Note ---
Subjective HPI/CC On Admission Date Seen by Provider: Jan 09, 2020 Time Seen by Provider: 08:30 Subjective/Events-last exam 01/09/20: Pt had an EGD today by Dr. Liz showing esophageal varicies and severe gastritis Pt requiring O2 Cough is chronic Cough meds are initiated 01/08/20: Pt doing okay but refused breakfast WBC 11.8 Hgb 10.8 Dysphagia and aspiration risk appears to be somewhat possible and his hemmocult was positive, had been maintained on proton-pump inhibitor so consulted Dr. Liz who will preform EGD tomorrow Remains on 2 L of oxygen 01/07/20: Al lot of coughing in general but much more when eating Needs diet changed Modified barium swallow tomorrow IV abx will be changed to PO formulation 01/06/20: Dark stools prompting hemoccult stools PPI maintained Holding Lovenox Abx maintained Cough is less 2L/min O2 01/05/20: Abx maintained Hypoxia remains but stable Improved status overall Modified barium swallow Wednesday wbc 9.8 BM yesterday 01/04/20: Extensive w/u on lung issue and cough and hypoxia revealed low probability of PE per perfusion scan and CT revealed pulmonary fibrosis and RLL new infiltrate Patient appears to be improved congnitively Nebs and IV abx ordered COVID x [address] scan so will start PPI Lovenox SQ 40mg daily maintained 01/03/20: Pt overall doing much better CXR shows B/L upper lobe infiltrates Covid swab will be done Pt has had a cough since he came over from [facility], his Covid test was negative on 12/20 O2 supplementation maintained Spoke to radiology and given elevated d-dimer and maintained on Lovenox since admit will perform perfusion scan 01/02/20: Pt about the same No major changes Cognition continues to be a challenge 01/01/20: Pt doing pretty well No significant changes Cognition is an issue Participating in therapy with a lot of heavy cues 12/31/19: Family pics helping morale Got into shower without tearfulness Coughing managed with Robitussin DM and Xanax 12/30/19: Xanax helping him at night Robitussin DM also helps Will check on [facility] EMR to see what was done for cough evaluation Event monitor was planned for [facility] at [place] will reach out on [place] regarding those details 12/29/19: Patient seems about the same Cognition is a challenge when communicating No falls 12/28/19: Crushing pills in apple sauce seems to help Snoring at night, unsure if he needs to be on oxygen Xanax given at night really helps him Robitussin DM given for cough Aphasia continues Bowels moved yesterday so will continue laxatives Becomes tearful at times 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 Checked meds and labs Reviewed therapy notes Conferred with [place] machine operator of Systems HEENT: Dysphasia Pulmonary: Dyspnea, Cough Objective Exam Vital Signs Vital Signs Date Time Temp Pulse Resp B/P (MAP) Pulse Ox O2 Delivery O2 Flow Rate FiO2 01/09/20 20:50 Nasal Cannula 1.00 01/09/20 18:46 97 01/09/20 15:23 36.7 67 18 123/53 (76) 01/04/20 18:29 28 Capillary Refill : Less Than 3 Seconds General Appearance: No Apparent Distress, WD/WN, Chronically ill HEENT: PERRL/EOMI, Normal ENT Inspection, Pharynx Normal Neck: Full Range of Motion, Normal Inspection, Non Tender, Supple, Carotid Bruit Respiratory: Chest Non Tender, Lungs Clear, Normal Breath Sounds, No Accessory Muscle Use, No Respiratory Distress, Other (wearing O2 now) Cardiovascular: Regular Rate, Rhythm, No Edema, No Gallop, No JVD, No Murmur, Normal Peripheral Pulses Gastrointestinal: Normal Bowel Sounds, No Organomegaly, No Pulsatile Mass, Non Tender, Soft Back: Normal Inspection, No CVA Tenderness, No Vertebral Tenderness Extremity: Normal Capillary Refill, Normal Inspection, Normal Range of Motion, Non Tender, No Calf Tenderness, No Pedal Edema Neurologic/Psychiatric: Alert, Oriented x3, Normal Mood/Affect, unhairer II-XII Norm as Tested, Abnormal Gait, Aphasia, Depressed Affect, Motor Weakness (right sided 3/5) Skin: Normal Color, Warm/Dry Lymphatic: No Adenopathy Results/Procedures Lab Patient resulted labs reviewed. FIM Transfers Therapy Code Descriptions/Definitions Functional [place] Measure: 0=Not Assessed/NA 4=Minimal Assistance 1=Total Assistance 5=Supervision or Setup 2=Maximal Assistance 6=Modified [place] 3=Moderate Assistance 7=Complete IndependenceSCALE: Activities may be completed with or without assistive devices. 2-Kuahdghcpx-vnppgwa completes the activity by him/herself with no assistance from a helper. 5-Set-up or Clean-up Assistance-helper sets up or cleans up; patient completes activity. [place] assists only prior to or following the activity. 4-Supervision or Touching Assistance-helper provides verbal cues and/or touching/steadying and/or contact guard assistance as patient completes activity. Assistance may be provided throughout the activity or intermittently. 3-Partial/Moderate Assistance-helper does LESS THAN HALF the effort. [place] lifts, holds or supports trunk or limbs, but provides less than half the effort. 2-Substantial/Maximal Assistance-helper does MORE THAN HALF the effort. [place] lifts or holds trunk or limbs and provides more than half the effort. 8-Hahrxwpli-iiiuzv does ALL the effort. Patient does none of the effort to complete the activity. Or, the assistance of 2 or more helpers is required for the patient to complete the activity. If activity was not attempted, code reason: 7-Patient Refused. 9-Not Applicable-not attempted and the patient did not perform the activity before the current illness, exacerbation or injury. 10-Not Attempted due to Environmental Limitations-(lack of equipment, weather restraints, etc.). 88-Not Attempted due to Medical Conditions or Safety Concerns. Roll Left to Right (QC): 6 Sit to Lying (QC): 6 Sit to Stand (QC): 6 Chair/Bhy-qg-Nzzqz Xfer(QC): 5 Car Transfer (QC): 4 Gait Training Does the Patient Walk?: Yes Distance: 250ft Walk 10 feet (QC): 5 Walk 50 ft with 2 Turns(QC): 5 Walk 150 ft (QC): 5 Walking 10ft/uneven surface-QC: 4 Gait Persons Needed: 1 Gait Assistive Device: FWW Wheelchair Training Wheel 50 ft with 2 turns (QC): 9 Wheel 150 ft (QC): 9 Stair Training Stair Training: Handrails/: 2 handrails #of Steps: 4 1 Step (curb) (QC): 4 4 Steps (QC): 4 12 Steps (QC): 88 Stairs: Pattern: Reciprocal Balance Picking up an Object (QC): 4 ADL-Treatment Eating (QC): 5 Oral Hygiene (QC): 5 Bathing Location: L Arm, R Arm, L Upper Leg, R Upper Leg, L Lower Leg (including foot), R Lower Leg (including foot), Chest, Abdomen, Buttocks, Pe rineal Area Shower/Bathe Self (QC): 4 Upper Body Dressing (QC): 4 Lower Body Dressing (QC): 4 On/Off Footwear (QC): 4 Toileting Hygiene (QC): 7 Toilet Transfer (QC): 7 Assessment/Plan Assessment and Plan Assess & Plan/Chief Complaint Assessment: CVA Expressive aphasia Confusion Urinary retention h/o lymphoma CRI Fall risk Pulmonary fibrosis on CT scan 01/04/[address] 01/04/20 with new hypoxia placed on treatment Esophagitis on CT scan placed on PPI Esophageal varices on EGD with gastritis Plan: IRF protocol Check labs in am Monitor for falls Monitor urinary retention 12/27/19: Aphasia management Monitor BP Monitor creatinine 12/28/19: Monitor aphasia Monitor for falls Increased risk of confusion 12/29/19: Cough management but appears to be a non-purposeful behavior since CVA 12/30/19: Will research cough w/u on [facility] [facility] EMR Monitor closely 12/31/19: Monitor closely Fall risk Cognition therapy 01/01/20: Cough management Xanax at night helps him sleep 01/02/20: IRF protocol DIscuss dispo at meeting 01/03/20: Pursue septic w/u O2 COVID swab Monitor closely 01/04/20: IV abx COVID negative Pulmonary fibrosis will likely require O2 at DC continuously PPI Esophagitis on CT scan 01/05/20: Improved status O2 Abx PPI 01/06/20: Melena evaluation Hold Lovenox in meantime Abx O2 01/07/20: Monitor cough Change IV abx to PO Check labs in am Change diet appears microaspiration 01/08/20: EGD tomorrow Abx PO now O2 Nebs Cough management 01/09/20: Varices on EGD with gastritis Hold Lovenox PPI O2 (1) CVA (cerebral vascular accident) (2) Lymphoma in remission (3) Renal insufficiency (4) Expressive aphasia (5) Confusion (6) Anemia (7) Retention, urine (8) Delirium JAMAL CANADA DO Jan 09, 2020 08:47
--- NOTE | 2020-01-09 08:48 | Occupational Ther Daily Note ---
OT Current Status-Daily Note Subjective Pt sleeping in bed, woke easily. Pt groggy upon waking and stating that he was scared. Calmed pt and assisted pt orient to his day. Pt agrees to therapy. Pt worried about his coughing and spitting up phlegm. Mental Status/Objective Patient Orientation: Person, Place, Time, Situation Attachments: IV, Oxygen (1 L) ADL-Treatment Pt agrees to changing clothing, toileting and completing oral care/grooming. Pt independent with bed mobility. Pt requires verbal cues for hand placement with sit<-->stand. Pt ambulates using FWW to bathroom and requests to use toilet. Supervision for toilet transfer, supervision for clothing manipulation and verbal cues to initiate hygiene then supervision. Sitting at sink, pt able to complete grooming and oral care by self. Pt remembers that he is not allowed to drink or eat prior to procedure today. After set up, pt able to don pants and shoes with supervision. Therapy Code Descriptions/Definitions Functional [place] Measure: 0=Not Assessed/NA 4=Minimal Assistance 1=Total Assistance 5=Supervision or Setup 2=Maximal Assistance 6=Modified [place] 3=Moderate Assistance 7=Complete IndependenceSCALE: Activities may be completed with or without assistive devices. 2-Xpbairxzdi-hddozxl completes the activity by him/herself with no assistance from a helper. 5-Set-up or Clean-up Assistance-helper sets up or cleans up; patient completes activity. [place] assists only prior to or following the activity. 4-Supervision or Touching Assistance-helper provides verbal cues and/or johan josette/steadying and/or contact guard assistance as patient completes activity. Assistance may be provided throughout the activity or intermittently. 3-Partial/Moderate Assistance-helper does LESS THAN HALF the effort. [place] lifts, holds or supports trunk or limbs, but provides less than half the effort. 2-Substantial/Maximal Assistance-helper does MORE THAN HALF the effort. [place] lifts or holds trunk or limbs and provides more than half the effort. 2-Esugeshud-ojjuuk does ALL the effort. Patient does none of the effort to complete the activity. Or, the assistance of 2 or more helpers is required for the patient to complete the activity. If activity was not attempted, code reason: 7-Patient Refused. 9-Not Applicable-not attempted and the patient did not perform the activity before the current illness, exacerbation or injury. 10-Not Attempted due to Environmental Limitations-(lack of equipment, weather restraints, etc.). 88-Not Attempted due to Medical Conditions or Safety Concerns. Oral Hygiene (QC): 6 Lower Body Dressing (QC): 4 On/Off Footwear: 4 (Stood to don 1st shoe then sat with verbal cue.) Other Treatment CASTANEDA worked on orientation wiith pt. Pt able to state (month, holiday in month). Co-treatment PT ([id number]) skills of two clinicians required for skilled instruction due to problem solving and sequencing difficulties while completing functional task safely. PT focused on standing balance, ambulation, and transfers. CASTANEDA focused on cognition, hand placement for transfers. Pt ambulated to therapy gym using FWW. Pt worked on sequencing activity to address B UE strengthening, finger manipulation, memory. Pt ambulated to one side of therapy gym to place rings on correct colored cone. Pt was able to complete 3/8 rings. Rest breaks required due to coughing excessively. Pt taken to procedure. OT Short Term Goals Short Term Goals Time Frame: Jan 02, 2020 Eatin Oral hygiene: 4 Toileting hygiene: 4 Shower/bathe self: 4 Upper body dressin Lower body dressin Putting on/taking off footwear: 4 OT Penitentiary Goals Penitentiary Goals Time Frame: Jan 09, 2020 Eating (QC): 6 Oral Hygiene (QC): 5 Toileting Hygiene (QC): 6 Shower/Bathe Self (QC): 4 Upper Body Dressing (QC): 5 Lower Body Dressing (QC): 5 On/Off Footwear (QC): 5 Additional Goals: 1-Demonstrate ADL Tasks, 2-Verbalize Understanding, 3- ImproveStrength/Negrita 1=Demonstrate adherence to instructed precautions during ADL tasks. 2=Patient will verbalize/demonstrate understanding of assistive devices/modifications for ADL. 3=Patient will improve strength/tolerance for activity to enable patient to perform ADL's. OT Education/Plan Problem List/Assessment Assessment: Decreased Activ Tolerance, Decreased UE Strength, Impaired Funct Balance, Impaired Self-Care Skills Discharge Recommendations Plan/Recommendations: Continue POC Treatment Plan/Plan of Care Patient would benefit from OT for education, treatment and training to promote independence in ADL's, mobility, safety and/or upper extremity function for ADL's. Plan of Care: ADL Retraining, Cognitive Retraining, Functional Mobility, Group Exercise/Act as Ind, UE Funct Exercise/Act, UE Neuromus Re-Ed/Coord, Visual/Perceptual Retrain, W/C Management Training Treatment Duration: Jan 09, 2020 Frequency: At least 5 of 7 days/Wk (IRF) Estimated Hrs Per Day: 1.5 hours per day Agreement: Yes Rehab Potential: Fair Time/GCodes Start Time: 07:15 Stop Time: 08:45 Total Time Billed (hr/min): 90 Billed Treatment Time 1 visit- ADL 3 (45 mins), FA 3 (45 mins) co-treat with PT [id number], individual [id number] MILLA PICKETT Jan 09, 2020 08:48
[2020-01-09] MEDS: SENNA W/DOCUSATE (SENOKOT S) TABLET PO SCH ×2 (09:09→20:46)
[2020-01-09] MEDS: polyethylene glycoL POWDER 17 GM (MIRALAX) PACK PO SCH ×2 (09:09→20:51)
[2020-01-09] MEDS: DOCUSATE SODIUM 100 MG (COLACE) CAP PO SCH ×2 (09:10→20:46)
--- NOTE | 2020-01-09 09:11 | Physical Therapy Daily Note ---
PT Daily Note-Current Subjective Pt agreeable and pleasant throughout. Pt says "I'm sorry" after frequent productive coughing. Pt willing and able to participate in conversation but struggles at times due to expressive aphasia. Mental Status Patient Orientation: Person, Place, Situation Transfers SCALE: Activities may be completed with or without assistive devices. 0-Vgvhaeiwgf-bauylyo completes the activity by him/herself with no assistance from a helper. 5-Set-up or Clean-up Assistance-helper sets up or cleans up; patient completes activity. [place] assists only prior to or following the activity. 4-Supervision or Touching Assistance-helper provides verbal cues and/or touching/steadying and/or contact guard assistance as patient completes activity. Assistance may be provided throughout the activity or intermittently. 3-Partial/Moderate Assistance-helper does LESS THAN HALF the effort. [place] li fts, holds or supports trunk or limbs, but provides less than half the effort. 2-Substantial/Maximal Assistance-helper does MORE THAN HALF the effort. [place] lifts or holds trunk or limbs and provides more than half the effort. 0-Gnnortfux-lrcbsh does ALL the effort. Patient does none of the effort to complete the activity. Or, the assistance of 2 or more helpers is required for the patient to complete the activity. If activity was not attempted, code reason: 7-Patient Refused. 9-Not Applicable-not attempted and the patient did not perform the activity before the current illness, exacerbation or injury. 10-Not Attempted due to Environmental Limitations-(lack of equipment, weather restraints, etc.). 88-Not Attempted due to Medical Conditions or Safety Concerns. Weight Bearing Full Weight Bearing Full Weight Bearing Gait Training Gait Assistive Device: FWW Portable O2 at 1L/min, CGA throughout Treatments [facility]ED[facility]. Pt able to state (month, holiday in month). Co-treatment PT ([id number]) skills of two clinicians required for skilled instruction due to problem solving and sequencing difficulties while completing functional task safely. PT focused on standing balance, ambulation, and transfers. CASTANEDA focused on cognition, hand placement for transfers. Pt ambulated in common area and to therapy gym using FWW, CGA and portable O2 1 x 80ft, 1 x 70ft, 3 x 25ft. Pt required vc's for hand placement during transfers. Pt worked on sequencing activity to address B UE strengthening, finger manipulation, memory. Pt ambulated to one side of therapy gym to place rings on correct colored cone. Pt was able to complete 3/8 rings. Rest breaks required due to frequent and productive coughing, Pt in care of nurse for transport to procedure at end of treatment. Assessment Current Status: Good Progress Pt at [facility] ([facility]) for sit to stand transfers. Pt requires directional cues for "R" and "L" turns and vc's for hand placement during transfers otherwise, able to follow directions. Pt presents with a mild anxiety about his productive cough, seemed to respond well to the calming reassurance from CASTANEDA. Pt demonstrated good balance throughout treatment. Pt would benefit from continued gait and transfer training, dynamic balance challenges and endurance training. In care of nurse and taken to procedure post therapy session. PT Short Term Goals Short Term Goals Time Frame: Jan 02, 2020 Roll Left & Right: 6 Sit to lyin Lying to sitting on side of be: 6 Sit to stand: 5 Chair/ovz-pz-qfshj transfer: 5 Toilet transfer: 5 Walk 10 feet: 5 Walk 50 feet with two turns: 5 Walk 150 feet: 5 PT Plaster Model And Mold Maker Goals Plaster Model And Mold Maker Goals PT Plaster Model And Mold Maker Goals Time Frame: Jan 16, 2020 Roll Left & Right (QC): 6 Sit to Lying (QC): 6 Lying-Sitting on Side/Bed(QC): 6 Sit to Stand (QC): 6 Chair/Tsw-zb-Pjxsa Xfer(QC): 6 Toilet Transfer (QC): 6 Car Transfer (QC): 6 Does the Patient Walk: Yes Walk 10 feet (QC): 6 Walk 50ft with 2 Turns (QC): 6 Walk 150 ft (QC): 6 Walking 10ft on Uneven Surface: 6 1 Step (curb) (QC): 6 4 Steps (QC): 6 12 Steps (QC): 6 Picking up an Object (QC): 6 Wheel 50 feet with 2 turns (QC: 9 Wheel 150 feet: 9 PT Plan Treatment/Plan Treatment Plan: Continue Plan of Care Treatment Plan: Education, Functional Activity Negrita, Functional Strength, Group Therapy, Gait, Safety, Therapeutic Exercise, Transfers Treatment Duration: Jan 16, 2020 Frequency: At least 5 of 7 days/Wk (IRF) Estimated Hrs Per Day: 1.5 hours per day Patient and/or Family Agrees t: Yes Time/GCodes Time In: 800 Time Out: 845 Total Billed Treatment Time: 45 Total Billed Treatment 1, gait 15', FA 30' (Co-treat with OT 45min total) BREE COVINGTON CPTA Jan 09, 2020 09:11
[2020-01-09] MEDS: ASPIRIN E.C. 81 MG (ECOTRIN) TAB PO SCH (09:41)
[2020-01-09] MEDS: CEFDINIR 300 MG (OMNICEF) CAP PO SCH ×2 (09:41→20:46)
[2020-01-09] MEDS: AZITHROMYCIN 250 MG TAB (ZITHROMAX) PO SCH (09:42)
[2020-01-09] MEDS: SERTRALINE 50 MG (ZOLOFT) TABLET PO SCH (09:42)
[2020-01-09] MEDS: PANTOPRAZOLE 40 MG (PROTONIX) TAB PO SCH (09:42)
--- NOTE | 2020-01-09 11:19 | Speech Therapy Daily Note ---
Speech Daily Progress Note Subjective Date Seen by Provider: Jan 09, 2020 Time Seen by Provider: 00:30 Patient was resting in his recliner following an EGD this am. Objective Patient education completed with diet level and results of MBS on 01/08/2020. Compensatory strategies trained for food drink alternation of 2:1 and bite/sip size with 80% accuracy given min to mod cuing. Assessment Assessment Current Status: Good Progress Treatment Plan Continue Plan of Care Speech Short Term Goals Short Term Goals Short Term Goals 1) The patient will complete memory tasks related to his daily needs with 80% or greater given minimal cues. 2) The patient will complete safety awareness tasks related to his daily needs with 80% or greater given minimal cues. 3) The patient will complete problem solving tasks related to his daily needs with 80% or greater given minimal cues. 4) The patient will tolerate least restrictive diet without s/s of aspiration at 80% or greater. 5) The patient/caregiver will utilize compensatory strategies as trained at 90% or greater with minimal cues. Speech Water Systems Designer Goals Water Systems Designer Goals Patient will improve cognitive-communication necessary for safety and daily living tasks with minimal assist. Patient will maintain adequate nutrition/hydration via safe effective swallow function. Speech-Plan Patient/Family Goals Patient/Family Goals: Patient plans on returning to his home where he lives with his . Treatment Plan Speech Therapy Treatment Plan: Continue Plan of Care Treatment Duration: Jan 05, 2020 Frequency: 4 times per week (Patient will receive skilled ST 4-5x per week) Estimated Hrs Per Day: .5 hour per day Rehab Potential: Fair Barriers to Learning: Patient's recent CVA, expressive aphasia and age Pt/Family Agrees to Plan: Yes Safety Risks/Education Teaching Recipient: Patient Teaching Methods: Demonstration, Discussion Response to Teaching: Verbalize Understanding, Return Demonstration Education Topics Provided: Safety of oral intake, diet level Time Speech Therapy Time In: 10:30 Speech Therapy Time Out: 11:00 Total Billed Time: 30 Billed Treatment Time 1, BRISEIDA, SUNSHINE Martin Jan 09, 2020 11:19
--- NOTE | 2020-01-09 11:21 | NUR ---
DIET CHANGED BACK TO DYS2 PER SPEECH THERAPY RECOMMENDATION. STATES THAT PATIENT HOLDS FOOD/LIQUIDS IN MOUTH FOR A LONG TIME BEFORE INITIATING SWALLOW... BUT NO ASPIRATION OR PENETRATION SEEN DURING MODIFIED BARIUM SWALLOW.
--- NOTE | 2020-01-09 12:01 | NUR ---
DR. LARA ON THE FLOOR. ASKED ABOUT LOVENOX AND PLAVIX. ORDERS TO CONTINUE TO HOLD FOR AT LEAST 1 MORE DAY SINCE HE TOOK BIOPSIES.
--- NOTE | 2020-01-09 14:43 | Physical Therapy Daily Note ---
PT Daily Note-Current Subjective Pt up in chair, agreeable to treatment. Pt presents with productive cough frequently interrupting treatment. Pt indicating he was fatigued with each coughing bout. Mental Status Patient Orientation: Person, Place Transfers SCALE: Activities may be completed with or without assistive devices. 6-Njwzwpqjvi-kdrrbjt completes the activity by him/herself with no assistance from a helper. 5-Set-up or Clean-up Assistance-helper sets up or cleans up; patient completes activity. [place] assists only prior to or following the activity. 4-Supervision or Touching Assistance-helper provides verbal cues and/or touching/steadying and/or contact guard assistance as patient completes activity. Assistance may be provided throughout the activity or intermittently. 3-Partial/Moderate Assistance-helper does LESS THAN HALF the effort. [place] lifts, holds or supports trunk or limbs, but provides less than half the effort. 2-Substantial/Maximal Assistance-helper does MORE THAN HALF the effort. [place] lifts or holds trunk or limbs and provides more than half the effort. 1-Qxugtjjxo-nocbjc does ALL the effort. Patient does none of the effort to complete the activity. Or, the assistance of 2 or more helpers is required for the patient to complete the activity. If activity was not attempted, code reason: 7-Patient Refused. 9-Not Applicable-not attempted and the patient did not perform the activity before the current illness, exacerbation or injury. 10-Not Attempted due to Environmental Limitations-(lack of equipment, weather restraints, etc.). 88-Not Attempted due to Medical Conditions or Safety Concerns. Weight Bearing Full Weight Bearing Full Weight Bearing Gait Training Gait Assistive Device: FWW Pt amb with FWW and CGA, O2 2L/min x 100ft Exercises Seated Therapy Exercises: Ankle pumps, Long arc quads, Hip flexion, Hip abd/add Seated Reps: 20 Assessment Current Status: Good Progress, Fair Progress Pt dwain fair, limited by productive cough. Pt showed good balance throughout, required vc's and direction during transfers and ambulation training. Pt resting in recliner with call light and all needs met post therapy. O2 insitu and ambu alarm activated. PT Short Term Goals Short Term Goals Time Frame: Jan 02, 2020 Roll Left & Right: 6 Sit to lyin Lying to sitting on side of be: 6 Sit to stand: 5 Chair/gxy-hs-gdwig transfer: 5 Toilet transfer: 5 Walk 10 feet: 5 Walk 50 feet with two turns: 5 Walk 150 feet: 5 PT Care Home Goals Floor Broker Goals PT Floor Broker Goals Time Frame: Jan 16, 2020 Roll Left & Right (QC): 6 Sit to Lying (QC): 6 Lying-Sitting on Side/Bed(QC): 6 Sit to Stand (QC): 6 Chair/Pno-pc-Ihifs Xfer(QC): 6 Toilet Transfer (QC): 6 Car Transfer (QC): 6 Does the Patient Walk: Yes Walk 10 feet (QC): 6 Walk 50ft with 2 Turns (QC): 6 Walk 150 ft (QC): 6 Walking 10ft on Uneven Surface: 6 1 Step (curb) (QC): 6 4 Steps (QC): 6 12 Steps (QC): 6 Picking up an Object (QC): 6 Wheel 50 feet with 2 turns (QC: 9 Wheel 150 feet: 9 PT Plan Treatment/Plan Treatment Plan: Continue Plan of Care Treatment Plan: Education, Functional Activity [place]gr[place], Functional Strength, Group Therapy, Gait, Safety, Therapeutic Exercise, Transfers Treatment Duration: Jan 16, 2020 Frequency: At least 5 of 7 days/Wk (IRF) Estimated Hrs Per Day: 1.5 hours per day Patient and/or Family Agrees t: Yes Time/GCodes Time In: 1300 Time Out: 1315 Total Billed Treatment Time: 15 Total Billed Treatment 1, FA 15' BREE COVINTGON CPTA Jan 09, 2020 14:42
[2020-01-09 15:23] VITALS: BP 123/53
--- NOTE | 2020-01-09 15:39 | NUR ---
RD ASSESSMENT PMHx: COPD; CKD; DM; TIA; GERD; CA(lymphoma, bone); pneumonia; hypercholesterolemia; stroke; PT INTERACTION: Pt was awake and pleasant during nutrition follow-up. Note during assessment, pt became tearful at times and apologizing, stating that he "doesn't want food anymore." This RD is lead to believe that the pt feels like he doesn't want to be a bother to dietary staff. This RD reassured the pt that we are here to help keep him fed while he does his therapies. Pt states no issues with nausea, vomiting, constipation, or diarrhea since last assessment. Note avg PO intake <25% meals, per chart review. Note last BM was 01/06, and pt currently on bowel regimen of colace BID, senna BID, and miralax BID, per chart review. ABNORMAL NUTRITION-RELATED LAB VALUES LOW: alb 3.0; HIGH: BUN 30; cr 1.60; AST 44; Est. kcal needs: 1574-8336 kcal | 25-30 kcal/kg Est. Pro needs: 59-74 g Pro | 0.8-1.0 g Pro/kg PES STATEMENT: Inadequate oral intake (NI-2.1) related to loss of appetite as evidenced by pt interview, and avg PO intake <25% meals. INTERVENTION: Continue with current diet order of DYS2 Mechanically Altered diet. Continue with current supplementation order of Glucerna (vary) with meals TID, for increased kcal intake. Provides 220 kcal and 10 g Pro per serving. Encouraged pt to eat when able. Will continue to follow and reassess as pt needs, intake, and status change. Stefano Pringle, RD LD [phone] cell
--- NOTE | 2020-01-09 15:43 | NUR ---
CM/SS CONCURRENT DOCUMENTATION Coordinated family education/training through patient's spouse Carolyne for Wednesday, January 09, at 1000. Notified Therapy 911 Emergency Dispatcher, PD, CL, OT/Yulissa, Campaign Analyst. Discuss discharge planning once family has had the chance to experience patient's current level of functioning.
[2020-01-09] MEDS: RT-ALBUTEROL SULF 2.5 MG/3 ML PRE-MIX VIAL INH SCH ×2 (15:58→18:49)
--- NOTE | 2020-01-09 19:08 | NUR ---
Bedside report received from MICHELLE COWAN, assume care of pt
[2020-01-09] MEDS: ALPRAZolam 0.25 MG (XANAX) TAB PO SCH (20:46)
--- NOTE | 2020-01-09 20:46 | NUR ---
Pt took Colace & Senokot but refused miralax, takes meds well one at a time with HOB straight up
[2020-01-09] MEDS: LATANOPROST 0.005% (XALATAN) OPHTH SOLN 2.5 ML OU SCH (20:47)
--- NOTE | 2020-01-10 05:51 | PM&R Progress Note ---
Subjective HPI/CC On Admission Date Seen by Provider: Jan 10, 2020 Time Seen by Provider: 08:30 Subjective/Events-last exam 01/10/20: Family training today at 10:00 Restarting Plavix and Aspirin tomorrow Overall cognition is questionable 01/09/20: Pt had an EGD today by Dr. Liz showing esophageal varicies and severe gastritis Pt requiring O2 Cough is chronic Cough meds are initiated 01/08/20: Pt doing okay but refused breakfast WBC 11.8 Hgb 10.8 Dysphagia and aspiration risk appears to be somewhat possible and his hemmocult was positive, had been maintained on proton-pump inhibitor so consulted Dr. Liz who will preform EGD tomorrow Remains on 2 L of oxygen 01/07/20: Al lot of coughing in general but much more when eating Needs diet changed Modified barium swallow tomorrow IV abx will be changed to PO formulation 01/06/20: Dark stools prompting hemoccult stools PPI maintained Holding Lovenox Abx maintained Cough is less 2L/min O2 01/05/20: Abx maintained Hypoxia remains but stable Improved status overall Modified barium swallow Wednesday wbc 9.8 BM yesterday 01/04/20: Extensive w/u on lung issue and cough and hypoxia revealed low probability of PE per perfusion scan and CT revealed pulmonary fibrosis and RLL new infiltrate Patient appears to be improved congnitively Nebs and IV abx ordered COVID x [address] scan so will start PPI Lovenox SQ 40mg daily maintained 01/03/20: Pt overall doing much better CXR shows B/L upper lobe infiltrates Covid swab will be done Pt has had a cough since he came over from [facility], his Covid test was negative on 12/20 O2 supplementation maintained Spoke to radiology and given elevated d-dimer and maintained on Lovenox since admit will perform perfusion scan 01/02/20: Pt about the same No major changes Cognition continues to be a challenge 01/01/20: Pt doing pretty well No significant changes Cognition is an issue Participating in therapy with a lot of heavy cues 12/31/19: Family pics helping morale Got into shower without tearfulness Coughing managed with Robitussin DM and Xanax 12/30/19: Xanax helping him at night Robitussin DM also helps Will check on [facility] EMR to see what was done for cough evaluation Event monitor was planned for [facility] at [place] will reach out on Wednesday regarding those details 12/29/19: Patient seems about the same Cognition is a challenge when communicating No falls 12/28/19: Crushing pills in apple sauce seems to help Snoring at night, unsure if he needs to be on oxygen Xanax given at night really helps him Robitussin DM given for cough Aphasia continues Bowels moved yesterday so will continue laxatives Becomes tearful at times 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 Checked meds and labs Reviewed therapy notes 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 HEENT: Dysphasia Neurological: Confusion Objective Exam Vital Signs Vital Signs Date Time Temp Pulse Resp B/P (MAP) Pulse Ox O2 Delivery O2 Flow Rate FiO2 01/10/20 20:23 Nasal Cannula 1.50 01/10/20 19:13 91 01/10/20 17:39 37.0 65 18 139/69 (92) 01/04/20 18:29 28 Capillary Refill : Less Than 3 Seconds General Appearance: No Apparent Distress, WD/WN, Chronically ill HEENT: PERRL/EOMI, Normal ENT Inspection, Pharynx Normal Neck: Full Range of Motion, Normal Inspection, Non Tender, Supple, Carotid Bruit Respiratory: Chest Non Tender, Lungs Clear, Normal Breath Sounds, No Accessory Muscle Use, No Respiratory Distress, Other (wearing O2 now) Cardiovascular: Regular Rate, Rhythm, No Edema, No Gallop, No JVD, No Murmur, Normal Peripheral Pulses Gastrointestinal: Normal Bowel Sounds, No Organomegaly, No Pulsatile Mass, Non Tender, Soft Back: Normal Inspection, No CVA Tenderness, No Vertebral Tenderness Extremity: Normal Capillary Refill, Normal Inspection, Normal Range of Motion, Non Tender, No Calf Tenderness, No Pedal Edema Neurologic/Psychiatric: Alert, Oriented x3, Normal Mood/Affect, rehabilitation aide/scheduler II-XII Norm as Tested, Abnormal Gait, Aphasia, Depressed Affect, Motor Weakness (right sided 3/5) Skin: Normal Color, Warm/Dry Lymphatic: No Adenopathy Results/Procedures Lab Patient resulted labs reviewed. FIM Transfers Therapy Code Descriptions/Definitions Functional [place] Measure: 0=Not Assessed/NA 4=Minimal Assistance 1=Total Assistance 5=Supervision or Setup 2=Maximal Assistance 6=Modified [place] 3=Moderate Assistance 7=Complete IndependenceSCALE: Activities may be completed with or without assistive devices. 5-Tnzgwaiyfe-khbfeng completes the activity by him/herself with no assistance from a helper. 5-Set-up or Clean-up Assistance-helper sets up or cleans up; patient completes activity. [place] assists only prior to or following the activity. 4-Supervision or Touching Assistance-helper provides verbal cues and/or t ouching/steadying and/or contact guard assistance as patient completes activity. Assistance may be provided throughout the activity or intermittently. 3-Partial/Moderate Assistance-helper does LESS THAN HALF the effort. [place] lifts, holds or supports trunk or limbs, but provides less than half the effort. 2-Substantial/Maximal Assistance-helper does MORE THAN HALF the effort. [place] lifts or holds trunk or limbs and provides more than half the effort. 1-Ntnyhnoep-ssbxyt does ALL the effort. Patient does none of the effort to complete the activity. Or, the assistance of 2 or more helpers is required for the patient to complete the activity. If activity was not attempted, code reason: 7-Patient Refused. 9-Not Applicable-not attempted and the patient did not perform the activity before the current illness, exacerbation or injury. 10-Not Attempted due to Environmental Limitations-(lack of equipment, weather restraints, etc.). 88-Not Attempted due to Medical Conditions or Safety Concerns. Roll Left to Right (QC): 6 Sit to Lying (QC): 6 Sit to Stand (QC): 6 Chair/Snn-yo-Kzqtl Xfer(QC): 5 Car Transfer (QC): 4 Gait Training Does the Patient Walk?: Yes Distance: 250ft Walk 10 feet (QC): 5 Walk 50 ft with 2 Turns(QC): 5 Walk 150 ft (QC): 5 Walking 10ft/uneven surface-QC: 4 Gait Persons Needed: 1 Gait Assistive Device: FWW Wheelchair Training Wheel 50 ft with 2 turns (QC): 9 Wheel 150 ft (QC): 9 Stair Training Stair Training: Handrails/: 2 handrails #of Steps: 4 1 Step (curb) (QC): 4 4 Steps (QC): 4 12 Steps (QC): 88 Stairs: Pattern: Reciprocal Balance Picking up an Object (QC): 4 ADL-Treatment Eating (QC): 5 Oral Hygiene (QC): 6 Bathing Location: L Arm, R Arm, L Upper Leg, R Upper Leg, L Lower Leg (including foot), R Lower Leg (including foot), Chest, Abdomen, Buttocks, Perineal Area Shower/Bathe Self (QC): 4 Upper Body Dressing (QC): 4 Lower Body Dressing (QC): 4 On/Off Footwear (QC): 4 (Stood to don 1st shoe then sat with verbal cue.) Toileting Hygiene (QC): 7 Toilet Transfer (QC): 7 Assessment/Plan Assessment and Plan Assess & Plan/Chief Complaint Assessment: CVA Expressive aphasia Confusion Urinary retention h/o lymphoma CRI Fall risk Pulmonary fibrosis on CT scan 01/04/[address] 01/04/20 with new hypoxia placed on treatment Esophagitis on CT scan placed on PPI Esophageal varices on EGD with gastritis Plan: IRF protocol Check labs in am Monitor for falls Monitor urinary retention 12/27/19: Aphasia management Monitor BP Monitor creatinine 12/28/19: Monitor aphasia Monitor for falls Increased risk of confusion 12/29/19: Cough management but appears to be a non-purposeful behavior since CVA 12/30/19: Will research cough w/u on Guanri Monitor closely 12/31/19: Monitor closely Fall risk Cognition therapy 01/01/20: Cough management Xanax at night helps him sleep 01/02/20: IRF protocol DIscuss dispo at meeting 01/03/20: Pursue septic w/u O2 COVID swab Monitor closely 01/04/20: IV abx COVID negative Pulmonary fibrosis will likely require O2 at DC continuously PPI Esophagitis on CT scan 01/05/20: Improved status O2 Abx PPI 01/06/20: Melena evaluation Hold Lovenox in meantime Abx O2 01/07/20: Monitor cough Change IV abx to PO Check labs in am Change diet appears microaspiration 01/08/20: EGD tomorrow Abx PO now O2 Nebs Cough management 01/09/20: Varices on EGD with gastritis Hold Lovenox PPI O2 01/10/20: Restart Plavix and ASA PPI O2 at home (1) CVA (cerebral vascular accident) (2) Lymphoma in remission (3) Renal insufficiency (4) Expressive aphasia (5) Confusion (6) Anemia (7) Retention, urine (8) Delirium JAMAL CANADA DO Jan 10, 2020 05:51
[2020-01-10] MEDS: CATHETER FLUSH 10 ML SYR IV SCH ×2 (06:19→13:54)
[2020-01-10] MEDS: VITAMIN D3 25 MCG (1,000 UNITS) TABLET PO SCH (06:19)
[2020-01-10] MEDS: guaiFENesin/CODEINE (ROBITUSSIN AC) 10ML UDC PO PRN (06:28)
--- NOTE | 2020-01-10 06:28 | NUR ---
Robitussin 10ml given for cough
[2020-01-10 06:33] VITALS: BP 128/59
[2020-01-10] MEDS: CEFDINIR 300 MG (OMNICEF) CAP PO SCH ×2 (08:38→20:12)
[2020-01-10] MEDS: PANTOPRAZOLE 40 MG (PROTONIX) TAB PO SCH (08:38)
[2020-01-10] MEDS: ASPIRIN E.C. 81 MG (ECOTRIN) TAB PO SCH (08:38)
[2020-01-10] MEDS: DOCUSATE SODIUM 100 MG (COLACE) CAP PO SCH ×2 (08:38→20:12)
[2020-01-10] MEDS: SERTRALINE 50 MG (ZOLOFT) TABLET PO SCH (08:39)
[2020-01-10] MEDS: polyethylene glycoL POWDER 17 GM (MIRALAX) PACK PO SCH ×2 (08:47→20:22)
[2020-01-10] MEDS: SENNA W/DOCUSATE (SENOKOT S) TABLET PO SCH ×2 (08:47→20:23)
[2020-01-10] MEDS: RT-ALBUTEROL SULF 2.5 MG/3 ML PRE-MIX VIAL INH SCH ×2 (09:28→19:13)
--- NOTE | 2020-01-10 10:00 | Occupational Ther Daily Note ---
OT Current Status-Daily Note Subjective Pt in chair upon arrival. Pt no c/o pain. Pt agreed to therapy. Mental Status/Objective Patient Orientation: Person, Place, Time, Situation Attachments: IV, Oxygen (1 L) ADL-Treatment Pt ambulated to bathroom using FWW. Pt sat in w/c to perform oral care, verbal cues required. Pt propelled self to shower. Pt transferred from w/c to shower bench using grab bars to stabilize. Pt doff upper body clothing independently. Pt doff lower body hiking pants/briefs over hips by self using grab bars to stabilize in standing, verbal cues required. Pt performed upper/lower body washing with set up. Pt cleansed perineal, buttocks area by self sitting, leaning side to side. Pt transferred from shower bench to w/c using grab bars to stabilize. Pt don upper body clothing with set up. Pt don lower body clothing using FWW to stabilize while hiking pants over hips by self. Pt ambulated to recliner using FWW. Therapy Code Descriptions/Definitions Functional [place] Measure: 0=Not Assessed/NA 4=Minimal Assistance 1=Total Assistance 5=Supervision or Setup 2=Maximal Assistance 6=Modified [place] 3=Moderate Assistance 7=Complete IndependenceSCALE: Activities may be completed with or without assistive devices. 8-Ajfbkujojh-dznvgto completes the activity by him/herself with no assistance from a helper. 5-Set-up or Clean-up Assistance-helper sets up or cleans up; patient completes activity. [place] assists only prior to or following the activity. 4-Supervision or Touching Assistance-helper provides verbal cues and/or touching/steadying and/or contact guard assistance as patient completes activity. Assistance may be provided throughout the activity or intermittently. 3-Partial/Moderate Assistance-helper does LESS THAN HALF the effort. [place] lifts, holds or supports trunk or limbs, but provides less than half the effort. 2-Substantial/Maximal Assistance-helper does MORE THAN HALF the effort. [place] l ifts or holds trunk or limbs and provides more than half the effort. 4-Hajvnpqzj-heffzr does ALL the effort. Patient does none of the effort to complete the activity. Or, the assistance of 2 or more helpers is required for the patient to complete the activity. If activity was not attempted, code reason: 7-Patient Refused. 9-Not Applicable-not attempted and the patient did not perform the activity before the current illness, exacerbation or injury. 10-Not Attempted due to Environmental Limitations-(lack of equipment, weather restraints, etc.). 88-Not Attempted due to Medical Conditions or Safety Concerns. Bathing Location: L Arm, R Arm, L Upper Leg, R Upper Leg, L Lower Leg (including foot), R Lower Leg (including foot), Chest, Abdomen, Buttocks, Perineal Area Other Treatment Family training completed, skilled instruction for education and modifying daily skills to allow patient to be as independent and safe as possible in home situation with spouse and family. Discussed appropriate AD for home use, grabbar, shower chair and raised toilet seat. Pt left in care of PT. All needs met Education OT Patient Education: Safety issues, Transfer techniques, Use of adapted equipment Teaching Recipient: Patient, Family Teaching Methods: Demonstration, Discussion Response to Teaching: Verbalize Understanding, Return Demonstration, Reinforcement Needed OT Short Term Goals Short Term Goals Time Frame: Jan 02, 2020 Eatin Oral hygiene: 4 Toileting hygiene: 4 Shower/bathe self: 4 Upper body dressin Lower body dressin Putting on/taking off footwear: 4 OT Medical Clerk Goals Intermediate Goals Time Frame: Jan 09, 2020 Eating (QC): 6 Oral Hygiene (QC): 5 Toileting Hygiene (QC): 6 Shower/Bathe Self (QC): 4 Upper Body Dressing (QC): 5 Lower Body Dressing (QC): 5 On/Off Footwear (QC): 5 Additional Goals: 1-Demonstrate ADL Tasks, 2-Verbalize Understanding, 3- ImproveStrength/Negrita 1=Demonstrate adherence to instructed precautions during ADL tasks. 2=Patient will verbalize/demonstrate understanding of assistive devices/modifications for ADL. 3=Patient will improve strength/tolerance for activity to enable patient to perform ADL's. OT Education/Plan Problem List/Assessment Assessment: Decreased Activ Tolerance, Impaired Self-Care Skills Discharge Recommendations Plan/Recommendations: Continue POC Treatment Plan/Plan of Care Patient would benefit from OT for education, treatment and training to promote independence in ADL's, mobility, safety and/or upper extremity function for ADL's. Plan of Care: ADL Retraining, Cognitive Retraining, Functional Mobility, Group Exercise/Act as Ind, UE Funct Exercise/Act, UE Neuromus Re-Ed/Coord, Visual/Perceptual Retrain, W/C Management Training Treatment Duration: Jan 09, 2020 Frequency: At least 5 of 7 days/Wk (IRF) Estimated Hrs Per Day: 1.5 hours per day Agreement: Yes Rehab Potential: Fair Time/GCodes Start Time: 09:00 Stop Time: 10:30 Total Time Billed (hr/min): 90 Billed Treatment Time 1 visit-ADL 4 (60 min) FA 2 (30 min) MILLA PICKETT Jan 10, 2020 10:00
--- NOTE | 2020-01-10 11:00 | NUR ---
AND DAUGHTER FEEL FAMILY TRAINING WENT WELL THIS MORNING AND FEEL GOOD ABOUT PATIENT BEING DISCHARGED THIS WEEK. O2 ON AT 2L. DR. CANADA FEELS OXYGEN WILL BE NEEDED AT HOME AND AMB. OXIMETRY WILL BE ORDERED PRIOR TO DISCHARGE.
--- NOTE | 2020-01-10 11:31 | Physical Therapy Daily Note ---
PT Daily Note-Current Subjective Pts and grand daughter here for family training. Pt. emotional and very happy to see them, PT OT ST co Rx session, explaining how to facilitate better mobility through communication and gestures. Pt. agrees to Rx, smiling and speaking more complete sentences etc Pain Location: No Pain Reported Mental Status Patient Orientation: Non-Verbal/Aphasic Attachments: Oxygen (1.5 L) Transfers SCALE: Activities may be completed with or without assistive devices. 4-Xuzmpdavmg-lluhcaf completes the activity by him/herself with no assistance from a helper. 5-Set-up or Clean-up Assistance-helper sets up or cleans up; patient completes activity. [employer] assists only prior to or following the activity. 4-Supervision or Touching Assistance-helper provides verbal cues and/or touching/steadying and/or contact guard assistance as patient completes activity. Assistance may be provided throughout the activity or intermittently. 3-Partial/Moderate Assistance-helper does LESS THAN HALF the effort. [employer] lifts, holds or supports trunk or limbs, but provides less than half the effort. 2-Substantial/Maximal Assistance-helper does MORE THAN HALF the effort. [employer] lifts or holds trunk or limbs and provides more than half the effort. 7-Fzspblkim-goboai does ALL the effort. Patient does none of the effort to complete the activity. Or, the assistance of 2 or more helpers is required for the patient to complete the activity. If activity was not attempted, code reason: 7-Patient Refused. 9-Not Applicable-not attempted and the patient did not perform the activity before the current illness, exacerbation or injury. 10-Not Attempted due to Environmental Limitations-(lack of equipment, weather restraints, etc.). 88-Not Attempted due to Medical Conditions or Safety Concerns. Roll Left & Right (QC): 6 Sit to Lying (QC): 6 Lying to Sitting/Side of Bed(Q: 6 Sit to Stand (QC): 6 Chair/Ajq-ds-Lvzpf Xfer(QC): 6 Toilet Transfer (QC): 6 Weight Bearing Full Weight Bearing Full Weight Bearing Gait Training Does the Patient Walk?: Yes Walk 10 feet (QC): 4 Walk 50 ft with 2 Turns(QC): 4 Walk 150 ft (QC): 4 Gait Persons Needed: 1 Gait Assistive Device: FWW pt. needs only instructed via gestures and instruction, assist for O2 portable tank. gait instruction given to family regarding safety with O2 tubing kolby during turns, and grand daughter demonstrate ability to manage this safely Stair Training Stair Training: Handrails/: 2 handrails #of Steps: 4 1 Step (curb) (QC): 4 4 Steps (QC): 4 Stairs: Pattern: Reciprocal instruction given to family regarding steps and use of FWW and rails as well as O2 on steps, pt. manages well with rails and only CGA and instruction and O2 assist Exercises Supine Ex: Rolling, Heel Slides, Straight leg raise, Hip abd/add Supine Reps: 10 Treatments co Rx family training session PT OT ST, family demonstrating good understanding etc, PT focusing on bed mobility , gait with FWW and O2, stairs and safety, OT focusing on bathing seating etc and dressing, Speech on communication and cognition etc Assessment Current Status: Good Progress pt. meeting goals and family trained, a few pcs of equip to be ordered by son who will be here Mon they believe to stay for a while PT Short Term Goals Short Term Goals Time Frame: Jan 02, 2020 Roll Left & Right: 6 Sit to lyin Lying to sitting on side of be: 6 Sit to stand: 5 Chair/chi-kr-bxtis transfer: 5 Toilet transfer: 5 Walk 10 feet: 5 Walk 50 feet with two turns: 5 Walk 150 feet: 5 PT Channel Development Manager Goals Channel Development Manager Goals PT Half-Way Goals Time Frame: Jan 16, 2020 Roll Left & Right (QC): 6 Sit to Lying (QC): 6 Lying-Sitting on Side/Bed(QC): 6 Sit to Stand (QC): 6 Chair/Deu-to-Dxzlx Xfer(QC): 6 Toilet Transfer (QC): 6 Car Transfer (QC): 6 Does the Patient Walk: Yes Walk 10 feet (QC): 6 Walk 50ft with 2 Turns (QC): 6 Walk 150 ft (QC): 6 Walking 10ft on Uneven Surface: 6 1 Step (curb) (QC): 6 4 Steps (QC): 6 12 Steps (QC): 6 Picking up an Object (QC): 6 Wheel 50 feet with 2 turns (QC: 9 Wheel 150 feet: 9 PT Plan Treatment/Plan Treatment Plan: Continue Plan of Care Treatment Plan: Education, Functional Activity Negrita, Functional Strength, Group Therapy, Gait, Safety, Therapeutic Exercise, Transfers Treatment Duration: Jan 16, 2020 Frequency: At least 5 of 7 days/Wk (IRF) Estimated Hrs Per Day: 1.5 hours per day Patient and/or Family Agrees t: Yes Safety Risks/Education Patient Education: Gait Training, Transfer Techniques, Steps, Correct Positioning, Instructions to Caregiver, Disease Process, Safety Issues Teaching Recipient: Patient, Family Teaching Methods: Demonstration, Discussion Response to Teaching: Verbalize Understanding, Return Demonstration, Reinforcement Needed Discharge Recommendations Therapy Discharge Recommendati: 24 Hour Supervision, Bath Aide, Post Acute PT, Post Acute ST Time/GCodes Time In: 1000 Time Out: 1115 Total Billed Treatment Time: 75 Total Billed Treatment 1,GT30m,FA45 IVETTE HAWKINS SHOE COVERER Jan 10, 2020 11:31
--- NOTE | 2020-01-10 11:57 | Progress Note - Surgery ---
JOANNE KERR MED STUDENT 01/10/20 1157: Subjective Date Seen by a Provider: Jan 10, 2020 Time Seen by a Provider: 06:50 Subjective/Events-last exam Pt sitting up in chair, eating breakfast, NAD. No complaints of chest/abd pain, N/V, SOB. Continues to have trouble swallowing Review of Systems Pulmonary: No Dyspnea Cardiovascular: No: Chest Pain Gastrointestinal: No: Nausea, Vomiting, Abdominal Pain Objective Exam Vital Signs Date Time Temp Pulse Resp B/P (MAP) Pulse Ox O2 Delivery O2 Flow Rate FiO2 01/10/20 09:00 Nasal Cannula 2.00 01/10/20 06:33 36.4 72 20 128/59 (82) 96 Nasal Cannula 2.00 01/09/20 20:50 Nasal Cannula 1.00 01/09/20 18:46 97 Nasal Cannula 2.00 01/09/20 15:23 36.7 67 18 123/53 (76) 95 Nasal Cannula 2.00 I & O 01/10/20 07:00 Intake Total 500 ml Balance 500 ml Capillary Refill : Less Than 3 Seconds General Appearance: No Apparent Distress, WD/WN, Chronically ill HEENT: PERRL/EOMI Respiratory: Lungs Clear, Normal Breath Sounds, No Accessory Muscle Use, No Respiratory Distress, Other (wearing O2 now) Cardiovascular: Regular Rate, Rhythm, No Edema, No Gallop, No JVD, No Murmur Gastrointestinal: non tender, soft Neurologic/Psychiatric: Alert, Oriented x3, Aphasia Skin: Normal Color, Warm/Dry Results Lab Microbiology 01/04/20 Blood Culture - Preliminary, Resulted Staph, Coag Neg (CONE BAKER MACHINE) See Comments Assessment/Plan Assessment/Plan Admission Diagonsis CVA Assessment/Plan Melena Dysphagia Esophagitis Hx of CVA with aphasia DM with chronic renal failure EGD showed distal esophageal varices and gastritis; biopsy of duodenum pending results. No surgical intervention needed at this time, will continue to monitor. Clinical Quality Measures DVT/VTE Risk/Contraindication: Risk Factor Score Per Nursin RFS Level Per Nursing on Admit: 2=Moderate HERIBERTO LARA DO 01/10/20 1329: Subjective Time Seen by a Provider: 11:06 Subjective/Events-last exam Pt seen and examined, in working with PT/OT. Denies any pain, still has trouble swallowing. Review of Systems General: No Chills, No Night Sweats Pulmonary: No Dyspnea Cardiovascular: No: Chest Pain Gastrointestinal: No: Nausea, Vomiting, Abdominal Pain Objective Exam General Appearance: No Apparent Distress, Chronically ill HEENT: PERRL/EOMI Respiratory: Lungs Clear, Normal Breath Sounds, No Accessory Muscle Use, No Respiratory Distress Cardiovascular: Regular Rate, Rhythm, No Murmur Gastrointestinal: non tender, soft Neurologic/Psychiatric: Alert, Aphasia Skin: Normal Color, Warm/Dry Assessment/Plan Assessment/Plan Assessment/Plan Esophageal Varices Gastritis Dysphagia - probably secondary to his stroke Aphasia Pt to advance diet as tolerated; per Speech therapy recommendations. Nothing to do about the Varices, but can take PPI for Gastritis. Will sign off. Supervisory-Addendum Brief Verification & Attestation Participated in pt care: history, MDM, physical Personally performed: exam, history, MDM Care discussed with: Medical Student Procedures: n/a Verification and Attestation of Medical Student E/M Service A medical student performed and documented this service. I then reviewed and verified all information documented by the medical student and made modif ications to such information, when appropriate. I personally performed a physical exam, medical decision making and then discussed any differences between the notes and made revisions as necessary to create one note. Heriberto Lara , 01/10/20 , 13:28 JOANNE KERR MED STUDENT Jan 10, 2020 11:57 HERIBERTO LARA DO Jan 10, 2020 13:29
--- NOTE | 2020-01-10 14:41 | Speech Therapy Daily Note ---
Speech Daily Progress Note Subjective Date Seen by Provider: Jan 10, 2020 Time Seen by Provider: 00:30 Patient was resting in his chair. His and granddaughter visited today for family training. Objective Patient completed simple confrontational naming task presented with pictures of common everyday objects at 50% with 25% verbal and/or visual cues. Patient also demonstrated utilization of compensatory strategies as trained at 80% with minimal cues. Assessment Assessment Current Status: Fair Progress Speech Short Term Goals Short Term Goals Short Term Goals 1) The patient will complete memory tasks related to his daily needs with 80% or greater given minimal cues. 2) The patient will complete safety awareness tasks related to his daily needs with 80% or greater given minimal cues. 3) The patient will complete problem solving tasks related to his daily needs with 80% or greater given minimal cues. 4) The patient will tolerate least restrictive diet without s/s of aspiration at 80% or greater. 5) The patient/caregiver will utilize compensatory strategies as trained at 90% or greater with minimal cues. Speech Wood Stainer Goals Wood Stainer Goals Patient will improve cognitive-communication necessary for safety and daily living tasks with minimal assist. Patient will maintain adequate nutrition/hydration via safe effective swallow function. Speech-Plan Patient/Family Goals Patient/Family Goals: Patient is scheduled to discharge to his home on 01/13/2020. Treatment Plan Speech Therapy Treatment Plan: Continue Plan of Care Treatment Duration: Jan 05, 2020 Frequency: 4 times per week (Patient will receive skilled ST 4-5x per week) Estimated Hrs Per Day: .5 hour per day Rehab Potential: Fair Barriers to Learning: Patient's expressive aphasia Pt/Family Agrees to Plan: Yes Safety Risks/Education Teaching Recipient: Patient Teaching Methods: Demonstration, Discussion Response to Teaching: Verbalize Understanding, Return Demonstration Education Topics Provided: Continued safety with oral intake, utilization of call light as needed Time Speech Therapy Time In: 14:30 Speech Therapy Time Out: 15:00 Total Billed Time: 30 Billed Treatment Time 1, BRISEIDA, SUNSHINE Martin Jan 10, 2020 14:41
--- NOTE | 2020-01-10 15:34 | NUR ---
CM/SS PATIENT CARE CONFERENCE and DISCHARGE PLANNING Patient's Carolyne and granddaughter Sadia came this a.m. to participate with patient in his therapies and learn patient care needs once home. All were unanimous they would be able to provide at home and with team agreement, discharge is set for January 11, at 1100. HHC: Reviewed Medicare Find and Compare for agencies in service area, goal is to locate agency that provides ST along with other therapies. Agency to be determined. DME: Patient will need FWW, anticipate home O2. Family/son has ordered shower chair and BSC for framework over toilet. Carolyne and Sadia discussed how they would modify patient's bathroom, including adding additional grab bars. They indicated clear understanding of his dietary needs and therapy notes reflect positive response and education from this a.m. Continue discharge arrangements in partnership with family and agencies.
[2020-01-10 17:39] VITALS: BP 139/69
--- NOTE | 2020-01-10 19:16 | NUR ---
Bedside report received from KHANG COWAN, assume care of pt
[2020-01-10] MEDS: ALPRAZolam 0.25 MG (XANAX) TAB PO SCH (20:12)
--- NOTE | 2020-01-10 20:12 | NUR ---
Pt took Colace refused miralax & Senokot, up to bathroom with 1 person assist & walker
[2020-01-10] MEDS: LATANOPROST 0.005% (XALATAN) OPHTH SOLN 2.5 ML OU SCH (20:13)
--- NOTE | 2020-01-10 21:41 | NUR ---
back to bed with side rails up & bed alarm on
[2020-01-11] MEDS: CATHETER FLUSH 10 ML SYR IV SCH ×4 (00:04→20:26)
[2020-01-11 05:20] VITALS: BP 134/62
--- NOTE | 2020-01-11 05:40 | NUR ---
here orders received for 6 min walk to qualify pt for home 02, not able to input orders due to [employer] down
[2020-01-11] MEDS: VITAMIN D3 25 MCG (1,000 UNITS) TABLET PO SCH (07:02)
[2020-01-11] MEDS: guaiFENesin/CODEINE (ROBITUSSIN AC) 10ML UDC PO PRN (08:23)
[2020-01-11] MEDS: SERTRALINE 50 MG (ZOLOFT) TABLET PO SCH (08:23)
[2020-01-11] MEDS: CEFDINIR 300 MG (OMNICEF) CAP PO SCH ×2 (08:23→20:25)
[2020-01-11] MEDS: PANTOPRAZOLE 40 MG (PROTONIX) TAB PO SCH (08:23)
[2020-01-11] MEDS: ASPIRIN E.C. 81 MG (ECOTRIN) TAB PO SCH (08:23)
[2020-01-11] MEDS: SENNA W/DOCUSATE (SENOKOT S) TABLET PO SCH ×2 (09:35→19:52)
[2020-01-11] MEDS: DOCUSATE SODIUM 100 MG (COLACE) CAP PO SCH ×2 (09:35→19:51)
[2020-01-11] MEDS: polyethylene glycoL POWDER 17 GM (MIRALAX) PACK PO SCH ×2 (09:35→19:51)
--- NOTE | 2020-01-11 10:04 | Occupational Ther Daily Note ---
OT Current Status-Daily Note Subjective Pt in chair upon arrival. Pt no c/o pain. Pt agreed to therapy. Mental Status/Objective Patient Orientation: Person, Place, Time, Situation Attachments: IV, Oxygen (1 L) ADL-Treatment Pt used FWW to ambulate to w/c in restroom. Pt performed oral care, verbal cues required. Pt stated needing to use restroom, using FWW to ambulate to toilet. Pt used grab bars to stabilize in standing while hiking pants over hips. Pt doff clothing, verbal cues required. Pt ambulated using FWW to shower. Pt used grab bars to stabilize while transferring to shower bench. Pt performed upper/lower body washing with set up. Pt used cleansed perineal and buttocks area while sitting, leaning side to side. Pt transferred from shower bench to w/c using grab bars to stabilize. Pt don upper body clothing with set up. Pt don lower body clothing, verbal cues required. Pt threaded socks onto feet independently. Pt propelled self to recliner. Pt transferred from w/c to recliner. Pt focused on orientation (month, date, holiday, year). Pt was able to state month, holiday. Pt call light/phone in reach, chair alarm on. All needs met. Therapy Code Descriptions/Definitions Functional Ward Measure: 0=Not Assessed/NA 4=Minimal Assistance 1=Total Assistance 5=Supervision or Setup 2=Maximal Assistance 6=Modified Ward 3=Moderate Assistance 7=Complete IndependenceSCALE: Activities may be completed with or without assistive devices. 5-Uojiuchglu-zpowsdi completes the activity by him/herself with no assistance from a helper. 5-Set-up or Clean-up Assistance-helper sets up or cleans up; patient completes activity. [place] assists only prior to or following the activity. 4-Supervision or Touching Assistance-helper provides verbal cues and/or touching/steadying and/or contact guard assistance as patient completes activity. Assistance may be provided throughout the activity or intermittently. 3-Partial/Moderate Assistance-helper does LESS THAN HALF the effort. [place] lifts, holds or supports trunk or limbs, but provides less than half the effort. 2-Substantial/Maximal Assistance-helper does MORE THAN HALF the effort. [place] lifts or holds trunk or limbs and provides more than half the effort. 0-Zknnztsjk-nzjrob does ALL the effort. Patient does none of the effort to complete the activity. Or, the assistance of 2 or more helpers is required for the patient to complete the activity. If activity was not attempted, code reason: 7-Patient Refused. 9-Not Applicable-not attempted and the patient did not perform the activity before the current illness, exacerbation or injury. 10-Not Attempted due to Environmental Limitations-(lack of equipment, weather restraints, etc.). 88-Not Attempted due to Medical Conditions or Safety Concerns. Oral Hygiene (QC): 4 Bathing Location: L Arm, R Arm, L Upper Leg, R Upper Leg, L Lower Leg (including foot), R Lower Leg (including foot), Chest, Abdomen, Buttocks, Perineal Area Shower/Bathe Self (QC): 5 Upper Body Dressing (QC): 5 Lower Body Dressing (QC): 4 On/Off Footwear: 6 Toileting Hygiene (QC): 6 Toilet Transfer (QC): 5 OT Short Term Goals Short Term Goals Time Frame: Jan 02, 2020 Eatin Oral hygiene: 4 Toileting hygiene: 4 Shower/bathe self: 4 Upper body dressin Lower body dressin Putting on/taking off footwear: 4 OT Field Mechanical Meter Tester Goals Field Mechanical Meter Tester Goals Time Frame: Jan 09, 2020 Eating (QC): 6 Oral Hygiene (QC): 5 Toileting Hygiene (QC): 6 Shower/Bathe Self (QC): 4 Upper Body Dressing (QC): 5 Lower Body Dressing (QC): 5 On/Off Footwear (QC): 5 Additional Goals: 1-Demonstrate ADL Tasks, 2-Verbalize Understanding, 3- ImproveStrength/Negrita 1=Demonstrate adherence to instructed precautions during ADL tasks. 2=Patient will verbalize/demonstrate understanding of assistive devices/mod ifications for ADL. 3=Patient will improve strength/tolerance for activity to enable patient to perform ADL's. OT Education/Plan Problem List/Assessment Assessment: Decreased Activ Tolerance, Decreased UE Strength, Impaired Funct Balance, Impaired Self-Care Skills Discharge Recommendations Plan/Recommendations: Continue POC Treatment Plan/Plan of Care Patient would benefit from OT for education, treatment and training to promote independence in ADL's, mobility, safety and/or upper extremity function for ADL's. Plan of Care: ADL Retraining, Cognitive Retraining, Functional Mobility, Group Exercise/Act as Ind, UE Funct Exercise/Act, UE Neuromus Re-Ed/Coord, Visual/Perceptual Retrain, W/C Management Training Treatment Duration: Jan 09, 2020 Frequency: At least 5 of 7 days/Wk (IRF) Estimated Hrs Per Day: 1.5 hours per day Agreement: Yes Rehab Potential: Fair Time/GCodes Start Time: 08:45 Stop Time: 10:00 Total Time Billed (hr/min): 75 Billed Treatment Time 1 visit- ADL 5 (75 mins) MILLA PICKETT Jan 11, 2020 10:04
[2020-01-11] MEDS: RT-ALBUTEROL SULF 2.5 MG/3 ML PRE-MIX VIAL INH SCH ×2 (10:10→19:24)
--- NOTE | 2020-01-11 11:24 | Speech Therapy Daily Note ---
Speech Daily Progress Note Subjective Date Seen by Provider: Jan 11, 2020 Time Seen by Provider: 00:30 Patient was resting in his recliner when I entered his room. He appears to be lethargic and less alert this date. Objective Patient attempted to answer simple questions related to himself with great difficulty today. He was finally able to answer within 5 minutes following the questions. Patient took several small sips of water throughout the session without choking noted. He also continues to use the [place] for secretions. Assessment Assessment Current Status: Fair Progress Treatment Plan Discontinue ST Speech Short Term Goals Short Term Goals Short Term Goals 1) The patient will complete memory tasks related to his daily needs with 80% or greater given minimal cues. 2) The patient will complete safety awareness tasks related to his daily needs with 80% or greater given minimal cues. 3) The patient will complete problem solving tasks related to his daily needs with 80% or greater given minimal cues. 4) The patient will tolerate least restrictive diet without s/s of aspiration at 80% or greater. 5) The patient/caregiver will utilize compensatory strategies as trained at 90% or greater with minimal cues. Speech Custodial Goals Manufacturing Supervisor 2Nd Shift Goals Patient will improve cognitive-communication necessary for safety and daily living tasks with minimal assist. Patient will maintain adequate nutrition/hydration via safe effective swallow function. Speech-Plan Patient/Family Goals Patient/Family Goals: Patient is scheduled to return to his home tomorrow where he lives with his . Patient will receive home health services as well. Treatment Plan Speech Therapy Treatment Plan: Discontinue ST Treatment Duration: Jan 12, 2020 Frequency: 4 times per week (Patient will receive skilled ST 4-5x per week) Estimated Hrs Per Day: .5 hour per day Rehab Potential: Fair Barriers to Learning: Patient's expressive aphasia and age Pt/Family Agrees to Plan: Yes Safety Risks/Education Teaching Recipient: Patient Teaching Methods: Demonstration, Discussion Response to Teaching: Verbalize Understanding, Return Demonstration Education Topics Provided: Continued safety with oral intake and utilization of safe intake strategies Time Speech Therapy Time In: 11:30 Speech Therapy Time Out: 12:00 Total Billed Time: 30 Billed Treatment Time 1, SLTS, DYST No QUALITY CODES EXPRESSION OF IDEAS/WANTS:3 UNDERSTANDING VERBAL CONTENT: 3 BRIEF INTERVIEW MENTAL STATUS: YES REPETITION OF 3 WORDS: 2 TEMPORAL ORIENTATION: YEAR: CORRECT, MONTH: INCORRECT, DAY: NO ANSWER RECALL SOCK: NO, COLOR: YES WITH CUE, BED: NO MEMORY/RECALL ABILITY: THAT HE IS IN THE HOSPITAL SUNSHINE REAGAN Jan 11, 2020 11:24
--- NOTE | 2020-01-11 12:07 | Physical Therapy Daily Note ---
PT Daily Note-Current Subjective Pt sitting in recliner upon arrival. Pt is not supposed to have O2 on at this time due to Home O2 Test. Pt agrees to PT. Pain Location: No Pain Reported Mental Status Patient Orientation: Person, Confused, Place Attachments: Oxygen (6L during tx per RT) Transfers SCALE: Activities may be completed with or without assistive devices. 4-Fstqmdnrha-cyfupmp completes the activity by him/herself with no assistance from a helper. 5-Set-up or Clean-up Assistance-helper sets up or cleans up; patient completes activity. [place] assists only prior to or following the activity. 4-Supervision or Touching Assistance-helper provides verbal cues and/or touching/steadying and/or contact guard assistance as patient completes activity. Assistance may be provided throughout the activity or intermittently. 3-Partial/Moderate Assistance-helper does LESS THAN HALF the effort. [place] lifts, holds or supports trunk or limbs, but provides less than half the effort. 2-Substantial/Maximal Assistance-helper does MORE THAN HALF the effort. [place] lifts or holds trunk or limbs and provides more than half the effort. 6-Tnvndinee-whlqok does ALL the effort. Patient does none of the effort to complete the activity. Or, the assistance of 2 or more helpers is required for the patient to complete the activity. If activity was not attempted, code reason: 7-Patient Refused. 9-Not Applicable-not attempted and the patient did not perform the activity before the current illness, exacerbation or injury. 10-Not Attempted due to Environmental Limitations-(lack of equipment, weather restraints, etc.). 88-Not Attempted due to Medical Conditions or Safety Concerns. Roll Left & Right (QC): 6 Sit to Lying (QC): 6 Lying to Sitting/Side of Bed(Q: 6 Sit to Stand (QC): 5 Chair/Koq-si-Lwldn Xfer(QC): 5 Toilet Transfer (QC): 5 Car Transfer (QC): 5 Pt requires VC for sequencing and safety throughout tx. Weight Bearing Full Weight Bearing Full Weight Bearing Gait Training Does the Patient Walk?: Yes Distance: 150' x2 Walk 10 feet (QC): 5 Walk 50 ft with 2 Turns(QC): 5 Walk 150 ft (QC): 5 Walking 10ft/uneven surface-QC: 5 Gait Persons Needed: 1 Gait Assistive Device: FWW Pt continues to need VC for safety but can complete tasks himself. Wheelchair Training Does the Pt Use a Wheelchair?: No Stair Training Stair Training: Handrails/: 2 handrails #of Steps: 4 1 Step (curb) (QC): 5 4 Steps (QC): 5 Balance Picking up an Object (QC): 5 Treatments TF from recliner to standing. Pt completes QC scoring as listed above. Pt returns to room to rest in recliner at end of tx. All needs met, call light in hand. Assessment Current Status: Fair Progress Pt is limited by cognition at this time. Some days are better than other days but still shows confusion even on his best day. VC will be needed for safety. PT Short Term Goals Short Term Goals Time Frame: Jan 02, 2020 Roll Left & Right: 6 Sit to lyin Lying to sitting on side of be: 6 Sit to stand: 5 Chair/hxr-mh-jqyzp transfer: 5 Toilet transfer: 5 Walk 10 feet: 5 Walk 50 feet with two turns: 5 Walk 150 feet: 5 PT Securities Adviser Goals Securities Adviser Goals PT Prison Goals Time Frame: Jan 16, 2020 Roll Left & Right (QC): 6 Sit to Lying (QC): 6 Lying-Sitting on Side/Bed(QC): 6 Sit to Stand (QC): 6 Chair/Ago-ru-Himws Xfer(QC): 6 Toilet Transfer (QC): 6 Car Transfer (QC): 6 Does the Patient Walk: Yes Walk 10 feet (QC): 6 Walk 50ft with 2 Turns (QC): 6 Walk 150 ft (QC): 6 Walking 10ft on Uneven Surface: 6 1 Step (curb) (QC): 6 4 Steps (QC): 6 12 Steps (QC): 6 Picking up an Object (QC): 6 Wheel 50 feet with 2 turns (QC: 9 Wheel 150 feet: 9 PT Plan Problem List Problem List: Activity Tolerance, Functional Strength, Safety Treatment/Plan Treatment Plan: Continue Plan of Care Treatment Plan: Education, Functional Activity Negrita, Functional Strength, Group Therapy, Gait, Safety, Therapeutic Exercise, Transfers Treatment Duration: Jan 16, 2020 Frequency: At least 5 of 7 days/Wk (IRF) Estimated Hrs Per Day: 1.5 hours per day Patient and/or Family Agrees t: Yes Safety Risks/Education Patient Education: Transfer Techniques, Correct Positioning, Safety Issues Teaching Recipient: Patient Teaching Methods: Discussion Response to Teaching: Reinforcement Needed Time/GCodes Time In: 1000 Time Out: 1045 Total Billed Treatment Time: 45 Total Billed Treatment 1, GT (15m) & FA x2 (30m) GURMEET JUAREZ PTA Jan 11, 2020 12:07
--- NOTE | 2020-01-11 12:50 | PM&R Progress Note ---
Subjective HPI/CC On Admission Date Seen by Provider: Jan 11, 2020 Time Seen by Provider: 05:10 Subjective/Events-last exam 01/11/2020: Discharge plan for tomorrow Reviewed home O2 evaluation All orders placed 01/10/20: Family training today at 10:00 Restarting Plavix and Aspirin tomorrow Overall cognition is questionable 01/09/20: Pt had an EGD today by Dr. Liz showing esophageal varicies and severe gastritis Pt requiring O2 Cough is chronic Cough meds are initiated 01/08/20: Pt doing okay but refused breakfast WBC 11.8 Hgb 10.8 Dysphagia and aspiration risk appears to be somewhat possible and his hemmocult was positive, had been maintained on proton-pump inhibitor so consulted Dr. Liz who will preform EGD tomorrow Remains on 2 L of oxygen 01/07/20: Al lot of coughing in general but much more when eating Needs diet changed Modified barium swallow tomorrow IV abx will be changed to PO formulation 01/06/20: Dark stools prompting hemoccult stools PPI maintained Holding Lovenox Abx maintained Cough is less 2L/min O2 01/05/20: Abx maintained Hypoxia remains but stable Improved status overall Modified barium swallow Wednesday wbc 9.8 BM yesterday 01/04/20: Extensive w/u on lung issue and cough and hypoxia revealed low probability of PE per perfusion scan and CT revealed pulmonary fibrosis and RLL new infiltrate Patient appears to be improved congnitively Nebs and IV abx ordered COVID x [address] scan so will start PPI Lovenox SQ 40mg daily maintained 01/03/20: Pt overall doing much better CXR shows B/L upper lobe infiltrates Covid swab will be done Pt has had a cough since he came over from [facility], his Covid test was negative on 12/20 O2 supplementation maintained Spoke to radiology and given elevated d-dimer and maintained on Lovenox since admit will perform perfusion scan 01/02/20: Pt about the same No major changes Cognition continues to be a challenge 01/01/20: Pt doing pretty well No significant changes Cognition is an issue Participating in therapy with a lot of heavy cues 12/31/19: Family pics helping morale Got into shower without tearfulness Coughing managed with Robitussin DM and Xanax 12/30/19: Xanax helping him at night Robitussin DM also helps Will check on [employer] EMR to see what was done for cough evaluation Event monitor was planned for [facility] at DC will reach out on Wednesday regarding those details 12/29/19: Patient seems about the same Cognition is a challenge when communicating No falls 12/28/19: Crushing pills in apple sauce seems to help Snoring at night, unsure if he needs to be on oxygen Xanax given at night really helps him Robitussin DM given for cough Aphasia continues Bowels moved yesterday so will continue laxatives Becomes tearful at times 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 Checked meds and labs Reviewed therapy notes Conferred with professor of communication arts of Systems Pulmonary: Dyspnea Objective Exam Vital Signs Vital Signs Date Time Temp Pulse Resp B/P (MAP) Pulse Ox O2 Delivery O2 Flow Rate FiO2 01/11/20 17:03 36.6 70 16 119/59 (79) 99 Nasal Cannula 3.00 Capillary Refill : Less Than 3 Seconds General Appearance: No Apparent Distress, WD/WN, Chronically ill HEENT: PERRL/EOMI, Normal ENT Inspection, Pharynx Normal Neck: Full Range of Motion, Normal Inspection, Non Tender, Supple, Carotid Bruit Respiratory: Chest Non Tender, Lungs Clear, Normal Breath Sounds, No Accessory Muscle Use, No Respiratory Distress, Other Cardiovascular: Regular Rate, Rhythm, No Edema, No Gallop, No JVD, No Murmur, Normal Peripheral Pulses Gastrointestinal: Normal Bowel Sounds, No Organomegaly, No Pulsatile Mass, Non Tender, Soft Back: Normal Inspection, No CVA Tenderness, No Vertebral Tenderness Extremity: Normal Capillary Refill, Normal Inspection, Normal Range of Motion, Non Tender, No Calf Tenderness, No Pedal Edema Neurologic/Psychiatric: Alert, Oriented x3, Normal Mood/Affect, acrylic fabricator II-XII Norm as Tested, Abnormal Gait, Aphasia, Depressed Affect, Motor Weakness Skin: Normal Color, Warm/Dry Lymphatic: No Adenopathy Results/Procedures Lab Patient resulted labs reviewed. FIM Transfers Therapy Code Descriptions/Definitions Functional [place] Measure: 0=Not Assessed/NA 4=Minimal Assistance 1=Total Assistance 5=Supervision or Setup 2=Maximal Assistance 6=Modified [place] 3=Moderate Assistance 7=Complete IndependenceSCALE: Activities may be completed with or without assistive devices. 6-Cnyahhbqns-limmtgz completes the activity by him/herself with no assistance from a helper. 5-Set-up or Clean-up Assistance-helper sets up or cleans up; patient completes activity. [place] assists only prior to or following the activity. 4-Supervision or Touching Assistance-helper provides verbal cues and/or touching/steadying and/or contact guard assistance as patient completes activity. Assistance may be provided throughout the activity or intermittently. 3-Partial/Moderate Assistance-helper does LESS THAN HALF the effort. [place] lifts, holds or supports trunk or limbs, but provides less than half the effort. 2-Substantial/Maximal Assistance-helper does MORE THAN HALF the effort. [place] lifts or holds trunk or limbs and provides more than half the effort. 3-Eozecrgrc-ipditl does ALL the effort. Patient does none of the effort to complete the activity. Or, the assistance of 2 or more helpers is required for the patient to complete the activity. If activity was not attempted, code reason: 7-Patient Refused. 9-Not Applicable-not attempted and the patient did not perform the activity before the current illness, exacerbation or injury. 10-Not Attempted due to Environmental Limitations-(lack of equipment, weather restraints, etc.). 88-Not Attempted due to Medical Conditions or Safety Concerns. Roll Left to Right (QC): 6 Sit to Lying (QC): 6 Sit to Stand (QC): 5 Chair/Lop-lj-Bvpmz Xfer(QC): 5 Car Transfer (QC): 5 Gait Training Does the Patient Walk?: Yes Distance: 150' x2 Walk 10 feet (QC): 5 Walk 50 ft with 2 Turns(QC): 5 Walk 150 ft (QC): 5 Walking 10ft/uneven surface-QC: 5 Gait Persons Needed: 1 Gait Assistive Device: FWW Wheelchair Training Does the Pt Use a Wheelchair?: No Wheel 50 ft with 2 turns (QC): 9 Wheel 150 ft (QC): 9 Stair Training Stair Training: Handrails/: 2 handrails #of Steps: 4 1 Step (curb) (QC): 5 4 Steps (QC): 5 12 Steps (QC): 88 Stairs: Pattern: Reciprocal Balance Picking up an Object (QC): 5 ADL-Treatment Eating (QC): 5 Oral Hygiene (QC): 4 Bathing Location: L Arm, R Arm, L Upper Leg, R Upper Leg, L Lower Leg (including foot), R Lower Leg (including foot), Chest, Abdomen, Buttocks, Perineal Area Shower/Bathe Self (QC): 5 Upper Body Dressing (QC): 5 Lower Body Dressing (QC): 4 On/Off Footwear (QC): 6 Toileting Hygiene (QC): 6 Toilet Transfer (QC): 5 Assessment/Plan Assessment and Plan Assess & Plan/Chief Complaint Assessment: CVA Expressive aphasia Confusion Urinary retention h/o lymphoma CRI Fall risk Pulmonary fibrosis on CT scan 01/04/[address] 01/04/20 with new hypoxia placed on treatment Esophagitis on CT scan placed on PPI Esophageal varices on EGD with gastritis Plan: IRF protocol Check labs in am Monitor for falls Monitor urinary retention 12/27/19: Aphasia management Monitor BP Monitor creatinine 12/28/19: Monitor aphasia Monitor for falls Increased risk of confusion 12/29/19: Cough management but appears to be a non-purposeful behavior since CVA 12/30/19: Will research cough w/u on [employer] EMR Monitor closely 12/31/19: Monitor closely Fall risk Cognition therapy 01/01/20: Cough management Xanax at night helps him sleep 01/02/20: IRF protocol DIscuss dispo at meeting 01/03/20: Pursue septic w/u O2 COVID swab Monitor closely 01/04/20: IV abx COVID negative Pulmonary fibrosis will likely require O2 at DC continuously PPI Esophagitis on CT scan 01/05/20: Improved status O2 Abx PPI 01/06/20: Melena evaluation Hold Lovenox in meantime Abx O2 01/07/20: Monitor cough Change IV abx to PO Check labs in am Change diet appears microaspiration 01/08/20: EGD tomorrow Abx PO now O2 Nebs Cough management 01/09/20: Varices on EGD with gastritis Hold Lovenox PPI O2 01/10/20: Restart Plavix and ASA PPI O2 at home 01/11/2020: Discharge home tomorrow Home shelter oxygen Pulmonary fibrosis along with stroke and cognitive deficit precludes anything but a poor prognosis long-term (1) CVA (cerebral vascular accident) Qualifiers: Qualified Codes: I63.9 - Cerebral infarction, unspecified (2) Lymphoma in remission (3) Renal insufficiency (4) Expressive aphasia (5) Confusion (6) Anemia (7) Retention, urine (8) Delirium JAMAL CANADA DO Jan 11, 2020 12:49
--- NOTE | 2020-01-11 13:35 | Physical Therapy Daily Note ---
PT Daily Note-Current Subjective Pt sitting in recliner upon arrival. Pt agrees to PT. Pain Location: No Pain Reported Mental Status Patient Orientation: Person, Confused, Place Attachments: Oxygen Transfers SCALE: Activities may be completed with or without assistive devices. 9-Ngqgzlredn-cwngylw completes the activity by him/herself with no assistance from a helper. 5-Set-up or Clean-up Assistance-helper sets up or cleans up; patient completes activity. [place] assists only prior to or following the activity. 4-Supervision or Touching Assistance-helper provides verbal cues and/or to uching/steadying and/or contact guard assistance as patient completes activity. Assistance may be provided throughout the activity or intermittently. 3-Partial/Moderate Assistance-helper does LESS THAN HALF the effort. [place] lifts, holds or supports trunk or limbs, but provides less than half the effort. 2-Substantial/Maximal Assistance-helper does MORE THAN HALF the effort. [place] lifts or holds trunk or limbs and provides more than half the effort. 1-Raentswbs-ajhnco does ALL the effort. Patient does none of the effort to complete the activity. Or, the assistance of 2 or more helpers is required for the patient to complete the activity. If activity was not attempted, code reason: 7-Patient Refused. 9-Not Applicable-not attempted and the patient did not perform the activity before the current illness, exacerbation or injury. 10-Not Attempted due to Environmental Limitations-(lack of equipment, weather restraints, etc.). 88-Not Attempted due to Medical Conditions or Safety Concerns. Weight Bearing Full Weight Bearing Full Weight Bearing Exercises Supine Ex: Ankle pumps, Quad Set, Glut sets, Heel Slides, Short Arc Quads, Straight leg raise, Hip abd/add Supine Reps: 15 Seated Therapy Exercises: Ankle pumps, Long arc quads, Hip flexion, Kicking activity Seated Reps: 15 Treatments Pt completes written HEP for Supine & Seated EX given by RISK ASSESSMENT CONSULTANT. Pt resting at end of tx. All needs met, call light in hand. Assessment Current Status: Fair Progress Pt is very fatigued & confused during tx. PT Short Term Goals Short Term Goals Time Frame: Jan 02, 2020 Roll Left & Right: 6 Sit to lyin Lying to sitting on side of be: 6 Sit to stand: 5 Chair/pym-ox-yzcjh transfer: 5 Toilet transfer: 5 Walk 10 feet: 5 Walk 50 feet with two turns: 5 Walk 150 feet: 5 PT Mcc Goals Mcc Goals PT Ultrasonic Tester Goals Time Frame: Jan 16, 2020 Roll Left & Right (QC): 6 Sit to Lying (QC): 6 Lying-Sitting on Side/Bed(QC): 6 Sit to Stand (QC): 6 Chair/Vtn-hg-Zdyie Xfer(QC): 6 Toilet Transfer (QC): 6 Car Transfer (QC): 6 Does the Patient Walk: Yes Walk 10 feet (QC): 6 Walk 50ft with 2 Turns (QC): 6 Walk 150 ft (QC): 6 Walking 10ft on Uneven Surface: 6 1 Step (curb) (QC): 6 4 Steps (QC): 6 12 Steps (QC): 6 Picking up an Object (QC): 6 Wheel 50 feet with 2 turns (QC: 9 Wheel 150 feet: 9 PT Plan Problem List Problem List: Activity Tolerance Treatment/Plan Treatment Plan: Continue Plan of Care Treatment Plan: Education, Functional Activity Negrita, Functional Strength, Gr oup Therapy, Gait, Safety, Therapeutic Exercise, Transfers Treatment Duration: Jan 16, 2020 Frequency: At least 5 of 7 days/Wk (IRF) Estimated Hrs Per Day: 1.5 hours per day Patient and/or Family Agrees t: Yes Safety Risks/Education Patient Education: Issued Written HEP, Correct Positioning, Safety Issues Teaching Recipient: Patient Teaching Methods: Demonstration, Discussion Response to Teaching: Reinforcement Needed Time/GCodes Time In: 1300 Time Out: 1330 Total Billed Treatment Time: 30 Total Billed Treatment 1, EX x2 (30m) GURMEET JUAREZ RISK ASSESSMENT CONSULTANT Jan 11, 2020 13:35
--- NOTE | 2020-01-11 15:12 | NUR ---
PATIENT QUALIFIES FOR 4L WHILE RESTING AND 6L WHILE AMBULATORY Addendum: 01/11/20 at 1512 by BELEN MCPHERSON RT Amended: Links added.
--- NOTE | 2020-01-11 15:41 | NUR ---
CM/SS DISCHARGE PLANNING Patient will discharge tomorrow a.m. home with his and family members. His son John will be flying in from [facility] to be with them to assist for a short period of time. HHC: Patient/spouse understood that, without a preference from them, Medicare home health review would be utilized to start with highest rating in their service area who could provide timely care. [facility] [place]. No agencies were found that provide ST through home health venue, [facility] was willing to transition patient to OP ST at [place] once he was safely able to attend. DME: Patient/spouse chose to utilize [facility] for FWW and new home O2. Agency understands to deliver walker and portable O2 to patient room in a.m. prior to discharge at 1000 and to contact Carolyne to coordinate home set up. IMM2 presented, reviewed, signed, charted. Finalize in a.m.
[2020-01-11 17:03] VITALS: BP 119/59
[2020-01-11] MEDS ORDERED: SERT25TA5 PO (17:07)
[2020-01-11] MEDS ORDERED: ATOR40TA70 PO (17:07)
[2020-01-11] MEDS ORDERED: MELA3TAB39 PO (17:07)
[2020-01-11] MEDS ORDERED: ZINC28PA TOP (17:07)
[2020-01-11] MEDS ORDERED: CLOP75TA69 PO (17:07)
[2020-01-11] MEDS ORDERED: PANT40TA52 PO (17:07)
[2020-01-11] MEDS ORDERED: ALPR.25T PO (17:07)
[2020-01-11] MEDS ORDERED: ALBU2.5V4 INH (17:07)
[2020-01-11] MEDS ORDERED: ASPI-1238 PO (17:07)
[2020-01-11] MEDS ORDERED: GUAI473L29 PO (17:07)
--- NOTE | 2020-01-11 17:09 | D/C HH Face to Face Order ---
D/C Face to Face Orders Reconcile Patient Problems Problems Reviewed?: Yes Instructions for Patient Home Health Patient Instructions/FollowUp: Dr Glass 1 week Physician to follow Patient: Quan Discharge Diet for Home: other diet (mechanical soft diet/pureed if needed) Patient Problems: CVA Patient Data-Allergies,Ht & Wt Patient Allergies: Coded Allergies: No Known Drug Allergies (Unverified , 12/26/19) Home Health Need/Face to Face Date of Face to Face: Jan 11, 2020 Clinical Findings: Generalized weakness and fatigue, Instability, Unsteady gait I have seen Pt hafe-uo-ciud: Yes Discharged To: Home Diagnosis/Conditions: CVA Patient is Homebound due to: CognItive deficits, Sebastián fall risk due to instabilty, Muscle weakness Homebound Status Due to the above stated illness, injury or surgical procedure (medical condition or diagnosis) and associated clinical findings, the patient is homebound because of his/her inability to leave home except with aid of a supportive device and/or person AND leaving the home requires a considerable and taxing effort or is medically contraindicated. Pt req the following assistanc: Walker Home Health Nursing Orders Home Health Services Order: Nursing Services, Tar Distillation Supervisor-Evaluate & Treat, Physical Therapy-Evaluate & Treat, Speech Language-Evaluate & Treat Home Health Infusion Therapy Line Start Date: Jan 03, 2020 Certify Stmt I certify that this patient is under my care and that I, a nurse practitioner or a physician; a assistant associate full professor working with me, had a face to face encounter that -m eets the physician face to face encounter requirements with this patient as dated. JAMAL CANADA DO Jan 11, 2020 17:09
[2020-01-11] MEDS: ALPRAZolam 0.25 MG (XANAX) TAB PO SCH (20:25)
[2020-01-11] MEDS: LATANOPROST 0.005% (XALATAN) OPHTH SOLN 2.5 ML OU SCH (20:26)
[2020-01-12 05:48] VITALS: BP 116/59
[2020-01-12] MEDS: VITAMIN D3 25 MCG (1,000 UNITS) TABLET PO SCH (06:24)
[2020-01-12] MEDS: CATHETER FLUSH 10 ML SYR IV SCH (06:24)
[2020-01-12] MEDS: RT-ALBUTEROL SULF 2.5 MG/3 ML PRE-MIX VIAL INH SCH (07:36)
[2020-01-12] MEDS: guaiFENesin/CODEINE (ROBITUSSIN AC) 10ML UDC PO PRN (08:06)
[2020-01-12] MEDS: ASPIRIN E.C. 81 MG (ECOTRIN) TAB PO SCH (08:06)
[2020-01-12] MEDS: SERTRALINE 50 MG (ZOLOFT) TABLET PO SCH (08:06)
[2020-01-12] MEDS: CEFDINIR 300 MG (OMNICEF) CAP PO SCH (08:06)
[2020-01-12] MEDS: PANTOPRAZOLE 40 MG (PROTONIX) TAB PO SCH (08:06)
[2020-01-12] MEDS: DOCUSATE SODIUM 100 MG (COLACE) CAP PO SCH (08:07)
[2020-01-12] MEDS: SENNA W/DOCUSATE (SENOKOT S) TABLET PO SCH (08:08)
[2020-01-12] MEDS: polyethylene glycoL POWDER 17 GM (MIRALAX) PACK PO SCH (08:08)
--- NOTE | 2020-01-12 10:11 | Therapy Team Discharge Summary ---
Therapy Discharge Summary Discharge Recommendations Date of Discharge Physical Therapy Patient came to rehab following a CVA. Upon evaluation patient performed bed mobility and supine <-> sit with independence, sit <-> stand and transfers with CGA, car transfer min assist, ambulated 200' with a rolling walker with CGA (including 50' with at least 2 turns of 90 degrees and 10' over an uneven surface), and went up and down 4 steps using 2 handrails with CGA. Patient has been performing bed mobility and transfer training, balance and endurance training, functional strengthening, stair training, gait training, and education. 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 Now, patient performs bed mobility and supine <-> sit with independence, transfers and car transfer with setup, ambulates 150' with a rolling walker with setup (including 50' with at least 2 turns of 90 degrees and 10' over an uneven surface), can excelsior picker an object from the floor with setup, and can go up and down 4 steps using 2 handrails with setup. Patient is discharging from this facility today and will be discharged from PT at this time. Occupational Therapy Decreased Activ Tolerance, Decreased UE Strength, Impaired Funct Balance, Impaired Self-Care Skills PT Bag Cutter Goals Group Home Goals PT Bag Cutter Goals Time Frame: Jan 16, 2020 Roll Left to Right (QC): 6 Sit to Lying (QC): 6 Lying-Sitting on Side/Bed(QC): 6 Sit to Stand (QC): 6 Chair/Uay-al-Epuaf Xfer(QC): 6 Car Transfer (QC): 6 Does the Patient Walk: Yes Walk 10 feet (QC): 6 Walk 10ft-Uneven Surface(QC): 6 Walk 50ft with 2 Turns (QC): 6 Walk 150 ft (QC): 6 Wheel 50 feet with 2 turns (QC: 9 1 Step (curb) (QC): 6 4 Steps (QC): 6 12 Steps (QC): 6 Picking up an Object (QC): 6 OT Group Home Goals Bag Cutter Goals Time Frame: Jan 09, 2020 Eating (FIM): 6 Eating (QC): 6 Oral Hygiene (QC): 5 Shower/Bathe Self (QC): 4 Upper Body Dressing (QC): 5 Lower Body Dressing (QC): 5 On/Off Footwear (QC): 5 Toileting(FIM): 6 Toileting Hygiene (QC): 6 Toilet/Commode Transfer (QC): 6 Additional Goals: 1-Demonstrate ADL Tasks, 2-Verbalize Understanding, 3- ImproveStrength/Negrita 1=Demonstrate adherence to instructed precautions during ADL tasks. 2=Patient will verbalize/demonstrate understanding of assistive devices/m odifications for ADL. 3=Patient will improve strength/tolerance for activity to enable patient to perform ADL's. Speech Group Home Goals Group Home Goals Patient will improve cognitive-communication necessary for safety and daily living tasks with minimal assist. Patient will maintain adequate nutrition/hydration via safe effective swallow function. FAYE MORALES PT Jan 12, 2020 10:11
--- NOTE | 2020-01-12 11:46 | Therapy Team Discharge Summary ---
Therapy Discharge Summary Discharge Recommendations Date of Discharge Occupational Therapy Decreased Activ Tolerance, Decreased UE Strength, Impaired Funct Balance, Impaired Self-Care Skills Speech-Language Pathology Patient was admitted to the ARU s/p CVA. Patient exhibited moderate expressive aphasia and cognitive deficits. Patient received skilled ST for these deficits. He made progress, however he did not achieve the ST goals per POC. Patient has discharged to his home with family. Patient will receive home health services with ST continued. PT Induction Machine Setter Goals Induction Machine Setter Goals PT Induction Machine Setter Goals Time Frame: Jan 16, 2020 Roll Left to Right (QC): 6 Sit to Lying (QC): 6 Lying-Sitting on Side/Bed(QC): 6 Sit to Stand (QC): 6 Chair/Gdv-ve-Ukvir Xfer(QC): 6 Car Transfer (QC): 6 Does the Patient Walk: Yes Walk 10 feet (QC): 6 Walk 10ft-Uneven Surface(QC): 6 Walk 50ft with 2 Turns (QC): 6 Walk 150 ft (QC): 6 Wheel 50 feet with 2 turns (QC: 9 1 Step (curb) (QC): 6 4 Steps (QC): 6 12 Steps (QC): 6 Picking up an Object (QC): 6 OT [facility] Goals Induction Machine Setter Goals Time Frame: Jan 09, 2020 Eating (FIM): 6 Eating (QC): 6 Oral Hygiene (QC): 5 Shower/Bathe Self (QC): 4 Upper Body Dressing (QC): 5 Lower Body Dressing (QC): 5 On/Off Footwear (QC): 5 Toileting(FIM): 6 Toileting Hygiene (QC): 6 Toilet/Commode Transfer (QC): 6 Additional Goals: 1-Demonstrate ADL Tasks, 2-Verbalize Understanding, 3-Imp roveStrength/Negrita 1=Demonstrate adherence to instructed precautions during ADL tasks. 2=Patient will verbalize/demonstrate understanding of assistive devices/modifications for ADL. 3=Patient will improve strength/tolerance for activity to enable patient to perform ADL's. Speech Induction Machine Setter Goals Induction Machine Setter Goals Patient will improve cognitive-communication necessary for safety and daily living tasks with minimal assist. Patient will maintain adequate nutrition/hydration via safe effective swallow function. SUNSHINE REAGAN Jan 12, 2020 11:46
--- NOTE | 2020-01-12 12:18 | Discharge Summary ---
Diagnosis/Chief Complaint Date of Admission Dec 26, 2019 at 08:55 Date of Discharge Jan 12, 2020 at 11:28 Discharge Date: Jan 12, 2020 Discharge Diagnosis Assessment: CVA Expressive aphasia Confusion Urinary retention h/o lymphoma CRI Fall risk Pulmonary fibrosis on CT scan 01/04/[address] 01/04/20 with new hypoxia placed on treatment Esophagitis on CT scan placed on PPI Esophageal varices on EGD with gastritis Plan: IRF protocol Check labs in am Monitor for falls Monitor urinary retention 12/27/19: Aphasia management Monitor BP Monitor creatinine 12/28/19: Monitor aphasia Monitor for falls Increased risk of confusion 12/29/19: Cough management but appears to be a non-purposeful behavior since CVA 12/30/19: Will research cough w/u on [employer] Monitor closely 12/31/19: Monitor closely Fall risk Cognition therapy 01/01/20: Cough management Xanax at night helps him sleep 01/02/20: IRF protocol DIscuss dispo at meeting 01/03/20: Pursue septic w/u O2 COVID swab Monitor closely 01/04/20: IV abx COVID negative Pulmonary fibrosis will likely require O2 at DC continuously PPI Esophagitis on CT scan 01/05/20: Improved status O2 Abx PPI 01/06/20: Melena evaluation Hold Lovenox in meantime Abx O2 01/07/20: Monitor cough Change IV abx to PO Check labs in am Change diet appears microaspiration 01/08/20: EGD tomorrow Abx PO now O2 Nebs Cough management 01/09/20: Varices on EGD with gastritis Hold Lovenox PPI O2 01/10/20: Restart Plavix and ASA PPI O2 at home 01/11/2020: Discharge home tomorrow [facility] Pulmonary fibrosis along with stroke and cognitive deficit precludes anything but a poor prognosis long-term (1) CVA (cerebral vascular accident) Qualifiers: Qualified Codes: I63.9 - Cerebral infarction, unspecified (2) Lymphoma in remission (3) Renal insufficiency (4) Expressive aphasia (5) Confusion (6) Anemia (7) Retention, urine (8) Delirium Discharge Summary Discharge Physical Examination Allergies: Coded Allergies: No Known Drug Allergies (Unverified , 12/26/19) Vitals & I&Os Vital Signs Date Time Temp Pulse Resp B/P (MAP) Pulse Ox O2 Delivery O2 Flow Rate FiO2 01/12/20 09:35 Nasal Cannula 3.00 01/12/20 07:37 98 01/12/20 05:48 36.8 70 20 116/59 (78) General Appearance: Alert, Cooperative Respiratory: Clear to Auscultation Cardiovascular: Regular Rate Hospital Course Was the Problem List Reviewed?: Yes Hospital course: Patient had an uneventful hospital course for 18 days after he was admitted due to catastrophic stroke with expressive aphasia and dysphagia. He required oxygen and was short of breath and had a chronic cough which I obtained CT scan confirming my suspicion of pulmonary fibrosis along with pneumonia and he did complete broad-spectrum antibiotics for hospital-acquired pneumonia then transition to oral antibiotics and completed by the time he was discharged. VQ scan showed no high probability of pulmonary embolism. Covid test was negative. Overall patient had extensive expressive aphasia with cognitive deficits from the stroke requiring intensive speech therapy along with PT and OT he was able to ambulate with a walker and follow heavy cues and ultimately return home on 4 L of oxygen continuously and 6 L on exertion so we will monitor that closely considering the new diagnosis of pulmonary fibrosis which could ultimately worsen and cause respiratory insufficiency. Labs (last 24 hrs) Laboratory Tests 12/27/19 05:02: White Blood Count 11.1H, Red Blood Count 3.84L, Hemoglobin 12.8L, Hematocrit 39L , Mean Corpuscular Volume 101H, Mean Corpuscular Hemoglobin 33, Mean Corpuscular Hemoglobin Concent 33, Red Cell Distribution Width 13.2, Platelet Count 249, Mean Platelet Volume 12.5H, Immature Granulocyte % (Auto) 0, Neutrophils (%) (Auto) 52, Lymphocytes (%) (Auto) 22, Monocytes (%) (Auto) 18H, Eosinophils (%) (Auto) 7, Basophils (%) (Auto) 1, Neutrophils # (Auto) 5.8, Lymphocytes # (Auto) 2.4, Monocytes # (Auto) 2.0H, Eosinophils # (Auto) 0.8H, Basophils # (Auto) 0.1, Immature Granulocyte # (Auto) 0.0, Sodium Level 141, Potassium Level 4.2, Chloride Level 109H, Carbon Dioxide Level 23, Anion Gap 9, Blood Urea Nitrogen 25H, Creatinine 1.71H, Estimat Glomerular Filtration Rate 39, BUN/Creatinine Ratio 15, Glucose Level 105, Calcium Level 8.3L, Corrected Calcium 8.9, Total Bilirubin 0.7, Aspartate Amino Transf (AST/SGOT) 29, Alanine Aminotransferase (ALT/SGPT) 26, Alkaline Phosphatase 95, Total Protein 6.9, Albumin 3.2 01/01/20 05:30: White Blood Count 9.7, Red Blood Count 3.80L, Hemoglobin 12.5L, Hematocrit 38L, Mean Corpuscular Volume 101H, Mean Corpuscular Hemoglobin 33, Mean Corpuscular Hemoglobin Concent 33, Red Cell Distribution Width 13.3, Platelet Count 257, Mean Platelet Volume 12.3H, Immature Granulocyte % (Auto) 0, Neutrophils (%) (Auto) 50, Lymphocytes (%) (Auto) 23, Monocytes (%) (Auto) 17H, Eosinophils (%) (Auto) 9, Basophils (%) (Auto) 1, Neutrophils # (Auto) 4.9, Lymphocytes # (Auto) 2.2, Monocytes # (Auto) 1.7H, Eosinophils # (Auto) 0.9H, Basophils # (Auto) 0.1, Immature Granulocyte # (Auto) 0.0, Sodium Level 141, Potassium Level 4.1, Chloride Level 108H, Carbon Dioxide Level 24, Anion Gap 9, Blood Urea Nitrogen 26H, Creatinine 1.67H, Estimat Glomerular Filtration Rate 40, BUN/Creatinine Ratio 16, Glucose Level 95, Calcium Level 8.1L, Corrected Calcium 8.8, Total Bilirubin 0.5, Aspartate Amino Transf (AST/SGOT) 68H, Alanine Aminotransferase (ALT/SGPT) 69H, Alkaline Phosphatase 151H, Total Protein 6.8, Albumin 3.1L 01/03/20 13:52: Coronavirus 2019 (CLYDE) Negative 01/03/20 14:18: Coronavirus (COVID-19)(PCR) Negative 01/03/20 14:45: Blood Gas Puncture Site R RAD, Blood Gas Patient Temperature 37, Arterial Blood pH 7.40, Arterial Blood Partial Pressure CO2 40, Arterial Blood Partial Pressure O2 66L, Arterial Blood HCO3 24, Arterial Blood Total CO2 25.6, Arterial Blood Oxygen Saturation 91L, Arterial Blood Base Excess 0.2, Junito Test NA, Blood Gas Ventilator Setting NO, Blood Gas Inspired Oxygen 2L 01/03/20 14:50: White Blood Count 11.2H, Red Blood Count 3.80L, Hemoglobin 12.5L, Hematocrit 39L , Mean Corpuscular Volume 103H, Mean Corpuscular Hemoglobin 33, Mean Corpuscular Hemoglobin Concent 32, Red Cell Distribution Width 13.4, Platelet Count 272, Mean Platelet Volume 12.1, Immature Granulocyte % (Auto) 0, Neutrophils (%) (Auto) 49, Lymphocytes (%) (Auto) 26, Monocytes (%) (Auto) 16H, Eosinophils (%) (Auto) 8, Basophils (%) (Auto) 1, Neutrophils # (Auto) 5.5, Lymphocytes # (Auto) 2.9, Monocytes # (Auto) 1.7H, Eosinophils # (Auto) 0.9H, Basophils # (Auto) 0.1, Immature Granulocyte # (Auto) 0.0, D-Dimer 1.90H, Sodium Level 141, Potassium Level 4.2, Chloride Level 106, Carbon Dioxide Level 26, Anion Gap 9, Blood Urea Nitrogen 28H, Creatinine 1.79H, Estimat Glomerular Filtration Rate 37, BUN/Creatinine Ratio 16, Glucose Level 134H, Lactic Acid Level 1.57, Calcium Level 8.4L, Corrected Calcium 9.0, Total Bilirubin 0.5, Aspartate Amino Transf (AST/SGOT) 51H, Alanine Aminotransferase (ALT/SGPT) 57H, Alkaline Phosphatase 143H, C-Reactive Protein High Sensitivity 1.19H, B-Type Natriuretic Peptide 49.6, Total Protein 7.5, Albumin 3.3, Procalcitonin 0.07 01/04/20 06:10: White Blood Count 9.5, Red Blood Count 3.77L, Hemoglobin 12.5L, Hematocrit 38L, Mean Corpuscular Volume 102H, Mean Corpuscular Hemoglobin 33, Mean Corpuscular Hemoglobin Concent 33, Red Cell Distribution Width 13.4, Platelet Count 262, Mean Platelet Volume 12.1, Immature Granulocyte % (Auto) 0, Neutrophils (%) (Auto) 48, Lymphocytes (%) (Auto) 21, Monocytes (%) (Auto) 18H, Eosinophils (%) (Auto) 13H, Basophils (%) (Auto) 1, Neutrophils # (Auto) 4.5, Lymphocytes # (Auto) 2.0, Monocytes # (Auto) 1.7H, Eosinophils # (Auto) 1.2H, Basophils # (Auto) 0.1, Immature Granulocyte # (Auto) 0.0, Sodium Level 142, Potassium Level 4.2, Chloride Level 106, Carbon Dioxide Level 24, Anion Gap 12, Blood Urea Nitrogen 29H, Creatinine 1.78H, Estimat Glomerular Filtration Rate 37, BUN/Creatinine Ratio 16, Glucose Level 104, Lactic Acid Level 0.91, Calcium Level 8.3L, Corrected Calcium 9.0, Total Bilirubin 0.5, Aspartate Amino Transf (AST/SGOT) 45H, Alanine Aminotransferase (ALT/SGPT) 49, Alkaline Phosphatase 125, Total Protein 6.9, Albumin 3.1L, Procalcitonin 0.07, Neutrophils % (Manual) 59, Lymphocytes % (Manual) 18, Monocytes % (Manual) 12, Eosinophils % (Manual) 11, Acanthocytes SLIGHT 01/05/20 08:00: White Blood Count 9.8, Red Blood Count 3.66L, Hemoglobin 12.2L, Hematocrit 38L, Mean Corpuscular Volume 103H, Mean Corpuscular Hemoglobin 33, Mean Corpuscular Hemoglobin Concent 32, Red Cell Distribution Width 13.4, Platelet Count 298, Mean Platelet Volume 11.9, Immature Granulocyte % (Auto) 0, Neutrophils (%) (Auto) 56, Lymphocytes (%) (Auto) 18, Monocytes (%) (Auto) 15H, Eosinophils (%) (Auto) 10, Basophils (%) (Auto) 1, Neutrophils # (Auto) 5.4, Lymphocytes # (Auto) 1.7, Monocytes # (Auto) 1.5H, Eosinophils # (Auto) 1.0H, Basophils # (Auto) 0.1, Immature Granulocyte # (Auto) 0.0, Sodium Level 139, Potassium Level 4.1, Chloride Level 106, Carbon Dioxide Level 21, Anion Gap 12, Blood Urea Nitrogen 28H, Creatinine 1.78H, Estimat Glomerular Filtration Rate 37, BUN/Creatinine Ratio 16, Glucose Level 145H, Calcium Level 8.7, Corrected Calcium 9.3, Total Bilirubin 0.6, Aspartate Amino Transf (AST/SGOT) 48H, Alanine Aminotransferase (ALT/SGPT) 49, Alkaline Phosphatase 120, Total Protein 7.3, Albumin 3.3, Procalcitonin 0.08 01/08/20 04:23: White Blood Count 11.8H, Red Blood Count 3.23L, Hemoglobin 10.7L, Hematocrit 33L , Mean Corpuscular Volume 103H, Mean Corpuscular Hemoglobin 33, Mean Corpuscular Hemoglobin Concent 32, Red Cell Distribution Width 13.3, Platelet Count 245, Mean Platelet Volume 12.5H, Immature Granulocyte % (Auto) 0, Neutrophils (%) (Auto) 49, Lymphocytes (%) (Auto) 21, Monocytes (%) (Auto) 19H, Eosinophils (%) (Auto) 11H, Basophils (%) (Auto) 1, Neutrophils # (Auto) 5.8, Lymphocytes # (Auto) 2.4, Monocytes # (Auto) 2.2H, Eosinophils # (Auto) 1.2H, Basophils # (Auto) 0.1, Immature Granulocyte # (Auto) 0.0, Sodium Level 142, Potassium Level 4.3, Chloride Level 107, Carbon Dioxide Level 24, Anion Gap 11, Blood Urea Nitrogen 30H, Creatinine 1.60H, Estimat Glomerular Filtration Rate 42, BUN/Cr eatinine Ratio 19, Glucose Level 102, Calcium Level 8.1L, Corrected Calcium 8.9, Total Bilirubin 0.4, Aspartate Amino Transf (AST/SGOT) 44H, Alanine Aminotransferase (ALT/SGPT) 43, Alkaline Phosphatase 115, Total Protein 6.4, Albumin 3.0L 01/08/20 06:09: Stool Occult Blood Immunoassay POSITIVEH Microbiology 01/04/20 Blood Culture - Final, Complete Staph, Coag Neg (PRIMARY SPECIAL EDUCATOR) See Comments Pending Labs Microbiology Date/Time Source Procedure Growth Status 01/04/20 06:15 Peripheral Lt Hand Blood Culture - Final Staph, Coag Neg (PRIMARY SPECIAL EDUCATOR) See Comments Complete 01/04/20 06:10 Peripheral Lt Ac Blood Culture - Final No growth Complete 01/03/20 14:50 Peripheral Left Forearm Blood Culture - Final No growth Complete 01/03/20 14:50 Peripheral Rt Ac Blood Culture - Final No growth Complete Laboratory Tests 12/27/19 05:02: White Blood Count 11.1, Red Blood Count 3.84, Hemoglobin 12.8, Hematocrit 39, Mean Corpuscular Volume 101, Mean Corpuscular Hemoglobin 33, Mean Corpuscular Hemoglobin Concent 33, Red Cell Distribution Width 13.2, Platelet Count 249, Mean Platelet Volume 12.5, Immature Granulocyte % (Auto) 0, Neutrophils (%) (Auto) 52, Lymphocytes (%) (Auto) 22, Monocytes (%) (Auto) 18, Eosinophils (%) (Auto) 7, Basophils (%) (Auto) 1, Neutrophils # (Auto) 5.8, Lymphocytes # (Auto) 2.4, Monocytes # (Auto) 2.0, Eosinophils # (Auto) 0.8, Basophils # (Auto) 0.1, Immature Granulocyte # (Auto) 0.0, Sodium Level 141, Potassium Level 4.2, Chloride Level 109, Carbon Dioxide Level 23, Anion Gap 9, Blood Urea Nitrogen 25, Creatinine 1.71, Estimat Glomerular Filtration Rate 39, BUN/Creatinine Ratio 15, Glucose Level 105, Calcium Level 8.3, Corrected Calcium 8.9, Total Bilirubin 0.7, Aspartate Amino Transf (AST/SGOT) 29, Alanine Aminotransferase (ALT/SGPT) 26, Alkaline Phosphatase 95, Total Protein 6.9, Albumin 3.2 01/01/20 05:30: White Blood Count 9.7, Red Blood Count 3.80, Hemoglobin 12.5, Hematocrit 38, Mean Corpuscular Volume 101, Mean Corpuscular Hemoglobin 33, Mean Corpuscular Hemoglobin Concent 33, Red Cell Distribution Width 13.3, Platelet Count 257, Mean Platelet Volume 12.3, Immature Granulocyte % (Auto) 0, Neutrophils (%) (Auto) 50, Lymphocytes (%) (Auto) 23, Monocytes (%) (Auto) 17, Eosinophils (%) (Auto) 9, Basophils (%) (Auto) 1, Neutrophils # (Auto) 4.9, Lymphocytes # (Auto) 2.2, Monocytes # (Auto) 1.7, Eosinophils # (Auto) 0.9, Basophils # (Auto) 0.1, Immature Granulocyte # (Auto) 0.0, Sodium Level 141, Potassium Level 4.1, Chloride Level 108, Carbon Dioxide Level 24, Anion Gap 9, Blood Urea Nitrogen 26, Creatinine 1.67, Estimat Glomerular Filtration Rate 40, BUN/Creatinine Ratio 16, Glucose Level 95, Calcium Level 8.1, Corrected Calcium 8.8, Total Bilirubin 0.5, Aspartate Amino Transf (AST/SGOT) 68, Alanine Aminotransferase (ALT/SGPT) 69, Alkaline Phosphatase 151, Total Protein 6.8, Albumin 3.1 01/03/20 13:52: Coronavirus 2019 (CLYDE) Negative 01/03/20 14:18: Coronavirus (COVID-19)(PCR) Negative 01/03/20 14:45: Blood Gas Puncture Site R RAD, Blood Gas Patient Temperature 37, Arterial Blood pH 7.40, Arterial Blood Partial Pressure CO2 40, Arterial Blood Partial Pressure O2 66, Arterial Blood HCO3 24, Arterial Blood Total CO2 25.6, Arterial Blood Oxygen Saturation 91, Arterial Blood Base Excess 0.2, Junito Test NA, Blood Gas Ventilator Setting NO, Blood Gas Inspired Oxygen 2L 01/03/20 14:50: White Blood Count 11.2, Red Blood Count 3.80, Hemoglobin 12.5, Hematocrit 39, Mean Corpuscular Volume 103, Mean Corpuscular Hemoglobin 33, Mean Corpuscular Hemoglobin Concent 32, Red Cell Distribution Width 13.4, Platelet Count 272, Mean Platelet Volume 12.1, Immature Granulocyte % (Auto) 0, Neutrophils (%) (Auto) 49, Lymphocytes (%) (Auto) 26, Monocytes (%) (Auto) 16, Eosinophils (%) (Auto) 8, Basophils (%) (Auto) 1, Neutrophils # (Auto) 5.5, Lymphocytes # (Auto) 2.9, Monocytes # (Auto) 1.7, Eosinophils # (Auto) 0.9, Basophils # (Auto) 0.1, Immature Granulocyte # (Auto) 0.0, D-Dimer 1.90, Sodium Level 141, Potassium Level 4.2, Chloride Level 106, Carbon Dioxide Level 26, Anion Gap 9, Blood Urea Nitrogen 28, Creatinine 1.79, Estimat Glomerular Filtration Rate 37, BUN/Creatinine Ratio 16, Glucose Level 134, Lactic Acid Level 1.57, Calcium Le sasha 8.4, Corrected Calcium 9.0, Total Bilirubin 0.5, Aspartate Amino Transf (AST/SGOT) 51, Alanine Aminotransferase (ALT/SGPT) 57, Alkaline Phosphatase 143, C-Reactive Protein High Sensitivity 1.19, B-Type Natriuretic Peptide 49.6, Total Protein 7.5, Albumin 3.3, Procalcitonin 0.07 01/04/20 06:10: White Blood Count 9.5, Red Blood Count 3.77, Hemoglobin 12.5, Hematocrit 38, Mean Corpuscular Volume 102, Mean Corpuscular Hemoglobin 33, Mean Corpuscular Hemoglobin Concent 33, Red Cell Distribution Width 13.4, Platelet Count 262, Mean Platelet Volume 12.1, Immature Granulocyte % (Auto) 0, Neutrophils (%) (Auto) 48, Lymphocytes (%) (Auto) 21, Monocytes (%) (Auto) 18, Eosinophils (%) (Auto) 13, Basophils (%) (Auto) 1, Neutrophils # (Auto) 4.5, Lymphocytes # (Auto) 2.0, Monocytes # (Auto) 1.7, Eosinophils # (Auto) 1.2, Basophils # (Auto) 0.1, Immature Granulocyte # (Auto) 0.0, Sodium Level 142, Potassium Level 4.2, Chloride Level 106, Carbon Dioxide Level 24, Anion Gap 12, Blood Urea Nitrogen 29, Creatinine 1.78, Estimat Glomerular Filtration Rate 37, BUN/Creatinine Ratio 16, Glucose Level 104, Lactic Acid Level 0.91, Calcium Level 8.3, Corrected Calcium 9.0, Total Bilirubin 0.5, Aspartate Amino Transf (AST/SGOT) 45, Alanine Aminotransferase (ALT/SGPT) 49, Alkaline Phosphatase 125, Total Protein 6.9, Albumin 3.1, Procalcitonin 0.07, Neutrophils % (Manual) 59, Lymphocytes % (Manual) 18, Monocytes % (Manual) 12, Eosinophils % (Manual) 11, Acanthocytes SLIGHT 01/05/20 08:00: White Blood Count 9.8, Red Blood Count 3.66, Hemoglobin 12.2, Hematocrit 38, Mean Corpuscular Volume 103, Mean Corpuscular Hemoglobin 33, Mean Corpuscular Hemoglobin Concent 32, Red Cell Distribution Width 13.4, Platelet Count 298, Mean Platelet Volume 11.9, Immature Granulocyte % (Auto) 0, Neutrophils (%) (Auto) 56, Lymphocytes (%) (Auto) 18, Monocytes (%) (Auto) 15, Eosinophils (%) (Auto) 10, Basophils (%) (Auto) 1, Neutrophils # (Auto) 5.4, Lymphocytes # (Auto) 1.7, Monocytes # (Auto) 1.5, Eosinophils # (Auto) 1.0, Basophils # (Auto) 0.1, Immature Granulocyte # (Auto) 0.0, Sodium Level 139, Potassium Level 4.1, Chloride Level 106, Carbon Dioxide Level 21, Anion Gap 12, Blood Urea Nitrogen 28, Creatinine 1.78, Estimat Glomerular Filtration Rate 37, BUN/Creatinine Ratio 16, Glucose Level 145, Calcium Level 8.7, Corrected Calcium 9.3, Total Bilirubin 0.6, Aspartate Amino Transf (AST/SGOT) 48, Alanine Aminotransferase (ALT/SGPT) 49, Alkaline Phosphatase 120, Total Protein 7.3, Albumin 3.3, Procalcitonin 0.08 01/08/20 04:23: White Blood Count 11.8, Red Blood Count 3.23, Hemoglobin 10.7, Hematocrit 33, Mean Corpuscular Volume 103, Mean Corpuscular Hemoglobin 33, Mean Corpuscular Hemoglobin Concent 32, Red Cell Distribution Width 13.3, Platelet Count 245, Mean Platelet Volume 12.5, Immature Granulocyte % (Auto) 0, Neutrophils (%) (Auto) 49, Lymphocytes (%) (Auto) 21, Monocytes (%) (Auto) 19, Eosinophils (%) (Auto) 11, Basophils (%) (Auto) 1, Neutrophils # (Auto) 5.8, Lymphocytes # (Auto) 2.4, Monocytes # (Auto) 2.2, Eosinophils # (Auto) 1.2, Basophils # (Auto) 0.1, Immature Granulocyte # (Auto) 0.0, Sodium Level 142, Potassium Level 4.3, Chloride Level 107, Carbon Dioxide Level 24, Anion Gap 11, Blood Urea Nitrogen 30, Creatinine 1.60, Estimat Glomerular Filtration Rate 42, BUN/Creatinine Ratio 19, Glucose Level 102, Calcium Level 8.1, Corrected Calcium 8.9, Total Bilirubin 0.4, Aspartate Amino Transf (AST/SGOT) 44, Alanine Aminotransferase (ALT/SGPT) 43, Alkaline Phosphatase 115, Total Protein 6.4, Albumin 3.0 01/08/20 06:09: Stool Occult Blood Immunoassay POSITIVE Discharge Home Medications: Active Scripts Active Guaifenesin AC Cough Syrup (Guaifenesin/Codeine Phosphate) 473 Ml Liquid 5 Ml PO Q4H Melatonin 3 Mg Tablet 3 Mg PO HS PRN Boudreauxs (Zinc Oxide) 28 Gm Oint 0 Gm TOP NEEDED PRN Pantoprazole Sodium 40 Mg Tablet.dr 40 Mg PO DAILY Xanax Tablet (Alprazolam) 0.25 Mg Tab 0.25 Mg PO HS Aspirin EC (Aspirin) 81 Mg Tablet.dr 81 Mg PO DAILY Albuterol Sulfate 2.5 Mg/3 Ml Vial.neb 2.5 Mg INH RTBID Sertraline HCl 25 Mg Tablet 25 Mg PO DAILY Plavix (Clopidogrel Bisulfate) 75 Mg Tablet 75 Mg PO DAILY Atorvastatin Calcium 40 Mg Tablet 40 Mg PO HS Reported Xalatan (Latanoprost) 2.5 Ml Drops 1 Drop OU HS Vitamin D3 (Cholecalciferol (Vitamin D3)) 25 Mcg Tab.chew 25 Mcg PO DAILY Famotidine 20 Mg Tablet 20 Mg PO BID PRN Instructions to patient/family Please see electronic discharge instructions given to patient. Diagnosis/Problems Diagnosis/Problems (1) CVA (cerebral vascular accident) Qualifiers: Qualified Codes: I63.9 - Cerebral infarction, unspecified (2) Lymphoma in remission (3) Renal insufficiency (4) Expressive aphasia (5) Confusion (6) Anemia (7) Retention, urine (8) Delirium Clinical Quality Measures DVT/VTE Risk/Contraindication: Risk Factor Score Per Nursin RFS Level Per Nursing on Admit: 2=Moderate JAMAL CANADA DO Jan 12, 2020 12:18
--- NOTE | 2020-01-12 12:51 | NUR ---
CM/SS DISCHARGE Patient discharged home today with his and family as planned. HHC: Finalized with Roberta Kilpatrick, confirmed receipt of discharge orders/instructions and that they will see patient Wednesday. DME: [facility] delivered O2 and FWW, they partnered directly with patient's family regarding having them come to the agency for nebulizer and further instructions for home equipment. [employer] Project Manager assisted with escort down to awaiting family, patient's son John flew in last night from [place] and will stay approximately 10 days to assist with patient's adjustment in the home.
--- NOTE | 2020-01-15 11:43 | Therapy Team Discharge Summary ---
Therapy Discharge Summary Discharge Recommendations Date of Discharge Jan 12, 2020 at 11:28 Therapy D/C Recommendations: 24 hr Supervision, Home w/ Family Support, Occupational Therapy Home Care Occupational Therapy Pt. has been seen by occupational therapy to increase overall strength and independence with daily tasks. Pt. has met some goals, but requires continued assistance/supervision/SBA with others. Pt. discharged home with family, and OT recommends follow up home health therapy. Decreased Activ Tolerance, Decreased Safety Aware, Decreased UE Strength, Impaired Funct Balance, Impaired I ADL's, Impaired Self-Care Skills PT Project Planner Goals Senior Living Goals PT Project Planner Goals Time Frame: Jan 16, 2020 Roll Left to Right (QC): 6 Sit to Lying (QC): 6 Lying-Sitting on Side/Bed(QC): 6 Sit to Stand (QC): 6 Chair/[place]-Pldew Xfer(QC): 6 Car Transfer (QC): 6 Does the Patient Walk: Yes Walk 10 feet (QC): 6 Walk 10ft-Uneven Surface(QC): 6 Walk 50ft with 2 Turns (QC): 6 Walk 150 ft (QC): 6 Wheel 50 feet with 2 turns (QC: 9 1 Step (curb) (QC): 6 4 Steps (QC): 6 12 Steps (QC): 6 Picking up an Object (QC): 6 OT Project Planner Goals Senior Living Goals Time Frame: Jan 09, 2020 Eating (FIM): 6 (not met) Eating (QC): 6 (not met) Oral Hygiene (QC): 5 (not met) Shower/Bathe Self (QC): 4 (met) Upper Body Dressing (QC): 5 (not met) Lower Body Dressing (QC): 5 (not met) On/Off Footwear (QC): 5 (met) Toileting(FIM): 6 (met) Toileting Hygiene (QC): 6 (met) Toilet/Commode Transfer (QC): 6 (met) Additional Goals: 1-Demonstrate ADL Tasks, 2-Verbalize Understanding, 3- ImproveStrength/Negrita 1=Demonstrate adherence to instructed precautions during ADL tasks. 2=Patient will verbalize/demonstrate understanding of assistive devices/modifications for ADL. 3=Patient will improve strength/tolerance for activity to enable patient to perform ADL's. Speech Project Planner Goals Senior Living Goals Patient will improve cognitive-communication necessary for safety and daily living tasks with minimal assist. Patient will maintain adequate nutrition/hydration via safe effective swallow function. VU YOST OT Jan 15, 2020 11:43
== END 2020-01-12 11:28 | disposition home health service (06) | DRG 56 ==
PROVIDERS: ADMIT Internal Medicine; ATTEND Internal Medicine
DX: I69.320 Aphasia following cerebral infarction (principal); G93.41 Metabolic encephalopathy; J18.9 Pneumonia, unspecified organism; C85.10 Unspecified B-cell lymphoma, unspecified site; E44.0 Moderate protein-calorie malnutrition; K92.1 Melena; I85.00 Esophageal varices without bleeding; I69.318 Other symptoms and signs involving cognitive functions following cerebral infarction; Z20.828 Contact with and (suspected) exposure to other viral communicable diseases; I12.9 Hypertensive chronic kidney disease with stage 1 through stage 4 chronic kidney disease, or unspecified chronic kidney disease; I69.391 Dysphagia following cerebral infarction; R13.10 Dysphagia, unspecified; K20.90 Esophagitis, unspecified without bleeding; J84.10 Pulmonary fibrosis, unspecified; K29.70 Gastritis, unspecified, without bleeding; J44.9 Chronic obstructive pulmonary disease, unspecified; R09.02 Hypoxemia; E11.22 Type 2 diabetes mellitus with diabetic chronic kidney disease; N18.30 Chronic kidney disease, stage 3 unspecified; R33.9 Retention of urine, unspecified; E78.5 Hyperlipidemia, unspecified; K21.9 Gastro-esophageal reflux disease without esophagitis; I73.9 Peripheral vascular disease, unspecified; Z68.24 Body mass index [BMI] 24.0-24.9, adult; E78.00 Pure hypercholesterolemia, unspecified; I65.23 Occlusion and stenosis of bilateral carotid arteries; Z90.81 Acquired absence of spleen
CPT/HCPCS: 36415; 71046; 71250; 74230; 80053; 82274; 82805; 83605; 83880; 84145; 85007; 85025; 85027; 85379; 86141; 87040; 87635; 94640; 94760; 94761

== ENCOUNTER → 2020-01-09 | Day surgery (SDC) | payer MEDICARE, OTHER ==
[~2020-01-09] MED LIST: ALBU2.5V4 INH; ALPR.25T PO; ASPI-1238 PO; ATOR40TA70 PO; CHOL10008 PO; CLOP75TA69 PO; ESOM20CA PO; FAMO20TA5 PO; GUAI473L29 PO; LACTATED RINGERS 1,000 ML IV ONE; LATA2.5D19 OU; LATA2.5D5 OU; MELA3TAB39 PO; PANT40TA52 PO; SERT25TA5 PO; ZINC28PA TOP; proPOfol 200 MG/20 ML (DIPRIVAN) VIAL IV ONE
[2020-01-09 09:00] VITALS: BP 107/50
[2020-01-09 09:05] VITALS: BP 109/54
[2020-01-09 09:10] VITALS: BP 107/56
[2020-01-09 09:15] VITALS: BP 111/58
--- NOTE | 2020-01-09 12:23 | OPERATIVE REPORT ---
DATE OF SERVICE: PREOPERATIVE DIAGNOSES: Melena, dysphagia and esophagitis seen on CT. POSTOPERATIVE DIAGNOSES: Gastritis, duodenitis, esophagitis with esophageal varices. PROCEDURE: EGD with biopsy. SURGEON: Heriberto Liz DO CLINIC CHARGE NURSE: None. ANESTHESIA: IV sedation by the MARKETING OPERATIONS CONSULTANT. SPECIMEN: Duodenal biopsy, antral biopsy and body of stomach biopsy. BLOOD LOSS: Scant. FLUIDS: Per anesthesia. POSTOPERATIVE CONDITION: Stable. INDICATION FOR PROCEDURE: The patient is an 84-year-old male, who had some difficulty swallowing and he had a CT, which showed esophagitis of distal esophagus as well. He had some melena and needed a workup. FINDINGS: The patient had some esophageal varices, gastritis and what looked like duodenitis as well. PROCEDURE NOTE: After informed consent was obtained, the patient was brought to the endoscopy suite, placed in bed in left lateral decubitus position. He was administered IV sedation by the MARKETING OPERATIONS CONSULTANT who monitored his vitals the entire time, heart rate, blood pressure and pulse ox and the scope was inserted down the mouth into the esophagus, saw some thickening and what looked like maybe irritation at the distal esophagus. Pushed pass this into the stomach. There was some blood seen at the antrum right at the pyloric opening, pushed pass this into the duodenum. Duodenum looked good. There is petechia took a picture of this and then did a biopsy of the duodenum, pulled back and did a biopsy of the antrum. Retroflexed the scope, did not really have a hiatal hernia, but did have some more gastritis in the stomach, took a picture and then did a biopsy of the antrum as well, then pulled up into the esophagus and noted large varices in the esophagus also did appear to be maybe some irritation here, but elected not to biopsy this. The varices appeared to go up the distal portion of the esophagus, but the upper half to maybe two-third did not have any varices. At this point, then pushed the scope back into the stomach, suctioned the air out of the stomach and pulled the scope up the esophagus and out the mouth. The patient tolerated the procedure. He was recovered in endoscopy suite. Job ID: [id number] DocumentID: [id number] Dictated Date: 01/09/2020 10:07:40 Network Technician Date: 01/09/2020 12:22:59 Dictated By: HERIBERTO LIZ DO [facility]
--- NOTE | 2020-01-09 14:17 | Anesthesia-General Post-Op ---
MAC Patient Condition Mental Status/LOC: Same as Preop Cardiovascular: Satisfactory Nausea/Vomiting: Absent Respiratory: Satisfactory Pain: Controlled Complications: Absent Post Op Complications Complications None Follow Up Care/Instructions Patient Instructions None needed. Anesthesiology Discharge Order Discharge Order Patient was seen this morning after the procedure and he was awake and alert and doing well, no complaints, stable vital signs, no apparent adverse anesthesia problems. JOSH GOODRICH DO Jan 09, 2020 14:17
== END ==
LOC: ENDO 07:32
PROVIDERS: ATTEND Surgery
DX: K21.00 Gastro-esophageal reflux disease with esophagitis, without bleeding (principal); K92.1 Melena; K29.90 Gastroduodenitis, unspecified, without bleeding; I85.00 Esophageal varices without bleeding; I12.9 Hypertensive chronic kidney disease with stage 1 through stage 4 chronic kidney disease, or unspecified chronic kidney disease; N18.9 Chronic kidney disease, unspecified; E11.22 Type 2 diabetes mellitus with diabetic chronic kidney disease; J44.9 Chronic obstructive pulmonary disease, unspecified; K21.9 Gastro-esophageal reflux disease without esophagitis; E78.00 Pure hypercholesterolemia, unspecified; M19.90 Unspecified osteoarthritis, unspecified site; Z79.82 Long term (current) use of aspirin; Z79.899 Other long term (current) drug therapy; Z86.73 Personal history of transient ischemic attack (TIA), and cerebral infarction without residual deficits; Z85.72 Personal history of non-Hodgkin lymphomas; Z80.9 Family history of malignant neoplasm, unspecified
CPT/HCPCS: 88305